=== PATIENT | male | born 1940 | race Caucasian/White ===

== ENCOUNTER 2019-10-19 17:18 | Inpatient (IN) | payer OTHER ==
[~2019-10-19] VITALS: Ht 172.7 cm; Wt 76.0 kg
[~2019-10-19 17:18] MED LIST: AMLODIPINE BESY10 MG PO; ASPIR 8181 MG PO; AVODART0.5 MG PO; B12 5,000 MCG1 EACH PO; FENOFIBRATE160 MG PO; FLOMAX0.4 MG PO; GLIPIZIDE-METF1 EAC2 PO; HYDROCHLOROTHIA25 MG PO; LASIX40 MG PO; LIPITOR10 MG PO; LISINOPRIL40 MG PO; LOPRESSOR25 MG PO; METFORMIN HCL500 MG PO; NIACIN500 M1 PO; OMEGA 3 FISH O1 EACH PO; PLAVIX75 MG PO; POT CITRATE PO; SUPER B COMPLE150 MG PO; VITAMIN C500 MG PO; ZESTRIL20 MG PO
--- OUTSIDE RECORDS SUMMARY | 2019-10-19 17:20 | XMS REPORT ---
Author [facility] Address Unknown Phone Unavailable Care Team Providers Care Web Merchant Name Role Phone ANGLE RIVERO Unavailable Unavailable Payers Payer Name Policy Type Policy Number Effective Date Expiration Date Problems This patient has no known problems. Allergies, Adverse Reactions, Alerts This patient has no known allergies or adverse reactions. Medications This patient has no known medications. Results Test Description Test Time Test Comments Text Results Atomic Results Result Comments MICROALBUMIN UR 2019-09-03 16:08:00 MICROALBUMIN UR (test code=MICROALBUR) 133.2 ug/mL Not Estab. Performed At: [facility] [address] [id number] Logan MD Ph:[phone] URINALYSIS [id number] 11:42:00* Test Item Value Reference Range Comments UA COLOR (test code=COLU) PALE YELLOW DISCRIPT YELLOW UA APPEARANCE (test code=APPU) CLEAR DISCRIPT CLEAR UA GLUCOSE DIPSTICK (test code=DGLUU) NEGATIVE mg/dL NEGATIVE UA BILIRUBIN DIPSTICK (test code=BILU) NEGATIVE NEGATIVE UA KETONE DIPSTICK (test code=KETU) NEGATIVE mg/dL NEGATIVE UA SPECIFIC GRAVITY (test code=SGU) 1.015 1.005-1.030 UA BLOOD DIPSTICK (test code=ANGIE) NEGATIVE NEGATIVE UA PH DIPSTICK (test code=YAN) 5.5 5.0-9.0 UA PROTEIN DIPSTICK (test code=PROU) 30 mg/dL NEGATIVE UA UROBILINOGEN DIPSTICK (test code=URO) 0.2 mg/dL 0.2-1.0 UA NITRITE DIPSTICK (test code=ANNIE) NEGATIVE NEGATIVE UA LEUKOCYTE ESTERASE DIPSTICK (test code=LEUU) NEGATIVE NEGATIVE UA [id number] 11:42:00* Test Item Value Reference Range Comments UA WBC (test code=WBCU) 0-2 #WBC/HPF 0-2 UA RBC (test code=RBCU) 0-2 #RBC/HPF 0-2 UA BACTERIA (test code=BACU) OCCASIONAL /HPF NONE-TRACE UA SQUAMOUS CELLS (test code=SQU) TRACE /LPF NONE-TRACE UA MUCUS (test code=MUCU) OCCASIONAL /LPF NONE SEEN CBC W/AUTO [id number] 11:02:00* Test Item Value Reference Range Comments WHITE BLOOD CELL (test code=WBC) 8.6 x10 3/uL 4.8-10.8 RED BLOOD CELL (test code=RBC) 3.43 x10 6/uL 4.70-6.10 HEMOGLOBIN (test code=HGB) 10.3 g/dL 14.5-20 HEMATOCRIT (test code=HCT) 31.2 % 42.0-52.0 MEAN CELL VOLUME (test code=MCV) 91.0 fL 80.0-94.0 MEAN CELL HGB (test code=MCH) 30.0 pg 27-31 MEAN CELL HGB CONCENTRATION (test code=MCHC) 33.0 G/DL 33-36.5 RED CELL DISTRIBUTION WIDTH (test code=RDW) 18.6 % 12.9-16.9 PLATELET COUNT (test code=PLT) 339 150-440 MEAN PLATELET VOLUME (test code=MPV) 11.5 fL 8.9-12.4 NEUTROPHIL % (test code=NT%) 54.0 % 42.2-75.2 LYMPHOCYTE % (test code=LY%) 27.2 % 20.5-51.1 MONOCYTE % (test code=MO%) 13.6 % 1.7-9.3 EOSINOPHIL % (test code=EO%) 3.9 % 0.0-7.0 BASOPHIL % (test code=BA%) 0.9 % 0-2.5 NEUTROPHIL # (test code=NT#) 4.63 x10 3/uL 1.80-7.70 LYMPHOCYTE # (test code=LY#) 2.33 x10 3/uL 1.00-4.80 MONOCYTE # (test code=MO#) 1.16 x10 3/uL 0.00-0.80 EOSINOPHIL # (test code=EO#) 0.33 x10 3/uL 0.00-0.45 BASOPHIL # (test code=BA#) 0.08 x10 3/uL 0.0-0.20 URINALYSIS [id number] 10:57:00* Test Item Value Reference Range Comments UA COLOR (test code=COLU) PALE YELLOW DISCRIPT YELLOW UA APPEARANCE (test code=APPU) CLEAR DISCRIPT CLEAR UA GLUCOSE DIPSTICK (test code=DGLUU) NEGATIVE mg/dL NEGATIVE UA BILIRUBIN DIPSTICK (test code=BILU) NEGATIVE NEGATIVE UA KETONE DIPSTICK (test code=KETU) NEGATIVE mg/dL NEGATIVE UA SPECIFIC GRAVITY (test code=SGU) 1.015 1.005-1.030 UA BLOOD DIPSTICK (test code=ANGIE) NEGATIVE NEGATIVE UA PH DIPSTICK (test code=YAN) 5.5 5.0-9.0 UA PROTEIN DIPSTICK (test code=PROU) 30 mg/dL NEGATIVE UA UROBILINOGEN DIPSTICK (test code=URO) 0.2 mg/dL 0.2-1.0 UA NITRITE DIPSTICK (test code=ANNIE) NEGATIVE NEGATIVE UA LEUKOCYTE ESTERASE DIPSTICK (test code=LEUU) NEGATIVE NEGATIVE UA [id number] 10:57:00* Test Item Value Reference Range Comments UA WBC (test code=WBCU) #WBC/HPF 0-2 UA RBC (test code=RBCU) #RBC/HPF 0-2 UA BACTERIA (test code=BACU) /HPF NONE-TRACE UA SQUAMOUS CELLS (test code=SQU) /LPF NONE-TRACE URINALYSIS [id number] 10:57:00* Test Item Value Reference Range Comments UA COLOR (test code=COLU) PALE YELLOW DISCRIPT YELLOW UA APPEARANCE (test code=APPU) CLEAR DISCRIPT CLEAR UA GLUCOSE DIPSTICK (test code=DGLUU) NEGATIVE mg/dL NEGATIVE UA BILIRUBIN DIPSTICK (test code=BILU) NEGATIVE NEGATIVE UA KETONE DIPSTICK (test code=KETU) NEGATIVE mg/dL NEGATIVE UA SPECIFIC GRAVITY (test code=SGU) 1.015 1.005-1.030 UA BLOOD DIPSTICK (test code=ANGIE) NEGATIVE NEGATIVE UA PH DIPSTICK (test code=YAN) 5.5 5.0-9.0 UA PROTEIN DIPSTICK (test code=PROU) 30 mg/dL NEGATIVE UA UROBILINOGEN DIPSTICK (test code=URO) 0.2 mg/dL 0.2-1.0 UA NITRITE DIPSTICK (test code=ANNIE) NEGATIVE NEGATIVE UA LEUKOCYTE ESTERASE DIPSTICK (test code=LEUU) NEGATIVE NEGATIVE UA [id number] 10:57:00* Test Item Value Reference Range Comments UA WBC (test code=WBCU) #WBC/HPF 0-2 UA RBC (test code=RBCU) #RBC/HPF 0-2 UA BACTERIA (test code=BACU) /HPF NONE-TRACE UA SQUAMOUS CELLS (test code=SQU) /LPF NONE-TRACE COMPREHENSIVE METABOLIC [id number] 10:52:00* Test Item Value Reference Range Comments SODIUM (test code=NA) 139 MMOL/L 136-143 POTASSIUM (test code=K) 4.4 MMOL/L 3.5-5.1 CHLORIDE (test code=CL) 101 MMOL/L 98-107 CARBON DIOXIDE (test code=CO2) 24 mmol/L 24-31 GLUCOSE (test code=GLU) 117 mg/dL 70-104 BLOOD UREA NITROGEN (test code=BUN) 82.0 MG/DL 7.0-21.0 GLOMERULAR FILTRATION RATE (test code=GFR) 14 >60 The estimated glomerular filtration rate is computed usingpatient race, age (>18), sex, and serum creatinine. If anyof the needed data elements are missing the Laboratory cannot compute an estimation of the glomerular filtration rate. CREATININE (test code=CREAT) 4.3 mg/dL 0.8-1.5 TOTAL PROTEIN (test code=PROT) 6.2 g/dL 6.3-8.3 ALBUMIN (test code=ALB) 3.0 G/DL 3.5-5.0 CALCIUM (test code=CA) 8.9 mg/dL 8.8-10.2 BILIRUBIN TOTAL (test code=BILT) 0.9 mg/dL 0.2-1.0 SGOT/AST (test code=AST) 30 IU/L 10-34 SGPT/ALT (test code=ALT) 10 U/L 10-44 ALKALINE PHOSPHATASE (test code=ALKP) 37 U/L 45-120 PLATELET AGGREGATION: FUNCTION [id number] 14:59:00* Test Item Value Reference Range Comments [id number] (BEAKER) (test jgrc=7211) Estelita Rausch MD (electronic signature) PLATELET COUNT AGG (BEAKER) (test aytt=0633) 285 K/CU MM 150-450 PLATELET RICH PLASMA(BEAKER) (test yxsx=8785) 195 k/cu mm 200-300 PLATELET FUNCTION SCREEN INTERPRETATION (BEAKER) (test czrb=5699) Pattern of disaggregation present with ADP which may be characteristic of P2Y12 inhibitor effect. Correlation with medication history is required. Platelet Function Screen results may be falsely low with platelet counts< 75,000/cu mm.POCT-GLUCOSE [id number] 11:36:00* Test Item Value Reference Range Comments POC-GLUCOSE METER (BEAKER) (test fpgo=3805) 219 mg/dL 70-110 : TESTED AT [address], [address]: Senior Product Analyst/Barrel Charrer Helper ON=[id number] for DELMY POLLOCK CBC W/PLT COUNT & AUTO [id number] 11:00:00* Test Item Value Reference Range Comments WHITE BLOOD CELL COUNT (BEAKER) (test nubk=242) 9.4 K/ L 3.5-10.5 RED BLOOD CELL COUNT (BEAKER) (test bevp=622) 2.52 M/ L 4.63-6.08 HEMOGLOBIN (BEAKER) (test erpj=815) 7.6 GM/DL 13.7-17.5 HEMATOCRIT (BEAKER) (test mhvx=125) 23.1 % 40.1-51.0 MEAN CORPUSCULAR VOLUME (BEAKER) (test tsfx=359) 91.7 fL 79.0-92.2 MEAN CORPUSCULAR HEMOGLOBIN (BEAKER) (test azxg=048) 30.2 pg 25.7-32.2 MEAN CORPUSCULAR HEMOGLOBIN CONC (BEAKER) (test xbpw=884) 32.9 GM/DL 32.3-36.5 RED CELL DISTRIBUTION WIDTH (BEAKER) (test lgkn=259) 17.5 % 11.6-14.4 PLATELET COUNT (BEAKER) (test xgej=674) 279 K/CU MM 150-450 MEAN PLATELET VOLUME (BEAKER) (test tvld=936) 11.6 fL 9.4-12.4 NUCLEATED RED BLOOD CELLS (BEAKER) (test tdqo=697) 0 /100 WBC 0-0 NEUTROPHILS RELATIVE PERCENT (BEAKER) (test mwzd=956) 63 % LYMPHOCYTES RELATIVE PERCENT (BEAKER) (test wqtt=357) 20 % MONOCYTES RELATIVE PERCENT (BEAKER) (test gcmn=809) 11 % EOSINOPHILS RELATIVE PERCENT (BEAKER) (test tgjl=463) 4 % BASOPHILS RELATIVE PERCENT (BEAKER) (test korx=654) 1 % NEUTROPHILS ABSOLUTE COUNT (BEAKER) (test xawd=567) 5.94 K/ L 1.78-5.38 LYMPHOCYTES ABSOLUTE COUNT (BEAKER) (test eyfz=784) 1.90 K/ L 1.32-3.57 MONOCYTES ABSOLUTE COUNT (BEAKER) (test phux=673) 1.04 K/ L 0.30-0.82 EOSINOPHILS ABSOLUTE COUNT (BEAKER) (test qahm=191) 0.39 K/ L 0.04-0.54 BASOPHILS ABSOLUTE COUNT (BEAKER) (test wion=797) 0.10 K/ L 0.01-0.08 IMMATURE GRANULOCYTES-RELATIVE PERCENT (BEAKER) (test bvxe=6601) 1 % 0-1 POCT-GLUCOSE [id number] 07:32:00* Test Item Value Reference Range Comments POC-GLUCOSE METER (BEAKER) (test xszm=4574) 127 mg/dL 70-110 : TESTED AT [address], [address]: Senior Product Analyst/Barrel Charrer Helper NS=[id number] for DELMY POLLOCK BASIC METABOLIC [id number] 06:00:00* Test Item Value Reference Range Comments SODIUM (BEAKER) (test mcqf=960) 136 meq/L 136-145 POTASSIUM (BEAKER) (test pxam=788) 3.8 meq/L 3.5-5.1 CHLORIDE (BEAKER) (test xshj=472) 106 meq/L 98-107 CO2 (BEAKER) (test quxc=615) 22 meq/L 22-29 BLOOD UREA NITROGEN (BEAKER) (test hhxb=815) 60 mg/dL 7-21 CREATININE (BEAKER) (test udlx=810) 4.00 mg/dL 0.57-1.25 GLUCOSE RANDOM (BEAKER) (test untn=835) 133 mg/dL 70-105 CALCIUM (BEAKER) (test jcwh=724) 7.4 mg/dL 8.4-10.2 EGFR (BEAKER) (test aapg=3999) 15 mL/min/1.73 sq m ESTIMATED GFR IS NOT ACCURATE CREATININE CLEARANCE IN PREDICTING GLOMERULAR FILTRATION RATE. ESTIMATED GFR IS NOT APPLICABLE FOR DIALYSIS PATIENTS. CBC (HEMOGRAM ONLY)2019-06-12 04:49:00* Test Item Value Reference Range Comments WHITE BLOOD CELL COUNT (BEAKER) (test mbik=905) 10.2 K/ L 3.5-10.5 RED BLOOD CELL COUNT (BEAKER) (test vfpz=262) 2.51 M/ L 4.63-6.08 HEMOGLOBIN (BEAKER) (test jjfm=896) 7.5 GM/DL 13.7-17.5 HEMATOCRIT (BEAKER) (test ymdf=835) 22.7 % 40.1-51.0 MEAN CORPUSCULAR VOLUME (BEAKER) (test dqdb=483) 90.4 fL 79.0-92.2 MEAN CORPUSCULAR HEMOGLOBIN (BEAKER) (test eyvk=472) 29.9 pg 25.7-32.2 MEAN CORPUSCULAR HEMOGLOBIN CONC (BEAKER) (test pyry=954) 33.0 GM/DL 32.3-36.5 RED CELL DISTRIBUTION WIDTH (BEAKER) (test yscc=887) 17.9 % 11.6-14.4 PLATELET COUNT (BEAKER) (test aouv=690) 272 K/CU MM 150-450 MEAN PLATELET VOLUME (BEAKER) (test xmhb=193) 10.9 fL 9.4-12.4 NUCLEATED RED BLOOD CELLS (BEAKER) (test wlzg=266) 0 /100 WBC 0-0 POCT-GLUCOSE [id number] 23:20:00* Test Item Value Reference Range Comments POC-GLUCOSE METER (BEAKER) (test xqah=3967) 161 mg/dL 70-110 : TESTED AT [facility] [address] [facility], [address]: Senior Product Analyst/Barrel Charrer Helper PI=[id number] for DEION FATIMA [id number] 17:48:00* Test Item Value Reference Range Comments ACTIVATED CLOTTING TIME (BEAKER) (test jyea=404) 147 sec Reference Range: 74-137 seconds, Baseline/TESTED AT [place] [address] [id number] 16:28:00* Test Item Value Reference Range Comments ACTIVATED CLOTTING TIME (BEAKER) (test rwth=650) 153 sec Reference Range: 74-137 seconds, Baseline/TESTED AT [place] [address] [id number] 14:34:00* Test Item Value Reference Range Comments ACTIVATED CLOTTING TIME (BEAKER) (test enkk=359) 175 sec Reference Range: 74-137 seconds, Baseline/TESTED AT [place] [address] POCT-GLUCOSE [id number] 12:12:00* Test Item Value Reference Range Comments POC-GLUCOSE METER (BEAKER) (test rxxs=7250) 127 mg/dL 70-110 : TESTED AT [place] [address]: Senior Product Analyst/Barrel Charrer Helper CM=[id number] for DELMY POLLOCK [id number] 10:49:00* Test Item Value Reference Range Comments ACTIVATED CLOTTING TIME (BEAKER) (test gcpy=526) 252 sec Reference Range: 74-137 seconds, Baseline/TESTED AT [place] [address] [id number] 10:28:00* Test Item Value Reference Range Comments ACTIVATED CLOTTING TIME (BEAKER) (test bxak=534) 274 sec Reference Range: 74-137 seconds, Baseline/TESTED AT [place] [address] [id number] 10:16:00* Test Item Value Reference Range Comments ACTIVATED CLOTTING TIME (BEAKER) (test uzqj=302) 246 sec Reference Range: 74-137 seconds, Baseline/TESTED AT [place] [address] BASIC METABOLIC [id number] 16:44:00* Test Item Value Reference Range Comments SODIUM (BEAKER) (test qiuk=425) 134 meq/L 136-145 POTASSIUM (BEAKER) (test qcpt=222) 5.2 meq/L 3.5-5.1 Specimen moderately hemolyzed CHLORIDE (BEAKER) (test dgmt=363) 104 meq/L 98-107 CO2 (BEAKER) (test irsw=232) 24 meq/L 22-29 BLOOD UREA NITROGEN (BEAKER) (test ykga=444) 52 mg/dL 7-21 CREATININE (BEAKER) (test xtdm=294) 3.72 mg/dL 0.57-1.25 Specimen moderately hemolyzed GLUCOSE RANDOM (BEAKER) (test tkbu=238) 103 mg/dL 70-105 CALCIUM (BEAKER) (test ldjf=527) 7.5 mg/dL 8.4-10.2 EGFR (BEAKER) (test psma=6671) 16 mL/min/1.73 sq m ESTIMATED GFR IS NOT ACCURATE CREATININE CLEARANCE IN PREDICTING GLOMERULAR FILTRATION RATE. ESTIMATED GFR IS NOT APPLICABLE FOR DIALYSIS PATIENTS. (CELLAVISION MANUAL DIFF)2019-05-18 14:24:00* Test Item Value Reference Range Comments NEUTROPHILS - REL (CELLAVISION)(BEAKER) (test elbk=0497) 67 % LYMPHOCYTES - REL (CELLAVISION)(BEAKER) (test ilwq=5727) 22 % MONOCYTES - REL (CELLAVISION)(BEAKER) (test frtd=7028) 6 % EOSINOPHILS - REL (CELLAVISION)(BEAKER) (test risa=7437) 5 % NEUTROPHILS - ABS (CELLAVISION)(BEAKER) (test ahdg=6479) 6.57 K/ul 1.78-5.38 LYMPHOCYTES - ABS (CELLAVISION)(BEAKER) (test ypir=2523) 2.16 K/ul 1.32-3.57 MONOCYTES - ABS (CELLAVISION)(BEAKER) (test frzx=5896) 0.59 K/uL 0.30-0.82 EOSINOPHILS - ABS (CELLAVISION)(BEAKER) (test uvds=9132) 0.49 K/uL 0.04-0.54 TOTAL COUNTED (BEAKER) (test oigs=2868) 100 RBC MORPHOLOGY (BEAKER) (test pecw=433) Normal LARGE PLT(BEAKER) (test fufe=4793) Present TOXIC GRANULATION (BEAKER) (test dwps=503) Present CBC WITH PLATELET COUNT + MANUAL [id number] 10:18:00* Test Item Value Reference Range Comments WHITE BLOOD CELL COUNT (BEAKER) (test dmgx=132) 9.8 K/ L 3.5-10.5 RED BLOOD CELL COUNT (BEAKER) (test tkus=663) 2.63 M/ L 4.63-6.08 HEMOGLOBIN (BEAKER) (test pkmo=340) 7.7 GM/DL 13.7-17.5 HEMATOCRIT (BEAKER) (test rcrj=128) 23.4 % 40.1-51.0 MEAN CORPUSCULAR VOLUME (BEAKER) (test cmhw=783) 89.0 fL 79.0-92.2 MEAN CORPUSCULAR HEMOGLOBIN (BEAKER) (test fpmb=182) 29.3 pg 25.7-32.2 MEAN CORPUSCULAR HEMOGLOBIN CONC (BEAKER) (test qkif=933) 32.9 GM/DL 32.3-36.5 RED CELL DISTRIBUTION WIDTH (BEAKER) (test wcjh=865) 17.0 % 11.6-14.4 PLATELET COUNT (BEAKER) (test wqzf=867) 373 K/CU MM 150-450 MEAN PLATELET VOLUME (BEAKER) (test uthb=049) 11.7 fL 9.4-12.4 NUCLEATED RED BLOOD CELLS (BEAKER) (test oqnx=228) 0 /100 WBC 0-0
[2019-10-19] MEDS ORDERED: SODIUM CHLORIDE 0.9% 1000ML 1,000 ML IV STA (17:37)
[2019-10-19 18:07] LABS: BASOPHILS % 0.2 % (0.0-1.0); EOSINOPHILS # (AUTO) 0.1 (0.0-0.4); EOSINOPHILS % 0.4 % (0.0-6.0); LYMPHOCYTES # (AUTO) 2.1 (1.0-3.2); LYMPHOCYTES % 15.4 % (18.0-39.1); MEAN CORPUSCULAR HEMOGLOBIN 30.9 pg (28-32); MEAN CORPUSCULAR HGB CONC 33.3 g/dL (31-35); MEAN CORPUSCULAR VOLUME 92.6 fL (81-99); MONOCYTES # (AUTO) 0.9 (0.2-0.8); MONOCYTES % 6.7 % (4.4-11.3); NEUTROPHILS # (AUTO) 10.2 (2.1-6.9); NEUTROPHILS % 76.6 % (38.7-80.0); PLATELET COUNT 275 x10e3/uL (140-360); RED BLOOD COUNT 1.49 x10e6/uL (4.3-5.7); RED CELL DISTRIBUTION WIDTH 20.3 % (11.7-14.4)
[2019-10-19 18:12] LABS: HEMATOCRIT 13.8 % (38.2-49.6); HEMOGLOBIN 4.6 g/dL (14.0-18.0)
[2019-10-19 18:14] LABS: INR 1.42; PROTHROMBIN TIME 18.3 seconds (11.9-14.5)
[2019-10-19] MEDS ORDERED: SODIUM CHLORIDE 0.9% 250ML 250 ML IV ONE (18:15)
--- NOTE | 2019-10-19 18:31 | Diagnostic Imaging Report ---
EXAMINATION: CHEST SINGLE (PORTABLE) INDICATION: ^ERMD ORDER ^Y COMPARISON: None FINDINGS: AP view TUBES and LINES: None. LUNGS: Lungs are well inflated. Bibasilar subsegmental atelectasis. Mild central vascular congestion. PLEURA: No pleural effusion or pneumothorax. HEART AND MEDIASTINUM: Enlarged cardiac silhouette. Prominent bilateral hilar regions, probably due to vascular congestion. BONES AND SOFT TISSUES: No acute osseous lesion. Soft tissues are unremarkable. UPPER ABDOMEN: No free air under the diaphragm. IMPRESSION: Enlarged cardiac silhouette and mild central vascular congestion. Bibasilar subsegmental atelectasis. No definite evidence of displaced rib fractures, considering limited single view. Signed by: Dr. Asael Holliday MD on 10/19/2019 6:27 PM
--- NOTE | 2019-10-19 18:32 | Diagnostic Imaging Report ---
History: Fall Comparison studies: None Technique: Axial images were obtained through the cervical region.. Coronal and sagittal images reconstructed from the axial data. Dose modulation, iterative reconstruction, and/or weight based adjustment of the mA/kV was utilized to reduce the radiation dose to as low as reasonably achievable. Intravenous contrast: None Findings: Fractures: None. Soft tissues: No gross abnormalities. Atlantoaxial articulation: Intact. Alignment: Normal lordosis. No scoliosis. Cervicomedullary junction: No abnormalities. The foramen magnum is patent. Vertebrae: No infection or neoplasm. Degenerative changes: * Mildly degenerated discs from C2 to C6, moderate at C6-C7. * Mild spinal canal stenosis at C6-C7 due to a disc osteophyte complex. Otherwise patent. * Superimposed foraminal stenosis, mild bilaterally at C3-4, mild right, moderate left C6-7 due to facet and uncoarthrosis. Additional findings: The lobes and the isthmus of the thyroid gland are enlarged and heterogeneous. Multiple hypodense foci, some of which are associated with punctate calcifications are seen. The lobes measure approximately 7.3 cm in sagittal dimension as they extend from the level of the thyroid cartilage to the thoracic inlet. The trachea is patent. Incidental findings: Atherosclerotic calcifications in the carotid bulbs and intracranial vertebral arteries. IMPRESSION: 1. No acute abnormalities. Specifically, no fractures or subluxations. 2. Cannot adequately evaluate for ligament, spinal cord and or vascular abnormalities. 3. Degenerative changes as described. 4. Incidental heterogeneous thyroid goiter. The enlarged thyroid gland extends from the level of the thyroid cartilage to the thoracic inlet. Signed by: Dr. Jeff Vazquez M.D. on 10/19/2019 6:28 PM
--- NOTE | 2019-10-19 18:33 | Diagnostic Imaging Report ---
History:Fall Comparison studies: None Technique: Axial images were obtained from the skull base to the vertex. Coronal and sagittal images reconstructed from the axial data. Dose modulation, iterative reconstruction, and/or weight based adjustment of the mA/kV was utilized to reduce the radiation dose to as low as reasonably achievable. Intravenous contrast: None Findings: Scalp/skull: No abnormalities. Extra-axial spaces: No masses. No fluid collections. Brain sulci: Moderately prominent. Ventricles: Moderate compensatory dilatation. No hydrocephalus. Parenchyma: Subtle confluent hypodensities in the supratentorial white matter are small vessel ischemic changes. No masses, hemorrhage, acute or chronic cortical vascular insults. Sellar/suprasellar region: No abnormalities. Craniocervical junction: Patent foramen magnum. No Chiari one malformation. Incidental findings: Atherosclerotic calcifications in the carotid siphons and intradural vertebral arteries. Impression: No acute abnormalities. Chronic findings: 1. Moderate generalized volume loss. 2. Mild supratentorial white matter small vessel ischemic changes. Signed by: Dr. Jeff Vazquez M.D. on 10/19/2019 6:30 PM
[2019-10-19 18:34] LABS: ALBUMIN/GLOBULIN RATIO 0.6 (0.8-2.0); ANION GAP 14.2 mmol/L (8-16); CALCIUM 8.1 mg/dL (8.4-10.2); CREATININE, SERUM 4.78 mg/dL (0.72-1.25); MAGNESIUM 2.3 MG/DL (1.3-2.1); POTASSIUM 5.2 mmol/L (3.5-5.1)
[2019-10-19 18:46] LABS: CREATINE KINASE MB 7.1 ng/mL (0-5.0); THYROID STIMULATING HORMONE 0.254 uIU/mL (0.350-4.940)
[2019-10-19] MEDS ORDERED: FUROSEMIDE INJ 10 MG/ML 2 ML VIAL IV SCH (19:15)
[2019-10-19] MEDS ORDERED: OCTREOTIDE ACETATE 0.05 MG/ML AMP IV ONE (19:15)
[2019-10-19] MEDS ORDERED: SODIUM CHLORIDE 0.9% 250ML 0 ML ONE (20:38)
[2019-10-19] MEDS: PANTOPRAZOLE 40 MG 10ML VIAL IV SCH (20:39)
[2019-10-19] MEDS: OCTREOTIDE ACETATE 500 MCG in SODIUM CHLORIDE 0.9% 250ML 249 ML IV SCH (20:40)
[2019-10-19 21:37] VITALS: BP 102/42
[2019-10-19 21:43] VITALS: BP 102/42
[2019-10-19 22:05] VITALS: BP 95/50
[2019-10-19] MEDS ORDERED: SODIUM CHLORIDE 0.9% 250ML 250 ML ONE (22:43)
[2019-10-19 23:09] VITALS: BP 100/47
[2019-10-20] VITALS (25 sets, daily range): BP systolic 88–122; BP diastolic 43–66
--- NOTE | 2019-10-20 00:10 | NUR ---
DURING FFP TRANSFUSION, PATIENT HAD ITCHING AND RASH REACTION, CALLED AND SPOKE WITH DR RODRIGUEZ, THE MD ORDERED TO DISCONTINUE THE FFP AND GIVE SOLU MEDROL 40 MG TIME ONE, AND ONLY GIVE THE BLOOD. WILL CONTINUE TO MONITOR.
[2019-10-20] MEDS ORDERED: METHYLPREDNISOLONE SOD SUCC 40 MG/ML VIAL 1ML IV ONE (00:15)
--- NOTE | 2019-10-20 00:42 | NUR ---
PATIENT IS AWAKE ALERT ORIENTED.NOTED RASH TO BILATERAL UNDER ARM AREAS, PATIENT COMPLAINED OF ITCHY. APPLIED LOTION TO THE AREAS, WILL CONTINUE TO MONITOR.
--- NOTE | 2019-10-20 03:29 | Consultation ---
DATE OF CONSULTATION: 10/19/2019 Critical Care Consultation REASON FOR CONSULT: Acute blood loss anemia, GI bleed. HISTORY OF PRESENT ILLNESS: Mr. Nathan is a 79-year-old male who presented to the emergency room with syncope. The patient reports that happened yesterday. His hemoglobin was running low and his fine artist prescribing with subcutaneous shot which sounds like Aranesp shots for anemia of chronic illness. The patient has chronic kidney disease and is nearing hemodialysis. According to his head stock operator, the patient was scheduled to get fistula done this week for the chronic kidney disease. He denies any chest pain, nausea, or vomiting. He has mild abdominal distention. The patient has history of tumor and the etiology of tumor is not very clear from the description; however, he had a major surgery that required colostomy and the patient has colostomy for more than five years. REVIEW OF SYSTEMS: GENERAL: Denies any fever, chills. HEAD: Denies any head trauma. ENT: Denies any earache. CVS: Denies any chest pain. RESPIRATORY: Denies any shortness of breath. GI: Denies any nausea or vomiting. The rest of the review of systems are negative except as in HPI. PAST MEDICAL HISTORY: Chronic kidney disease, hypertension, diabetes, benign prostatic hypertrophy, colostomy and mass and cancer in the abdomen. The etiology of cancer is not very clear, possibly colon cancer, history of coronary artery disease. FAMILY AND SOCIAL HISTORY: He smokes and drinks. PHYSICAL EXAMINATION: VITAL SIGNS: Temperature 97.8, blood pressure was 91/47, pulse of 70, respiratory rate of 18, and O2 saturation 99%. HEENT: Head is atraumatic, normocephalic. NECK: Supple. CHEST: Clear to auscultation bilaterally. ABDOMEN: Distended. The patient has colostomy. NEUROLOGIC: Awake and alert. LABORATORY DATA: Reviewed. Hemoglobin is down to 4.6. Creatinine is 4.78. The patient has chronic kidney disease. ASSESSMENT/PLAN: Mr. Nathan is a 79-year-old male with acute blood loss anemia, possibly GI bleed versus chronic anemia secondary to kidney disease. Current problem: 1. Acute anemia and acute symptomatic anemia. 2. Chronic kidney disease, nearing end-stage renal disease. 3. History of colostomy. 4. History of hypertension. PLAN: Continue IV. Agree with IV Protonix, octreotide, blood transfusion has been ordered. Oxygen as needed to keep the O2 saturation more than or equal to 92%. GI and nephrology have been consulted. Thank you for this consult. MD UMAIR Martell/VINI /[phone]
[2019-10-20 04:02] LABS: BASOPHILS % 0.1 % (0.0-1.0); LYMPHOCYTES # (AUTO) 0.8 (1.0-3.2); LYMPHOCYTES % 8.3 % (18.0-39.1); MEAN CORPUSCULAR HEMOGLOBIN 30.1 pg (28-32); MEAN CORPUSCULAR HGB CONC 32.3 g/dL (31-35); MEAN CORPUSCULAR VOLUME 93.4 fL (81-99); MONOCYTES # (AUTO) 0.2 (0.2-0.8); MONOCYTES % 1.9 % (4.4-11.3); NEUTROPHILS % 89.3 % (38.7-80.0); PLATELET COUNT 243 x10e3/uL (140-360); RED BLOOD COUNT 1.36 x10e6/uL (4.3-5.7); RED CELL DISTRIBUTION WIDTH 20.4 % (11.7-14.4)
[2019-10-20 04:08] LABS: HEMATOCRIT 12.7 % (38.2-49.6); HEMOGLOBIN 4.1 g/dL (14.0-18.0)
[2019-10-20 04:36] LABS: ALBUMIN 2.1 g/dL (3.5-5.0); ALBUMIN/GLOBULIN RATIO 0.7 (0.8-2.0); ANION GAP 14.1 mmol/L (8-16); CALCIUM 7.8 mg/dL (8.4-10.2); CREATININE, SERUM 4.78 mg/dL (0.72-1.25); POTASSIUM 5.1 mmol/L (3.5-5.1)
[2019-10-20] MEDS: OCTREOTIDE ACETATE 500 MCG in SODIUM CHLORIDE 0.9% 250ML 249 ML IV SCH ×3 (05:26→18:40)
--- NOTE | 2019-10-20 06:20 | NUR ---
CONSULT CALLED FOR DR LINN, SPOKE TO KATIUSKA AT ANSWERING SERVICE
[2019-10-20 07:27] LABS: CREATINE KINASE MB 33.8 ng/mL (0-5.0)
[2019-10-20] MEDS ORDERED: PHYTONADIONE 10 MG/ML AMP SC SCH ×2 (08:30→20:00)
[2019-10-20] MEDS: PANTOPRAZOLE 40 MG 10ML VIAL IV SCH ×2 (08:41→22:11)
[2019-10-20] MEDS ORDERED: DEXTROSE 50% SYRINGE 50 ML IV PRN (08:45)
[2019-10-20 08:50] LABS: CLARITY,URINE CLOUDY (CLEAR); COLOR,URINE YELLOW (YELLOW)
[2019-10-20 08:51] LABS: BILIRUBIN,URINE NEGATIVE (NEGATIVE); KETONES,URINE NEGATIVE (NEGATIVE); LEUKOCYTE ESTERASE ,URINE 1+ (NEGATIVE); NITRITE,URINE NEGATIVE (NEGATIVE); PROTEIN,URINE DIPSTICK TRACE (NEGATIVE); URINE UROBILINOGEN 0.2 mg/dL (0.2 - 1)
[2019-10-20 08:58] LABS: % IRON SATURATION 12 % (15-50); IRON 33 ug/dL (65-175); TOTAL IRON BINDING CAPACITY 283 ug/dL (261-478); TRANSFERRIN 202 mg/dL (174-364)
[2019-10-20] MEDS ORDERED: HOME MEDICATION--PATIENTS OWN PO SCH (09:00)
[2019-10-20] MEDS ORDERED: DIATRIZOATE MEGL/DIATRIZOA SOD 30 ML BTL PO ONE (09:07)
[2019-10-20 09:08] LABS: BACTERIA,URINE MANY /HPF; EPITHELIAL CELLS,URINE FEW /LPF; RBC,URINE 0-5 /HPF (0-5); TRANSITIONAL EPI CELLS,URINE RARE; WBC,URINE (MAN) >50 /HPF (0-5)
--- NOTE | 2019-10-20 09:44 | History and Physical ---
PRIMARY CARE PHYSICIAN: Dr. Fabian Patel. ADDITIONAL ATTENDING PHYSICIAN: Dr. Lloyd Bender. CONSULTANTS: 1. Dr. Rich Hein. 2. Dr. Nona Isabel. 3. Dr. Michel Brumfield. CHIEF COMPLAINT: Severe weakness with near syncopal episode. 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 He has a colostomy approximately more than five years ago. He had surgery for sarcoma, abdominal surgery at [facility]. The patient was doing well for the past few weeks, but progressively weak. Apparently, he was at home, went to the bathroom, and after that he noticed there is melena in his colostomy bag and then subsequently he felt very weak and asked his , who brought him into the hospital for further evaluation. Here in the hospital, the patient has hemoglobin and hematocrit of 4.1 and 12.7. Platelets normal at 243. The patient is admitted to the ICU due to his symptoms and severe anemia. The patient is currently stable. PAST MEDICAL HISTORY: 1. Chronic anemia secondary to chronic medical disease with possible chronic GI bleed. 2. 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 3. Chronic kidney disease. 4. Hypertension. 5. Diabetes type 2. 6. Enlarged prostate. 7. History of coronary artery disease. SOCIAL HISTORY: The patient does not smoke or use alcohol. No regular drug use. He lives with his . ALLERGIES: TO ACETAMINOPHEN AND CODEINE. HOME MEDICATIONS: He is on Norvasc, aspirin, atorvastatin, Plavix, B12, folic acid, Avodart, fenofibrate, Lasix, glipizide, metformin, HCTZ, lisinopril, metoprolol, niacin, Flomax. PHYSICAL EXAMINATION: VITAL SIGNS: Temperature is 98, blood pressure 100/47, pulse rate 71, and respirations 20. GENERAL: The patient is not in acute distress. He is awake. HEENT: Normocephalic and atraumatic. Sclerae anicteric. NECK: Supple grossly. PULMONARY: Diminished breath sounds. CARDIOVASCULAR: Tachycardia. ABDOMEN: Colostomy in place. It is slightly distended. EXTREMITIES: No cyanosis or edema. NEUROLOGIC: No focal deficit. Awake and alert x4. LABORATORY DATA: Sodium is 132, potassium 5.2, chloride 105, bicarb 18, BUN is 153, creatinine 4.7, and glucose is 250. WBC 13.3, hemoglobin 4.6, hematocrit 13.8, and platelet is 275. CT brain otherwise unremarkable. Chest x-ray, enlarged cardiac silhouette, mild vascular congestion. No acute finding. IMPRESSION: 1. Severe symptomatic anemia with near syncopal episode. 2. Possible upper gastrointestinal bleed. 3. Acute kidney injury on chronic kidney disease. 4. Hyperkalemia. 5. History of sarcoma with colostomy and melena. 6. Baseline hypertension. 7. Coronary artery disease, on Plavix and aspirin. 8. Diabetes type 2, on oral hypoglycemic medication. PLAN: The patient will need blood transfusion. Awaiting for packed red blood cells. Iron infusion. Consultation with GI and Renal. Critical care with Dr. Nona Isabel and Dr. Michel Brumfield. Monitor the patient closely in the ICU. Get echocardiogram. May need Cardiology consultation. We will place the patient on insulin sliding scale coverage. Home medication. We will hold off on Plavix and aspirin for now. We will obtain a CT scan of abdomen and pelvis without contrast. MD NATHEN Clarke/VINI /[id number]
[2019-10-20] MEDS: PIPERACILLIN/TAZO 2.25 GM 50 ML IV SCH ×2 (11:03→22:11)
[2019-10-20] MEDS: INSULIN LISPRO 100 UNIT/1 ML 3ML VIAL SQ SCH ×3 (11:03→18:00)
[2019-10-20] MEDS: DUTASTERIDE 0.5 MG CAP PO SCH (11:03)
[2019-10-20 12:10] LABS: LYMPHOCYTES # (AUTO) 1.1 (1.0-3.2); LYMPHOCYTES % 13.3 % (18.0-39.1); MEAN CORPUSCULAR HEMOGLOBIN 30.1 pg (28-32); MEAN CORPUSCULAR HGB CONC 32.3 g/dL (31-35); MEAN CORPUSCULAR VOLUME 93.4 fL (81-99); MONOCYTES # (AUTO) 0.1 (0.2-0.8); MONOCYTES % 1.6 % (4.4-11.3); NEUTROPHILS # (AUTO) 6.8 (2.1-6.9); NEUTROPHILS % 84.6 % (38.7-80.0); PLATELET COUNT 280 x10e3/uL (140-360); RED BLOOD COUNT 1.36 x10e6/uL (4.3-5.7)
[2019-10-20 12:17] LABS: HEMATOCRIT 12.7 % (38.2-49.6); HEMOGLOBIN 4.1 g/dL (14.0-18.0)
[2019-10-20] MEDS ORDERED: HYDROCORTISONE SOD SUCCINATE 100 MG VIAL IV SCH ×2 (12:35→20:00)
[2019-10-20] MEDS ORDERED: DIPHENHYDRAMINE HCL INJ 50 MG/ML VIAL IV SCH ×2 (12:35→20:00)
--- NOTE | 2019-10-20 13:47 | NUR ---
pt remains vs stable, asymptomatic. MDs have rounded, aware of HH and troponin levels. pt is to have IJ tricath placed and then receive dialysis. per MD blood is to be given with dialysis and HH drawn after each unit. pt aware and consented. pt and daughter have been updated.
--- NOTE | 2019-10-20 14:11 | Consultation ---
DATE OF CONSULTATION: 10/20/2019 Cardiology Consultation ADDITIONAL REFERRING PHYSICIAN: Lloyd Bender MD CONSULTING PHYSICIAN: Reza Danielle MD, Interventional Cardiology REASON FOR CONSULTATION: Vqo-NT-lascfoahp myocardial infarction. HISTORY OF PRESENT ILLNESS: Mr. Nathan is a pleasant 79-year-old man with history of sarcoma, status post colostomy with sarcoma on remission up until recently where he was advised to resume chemotherapy, which was prescribed, but the patient has not been started yet. He has prior surgery for sarcoma done remotely several years ago. He also has diabetes type 2, hypertension, and history of coronary artery disease with remote coronary stents as well as chronic kidney disease. He has been having some issues with anemia recently. He reports tarry black stools within the last couple of weeks. He was also taking some iron, however, he says that this was preceding by weeks the episode of black tarry stools. He was noted to have a hemoglobin of 4 and significant elevation in cardiac biomarkers with EKG showing sinus rhythm with nonspecific repolarization abnormality. The patient had episode of fainting after feeling lightheaded and this was with ambulation and while standing, lost consciousness. He denies any chest pain episodes and he reports noticing this dyspnea on exertion to moderate activity ongoing for several months. He currently is symptom free. REVIEW OF SYSTEMS: A 12-system review negative except for as noted above. PAST MEDICAL HISTORY: Hypertension, diabetes, CAD with prior stents, CKD and sarcoma. SOCIAL HISTORY: No smoking, alcohol, or drugs. ALLERGIES: TO ACETAMINOPHEN AND CODEINE. FAMILY HISTORY: Noncontributory. CARDIOVASCULAR MEDICATIONS: Reviewed. Atorvastatin 20 mg at bedtime, octreotide drip, PRBC transfusions have been ordered and are pending with furosemide 40 mg p.r.n. posttransfusion. STUDIES: Reviewed. Sodium 134, potassium 5.1, chloride 107, bicarbonate 18, BUN 144, creatinine 4.78, glucose 169. White blood cells 10.1, hemoglobin 4.1, platelets 243. INR 1.4, PT 18.3, PTT 32. AST 90, ALT 56, total bilirubin 0.4, alkaline phosphatase 33. ASSESSMENT AND PLAN: A 79-year-old man with: Syncope 1. Severe symptomatic anemia, hemoglobin of 4.4 and suspected GI bleed. 2. Acute on chronic renal failure with a creatinine of 4.7 and BUN of 144. 3. Metabolic acidosis with a bicarbonate of 18. 4. Hyperkalemia with a potassium of 5.1. 5. Siv-HG-qnahyupbz myocardial infarction. 6. History of underlying coronary artery disease and prior remote stents. 7. Sarcoma with recurrence per patient report. 8. Diabetes, hypertension, dyslipidemia. RECOMMENDATIONS: Given suspected GI bleed, at this point anticoagulation, oral antiplatelet therapy is not advised. Furthermore, low blood pressure readings noted at bedside with systolic in the 90s preclude further use of beta blockers. Continue atorvastatin. Replete, anemia with a hemoglobin 4.1 with PRBC transfusions which have been ordered and are pending and consider GI consultation. Obtain echocardiogram. Keep on telemetry. Overall, guarded prognosis. We will follow closely with you. MD JOHN PAUL Sow/VINI /[id number] MTDD
[2019-10-20] MEDS ORDERED: HEPARIN SOD (PORCINE) 1000 UNIT/ML SDV IV ONE (17:00)
[2019-10-20] MEDS ORDERED: IRON SUCROSE 100 MG in SODIUM CHLORIDE 0.9% 100 ML 100 ML IV SCH (17:00)
--- NOTE | 2019-10-20 17:51 | NUR ---
pt right IJ trip lumen dialysis cath now placed, ok to use per MD. pending dialysis in eta hour with transfusion
[2019-10-20] MEDS ORDERED: SODIUM CHLORIDE 0.9% 1000ML 2,000 ML ONE (19:16)
[2019-10-20] MEDS ORDERED: SODIUM CHLORIDE 0.9% 1000ML 2,000 ML IV PRN (20:15)
[2019-10-20] MEDS ORDERED: MANNITOL 25% 12.5GM/50 ML VIAL IV PRN (20:15)
[2019-10-20] MEDS ORDERED: ALBUMIN 25% 12.5GM 0.25 GM/ML BTL IV PRN (20:15)
[2019-10-20] MEDS ORDERED: SODIUM CHLORIDE 0.9% 250ML 500 ML IV PRN (20:15)
--- NOTE | 2019-10-20 20:32 | Consultation ---
DATE OF CONSULTATION: 10/20/2019 HISTORY OF PRESENT ILLNESS: A 79-year-old patient, who is familiar to our Nephrology Service, has CKD 5 and was in preparation to get an AV fistula and initiation of dialysis in the near future, developed GI bleed. He has subsequently been admitted in the hospital with a hemoglobin of 4. Renal has been consulted because of advanced kidney failure. The patient is currently awake, alert, lying supine, appears ill. He has been complaining of tarry-colored stools. Has been on iron tablets, was known to have anemia, got apparently erythropoietin shot with his oncologist. He was at [facility] and now switched to Dr. Leung with Iris Mack. He currently denies shortness of breath, looks weak, tired, ill, but no dyspnea noted. Denies any abdominal pain. Has a colostomy present. Denies any cough, fever, or chills. LABORATORY DATA: Labs show white count 7.98, hemoglobin 4.1, and platelets are 280. Chemistry show sodium 134, potassium 5.1, chloride 107, bicarbonate 18 with BUN 144, and creatinine 4.78. CK 579 and troponin I 8.9. Serum iron 33 and transferrin sat 12. ALLERGIES: TYLENOL AND CODEINE. CURRENT MEDICATIONS: The patient is on Flomax 0.8 mg at bedtime, Protonix 40 mg IV q.12, hydrocortisone 200 mg IV once, and Humalog sliding scale. He is on cyanocobalamin as a home medication, diphenhydramine, and atorvastatin 20 mg at bedtime. He is on piperacillin/tazobactam 2.5/2.5 IV q.8. normal saline bolus was given. Apparently received FFP last night, had reaction to it with itching and no respiratory symptoms. FFP has been stopped. Pathology director, Dr. Nickerson has been addressing it and so far they have not released packed RBC yet. Heme/Onc has been consulted. I have spoken Dr. Bender to communicate with Hematology/Oncology, Dr. Metcalf and for her to coordinate with pathology to have the packed RBC available as soon as possible. PAST MEDICAL HISTORY: History of chronic kidney disease stage 5, diabetic nephropathy, BPH, history of sarcoma, status post left-sided nephrectomy, extensive excision of mass in the past, colostomy present, history of hypertension, history of BPH. He is currently being treated by Dr. Leung. Due to get chemotherapy soon. SOCIAL HISTORY: The patient is , lives with his . Does not smoke or drink. PHYSICAL EXAMINATION: GENERAL: Awake, alert, lying supine, ill-looking gentleman, in no apparent distress. VITAL SIGNS: Blood pressure is 93/45, pulse rate 61, afebrile, and oxygen saturation 99%. HEAD AND NECK: Cornea clear. Oral mucosa moist. Neck veins not distended. LUNGS: Decreased air entry at bases, but clear. No rales. HEART: S1 and S2 audible. ABDOMEN: Otherwise soft, distended. No deep palpation on colostomy bag lower abdomen noted. EXTREMITIES: Lower extremity examination shows trace edema. IMPRESSION AND PLAN: Advanced kidney failure, metabolic acidosis, borderline hyperkalemia, gastrointestinal bleed, elevated troponins. Cardiology consulted to rule out soj-RW-sfjdngu elevated myocardial infarction. The patient needs a dialysis catheter. Discussed with Dr. Barrientos, IR. He is going to place a dialysis catheter as soon as blood is released by blood bank and pathologist, Dr. Nickerson, then I will attempt dialysis and transfuse packed RBC. Has iron-deficiency anemia secondary to gastrointestinal bleed. I will start IV iron. Overall critically ill, multiple comorbidities, very poor prognosis. Dialysis nurse on standby and they have been informed. MD EDMOND Jones/VINI /[id number]
[2019-10-20 21:49] LABS: HEMATOCRIT 17.6 % (38.2-49.6); HEMOGLOBIN 5.9 g/dL (14.0-18.0)
[2019-10-20] MEDS: ATORVASTATIN 10 MG TAB PO SCH (22:11)
[2019-10-20] MEDS: TAMSULOSIN HCL 0.4 MG CAP PO SCH (22:11)
[2019-10-21] VITALS (22 sets, daily range): BP systolic 110–131; BP diastolic 58–81
[2019-10-21] MEDS ORDERED: HYDROCORTISONE SOD SUCCINATE 100 MG VIAL ONE (00:27)
[2019-10-21] MEDS: INSULIN LISPRO 100 UNIT/1 ML 3ML VIAL SQ SCH ×5 (00:35→21:00)
[2019-10-21] MEDS ORDERED: HYDROCORTISONE SOD SUCCINATE 100 MG VIAL IV NR (01:00)
[2019-10-21 05:27] LABS: BASOPHILS % 0.1 % (0.0-1.0); LYMPHOCYTES % 7.1 % (18.0-39.1); MEAN CORPUSCULAR HEMOGLOBIN 31.3 pg (28-32); MEAN CORPUSCULAR HGB CONC 33.8 g/dL (31-35); MEAN CORPUSCULAR VOLUME 92.4 fL (81-99); MONOCYTES # (AUTO) 0.6 (0.2-0.8); MONOCYTES % 4.3 % (4.4-11.3); NEUTROPHILS # (AUTO) 11.8 (2.1-6.9); NEUTROPHILS % 87.9 % (38.7-80.0); PLATELET COUNT 225 x10e3/uL (140-360); RED BLOOD COUNT 2.24 x10e6/uL (4.3-5.7); RED CELL DISTRIBUTION WIDTH 17.8 % (11.7-14.4); RETICULOCYTE % 6.7 % (0.8-2.2)
[2019-10-21 05:44] LABS: HEMATOCRIT 20.7 % (38.2-49.6)
[2019-10-21 05:48] LABS: ALBUMIN 2.5 g/dL (3.5-5.0); ALBUMIN/GLOBULIN RATIO 0.9 (0.8-2.0); ANION GAP 13.6 mmol/L (8-16); CALCIUM 7.7 mg/dL (8.4-10.2); CREATININE, SERUM 3.82 mg/dL (0.72-1.25); POTASSIUM 4.6 mmol/L (3.5-5.1)
[2019-10-21 05:58] LABS: THYROID STIMULATING HORMONE 0.083 uIU/mL (0.350-4.940)
[2019-10-21] MEDS ORDERED: HYDROCORTISONE SOD SUCCINATE 100 MG VIAL IV PRN (07:25)
--- NOTE | 2019-10-21 08:35 | Diagnostic Imaging Report ---
CT abdomen and pelvis without contrast History: Melena Comparison: none Technique: serial axial imaging was performed without intravenous contrast as per departmental protocol. Multiplanar images are reconstructed and reviewed when indicated. This CT examination is performed using one or more of the following dose reduction techniques: Automated exposure control, adjustment of the mA and /or kV according to patient size, and/or use of iterative reconstruction technique. Findings: Small bilateral pleural effusions. The pancreas, spleen, left kidney, and gallbladder are not well seen on this examination. Macroscopic fat-containing lesions within segment 8 of the liver near the hepatic dome measure 2.3 cm and 1.7 cm respectively in size. There is a complex, soft tissue, macroscopic fat, and calcification containing mass which occupies the majority of the left upper and lower quadrants. This mass measures at least 24.7 x 20.3 x 19.1 cm in size. . The right kidney demonstrates no evidence of hydronephrosis. The prostate gland is mildly enlarged. Patient is status post left hemicolectomy. Transverse colostomy is noted within the left lower quadrant. A right upper quadrant mesenteric mass measures 6.5 x 6.1 cm in size. Calcified retroperitoneal mass measures 6.9 x 6.8 cm in size. Calcified mass abutting the left external iliac vessels measures 4.9 x 4.3 cm in size. No abdominal aortic aneurysm. No aggressive osseous lesion. Impression: 1. Technically limited study due to lack of intravenous contrast. 2. Large soft tissue mass containing macroscopic fat and calcification occupying the majority of the left upper and lower quadrants. 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 3. Additional masses within the right upper quadrant mesentery, retroperitoneum, and along the left external iliac vessels, likely metastatic. 4. Macroscopic fat-containing lesions within segment 8 of the liver. Metastatic disease cannot be excluded. 5. The pancreas, spleen, left kidney, and gallbladder are not well seen on this examination. Recommend correlation with prior surgical history. 6. Status post left hemicolectomy, with left lower quadrant transverse colostomy. 7. Consider further evaluation with contrast-enhanced study for more accurate staging. Signed by: Jaylen Hatfield MD on 10/21/2019 8:32 AM
[2019-10-21] MEDS: HOME MEDICATION--PATIENTS OWN PO SCH (09:00)
[2019-10-21] MEDS: DUTASTERIDE 0.5 MG CAP PO SCH (09:07)
[2019-10-21] MEDS: IRON SUCROSE 200 MG in SODIUM CHLORIDE 0.9% 100 ML 100 ML IV SCH (09:07)
[2019-10-21] MEDS: PIPERACILLIN/TAZO 2.25 GM 50 ML IV SCH (09:07)
[2019-10-21] MEDS: PANTOPRAZOLE 40 MG 10ML VIAL IV SCH ×2 (09:07→20:38)
--- NOTE | 2019-10-21 09:42 | Diagnostic Imaging Report ---
EXAMINATION: CHEST SINGLE (PORTABLE) INDICATION: CHF COMPARISON: Chest radiograph 10/19/2019 FINDINGS: LINES/TUBES:Right IJ nontunneled dialysis catheter terminates in the superior vena cava. EKG leads overlie the chest. LUNGS:The lungs are moderately inflated. There is perihilar fullness and indistinctness of the pulmonary vasculature. PLEURA:No pleural effusion or pneumothorax. MEDIASTINUM:Cardiomediastinal silhouette is stably enlarged. Atherosclerotic calcifications of the thoracic aorta. BONES/SOFT TISSUES:No acute osseous injury. ABDOMEN:No free air under the diaphragm. IMPRESSION: Unchanged cardiomegaly and mild pulmonary interstitial edema. Signed by: Balaji Oneal MD on 10/21/2019 9:38 AM
[2019-10-21] MEDS: METOPROLOL TARTRATE 25 MG TAB PO SCH (11:45)
[2019-10-21] MEDS: HEPARIN SOD (PORCINE) 1000 UNIT/ML SDV IV PRN (13:05)
[2019-10-21] MEDS: OCTREOTIDE ACETATE 500 MCG in SODIUM CHLORIDE 0.9% 250ML 249 ML IV SCH (15:36)
[2019-10-21 17:14] LABS: HEMOGLOBIN 8.1 g/dL (14.0-18.0)
--- NOTE | 2019-10-21 18:40 | Progress Note ---
DATE: Cardiology Progress Note SUBJECTIVE: Denies chest pain or shortness of breath. Feels better following transfusion. Undergoing hemodialysis today. OBJECTIVE: VITAL SIGNS: Temperature 97.9, heart rate 70, blood pressure 122/67, respiratory rate 20, and O2 saturation 100%. GENERAL: In no acute distress. Alert. NECK: No JVD. CHEST: Clear to auscultation. CARDIOVASCULAR: Regular rate and rhythm. Normal S1 and S2. No S3 or S4. ABDOMEN: Soft. Bowel sounds positive. EXTREMITIES: Trace edema. CARDIOVASCULAR MEDICATIONS: Reviewed. Atorvastatin 20 mg at bedtime. STUDIES: Reviewed. Potassium 4.6, bicarbonate 21, and creatinine 3.8. Hemoglobin 7, white blood cells 13.4, and platelets 225. INR 1.4. PT 18.3 and PTT 32. AST 85, ALT 51, and alkaline phosphatase 28. ASSESSMENT AND PLAN: A 79-year-old man presents with gastrointestinal bleed, acute blood loss anemia status post PRBC transfusion, tun-SO-wyalmkpsu myocardial infarction in the setting of gastrointestinal bleed, suspected type 2 myocardial infarction mechanism, acute renal failure, undergoing dialysis, status post hyperkalemia, status post metabolic acidosis now improving, history of sarcoma status post surgery with recurrence, status post colostomy, diabetes, hypertension, and dyslipidemia. RECOMMEND: Initiate metoprolol 12.5 mg every 12 hours starting today with holding parameters for blood pressure less than 100 or heart rate less than 55. Continue statin. Monitor H and H. Consider GI consultation. Of note, the patient has mild systolic heart failure noted on echocardiogram with LVEF 40% to 45% (lsmbk-al-fuvalnt systolic heart failure). MD JOHN PAUL Sow/VINI /[id number]
[2019-10-21] MEDS: TAMSULOSIN HCL 0.4 MG CAP PO SCH (20:38)
[2019-10-21] MEDS: PIPER-TAZ 3.375 GM 50 ML IV SCH (20:38)
[2019-10-21] MEDS: ATORVASTATIN 10 MG TAB PO SCH (20:38)
--- NOTE | 2019-10-21 23:31 | Consultation ---
DATE OF CONSULTATION: 10/21/2019 REASON FOR CONSULTATION: End-stage renal failure, need for permanent dialysis access; Catrina Carmichael. HISTORY OF PRESENT ILLNESS: I saw and evaluated this patient on October 21, 2019. He is a 79-year-old man whom I have seen previously for end-stage renal failure. He had stage 5 chronic renal insufficiency and was considering AV fistula creation. However, he became and was admitted to [facility] [place] with presumed GI bleeding and a hemoglobin of 4. He also ruled in for a eut-ID-ltgajhxpg myocardial infarction. There is a history of sarcoma and he is status post a left-sided nephrectomy. He has a colostomy, , and BPH. The patient has been receiving blood transfusions and is currently in the ICU where he is stable. PAST MEDICAL HISTORY: Positive for stage 5 chronic renal insufficiency. Positive for diabetic nephropathy, a history of sarcoma, history of a left-sided nephrectomy, colostomy, hypertension, and BPH. Chemotherapy has been ongoing. SOCIAL HISTORY: The patient is and lives with his . No smoking, alcohol, or IV drug use. FAMILY HISTORY: Negative for malignancies. Negative for renal failure. MEDICATIONS: 1. Flomax. 2. Protonix. 3. Humalog insulin. 4. Hydrocortisone. 5. Atorvastatin. 6. Piperacillin . 7. Tylenol and codeine. REVIEW OF SYSTEMS: GENERAL: Positive for fatigue and malaise. NEUROLOGIC: Negative for focal weakness in extremities or dysarthria. HEENT: Negative for decreased vision or decreased hearing. CARDIAC: Positive for chest pain as above. Evaluation for cardiac problems ongoing by Dr. Gillespie. He recently had a coronary artery stenting. PULMONARY: Positive for shortness of breath. Negative for wheezing. GI: Negative for change in bowel habits, diarrhea, or constipation. : Negative dysuria. ENDOCRINE: Negative for polyuria or polydipsia. VASCULAR: Negative for claudication. SKIN: Negative for rashes or itching. HEMATOLOGIC: Negative for clotting or bleeding. INFECTIOUS: Negative for fevers or sweating. PSYCHIATRIC: Negative . PHYSICAL EXAMINATION: GENERAL: Well-developed, well-nourished man, lying flat in bed in the ICU. VITAL SIGNS: Blood pressure 140/70, pulse 80 and regular, respirations 16. NECK: Supple and nontender. No JVD. CARDIAC: Shows a regular rate and rhythm. There is a normal S1 and S2. No S3, rub, or murmur. LUNGS: Clear to auscultation bilaterally. ABDOMEN: Globoid benign. Good bowel sounds. No hepatosplenomegaly. BACK: No CVA tenderness. No muscular spasm. EXTREMITIES: No cyanosis, clubbing, or edema. VASCULAR: Carotids 2+/2+ bilaterally. No carotid bruits. Brachials and radials 2+/2+ bilaterally. Ulnar is 1+/2+ bilaterally. Femorals 2+/2+ bilaterally. SKIN: . MUSCULOSKELETAL: Full range of motion at all joints. No joint swelling. NEUROLOGIC: Cranial nerves II through XII intact. Sensation intact to light touch and pinprick bilaterally. Strength 5/5 in all extremities. LYMPHATIC: Negative for cervical, clavicular, or femoral adenopathy. LABORATORIES: White count 10.0, hemoglobin 4.1 (last hemoglobin 10/19), receiving blood transfusions. Hematocrit 0.7, platelet count 243,000. INR 1.42, PT 18.3, PTT 32.0. Sodium 135, potassium 4.6, BUN 103, creatinine 3.82. Liver function tests are normal except for slightly elevated AST . IMPRESSION: Multiple medical problems. I agree with the need for permanent dialysis access. The patient has recently had a non-ST myocardial infarction and is being evaluated again from a Cardiology standpoint. His hemoglobin is also quite low, most likely due to GI bleeding. This is also being evaluated. We will plan for an AV fistula when these problems are resolved. Discussed with other physicians and with the patient. Thank you very much for asking me to see this nice man. MD LINSEY Rosario/MODL /[id number]
[2019-10-22] VITALS (14 sets, daily range): BP systolic 110–140; BP diastolic 56–74
[2019-10-22] MEDS: OCTREOTIDE ACETATE 500 MCG in SODIUM CHLORIDE 0.9% 250ML 249 ML IV SCH ×3 (01:04→18:00)
[2019-10-22 06:31] LABS: BASOPHILS % 0.1 % (0.0-1.0); HEMATOCRIT 24.4 % (38.2-49.6); HEMOGLOBIN 8.1 g/dL (14.0-18.0); LYMPHOCYTES # (AUTO) 1.4 (1.0-3.2); LYMPHOCYTES % 8.6 % (18.0-39.1); MEAN CORPUSCULAR HEMOGLOBIN 30.6 pg (28-32); MEAN CORPUSCULAR HGB CONC 33.2 g/dL (31-35); MEAN CORPUSCULAR VOLUME 92.1 fL (81-99); MONOCYTES # (AUTO) 1.3 (0.2-0.8); MONOCYTES % 7.7 % (4.4-11.3); NEUTROPHILS # (AUTO) 13.6 (2.1-6.9); NEUTROPHILS % 82.9 % (38.7-80.0); PLATELET COUNT 214 x10e3/uL (140-360); RED BLOOD COUNT 2.65 x10e6/uL (4.3-5.7); RED CELL DISTRIBUTION WIDTH 19.5 % (11.7-14.4)
--- NOTE | 2019-10-22 06:46 | Diagnostic Imaging Report ---
EXAMINATION: CHEST SINGLE (PORTABLE) INDICATION: Renal failure. COMPARISON: Chest radiograph 10/21/2019. FINDINGS: LINES/TUBES:Right IJ non-tunneled hemodialysis catheter terminates in the superior vena cava. EKG leads overlie the chest. LUNGS:The lungs are moderately inflated. There is perihilar fullness and indistinctness of the pulmonary vasculature. Mild bibasilar patchy opacities, likely atelectasis. PLEURA:No pleural effusion or pneumothorax. MEDIASTINUM:Cardiomediastinal silhouette is mildly enlarged. Atherosclerotic calcifications of the thoracic aorta. BONES/SOFT TISSUES:No acute osseous injury. ABDOMEN:No free air under the diaphragm. IMPRESSION: Unchanged cardiomegaly and mild pulmonary interstitial edema. Signed by: Dr. Thiago Coley MD on 10/22/2019 6:43 AM
[2019-10-22 06:59] LABS: ALBUMIN 2.4 g/dL (3.5-5.0); ALBUMIN/GLOBULIN RATIO 0.8 (0.8-2.0); ANION GAP 12.5 mmol/L (8-16); CALCIUM 7.5 mg/dL (8.4-10.2); CREATININE, SERUM 3.14 mg/dL (0.72-1.25); POTASSIUM 4.5 mmol/L (3.5-5.1)
[2019-10-22] MEDS: INSULIN LISPRO 100 UNIT/1 ML 3ML VIAL SQ SCH ×4 (07:30→21:00)
[2019-10-22] MEDS: PANTOPRAZOLE 40 MG 10ML VIAL IV SCH ×2 (07:39→21:03)
[2019-10-22] MEDS: PIPER-TAZ 3.375 GM 50 ML IV SCH ×2 (08:07→21:04)
[2019-10-22] MEDS: HOME MEDICATION--PATIENTS OWN PO SCH (09:00)
--- NOTE | 2019-10-22 11:42 | Progress Note ---
DATE: 10/22/2019 Cardiology Progress Note SUBJECTIVE: Denies chest pain, undergoing hemodialysis today. No other complaints. Plans for EGD later today. CARDIOVASCULAR MEDICATIONS: Reviewed. 1. Atorvastatin 20 mg daily. 2. Metoprolol tartrate 12.5 mg every 12 hours. OBJECTIVE: VITAL SIGNS: Temperature 97.5, heart rate 71, blood pressure 139/73, respiratory rate 18, O2 saturation 99%. GENERAL: In no acute distress. NECK: No JVD. Catheter in place for dialysis. CHEST: Clear to auscultation. CARDIOVASCULAR: Regular rate and rhythm. Normal S1, S2. ABDOMEN: Soft. Colostomy. EXTREMITIES: No edema. Warm extremities. LABORATORY DATA: Reviewed. Potassium 4.5, creatinine 3.1, hemoglobin 8.1, platelets 214. ASSESSMENT AND PLAN: 1. A 79-year-old man with history of coronary artery disease and prior stents, presents with lrk-BQ-djlxsstns myocardial infarction, likely related to demand supply mismatch in the setting of severe symptomatic anemia and hemoglobin of 4. 2. Acute renal failure on chronic kidney disease, now requiring dialysis. 3. Gastrointestinal bleed. 4. History of sarcoma, status post prior surgery and colostomy with recurrence, now reportedly with plans for initiating chemotherapy. 5. Diabetes and hypertension. Recommend continue beta-lior and statin. 6. If declared end-stage renal disease or following significant renal recovery, consider coronary angiography for further evaluation given recent myocardial infarction. However, suspect significant supply demand mismatch (type 2 W[place]) is likely etiology of [place] given significant anemia. Await GI evaluations. We will provide further recommendations based on findings. Reza Danielle MD AFJyothi/MODL /[id number]
[2019-10-22] MEDS ORDERED: SODIUM CHLORIDE 0.9% 250ML 250 ML ONE (13:37)
[2019-10-22] MEDS: IRON SUCROSE 200 MG in SODIUM CHLORIDE 0.9% 100 ML 100 ML IV SCH (14:35)
[2019-10-22] MEDS: METOPROLOL TARTRATE 25 MG TAB PO SCH (17:28)
[2019-10-22] MEDS: DUTASTERIDE 0.5 MG CAP PO SCH (17:28)
--- NOTE | 2019-10-22 17:34 | NUR ---
FAXED CLINICALS TO [facility] TO START DIALYSIS [facility]. PT IN ICU CURRENTLY BUT ABLE TO START THE PROCESS. SIGNED CHOICE FOR [facility] AND WOULD LIKE TO GET A , AND FRIDAY AFTERNOON SCHEDULE. WILL UPDATE WHEN GET APPROVAL
[2019-10-22 18:41] LABS: FREE T4 (FREE THYROXINE) 0.86 ng/dL (0.8-1.8); THYROID STIMULATING HORMONE 0.05 uIU/mL (0.350-4.940)
--- NOTE | 2019-10-22 19:10 | NUR ---
RECEIVED THE PATIENT IN REPORT.LYEING IN THE BED.BED LOCKED AND IN LOWEST POSITION.STABLE CONDITION.
[2019-10-22] MEDS ORDERED: PROPOFOL IV EMULSION 10 MG/ML 20 ML VIAL ONE (19:43)
[2019-10-22] MEDS: ATORVASTATIN 10 MG TAB PO SCH (21:04)
[2019-10-22] MEDS: TAMSULOSIN HCL 0.4 MG CAP PO SCH (21:04)
[2019-10-23] VITALS (7 sets, daily range): BP systolic 117–138; BP diastolic 59–79
--- NOTE | 2019-10-23 03:51 | NUR ---
PATIENT IS RESTING IN THE BED.STABLE CONDITION.
[2019-10-23] MEDS: OCTREOTIDE ACETATE 500 MCG in SODIUM CHLORIDE 0.9% 250ML 249 ML IV SCH (05:39)
--- NOTE | 2019-10-23 07:03 | NUR ---
BED SIDE SHIFT REPORT GIVEN TO ONCOMING RN.STABLE CONDITION.
--- NOTE | 2019-10-23 07:25 | NUR ---
RECD PT IN BED AWAKE,DENIES P[AIN ,NO DISTRESSN OTED.
[2019-10-23] MEDS: PIPER-TAZ 3.375 GM 50 ML IV SCH ×2 (08:22→21:00)
[2019-10-23] MEDS: PANTOPRAZOLE 40 MG 10ML VIAL IV SCH ×2 (08:22→21:00)
[2019-10-23] MEDS: DUTASTERIDE 0.5 MG CAP PO SCH (08:22)
[2019-10-23] MEDS: INSULIN LISPRO 100 UNIT/1 ML 3ML VIAL SQ SCH ×4 (08:30→21:00)
[2019-10-23] MEDS: HOME MEDICATION--PATIENTS OWN PO SCH (09:00)
[2019-10-23] MEDS: IRON SUCROSE 200 MG in SODIUM CHLORIDE 0.9% 100 ML 100 ML IV SCH (10:12)
--- NOTE | 2019-10-23 11:00 | NUR ---
PT ASSISTED UP TO CHAIR TOLERATED WELL,DENIES PAIN
[2019-10-23] MEDS: METOPROLOL TARTRATE 25 MG TAB PO SCH (11:45)
--- NOTE | 2019-10-23 15:07 | Progress Note ---
DATE: 10/23/2019 Cardiology Progress Note SUBJECTIVE: Denies any chest pain or shortness of breath. Denies any recurrent bleeding. OBJECTIVE: VITAL SIGNS: Temperature 97.7, heart rate 61, blood pressure 125/66, respiratory rate 20, and O2 saturation 99%. GENERAL: No acute distress. Alert. NECK: No JVD. CHEST: Clear to auscultation. CARDIOVASCULAR: Regular rate and rhythm. Normal S1 and S2. ABDOMEN: Soft. Bowel sounds positive. EXTREMITIES: No edema. CARDIOVASCULAR MEDICATIONS: Reviewed. Furosemide 40 mg p.r.n. post transfusion, atorvastatin 20 mg at bedtime, and metoprolol tartrate 12.5 mg every 12 hours as needed. STUDIES: Reviewed. Potassium 4.5, bicarbonate 25, creatinine 2.1, and glucose 169. White blood cells 16.4, hemoglobin 8.1, and platelets 214. INR 1.4. ASSESSMENT AND PLAN: 1. A 79-year-old man with symptomatic anemia, severe with hemoglobin of 4 on admission, gastrointestinal bleed, sarcoma, polni-ra-thcbupi systolic heart failure, coronary artery disease, history of coronary stents with uun-JA-fbwhzjbng myocardial infarction likely due to myocardial infarction etiology given anemia. 2. Acute renal failure. RECOMMEND: 1. Continue current cardiovascular medications. 2. Monitor H and H. 3. Await further renal recovery versus end-stage renal disease as well as further diagnosis from GI prior to deciding whether or not to proceed with angiogram for now and consider deferring given the patient symptom-free following transfusion for anemia and high likelihood of type 2 NC physiology. Reza Danielle MD AFJyothi/MODL /[id number]
--- NOTE | 2019-10-23 17:02 | NUR ---
PT UP ION BED DENIES PAIN ,NO DISTRESS NTOED
--- NOTE | 2019-10-23 20:02 | NUR ---
Received change of shift report from AM nurse. Walking rounds completed.
[2019-10-23] MEDS: ATORVASTATIN 10 MG TAB PO SCH (21:00)
[2019-10-23] MEDS: TAMSULOSIN HCL 0.4 MG CAP PO SCH (21:00)
[2019-10-23] MEDS ORDERED: IRON SUCROSE 100 MG in SODIUM CHLORIDE 0.9% 100 ML 100 ML IV SCH (23:30)
[2019-10-24] VITALS (7 sets, daily range): BP systolic 116–152; BP diastolic 56–79
--- NOTE | 2019-10-24 | NUR ---
Patient up ambulating to restroom with asst of walker. Right tri catheter intact. Right femoral catheter intact. Colostomy noted. Patient AAOx3. Patient denies pain at this time. BS at 88 patient encouraged to eat a snack. Dr Hein on the floor to see patient. Will f/u with any orders.
--- NOTE | 2019-10-24 03:32 | NUR ---
Patient resting quitly at this time. Continue monitor.
--- NOTE | 2019-10-24 07:10 | NUR ---
PT UP AMBULATING IN ROOM WITH WALKER.
[2019-10-24] MEDS: INSULIN LISPRO 100 UNIT/1 ML 3ML VIAL SQ SCH ×4 (07:30→21:00)
[2019-10-24] MEDS: PANTOPRAZOLE 40 MG 10ML VIAL IV SCH ×2 (08:41→21:00)
[2019-10-24] MEDS: PIPER-TAZ 3.375 GM 50 ML IV SCH ×2 (08:41→21:00)
[2019-10-24] MEDS: DUTASTERIDE 0.5 MG CAP PO SCH (08:41)
[2019-10-24] MEDS: HOME MEDICATION--PATIENTS OWN PO SCH (09:00)
[2019-10-24] MEDS: IRON SUCROSE 200 MG in SODIUM CHLORIDE 0.9% 100 ML 100 ML IV SCH (12:37)
[2019-10-24] MEDS: METOPROLOL TARTRATE 25 MG TAB PO SCH (12:37)
--- NOTE | 2019-10-24 17:21 | NUR ---
PT UP IN CHAIR DENIES PAIN ,NO DISTRESS NOTED
--- NOTE | 2019-10-24 20:00 | NUR ---
Received change of shift report from AM nurse. Walking rounds completed.
[2019-10-24] MEDS: TAMSULOSIN HCL 0.4 MG CAP PO SCH (21:00)
[2019-10-24] MEDS: ATORVASTATIN 10 MG TAB PO SCH (21:00)
[2019-10-24] MEDS ORDERED: SODIUM CHLORIDE 0.9% 500ML 500 ML ONE (22:07)
[2019-10-25] VITALS (8 sets, daily range): BP systolic 98–141; BP diastolic 51–66
--- NOTE | 2019-10-25 02:00 | NUR ---
Patient states he fells his blood glucose drop. BS checked = 49. Apple juice given x2. Patient encourged to eat sandwich. Patient refused. Encourage patient to start eatting. Patient state he eats well. Consumed 3 percent of dinner.
--- NOTE | 2019-10-25 04:09 | NUR ---
Received change of shift report from [place] fontaine Walking rounds completed. Addendum: 10/25/19 at 0414 by Eryn Ventura RN error
[2019-10-25 06:49] LABS: BASOPHILS % 0.2 % (0.0-1.0); EOSINOPHILS # (AUTO) 0.5 (0.0-0.4); EOSINOPHILS % 4.1 % (0.0-6.0); HEMATOCRIT 25.8 % (38.2-49.6); HEMOGLOBIN 8.6 g/dL (14.0-18.0); LYMPHOCYTES # (AUTO) 1.3 (1.0-3.2); LYMPHOCYTES % 10.1 % (18.0-39.1); MEAN CORPUSCULAR HEMOGLOBIN 31.9 pg (28-32); MEAN CORPUSCULAR HGB CONC 33.3 g/dL (31-35); MEAN CORPUSCULAR VOLUME 95.6 fL (81-99); MONOCYTES % 7.8 % (4.4-11.3); NEUTROPHILS # (AUTO) 9.8 (2.1-6.9); NEUTROPHILS % 77.2 % (38.7-80.0); PLATELET COUNT 171 x10e3/uL (140-360); RED CELL DISTRIBUTION WIDTH 20.5 % (11.7-14.4)
--- NOTE | 2019-10-25 06:54 | NUR ---
Received bedside shift report from off going nurse. Patient is resting in bed. No acute distress noted. Call light within reach. Bed in the lowest position.
--- NOTE | 2019-10-25 07:22 | NUR ---
spoke to lab regarding lab results. primary nurse made aware. Addendum: 10/25/19 at 0732 by Darcy Mayfield RN dr shannon alanis at time.
[2019-10-25] MEDS: INSULIN LISPRO 100 UNIT/1 ML 3ML VIAL SQ SCH ×5 (07:30→21:00)
[2019-10-25 07:34] LABS: CREATININE, SERUM 3.84 mg/dL (0.72-1.25)
--- NOTE | 2019-10-25 07:36 | NUR ---
spoke to dr collins regarding labs. no new orders given. primary nurse notified.
[2019-10-25] MEDS: DUTASTERIDE 0.5 MG CAP PO SCH (08:52)
[2019-10-25] MEDS: PANTOPRAZOLE 40 MG 10ML VIAL IV SCH ×2 (08:52→21:00)
[2019-10-25] MEDS: HOME MEDICATION--PATIENTS OWN PO SCH (08:53)
[2019-10-25] MEDS: PIPER-TAZ 3.375 GM 50 ML IV SCH ×2 (09:00→21:00)
--- NOTE | 2019-10-25 09:10 | NUR ---
Patient started on dialysis at this time.
[2019-10-25] MEDS: METOPROLOL TARTRATE 25 MG TAB PO SCH (11:45)
--- NOTE | 2019-10-25 12:40 | NUR ---
Patient finished dialysis at this time. 3L removed. Patient is in stable condition.
--- NOTE | 2019-10-25 12:59 | NUR ---
CALLED [facility] TO SEE IF THEY HAVE EVERY THING THEY NEED, [facility] STATES THEY DO JUST WAITING ON AUTH.
[2019-10-25] MEDS: IRON SUCROSE 200 MG in SODIUM CHLORIDE 0.9% 100 ML 100 ML IV SCH (13:48)
--- NOTE | 2019-10-25 14:33 | Progress Note ---
DATE: 10/25/2019 Cardiology Progress Note SUBJECTIVE: Denies any chest pain or shortness of breath. OBJECTIVE: VITAL SIGNS: Temperature 97.3, heart rate 58, blood pressure 113/66, respiratory rate 18, O2 saturation 98%. GENERAL: No acute distress, alert. Neck: No JVD. CHEST: Clear to auscultation. CARDIOVASCULAR: Regular rate and rhythm. Normal S1 and S2. No S3 or S4. ABDOMEN: Soft. Bowel sounds positive. EXTREMITIES: Trace edema. CARDIOVASCULAR MEDICATIONS: Reviewed. Furosemide 40 mg p.r.n. both posttransfusion, atorvastatin 20 mg at bedtime, metoprolol tartrate 12.5 mg every 12 hours, tamsulosin 0.8 mg at bedtime. STUDIES: Reviewed. Sodium 135, potassium 4, chloride 103, bicarbonate 22, BUN 58, creatinine 3.8, glucose 101. White blood cells 12.6, hemoglobin 8.6, platelets a 171. INR 1.1, PT 18.3, PTT 32. AST 69, ALT 46, total bilirubin 0.9. ASSESSMENT AND PLAN: A 79-year-old man with gdq-ZA-tffjqtcqw myocardial infarction, gastritis and severe symptomatic anemia, end-stage renal disease, sarcoma, metastatic; chronic systolic heart failure. Recommend and discussed at length with the patient and coordinating care with other treating physicians. We will proceed with coronary angiography and possible intervention tomorrow. Indications, alternatives, risks and benefits have been discussed with the patient. Continue rest of current cardiovascular medications. Reza Danielle MD AFJyothi/VINI /[id number]
--- NOTE | 2019-10-25 14:38 | NUR ---
GOT ACCEPTANCE LETTER FROM JAMES HERNÁNDEZ AND SAT AT 1PM, PUT COPY IN CHART AND FOUR COPIES TO THE PT, LET HIM KNOW IF CARDIO AND HIS TUNNEL CATH TAKE LONGER THEN WE WOULD MOVE TO THE NEXT DATE ON THE SCHEDULE LETTER.
--- NOTE | 2019-10-25 17:41 | NUR ---
Nutrition Screen Note RD Recommendation for Physician: - Continue Renal diet - Nepro BID per pt request for supplement Plan of Care: RD following, monitoring for tolerance and adequacy. Nepro BID Nutrition reason for involvement: LOS Primary Diagnose(s): acute on chronic renal failure, anemia PMH: sarcoma with abdominal surgery, chronic anemia, CKD, HTN, DM2, CAD Ht: 68 in Wt: 167 lb BMI: 25.4 kg/m2 IBW: [address] Assessment: (10/24) 79 YOM admitted for acute on chronic renal failure found to have ESRD requiring HD. Pt seen today for LOS. Pt reports good appetite and po intake, states he was dizzy after lunch and needed some crackers and apple juice- requesting Boost as he drinks this at home. Offered Nepro BID in compliance with current diet, pt willing to try- RD to order supplement per pt request. Pt reports UBW of 165#, no wt loss noted- possible fluid shifts with initiation of HD since admit. 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 Pt receptive to diet education at time of visit, pt educated on renal diet restrictions emphasizing high Na, K, and Phos foods to avoid/consume in moderation and how Na, K, and Phos impact the body. All questions and concerns addressed at time of visit. Chart reviewed. Labs and meds reviewed. Will continue to monitor. Current Diet: Renal Malnutrition Evaluation (10/25/19) The patient does not meet criteria for a specified degree of malnutrition at this time. Will re-evaluate at follow-up as appropriate. Energy intake: none, > 75% intake. 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 Weight loss: none, UBW 165# Fat loss: none, bulging eye pads Muscle loss: none, shoulder round Supporting Evidence: Fluid accumulation: none observed Functional Status: no changes reported Diet Education Needs Assessment: Diet education indicated, pt receptive- provided 10/24. Learner(s): pt Barriers: none Cultural/Language Modifications: none Readiness: ready Method: handout, discussion Topics: ESRD nutrition therapy Understanding/Compliance: good Diet tolerance: tolerating Nutrition Care Level: low Signed: Gayla Puga RD, LD, [facility]
--- NOTE | 2019-10-25 19:15 | NUR ---
patient received awake, alert, sitting up in recliner. vss. no c/o pain noted. pm assessment complete. patient instructed to call for assistance when needed.
--- NOTE | 2019-10-25 19:33 | NUR ---
Bedside shift report given to oncoming nurse. Patient is resting in recliner. No acute distress noted. Call light within reach. Bed in the lowest position.
[2019-10-25] MEDS: ATORVASTATIN 10 MG TAB PO SCH (21:00)
[2019-10-25] MEDS: TAMSULOSIN HCL 0.4 MG CAP PO SCH (21:00)
--- NOTE | 2019-10-25 21:00 | NUR ---
blood sugar 183. patient refuses insulin at this time. patient states, " can you recheck my blood sugar at about 2230. "
--- NOTE | 2019-10-25 22:45 | NUR ---
blood sugar 88 at this time.
[2019-10-26] VITALS (16 sets, daily range): BP systolic 116–146; BP diastolic 46–77
--- NOTE | 2019-10-26 07:00 | NUR ---
BESIDE SHIFT REPORT RECEIVED FROM STILL WORKER HELPER RN. PT DENIES NEEDS AT THIS TIME.
[2019-10-26] MEDS: INSULIN LISPRO 100 UNIT/1 ML 3ML VIAL SQ SCH ×5 (07:30→21:00)
[2019-10-26] MEDS ORDERED: HEPARIN SOD (PORCINE) 1000 UNIT/ML 30ML ONE (07:42)
[2019-10-26] MEDS ORDERED: VERAPAMIL HCL 2.5 MG/ML 2 ML VIAL ONE ×2 (07:43→08:51)
[2019-10-26] MEDS ORDERED: LIDOCAINE HCL 2% LOCAL 20 ML VIAL ONE (07:43)
[2019-10-26] MEDS ORDERED: MIDAZOLAM HCL 2 MG/2 ML VIAL ONE (07:43)
[2019-10-26] MEDS ORDERED: FENTANYL CITRATE/PF 100MCG/2 ML INJ ONE (07:43)
[2019-10-26] MEDS ORDERED: SODIUM CHLORIDE 0.9% 1000ML 1,000 ML ONE (07:45)
[2019-10-26] MEDS ORDERED: HEPARIN SOD/SOD CHLORIDE 2,000 ML ONE (07:45)
[2019-10-26] MEDS ORDERED: IOPAMIDOL 370 MG/ML 200 ML INFUS..BTL INJ ONE (07:45)
[2019-10-26] MEDS ORDERED: NITROGLYCERIN/D5W 200 MCG/ML 250 ML ONE (07:45)
--- NOTE | 2019-10-26 08:00 | NUR ---
PT OFF THE FLOOR TO COMPRESSOR OPERATOR AT THIS TIME.
[2019-10-26] MEDS ORDERED: NITROGLYCERIN 0.4 MG SUBL ONE (08:38)
[2019-10-26] MEDS: HOME MEDICATION--PATIENTS OWN PO SCH (09:00)
[2019-10-26] MEDS: DUTASTERIDE 0.5 MG CAP PO SCH (09:00)
[2019-10-26] MEDS: PANTOPRAZOLE 40 MG 10ML VIAL IV SCH ×2 (09:00→20:53)
--- NOTE | 2019-10-26 09:05 | NUR ---
0905am RECEIVING NOTE MANAGER [employer]ILY [employer] DEPT............................................................... Bedside report received from YEVGENIY Winters. Identifierx2. Alert oriented and appropriate, PERRLA, respirations even and unlabored to room air. Pulses x4 extremities equal and strong. Pedal pulses PT/DP X4 .Cap fill brisk < 3 sec. Rt TR band site No gross issues pain pallor pressure or dysthrhmia.Tr band come down time 0945.Arm placed on pillow normal neuro-vascular function. Skin warm and dry integrity appears D/I.IV 20g to left hand , presents healthy w/o s/s of infiltration or complaint. Abdomen soft and supple. pt offered toileting, denies need to urinate or defecate. No personal affects with patient. Md to call Ana with update. Pt verbalizes understanding of POC. Currently w/o complaint of pain or need. cameron/rn Addendum: 10/26/19 at 0956 by Fior Cisse RN 9:05am Amended-- Rt ij hemodialysis has d cath site intact slight old blood to dressing . Piggy tail Iv turned off .Diet tray is to be released. Pt has no left iv site.
--- NOTE | 2019-10-26 09:15 | NUR ---
0915 a/p RADIAL COMPRESSION REMOVAL NOTE: Initial Cuff volume xx cc 0915a -3cc Removed No hematoma/bleeding noted with normal neurovascular function. 0930a -5cc Removed No hematoma/ bleeding noted with normal neurovascular function. 0945a -5cc Removed No hematoma/bleeding noted with normal neurovascular function. Air removal completed. Stasis achieved sterile 2x2,Tegaderm, Coban dressing No hematoma, bleeding noted with normal neurovascular function. Wrist splint in place. Pt instructed on POC. Ds/Rn
[2019-10-26] MEDS: ASPIRIN 81 MG CHEW TAB PO SCH (09:30)
--- NOTE | 2019-10-26 09:58 | NUR ---
0164r phoned report to Pablo VUONG., NO fix TR-band stasis @ 1010am. MD to speak with and Iv to rt ij off. Denies CP or SOB. Transported with Zoll remain in SR 60's No gross issues pain pallor pressure or dysrhythmia. Normal neuro vascular function. ok to dc TR band reminder in am with shower.
--- NOTE | 2019-10-26 10:30 | NUR ---
1030a face to face handoff completed by Macie VUONG awareto keep NPO for possible IR procedure. ds/rn
--- NOTE | 2019-10-26 11:00 | NUR ---
PT BACK TO THE FLOOR FROM CASTING MACHINE OPERATOR HELPER. VITALS WNL. PT DENIES NEEDS AT THIS TIME.
--- NOTE | 2019-10-26 11:06 | Operative Report ---
DATE OF PROCEDURE: 10/26/2019 SURGEON: Reza Danielle MD PROCEDURE INDICATION: Gda-LZ-aelcqzqug myocardial infarction. The patient with history of coronary artery disease, prior stents, sarcoma, metastatic, severe symptomatic anemia with a hemoglobin of 4 on presentation, fecal occult blood test and gastritis and GI evaluation. COMPLICATIONS: None. ESTIMATED BLOOD LOSS: Less than 15 mL. PROCEDURE SUMMARY: After consent was obtained, the patient was prepped and draped in a sterile fashion. The right radial site was locally infiltrated with 2% lidocaine and access was obtained with ultrasound guidance. A 5-Congolese outer diameter slender sheath was advanced. All catheters were railed over leading wire into the proximal ascending aorta. The catheter was used for engagement of left main and right coronary artery as well as across the aortic valve with hemodynamic measurements. FINDINGS: These were with the following findings. 1. LV pressure was 94/7 with end-diastolic pressure of 12. 2. Aortic pressure is 93/49. 3. Left main has ostial 30% stenosis, gives an LAD and circumflex. 4. The LAD has 40% ostial stenosis. Patent stent from proximal to distal. Two diagonals are pinched by this stent. The diagonals are small in caliber. The first, which has 70% ostial stenosis. The second, which has 80% ostial stenosis. 5. The circumflex is large in caliber, gives a small caliber obtuse marginal left atrial branch and a 2nd medium caliber obtuse marginal that has patent stent distal to the stent. The obtuse marginal has a focal area of 50% stenosis. 6. The right coronary artery is dominant with 30% proximal stenosis, gives a terminal RPDA and RPLV. The RPLV are at least three, the terminal two of which are small in caliber with Hammond 1:1:1 bifurcation stenosis stenosis 90%, 90%, 90%. At this point, the vessels are felt to be too small and with limited residual outflow length for endovascular intervention. CONCLUSION: Patent LAD and OM stents with diagonal jailing by LAD stent and ostial stenoses of 1st and 2nd diagonal AMBER-3 flow to both. Moderate stenosis distal to the OM stent and severe small caliber vessel stenosis of the distal left posterolateral branches. Recommend medical management. MD JOHN PAUL Sow/MODL /[id number] MTDD
--- NOTE | 2019-10-26 11:12 | Progress Note ---
DATE: 10/26/2019 SUBJECTIVE: Denies any chest pain or shortness of breath. OBJECTIVE: VITAL SIGNS: Reviewed and stable, blood pressure 100/60, respiratory rate 18, and heart rate 68. GENERAL: No acute distress. Alert. NECK: No JVD. CHEST: Clear to auscultation. CARDIOVASCULAR: Regular rate and rhythm. Normal S1, S2. ABDOMEN: Soft. Bowel sounds positive. EXTREMITIES: No edema. Catheter in place. HEENT: Mucosa moist and pale. CARDIOVASCULAR MEDICATIONS: Reviewed. Aspirin added 81 mg daily. Continue atorvastatin and metoprolol. STUDIES: Reviewed. ASSESSMENT AND PLAN: 1. Lbe-UU-fllvaygcj myocardial infarction in the setting of severe small caliber vessel disease with patent LAD and OM stent with underlying severe symptomatic anemia in the setting of gastritis. 2. Acute renal failure, now declared end-stage renal disease. 3. Metastatic sarcoma. Recommend continue medical management for coronary artery disease. Overall, the patient has guarded prognosis. Discussed at length with the patient and , who was updated on current cardiovascular findings and recommendations. MD MckeonV/MODL /[id number]
[2019-10-26] MEDS: METOPROLOL TARTRATE 25 MG TAB PO SCH (12:04)
--- NOTE | 2019-10-26 13:30 | NUR ---
[facility] CALLED WITH ORDERS FOR DIALYSIS.
--- NOTE | 2019-10-26 19:10 | NUR ---
RECEIVED BEDSIDE SHIFT REPORT FROM PREVIOUS NURSE. CALL LIGHT WITHIN REACH. PATIENT SITTING IN RECLINER. PATIENT IN NO PAIN OR DISTRESS.
[2019-10-26] MEDS: ATORVASTATIN 10 MG TAB PO SCH (20:53)
[2019-10-26] MEDS: TAMSULOSIN HCL 0.4 MG CAP PO SCH (20:53)
[2019-10-26] MEDS ORDERED: IRON SUCROSE 100 MG in SODIUM CHLORIDE 0.9% 100 ML 100 ML IV SCH (23:00)
[2019-10-27] VITALS (8 sets, daily range): BP systolic 110–145; BP diastolic 59–78
--- NOTE | 2019-10-27 03:25 | NUR ---
DID HOURLY ROUNDING. PATIENT ASLEEP IN BED. CALL LIGHT WITHIN REACH.
--- NOTE | 2019-10-27 07:00 | NUR ---
BESIDE SHIFT REPORT RECEIVED FROM ENGINEERING SECRETARY RN. PT DENIES NEEDS AT THIS TIME.
--- NOTE | 2019-10-27 07:05 | NUR ---
GAVE BEDSIDE SHIFT REPORT TO ONCOMING NURSE. CALL LIGHT WITHIN REACH. PATIENT IN BED.
[2019-10-27] MEDS: INSULIN LISPRO 100 UNIT/1 ML 3ML VIAL SQ SCH ×4 (07:30→20:22)
[2019-10-27] MEDS: ASPIRIN 81 MG CHEW TAB PO SCH (08:53)
[2019-10-27] MEDS: DUTASTERIDE 0.5 MG CAP PO SCH (08:54)
[2019-10-27] MEDS: HOME MEDICATION--PATIENTS OWN PO SCH (08:54)
[2019-10-27] MEDS: IRON SUCROSE 100 MG in SODIUM CHLORIDE 0.9% 100 ML 100 ML IV SCH (09:10)
[2019-10-27] MEDS: PANTOPRAZOLE 40 MG 10ML VIAL IV SCH ×2 (09:23→20:22)
[2019-10-27] MEDS ORDERED: FENTANYL CITRATE/PF 100MCG/2 ML INJ ONE (10:53)
[2019-10-27] MEDS ORDERED: HEPARIN SOD (PORCINE) 1000 UNIT/ML SDV ONE (10:53)
[2019-10-27] MEDS ORDERED: MIDAZOLAM HCL 2 MG/2 ML VIAL ONE (10:53)
[2019-10-27] MEDS: METOPROLOL TARTRATE 25 MG TAB PO SCH (12:54)
--- NOTE | 2019-10-27 14:36 | Progress Note ---
DATE: 10/27/2019 Cardiology Progress Note SUBJECTIVE: Denies any chest pain, shortness of breath, or active bleeding. Has no new complaints today. OBJECTIVE: VITAL SIGNS: Reviewed and stable. GENERAL: No acute distress. Alert. NECK: No JVD. CHEST: Clear to auscultation. CARDIOVASCULAR: Regular rate and rhythm. Normal S1 and S2. ABDOMEN: Soft. Bowel sounds positive. EXTREMITIES: Trace edema. CARDIOVASCULAR MEDICATIONS: Reviewed. Aspirin, metoprolol, and atorvastatin. STUDIES: Reviewed. ASSESSMENT AND PLAN: 1. Coronary artery disease with patent LAD and OM stent, moderate OM disease and ostial pinching, first and second diagonal by patent LAD stents, small caliber diagonal and distal small caliber right posterolateral branch, severe stenosis. 2. Chronic systolic heart failure. 3. End-stage renal disease. 4. Sarcoma. 5. Severe symptomatic anemia, status post transfusion. RECOMMEND: Continue current cardiovascular medications. Outpatient followup advised in 4 weeks post discharge. Follow up with Oncology as outpatient as well as a primary care and Nephrology advised. Okay to discharge from a cardiovascular standpoint once okay with other treating physician. MD JOHN PAUL Sow/VINI /[id number]
--- NOTE | 2019-10-27 16:31 | Diagnostic Imaging Report ---
PROCEDURE: Conversion of non-tunneled to tunneled central venous catheter Procedural Personnel Attending physician(s): Balaji Oneal MD Fellow physician(s): None Resident physician(s): None Advanced practice provider(s): None Pre-procedure diagnosis: CKD Post-procedure diagnosis: Same Indication: Performance of hemodialysis Additional clinical history: None Complications: No immediate complications. IMPRESSION: Conversion of right-sided internal jugular non-tunneled central venous catheter for a tunneled dialysis catheter, with tip in the expected location of the right atrium. Plan: The catheter may be used immediately. PROCEDURE SUMMARY: - Temporary central venous catheter removal - Tunneled central venous catheter insertion with fluoroscopic guidance - Additional procedure(s): None PROCEDURE DETAILS: Pre-procedure History and imaging of central venous access reviewed (QCDR): Yes Consent: Informed consent for the procedure including risks, benefits and alternatives was obtained and time-out was performed prior to the procedure. Preparation (MIPS): The site was prepared and draped using all elements of maximal sterile barrier technique including sterile gloves, sterile gown, cap, mask, large sterile sheet, sterile ultrasound probe cover, hand hygiene and cutaneous antisepsis with 2% chlorhexidine. Medical reason for site preparation exception (MIPS): Not applicable Anesthesia/sedation Level of anesthesia/sedation: Moderate sedation (conscious sedation) 1mg Versed, 50mcg Fentanyl Anesthesia/sedation administered by: Independent trained observer under attending supervision with continuous monitoring of the patient?s level of consciousness and physiologic status Total intra-service sedation time (minutes): 30 Catheter exchange Local anesthesia was administered. A wire was passed through the indwelling central venous catheter and into the central veins. The catheter was removed, and a peel-away sheath was placed. An incision was made near the venous access site and the catheter was tunneled subcutaneously to the venous access site. The catheter was advanced via a peel-away sheath into the vein under fluoroscopic guidance. Catheter tip location was fluoroscopically verified and a permanent image was stored. Catheter placed: [employer] Catheter size (Spanish): 14.5 Spanish Catheter flush: Heparin (1000 units/mL) Closure The access site was closed and a sterile bandage was applied. Access site closure technique: Tissue adhesive Catheter securement technique: Non-absorbable suture Contrast Contrast agent: None Contrast volume (mL): N/A Radiation Dose Fluoroscopy time (minutes): 0.3 Reference air kerma (mGy): 1.8 Additional Details Additional description of procedure: None Equipment details: None Specimens removed: Temporary central venous catheter Estimated blood loss (mL): Less than 10 Standardized report: [id number] Attestation Signer name: Balaji Oneal MD I attest that I was present for the entire procedure. I reviewed the stored images and agree with the report as written. Signed by: Balaji Oneal MD on 10/27/2019 4:28 PM
--- NOTE | 2019-10-27 19:15 | NUR ---
RECEIVED REPORT FROM PREVIOUS NURSE. CALL LIGHT WITHIN REACH. PATIENT GETTING DIALYSIS.
--- NOTE | 2019-10-27 19:30 | NUR ---
CALLED AND TALKED TO DR. MCMANUS ABOUT PATIENT NOT BEING DISCHARGED AFTER DIALYSIS BECAUSE DR. HUGHES AND DR. BONE SAID TO KEEP HIM TO GET THE FISTULA PLACED ON FRIDAY. DR. MCMANUS SAID HE TALKED TO DR. DUNCAN AND DR. DUNCAN WILL SEE THE PATIENT TOMORROW AND TO HOLD OFF ON THE DISCHARGE.
--- NOTE | 2019-10-27 19:46 | Progress Note ---
DATE: 10/27/2019 REASON FOR PROGRESS NOTE: End-stage renal failure, need for permanent dialysis access; requested by Dr. Catrina Carmichael. OBJECTIVE: GENERAL: Feeling well. Undergoing dialysis presently. VITAL SIGNS: Blood pressure 110/70, pulse 85 and regular, respirations 16, nonlabored. NECK: Supple. CARDIAC: Regular rate and rhythm. Normal S1 and S2. No S3 or S4. LUNGS: Clear to auscultation and percussion. ABDOMEN: Globoid benign. EXTREMITIES: No cyanosis, clubbing, or edema. Right IJ tunneled catheter is in place and functioning well. He has some ecchymoses on both upper extremities. REVIEW OF SYSTEMS: GENERAL: Negative for fatigue. CARDIAC: Negative for angina or chest pain. PULMONARY: Negative for shortness of breath. GI: No data. HEMATOLOGIC: Negative for clotting or bleeding. LABORATORY DATA: White count 12.6, hemoglobin 8.6, hematocrit 28, platelet count 171,000. INR 1.2. IMPRESSION: Stable on dialysis. I did discuss creation of a new fistula with the patient. He does not want this performed at this point. We will contact him as outpatient and schedule him that way. MD LINSEY Rosario/VINI /[id number]
[2019-10-27] MEDS: HEPARIN SOD (PORCINE) 1000 UNIT/ML SDV IV PRN (19:57)
[2019-10-27] MEDS: ATORVASTATIN 10 MG TAB PO SCH (20:22)
[2019-10-27] MEDS: TAMSULOSIN HCL 0.4 MG CAP PO SCH (20:22)
--- NOTE | 2019-10-27 20:47 | Discharge Summary ---
PRIMARY CARE DOCTOR: Dr. Fabian Patel. FINAL DIAGNOSIS: Duu-HB-mxbymrfwh myocardial infarction due to severe acute blood loss anemia. SECONDARY DIAGNOSES: 1. Newly diagnosed end-stage renal disease. 2. Metastatic sarcoma. 3. Diabetes. CONSULTANTS: 1. Dr. Brumfield, Critical Care. 2. Dr. Maya, vascular surgeon. 3. Dr. Metcalf, Oncology. 4. Dr. Carmichael, Nephrology. 5. Dr. Hein, GI. 6. Dr. Gillespie, Cardiology. PROCEDURES/STUDIES PERFORMED: 1. Left heart catheterization. 2. Tunneled catheter placement. 3. Abdominal CT. 4. Head CT. 5. Cervical spine CT. 6. 3 units of packed red blood cell transfusion. HISTORY: Per [facility] and [facility]. HOSPITAL COURSE: The patient came in with near syncope due to severe acute blood loss anemia. The patient underwent 3 units of packed red blood cells transfusion and hemoglobin has been stabilized. The patient also suffered uyi-JE-trlzqdtmx myocardial infarction due to anemia. Subsequently, a left heart catheterization was done, mostly small disease. No intervention was done. The patient at baseline was already stage 4 chronic kidney disease with this acute insult. Now, the patient has end-stage renal disease. Initially, a Justin dialysis catheter was placed and dialysis was started on the day of discharge, tunneled catheter was placed. The patient does not want to wait for AV fistula placement. He wants to go home today. His chair time is tomorrow for dialysis. The patient will contact Dr. Maya's office to schedule a time for his AV fistula placement. As far as his metastatic sarcoma, hospice was recommended by Oncology; however, the patient does not want it at this time. EGD was done, which shows gastritis. The patient was seen and examined today. I have discussed with Dr. Maya. I took 35 minutes total to discharge this patient. I have also updated the . CONDITION ON DISCHARGE: Improved. DISCHARGE MEDICATIONS: Please see medication reconciliation form. Y[place] MD MARIO Warner/VINI /[id number] cc: [facility] Addendum Physical Examination no acute distress no rash RRR, nl s1s2 clear to auscultation soft, nondistended A&Ox3 no hallucination discharge was held so Dr. Gillespie can speak to the patient in the morning in regards to pros and cons of proceeding with AV fistula after myocardial infarction, I have discussed with Drs. Carmichael/Zulma/Jose Miguel about the patient today [facility]
[2019-10-28 00:09] VITALS: BP 109/96
--- NOTE | 2019-10-28 03:00 | NUR ---
DID HOURLY ROUNDING. PATIENT ASLEEP IN BED.
[2019-10-28 04:10] VITALS: BP 135/58
[2019-10-28 05:55] LABS: BASOPHILS # (AUTO) 0.1 (0.0-0.1); BASOPHILS % 0.3 % (0.0-1.0); EOSINOPHILS # (AUTO) 0.5 (0.0-0.4); EOSINOPHILS % 2.5 % (0.0-6.0); HEMATOCRIT 25.5 % (38.2-49.6); HEMOGLOBIN 8.2 g/dL (14.0-18.0); LYMPHOCYTES % 10.1 % (18.0-39.1); MEAN CORPUSCULAR HGB CONC 32.2 g/dL (31-35); MEAN CORPUSCULAR VOLUME 99.6 fL (81-99); MONOCYTES # (AUTO) 1.6 (0.2-0.8); MONOCYTES % 8.3 % (4.4-11.3); NEUTROPHILS # (AUTO) 15.2 (2.1-6.9); NEUTROPHILS % 78.3 % (38.7-80.0); PLATELET COUNT 120 x10e3/uL (140-360); RED BLOOD COUNT 2.56 x10e6/uL (4.3-5.7); RED CELL DISTRIBUTION WIDTH 21.6 % (11.7-14.4)
--- NOTE | 2019-10-28 07:00 | NUR ---
received bedside report. pt is alert resting in bed, no s/s of distress. call light within reach and instructed pt to call RN for help
--- NOTE | 2019-10-28 07:04 | NUR ---
GAVE BEDSIDE SHIFT REPORT TO ONCOMING NURSE. CALL LIGHT WITHIN REACH. PATIENT IN BED.
[2019-10-28 07:55] VITALS: BP 136/65
[2019-10-28 08:07] VITALS: BP 136/65
[2019-10-28] MEDS: INSULIN LISPRO 100 UNIT/1 ML 3ML VIAL SQ SCH ×2 (08:30→11:30)
[2019-10-28] MEDS: HOME MEDICATION--PATIENTS OWN PO SCH (09:00)
[2019-10-28] MEDS: DUTASTERIDE 0.5 MG CAP PO SCH (09:04)
[2019-10-28] MEDS: ASPIRIN 81 MG CHEW TAB PO SCH (09:05)
[2019-10-28] MEDS: PANTOPRAZOLE 40 MG 10ML VIAL IV SCH (09:07)
[2019-10-28 09:16] LABS: BASOPHILS % 0.1 % (0.0-1.0); EOSINOPHILS # (AUTO) 0.5 (0.0-0.4); HEMATOCRIT 27.2 % (38.2-49.6); HEMOGLOBIN 8.8 g/dL (14.0-18.0); LYMPHOCYTES # (AUTO) 1.9 (1.0-3.2); LYMPHOCYTES % 11.4 % (18.0-39.1); MEAN CORPUSCULAR HEMOGLOBIN 31.9 pg (28-32); MEAN CORPUSCULAR HGB CONC 32.4 g/dL (31-35); MEAN CORPUSCULAR VOLUME 98.6 fL (81-99); MONOCYTES # (AUTO) 1.4 (0.2-0.8); MONOCYTES % 8.2 % (4.4-11.3); NEUTROPHILS # (AUTO) 12.8 (2.1-6.9); NEUTROPHILS % 76.8 % (38.7-80.0); PLATELET COUNT 138 x10e3/uL (140-360); RED BLOOD COUNT 2.76 x10e6/uL (4.3-5.7); RED CELL DISTRIBUTION WIDTH 21.6 % (11.7-14.4)
[2019-10-28 09:32] LABS: EOSINOPHILS % (MANUAL) 2 % (0-7); LYMPHOCYTES % (MANUAL) 5 % (19-48); MONOCYTES % (MANUAL) 5 % (3.4-9.0); NEUTROPHILS % (MANUAL) 88 % (40-74)
[2019-10-28 09:33] LABS: ANISOCYTOSIS MODERATE; OVALOCYTES FEW; PLATELET ESTIMATE SLIGHTLY DECREASED; PLATELET MORPHOLOGY COMMENT NORMAL
[2019-10-28 09:34] LABS: POLYCHROMASIA FEW
[2019-10-28 09:35] LABS: RBC MORPHOLOGY COMMENT NORMAL
[2019-10-28] MEDS: IRON SUCROSE 100 MG in SODIUM CHLORIDE 0.9% 100 ML 100 ML IV SCH (09:43)
--- NOTE | 2019-10-28 10:22 | NUR ---
spoke with Dr. Maya on the phone, said the second COVID-19 test wasn't necessary if the procedure could be done without a second test. stated that he wasn't familiar with the surgery policies at this facility. spoke with Vickie and Adina and they both stated that a second test isn't necessary and the patient is not having any s/s. the second COVID-19 test was cancelled
--- NOTE | 2019-10-28 11:26 | Diagnostic Imaging Report ---
EXAMINATION: CHEST SINGLE (PORTABLE) INDICATION: Leukocytosis. COMPARISON: Chest radiograph 10/22/2019. FINDINGS: LINES/TUBES: Right IJ tunneled hemodialysis catheter terminates in the lower SVC. LUNGS:The lungs are moderately inflated. Central vascular congestion with interval resolution of mild interstitial opacities. Unchanged patchy bibasilar opacities. No new consolidation. PLEURA:No pleural effusion or pneumothorax. Skin fold overlie the right lateral hemithorax. MEDIASTINUM:Cardiomediastinal silhouette is mildly enlarged. Atherosclerotic calcifications of the thoracic aorta. BONES/SOFT TISSUES:No acute osseous abnormality. ABDOMEN:No free air under the diaphragm. IMPRESSION: Cardiomegaly with central vascular congestion. Interval resolution of mild pulmonary interstitial edema. Unchanged patchy bibasilar opacities, likely atelectasis, although infection is possible in the appropriate clinical setting. No new consolidation. Signed by: Dr. Thiago Coley MD on 10/28/2019 11:23 AM
[2019-10-28 11:50] VITALS: BP 143/65
[2019-10-28] MEDS: METOPROLOL TARTRATE 25 MG TAB PO SCH (12:22)
--- NOTE | 2019-10-28 13:55 | NUR ---
PT MISSED 1PM TIME SLOT CALLED [facility] SPOKE WITH MARGARET, AFTER GROIN LINE IS PULLED PT WILL DISCHARGE AND GO THIS EVENING TO GET DIALYSIS AT 5PM.
[2019-10-28 14:07] LABS: CLARITY,URINE SL CLOUDY (CLEAR); COLOR,URINE YELLOW (YELLOW); LEUKOCYTE ESTERASE ,URINE TRACE (NEGATIVE); NITRITE,URINE NEGATIVE (NEGATIVE); PROTEIN,URINE DIPSTICK 2+ (NEGATIVE)
[2019-10-28 14:08] LABS: BILIRUBIN,URINE NEGATIVE (NEGATIVE); KETONES,URINE NEGATIVE (NEGATIVE); URINE UROBILINOGEN 0.2 mg/dL (0.2 - 1)
--- NOTE | 2019-10-28 14:11 | NUR ---
Dr. Metcalf gave RN verbal orders to remove femoral catheter. catheter was removed and pressure applied. gauze and tegaderm dressing applied. pt education rendered
[2019-10-28 14:24] LABS: BACTERIA,URINE RARE /HPF
[2019-10-28 14:26] LABS: RENAL EPITHELIAL CELLS,URINE FEW; TRANSITIONAL EPI CELLS,URINE FEW
[2019-10-28 14:27] LABS: EPITHELIAL CELLS,URINE FEW /LPF; WBC,URINE (MAN) 21-50 /HPF (0-5)
[2019-10-28] MEDS ORDERED: PANTOPRAZOLE SO40 MG PO (14:40)
--- NOTE | 2019-10-30 16:49 | Operative Report ---
DATE OF PROCEDURE: 10/26/2019 SURGEON: Reza Danielle MD PROCEDURE INDICATIONS: [id number] myocardial infarction with significant elevations in cardiac biomarkers following presentation with severe anemia, symptomatic, hemoglobin of 4 on admission, positive fecal occult blood test with gastritis on GI evaluation, history of a sarcoma, metastatic. PROCEDURES PERFORMED: 1. Left heart catheterization. 2. Selective coronary angiography. 3. Ultrasound-guided access to the right radial artery. 4. TR band hemostasis. PROCEDURE COMPLICATIONS: None. ESTIMATED BLOOD LOSS: Less than 15 mL. PROCEDURE SUMMARY: After consent was obtained, the patient was prepped and draped in a sterile fashion. The right radial site was locally infiltrated with 2% lidocaine and access was obtained with ultrasound guidance. A 5-Irish outer diameter slender sheath was advanced. All catheters were railed over a leading wire. Nitroglycerin, verapamil, and heparin were administered via the right radial sheath. Radial spasm was observed throughout the procedure, but partially improved with medications. DICTATION ENDS HERE Reza Danielle MD AFV/MODL /[id number]
--- NOTE | 2019-11-01 11:08 | Diagnostic Imaging Report ---
PROCEDURE: Non-tunneled central venous catheter placement Procedural Personnel Attending physician(s): Balaji Oneal MD Fellow physician(s): None Resident physician(s): None Advanced practice provider(s): None Pre-procedure diagnosis: Acute kidney injury Post-procedure diagnosis: Same Indication: Performance of hemodialysis Additional clinical history: None Complications: No immediate complications. IMPRESSION: Insertion of right-sided non-tunneled triple-lumen temporary dialysis catheter, with tip in the expected location of the superior vena cava. Plan: The catheter may be used immediately. PROCEDURE SUMMARY: - Venous access with ultrasound guidance - Non-tunneled central venous catheter insertion with fluoroscopic guidance - Additional procedure(s): None PROCEDURE DETAILS: Pre-procedure Consent: Informed consent for the procedure including risks, benefits and alternatives was obtained and time-out was performed prior to the procedure. Preparation (MIPS): The site was prepared and draped using all elements of maximal sterile barrier technique including sterile gloves, sterile gown, cap, mask, large sterile sheet, sterile ultrasound probe cover, hand hygiene and cutaneous antisepsis with 2% chlorhexidine. Medical reason for site preparation exception (MIPS): Not applicable Anesthesia/sedation Level of anesthesia/sedation: No sedation Anesthesia/sedation administered by: Independent trained observer under attending supervision with continuous monitoring of the patient?s level of consciousness and physiologic status Total intra-service sedation time (minutes): N/A Access Local anesthesia was administered. The vessel was sonographically evaluated and determined to be patent. Real time ultrasound was used to visualize needle entry into the vessel and a permanent image was stored. Vein accessed: Internal jugular vein Access technique: Micropuncture set with 21 gauge needle Catheter placement The access site was dilated and the catheter was placed into the vein over a wire under fluoroscopic guidance. The catheter tip location was fluoroscopically verified and a permanent image was stored.. A sterile dressing was applied. Catheter placed: Bard Trialysis Catheter size ([place] Islander): 13 Catheter length (cm): 15 Catheter flush: Heparin (1000 units/mL) Catheter securement technique: Non-absorbable suture Contrast Contrast agent: None Contrast volume (mL): N/A Radiation Dose Fluoroscopy time (minutes): 0.1 Reference air kerma (mGy): 1.1 Additional Details Additional description of procedure: None Equipment details: None Specimens removed: None Estimated blood loss (mL): Less than 10 Standardized report: [email or web address] Attestation Signer name: Balaji Oneal MD I attest that I was present for the entire procedure. I reviewed the stored images and agree with the report as written. Signed by: Balaji Oneal MD on 10/21/2019 9:47 AM
== END 2019-10-28 16:13 | disposition home or self-care (01) | DRG 252 ==
LOC: ER 17:18 → ERHOLD 19:07 → ICU 21:24 → MED/SURG3 10-22 18:30
PROVIDERS: ADMIT Internal Medicine; ATTEND Internal Medicine
PROC: 30233N1 Transfusion of Nonautologous Red Blood Cells into Peripheral Vein, Percutaneous Approach (ICD-10-PCS; 2019-10-20)
PROC: 02HV33Z Insertion of Infusion Device into Superior Vena Cava, Percutaneous Approach (ICD-10-PCS; 2019-10-20)
PROC: 5A1D70Z Performance of Urinary Filtration, Intermittent, Less than 6 Hours Per Day (ICD-10-PCS; 2019-10-20)
PROC: 0DB68ZX Excision of Stomach, Via Natural or Artificial Opening Endoscopic, Diagnostic (ICD-10-PCS; 2019-10-22)
PROC: 4A023N7 Measurement of Cardiac Sampling and Pressure, Left Heart, Percutaneous Approach (ICD-10-PCS; principal; 2019-10-26)
PROC: 05PY03Z Removal of Infusion Device from Upper Vein, Open Approach (ICD-10-PCS; 2019-10-26)
PROC: B2101ZZ Fluoroscopy of Single Coronary Artery using Low Osmolar Contrast (ICD-10-PCS; 2019-10-26)
PROC: B2151ZZ Fluoroscopy of Left Heart using Low Osmolar Contrast (ICD-10-PCS; 2019-10-26)
PROC: 0JH63XZ Insertion of Tunneled Vascular Access Device into Chest Subcutaneous Tissue and Fascia, Percutaneous Approach (ICD-10-PCS; 2019-10-26)
PROC: 02H633Z Insertion of Infusion Device into Right Atrium, Percutaneous Approach (ICD-10-PCS; 2019-10-26)
DX: I21.4 Non-ST elevation (NSTEMI) myocardial infarction (principal); K29.71 Gastritis, unspecified, with bleeding; N18.6 End stage renal disease; N17.9 Acute kidney failure, unspecified; D62 Acute posthemorrhagic anemia; E87.2 Acidosis; I12.0 Hypertensive chronic kidney disease with stage 5 chronic kidney disease or end stage renal disease; C48.0 Malignant neoplasm of retroperitoneum; E87.5 Hyperkalemia; Z79.84 Long term (current) use of oral hypoglycemic drugs; I25.10 Atherosclerotic heart disease of native coronary artery without angina pectoris; Z79.82 Long term (current) use of aspirin; Z93.3 Colostomy status; Z95.5 Presence of coronary angioplasty implant and graft; K29.80 Duodenitis without bleeding; K44.9 Diaphragmatic hernia without obstruction or gangrene; E11.22 Type 2 diabetes mellitus with diabetic chronic kidney disease; Z99.2 Dependence on renal dialysis; D63.8 Anemia in other chronic diseases classified elsewhere; E11.21 Type 2 diabetes mellitus with diabetic nephropathy; Z90.5 Acquired absence of kidney; N40.0 Benign prostatic hyperplasia without lower urinary tract symptoms
CPT/HCPCS: 36415; 36556; 36558; 43235; 70450; 71045; 72125; 74176; 74470; 76937; 77001; 80048; 80053; 81001; 82270; 82550; 82553; 82607; 82728; 82746; 82948; 83036; 83540; 83735; 83880; 84439; 84443; 84466; 84484; 85014; 85018; 85025; 85045; 85610; 85730; 86078; 86704; 86705; 86706; 86850; 86880; 86900; 86920; 86922; 87086; 87186; 87340; 87635; 90962; 93005; 93306; 93458; 97139; 99152; 99153; 99285; C1769; C1887; C1892; J1200; J1644; J1720; J1756; J1940; J2001; J2150; J2250; J2353; J2354; J2543; J2920; J3010; J3430; J7030; J7040; J7050; P9016; P9017; Q9967

== ENCOUNTER → 2019-12-29 | Outpatient (CLI) | payer OTHER ==
[~2019-12-29] MED LIST changes: +CARVEDILOL25 MG PO; +FERROUS SULFATE PO; +FINASTERIDE5 MG PO; +METHIMAZOLE10 MG PO; +PANTOPRAZOLE SO40 MG PO; +VITAMIN D PO
[2019-12-29 11:20] LABS: BASOPHILS # (AUTO) 0.1 (0.0-0.1); BASOPHILS % 1.1 % (0.0-1.0); EOSINOPHILS # (AUTO) 0.3 (0.0-0.4); EOSINOPHILS % 5.7 % (0.0-6.0); HEMATOCRIT 35.9 % (38.2-49.6); LYMPHOCYTES # (AUTO) 2.4 (1.0-3.2); LYMPHOCYTES % 43.1 % (18.0-39.1); MEAN CORPUSCULAR HEMOGLOBIN 33.1 pg (28-32); MEAN CORPUSCULAR HGB CONC 33.4 g/dL (31-35); MEAN CORPUSCULAR VOLUME 98.9 fL (81-99); MONOCYTES # (AUTO) 0.5 (0.2-0.8); MONOCYTES % 8.3 % (4.4-11.3); NEUTROPHILS # (AUTO) 2.3 (2.1-6.9); NEUTROPHILS % 40.9 % (38.7-80.0); PLATELET COUNT 96 x10e3/uL (140-360); RED BLOOD COUNT 3.63 x10e6/uL (4.3-5.7); RED CELL DISTRIBUTION WIDTH 18.4 % (11.7-14.4)
[2019-12-29 11:37] LABS: ANION GAP 13.8 mmol/L (8-16); CALCIUM 7.8 mg/dL (8.4-10.2); CREATININE, SERUM 3.09 mg/dL (0.72-1.25); POTASSIUM 3.8 mmol/L (3.5-5.1)
--- NOTE | 2019-12-29 11:43 | Diagnostic Imaging Report ---
EXAMINATION: CHEST 2 VIEWS INDICATION: Pre-operative COMPARISON: Chest radiograph 10/28/2019 FINDINGS: LINES/TUBES:Right IJ tunneled dialysis catheter terminates at the superior cavoatrial junction. LUNGS:The lungs are well-inflated. No focal consolidation or pulmonary edema. PLEURA:No pleural effusion or pneumothorax. MEDIASTINUM:The cardiomediastinal silhouette appears normal in size and shape. BONES/SOFT TISSUES:No acute osseous injury. ABDOMEN:No free air under the diaphragm. IMPRESSION: No focal pneumonia or pulmonary edema. Signed by: Balaji Oneal MD on 12/29/2019 11:39 AM
[2019-12-29 13:23] LABS: EOSINOPHILS % (MANUAL) 3 % (0-7); LYMPHOCYTES % (MANUAL) 47 % (19-48); MONOCYTES % (MANUAL) 12 % (3.4-9.0); NEUTROPHILS % (MANUAL) 38 % (40-74)
[2019-12-29 13:24] LABS: ANISOCYTOSIS MODERATE; PLATELET ESTIMATE SLIGHTLY DECREASED; PLATELET MORPHOLOGY COMMENT NORMAL
[2019-12-29 13:26] LABS: POIKILOCYTOSIS SLIGHT; RBC MORPHOLOGY COMMENT ABNORMAL
== END ==
LOC: RAD 05:00 → EDSTATUS 01-03 09:00
PROVIDERS: ATTEND Surgery
DX: Z01.818 Encounter for other preprocedural examination (principal); N18.6 End stage renal disease; Z53.8 Procedure and treatment not carried out for other reasons; Z11.59 Encounter for screening for other viral diseases
CPT/HCPCS: 36415; 71046; 80048; 85025; 93005; U0002

== ENCOUNTER 2020-05-01 10:50 | Inpatient (IN) | payer OTHER ==
[~2020-05-01] VITALS: Ht 162.6 cm; Wt 75.3 kg
--- NOTE | 2020-05-01 12:06 | Emergency Department Note ---
History of Present Illnes History of Present Illness Chief Complaint: General Medicine Complaints History of Present Illness This is a 79 year old male . Chief Complaint Comment PATIENT IN FROM HOME WITH COMPLAINTS OF FEELING WEAK AND TIRED X 1 WEEK; PATIENT STATES THAT HE GETS DIALYSIS [id number]. PATIENT STATES LAST TIME HE FELT THIS WAY HE WAS ANEMIC. PATIENT ALERT AND ORIENTED, RESP EVEN AND NONLABORED, APPEARS IN NO DISTRESS, DENIES PAIN, APPEARS PALE. Historian: Patient, Family Member Arrival Mode: Car Onset (how long ago): day(s) Radiation: Reports non-radiation Severity: mild Onset quality: gradual Duration (how long): day(s) Timing of current episode: intermittent Progression: worsening Chronicity: recurrent Past Medical/Family History Physician Review I have reviewed the patient's past medical and family history. Any updates have been documented here. Past Medical History Recent Fever: No Clinical Suspicion of Infectio: No New/Unexplained Change in Ment: No Past Medical History: Hypertension, Diabetes, PR, Hypothyroidism, ESRD, Hemodyalisis, Anemia, Hyperlipedemia Other Medical History: CATARACTS Other Surgery: lithotripsy STENTS LEFT ARM FISTULA Social History Smoking Cessation: Never Smoker Counseling Performed: No Alcohol Use: None Any Illegal Drug Use: No Physically hurt or threatened: No Other Last Tetanus: unk Any Pre-Existing Lines (PICC,: Yes (HD LUE, PORT R chest) Review of Systems Review of Systems Constitutional: Reports as per HPI, Reports malaise, Reports weakness EENTM: Reports no symptoms Cardiovascular: Reports no symptoms Respiratory: Reports no symptoms Gastrointestinal: Reports no symptoms Genitourinary: Reports no symptoms Musculoskeletal: Reports no symptoms Integumentary: Reports no symptoms Neurological: Reports no symptoms Psychological: Reports no symptoms Endocrine: Reports no symptoms Hematological/Lymphatic: Reports no symptoms Physical Exam Related Data Allergies: Coded Allergies: codeine (Verified Allergy, Unknown, 05/01/20) Triage Vital Signs Vital Signs Date Time Temp Pulse Resp B/P (MAP) Pulse Ox O2 Delivery O2 Flow Rate FiO2 05/01/20 11:01 96.7 66 20 115/46 100 Room Air Physical Exam CONSTITUTIONAL Constitutional: Present well-developed, Present ill appearing HENT HENT: Present normocephalic, Present atraumatic, Present oropharynx clear/moist, Present nose normal HENT L/R: Present left ext ear normal, Present right ext ear normal EYES Eyes: Reports PERRL, Reports conjunctivae normal NECK Neck: Present ROM normal PULMONARY Pulmonary: Present effort normal, Present breath sounds normal CARDIOVASCULAR Cardiovascular: Present regular rhythm, Present heart sounds normal, Present capillary refill normal, Present normal rate GASTROINTESTINAL Abdominal: Present soft, Present nontender, Present bowel sounds normal GENITOURINARY Genitourinary: Present exam deferred SKIN Skin: Present warm, Present dry MUSCULOSKELETAL Musculoskeletal: Present ROM normal NEUROLOGICAL Neurological: Present alert, Present oriented x 3, Present no gross motor or sensory deficits PSYCHOLOGICAL Psychological: Present mood/affect normal, Present judgement normal Results Laboratory Laboratory Laboratory Tests Test 05/01/20 11:10 Lab results reviewed: Yes Laboratory comments Laboratory Tests Test 05/01/20 14:37 05/01/20 11:15 05/01/20 11:10 B-Type Natriuretic Peptide 3052.6 pg/mL (0-100) White Blood Count 4.61 x10e3/uL (4.8-10.8) Red Blood Count 2.47 x10e6/uL (4.3-5.7) Hemoglobin 9.4 g/dL (14.0-18.0) Hematocrit 27.0 % (38.2-49.6) Mean Corpuscular Volume 109.3 fL (81-99) Mean Corpuscular Hemoglobin 38.1 pg (28-32) Mean Corpuscular Hemoglobin Concent 34.8 g/dL (31-35) Red Cell Distribution Width 16.8 % (11.7-14.4) Platelet Count 87 x10e3/uL (140-360) Neutrophils (%) (Auto) 54.2 % (38.7-80.0) Lymphocytes (%) (Auto) 35.6 % (18.0-39.1) Monocytes (%) (Auto) 8.0 % (4.4-11.3) Eosinophils (%) (Auto) 0.9 % (0.0-6.0) Basophils (%) (Auto) 1.1 % (0.0-1.0) Neutrophils # (Auto) 2.5 (2.1-6.9) Lymphocytes # (Auto) 1.6 (1.0-3.2) Monocytes # (Auto) 0.4 (0.2-0.8) Eosinophils # (Auto) 0.0 (0.0-0.4) Basophils # (Auto) 0.1 (0.0-0.1) Absolute Immature Granulocyte (auto 0.01 x10e3/uL (0-0.1) Sodium Level 134 mmol/L (136-145) Potassium Level 3.8 mmol/L (3.5-5.1) Chloride Level 96 mmol/L (98-107) Carbon Dioxide Level 27 mmol/L (22-29) Anion Gap 14.8 mmol/L (8-16) Blood Urea Nitrogen 53 mg/dL (7-26) Creatinine 3.95 mg/dL (0.72-1.25) Estimat Glomerular Filtration Rate 15 ML/MIN (60-) BUN/Creatinine Ratio 13 (6-25) Glucose Level 212 mg/dL (74-118) Lactic Acid Level 1.0 mmol/L (0.5-2.0) Calcium Level 7.9 mg/dL (8.4-10.2) Total Bilirubin 1.1 mg/dL (0.2-1.2) Aspartate Amino Transf (AST/SGOT) 66 IU/L (5-34) Alanine Aminotransferase (ALT/SGPT) 29 IU/L (0-55) Alkaline Phosphatase 46 IU/L (40-150) Creatine Kinase 383 IU/L (30-200) Creatine Kinase MB 2.50 ng/mL (0-5.0) Troponin I 0.244 ng/mL (0-0.300) Total Protein 5.4 g/dL (6.5-8.1) Albumin 1.8 g/dL (3.5-5.0) Globulin 3.6 g/dL (2.3-3.5) Albumin/Globulin Ratio 0.5 (0.8-2.0) Imaging Imaging results reviewed: Yes Assessment & Plan Medical Decision Making MDM 79-year-old male arrives to the ED with complaints generalized weakness and malaise. Patient extensive past medical history. Patient ill-appearing on arrival. Patient admitted for observation, telemetry monitoring and serial cardiac enzymes. Assessment & Plan Final Impression: (1) Weakness Depart Disposition: ADMITTED Last Vital Signs Date Time Temp Pulse Resp B/P (MAP) Pulse Ox O2 Delivery O2 Flow Rate FiO2 05/01/20 11:39 67 18 115/70 95 Room Air 05/01/20 11:01 96.7 Home Meds Reported Medications [Vitamin D] No Conflict Check, 1000 MG PO BID 12/28/19 Finasteride (FINASTERIDE) 5 Mg Tablet, 5 MG PO HS, #30 TAB 12/28/19 [Ferrous Sulfate] No Conflict Check, PO BID 12/28/19 Methimazole (METHIMAZOLE) 10 Mg Tablet, 10 MG PO WKLY 12/28/19 Carvedilol (CARVEDILOL) 25 Mg Tablet, 25 MG PO DAILY 12/28/19 Atorvastatin Calcium* (LIPITOR*) 10 Mg Tablet, 40 MG PO HS 07/23/13 Vitamin B Complex & Vit C No.4 (SUPER B COMPLEX) 150 Mg Tablet, 150 MG PO BID 07/18/13 Niacin (NIACIN) 500 Mg Tablet, 500 MG PO DAILY 07/18/13 Tamsulosin Hcl* (FLOMAX*) 0.4 Mg Cap, 0.4 MG PO HS, CAP 07/18/13 Aspirin (ASPIR 81) 81 Mg Tablet.dr, 81 MG PO HS 07/18/13 Fenofibrate (FENOFIBRATE) 160 Mg Tablet, 200 MG PO DAILY 07/18/13 ZEENAT FRANKLIN DO May 01, 2020 12:06
[2020-05-01 12:12] LABS: BASOPHILS # (AUTO) 0.1 (0.0-0.1); BASOPHILS % 1.1 % (0.0-1.0); EOSINOPHILS % 0.9 % (0.0-6.0); HEMOGLOBIN 9.4 g/dL (14.0-18.0); LYMPHOCYTES # (AUTO) 1.6 (1.0-3.2); LYMPHOCYTES % 35.6 % (18.0-39.1); MEAN CORPUSCULAR HEMOGLOBIN 38.1 pg (28-32); MEAN CORPUSCULAR HGB CONC 34.8 g/dL (31-35); MEAN CORPUSCULAR VOLUME 109.3 fL (81-99); MONOCYTES # (AUTO) 0.4 (0.2-0.8); NEUTROPHILS # (AUTO) 2.5 (2.1-6.9); NEUTROPHILS % 54.2 % (38.7-80.0); PLATELET COUNT 87 x10e3/uL (140-360); RED BLOOD COUNT 2.47 x10e6/uL (4.3-5.7); RED CELL DISTRIBUTION WIDTH 16.8 % (11.7-14.4)
--- NOTE | 2020-05-01 12:22 | Diagnostic Imaging Report ---
EXAMINATION: CHEST SINGLE (PORTABLE) INDICATION: Pre-operative COMPARISON: Chest radiograph 12/29/2019 FINDINGS: LINES/TUBES:Right IJ tunneled hemodialysis catheter terminates at the superior cavoatrial junction. EKG leads overlie the chest. LUNGS:The lungs are well-inflated. No focal consolidation or pulmonary edema. Mild bibasilar subsegmental atelectasis. PLEURA:No pleural effusion or pneumothorax. MEDIASTINUM:The cardiomediastinal silhouette appears normal in size and shape. Atherosclerotic calcifications of the thoracic aorta. BONES/SOFT TISSUES:No acute osseous injury. ABDOMEN:No free air under the diaphragm. IMPRESSION: No focal pneumonia or pulmonary edema. Signed by: Balaji Oneal MD on 05/01/2020 12:19 PM
[2020-05-01 12:33] LABS: ALBUMIN 1.8 g/dL (3.5-5.0); ALBUMIN/GLOBULIN RATIO 0.5 (0.8-2.0); ANION GAP 14.8 mmol/L (8-16); CALCIUM 7.9 mg/dL (8.4-10.2); CREATININE, SERUM 3.95 mg/dL (0.72-1.25); POTASSIUM 3.8 mmol/L (3.5-5.1)
[2020-05-01 12:40] LABS: CREATINE KINASE MB 2.5 ng/mL (0-5.0)
--- NOTE | 2020-05-01 15:46 | NUR ---
Recvd patient from ER. AAOx3, Denies any pain, NO SOB, on Room air, Colostomy bag left lower side of abdomen intact. Dialysis catheter rt upper chest intact. on Tele, keep monitoring.
[2020-05-01 15:54] VITALS: BP 128/71
[2020-05-01 16:20] VITALS: BP 127/58
--- NOTE | 2020-05-01 16:27 | NUR ---
Talked to Dr Carmichael (for Dr Banuelos), called [facility] Talked to Mrs Loving regarding patient should get Dialysis first thing in the morning as per Dr Carmichael
[2020-05-01 17:03] LABS: BILIRUBIN,URINE NEGATIVE (NEGATIVE); CLARITY,URINE CLOUDY (CLEAR); COLOR,URINE STRAW (YELLOW); KETONES,URINE NEGATIVE (NEGATIVE); LEUKOCYTE ESTERASE ,URINE LARGE (NEGATIVE); NITRITE,URINE NEGATIVE (NEGATIVE); PROTEIN,URINE DIPSTICK 2+ (NEGATIVE); URINE UROBILINOGEN 0.2 mg/dL (0.2 - 1)
[2020-05-01 17:10] LABS: BACTERIA,URINE MANY /HPF; WBC,URINE (MAN) 21-50 /HPF (0-5)
--- NOTE | 2020-05-01 19:29 | NUR ---
RECEIVED BEDSIDE SHIFT REPORT FROM PREVIOUS NURSE. CALL LIGHT WITHIN REACH. PATIENT IN BED. PATIENT IN NO PAIN OR DISTRESS
[2020-05-01 19:57] LABS: CREATINE KINASE MB 2.5 ng/mL (0-5.0)
[2020-05-01 20:00] VITALS: BP 122/58
[2020-05-01 20:52] VITALS: BP_SYST 122; BP_SYST 127; BP_DIAS 58
[2020-05-01] MEDS ORDERED: HYDRALAZINE HCL 25 MG TAB PO PRN (21:30)
[2020-05-01] MEDS: CEFEPIME 1GM/NS 0.9% 50 ML 50 ML IV SCH (22:10)
[2020-05-01] MEDS ORDERED: SODIUM CHLORIDE 0.9% 250ML 250 ML ONE (22:34)
[2020-05-02] VITALS (8 sets, daily range): BP systolic 108–142; BP diastolic 28–98
[2020-05-02 05:41] LABS: CHOL/HDL RATIO 3.7 (3.9-4.7)
[2020-05-02 05:59] LABS: CREATINE KINASE MB 2.9 ng/mL (0-5.0)
[2020-05-02 06:15] LABS: BASOPHILS % 0.4 % (0.0-1.0); EOSINOPHILS # (AUTO) 0.1 (0.0-0.4); EOSINOPHILS % 2.1 % (0.0-6.0); HEMATOCRIT 22.5 % (38.2-49.6); HEMOGLOBIN 7.9 g/dL (14.0-18.0); LYMPHOCYTES # (AUTO) 1.4 (1.0-3.2); LYMPHOCYTES % 30.4 % (18.0-39.1); MEAN CORPUSCULAR HEMOGLOBIN 38.7 pg (28-32); MEAN CORPUSCULAR HGB CONC 35.1 g/dL (31-35); MEAN CORPUSCULAR VOLUME 110.3 fL (81-99); MONOCYTES # (AUTO) 0.5 (0.2-0.8); NEUTROPHILS # (AUTO) 2.6 (2.1-6.9); NEUTROPHILS % 55.5 % (38.7-80.0); PLATELET COUNT 77 x10e3/uL (140-360); RED BLOOD COUNT 2.04 x10e6/uL (4.3-5.7); RED CELL DISTRIBUTION WIDTH 16.7 % (11.7-14.4)
[2020-05-02 07:04] LABS: EOSINOPHILS % (MANUAL) 1 % (0-7); LYMPHOCYTES % (MANUAL) 26 % (19-48); MONOCYTES % (MANUAL) 5 % (3.4-9.0); NEUTROPHILS % (MANUAL) 68 % (40-74); OVALOCYTES FEW; TEAR DROP CELLS FEW
[2020-05-02 07:05] LABS: SCHISTOCYTES RARE; TARGET CELLS FEW
[2020-05-02 07:06] LABS: PLATELET ESTIMATE MODERATELY DECREASED; PLATELET MORPHOLOGY COMMENT FEW LARGE; RBC MORPHOLOGY COMMENT ABNORMAL
--- NOTE | 2020-05-02 07:19 | NUR ---
GAVE BEDSIDE SHIFT REPORT TO ONCOMING NURSE. CALL LIGHT WITHIN REACH. PATIENT IN BED. HOURLY ROUNDING PERFORMED.
--- NOTE | 2020-05-02 07:43 | NUR ---
PATIENT IN BED RESTING WITH EYES CLOSED, NO DISTRESS NOTED. DIALYSIS CATHETER TO RIGHT CHEST INTACT. BED IN LOWER POSITION, CALL LIGHT AT REACH.
[2020-05-02] MEDS ORDERED: SODIUM CHLORIDE 0.9% 1000ML 2,000 ML ONE (09:07)
[2020-05-02] MEDS ORDERED: SODIUM CHLORIDE 0.9% 250ML 250 ML IV ONE (10:45)
--- NOTE | 2020-05-02 11:33 | NUR ---
BEDSIDE HEMODIALYSIS IN PROGRESS. PATIENT IN BED RESTING WITH NO S/S OF DISTRESS, CALL LIGHT AT REACH.
--- NOTE | 2020-05-02 12:21 | NUR ---
DAY 1 OBS DX WEAKNESS SENT TO R1 FOR LOC DETERMINATION
[2020-05-02] MEDS ORDERED: SODIUM CHLORIDE 0.9% 1000ML 2,000 ML IV PRN (12:30)
[2020-05-02] MEDS ORDERED: HEPARIN SOD (PORCINE) 1000 UNIT/ML SDV IV PRN (12:30)
[2020-05-02] MEDS ORDERED: METHIMAZOLE 10 MG PO SCH (12:45)
[2020-05-02] MEDS: CEFEPIME 1GM/NS 0.9% 50 ML 50 ML IV SCH ×2 (14:00→22:00)
--- NOTE | 2020-05-02 14:42 | NUR ---
BEDSIDE HEMODIALYSIS COMPLETED, 2L REMOVED PER DIALYSIS NURSE. PATIENT IN BED WITH CALL LIGHT AT REACH.
[2020-05-02 15:14] LABS: % IRON SATURATION 24 % (15-50); IRON 36 ug/dL (65-175); TOTAL IRON BINDING CAPACITY 147 ug/dL (261-478); TRANSFERRIN 105 mg/dL (174-364)
[2020-05-02] MEDS: VITAMIN B COMPLEX PO SCH (17:00)
[2020-05-02] MEDS: VIT C NO 4 PO SCH (17:00)
[2020-05-02] MEDS ORDERED: DEXTROSE 50% SYRINGE 50 ML IV PRN (18:30)
--- NOTE | 2020-05-02 19:15 | NUR ---
patient received awake, alert, sitting on side of bed. no c/o pain noted. pm assessment complete. patient instructed to call for assistance when getting oob. patient verbalizes understanding of this.
[2020-05-02] MEDS: NIACIN 500 MG TABSR PO SCH (20:30)
[2020-05-02] MEDS: TAMSULOSIN HCL 0.4 MG CAP PO SCH (20:30)
[2020-05-02] MEDS: FINASTERIDE 5 MG TAB PO SCH (20:30)
[2020-05-02] MEDS: ASPIRIN 81 MG CHEW TAB PO SCH (20:30)
[2020-05-02] MEDS ORDERED: ATORVASTATIN 10 MG TAB PO SCH (21:00)
[2020-05-02] MEDS: INSULIN REGULAR, HUMAN 100 UNIT/1 ML 3ML VIAL SQ SCH (21:00)
[2020-05-03] VITALS (8 sets, daily range): BP systolic 94–152; BP diastolic 34–80
--- NOTE | 2020-05-03 00:18 | History and Physical ---
PRIMARY CARE PHYSICIAN: Dr. Fabian Patel at [facility]. CHIEF COMPLAINT: Generalized weakness x1 week. HISTORY OF PRESENT ILLNESS: This is a 79-year-old male with past medical history of hypertension, diabetes, CAD, hyperthyroidism, ESRD on dialysis Friday, , and Saturdays, high cholesterol, chronic anemia, and sarcoma with colostomy bag in place. He reports has been feeling weak for the past one week, he denies any chest pain, shortness of breath, nausea, or vomiting. He reports he has unstable gait and has noticed is having trouble walking as he gets weak and tired and with exertion. He reports, last time, he felt this way when his blood count was low and needed blood transfusion. He denies any dysuria, hematuria, abdominal pain, dizziness, passing out, cough, ill contacts, fever, or chills. In the ER, hemoglobin upon arrival was 9.4, hematocrit 27.0, and UA was cloudy with leukocyte esterase large amount with 21-50 wbc's and many bacteria. Chest x-ray with no focal pneumonia or pulmonary edema. He is admitted for further evaluation. PAST MEDICAL HISTORY: 1. Hypertension. 2. High cholesterol. 3. Diabetes type 2. 4. CAD, status post 4 stents. 5. Hyperthyroidism. 6. ESRD on dialysis Friday, , and Saturdays. 7. Chronic anemia. 8. Sarcoma, status post colon resection and colostomy. PAST SURGICAL HISTORY: 1. Lithotripsy. 2. Cardiac stents x4. 3. Left arm AV fistula. 4. Colon resection with colostomy bag. 5. Bilateral cataract surgery. FAMILY MEDICAL HISTORY: He reports mother had breast cancer and blastoma. Father had Alzheimer's. SOCIAL HISTORY: He denies any tobacco, alcohol, or illicit drug use. ALLERGIES: CODEINE. REVIEW OF SYSTEMS: Ten systems reviewed and negative except as reported in HPI. PHYSICAL EXAMINATION: VITAL SIGNS: Temperature 98.2, pulse is 63, respirations 20, blood pressure 142/49, pulse ox is 98% on room air. GENERAL: In no acute distress. Fatigue. HEENT: Normocephalic and atraumatic. NECK: Supple. LUNGS: Clear to auscultation. CARDIOVASCULAR: Regular rate and rhythm. GI: Obese, soft, colostomy with protruding stoma noted. NEUROLOGIC: Alert, awake, and oriented x3. MUSCULOSKELETAL: Moves all extremities. SKIN: Dry and intact. PSYCH: Calm. LABORATORY DATA: WBC 4.71, hemoglobin 7.9, hematocrit 22.5, platelets 77. Sodium 134, potassium 3.8, BUN 53 and creatinine 3.95. Estimated GFR is 15, glucose 135, iron 36, TIBC 147, saturation 24. AST 66, ALT 29. TSH 0.020. UA cloudy with 2+ protein, large leukocyte esterase, 21-50 wbc, epithelial cells none, and bacteria many. Coronavirus PCR is pending. Hepatitis B panel pending. Blood cultures pending. Urine cultures pending. Chest x-ray shows no focal pneumonia or pulmonary edema. IMPRESSION AND PLAN: 1. Generalized weakness likely due to symptomatic anemia. Hemoglobin is 7.9. Able to get 1 unit of PRBC with dialysis tomorrow. 2. Urinary tract infection. Urine culture is pending. UA noted. Started on cefepime 1 g q.12. 3. Hypertension. We will start on Coreg 3.125 mg b.i.d. He was on 25 mg at home. 4. Diabetes. Sliding scale insulin before meals and at bedtime. 5. History of coronary artery disease. Status post stent x4. Currently on aspirin. Reports Plavix was discontinued due to his thrombocytopenia. 6. End-stage renal disease on hemodialysis Friday, , and Saturdays. Renal on the case. Dialysis is today per schedule. 7. Hyperthyroidism. TSH was 0.020. Resumed home dose of methimazole. Reports was taking it two times a week. Advised to increase to three times a week and have TSH repeated in four weeks. 8. History of sarcoma. Status post colon resection and colostomy. He is currently on oral chemo three weeks on one week rest. We will resume. 9. Benign prostatic hypertrophy. Continue Flomax and Proscar. 10. Gastrointestinal and deep venous thrombosis prophylaxis. No anticoagulation due to anemia and thrombocytopenia. Dictated by CORRINA Nazario Marj Metcalf MD MY/MODL /[id number]
--- NOTE | 2020-05-03 02:39 | Consultation ---
DATE OF CONSULTATION: 05/02/2020 HISTORY OF PRESENT ILLNESS: This is a 79-year-old gentleman known to our Nephrology service; underlying end-stage renal disease, follows Dr. Leung, Oncology in the [facility], has metastatic sarcoma, prior hemicolectomy, colostomy, admitted with weakness and anemia. LABORATORY DATA: Hemoglobin 7.9, white count 4.7, platelets 77,000. Chemistry show sodium 134, potassium 3.8, with total bilirubin 1.1, AST 66, CK 383. ALLERGIES: HE IS ALLERGIC TO CODEINE. SOCIAL HISTORY: Does not smoke or drink. MEDICATIONS: Currently on atorvastatin, which I am going to stop given his abnormal liver function, finasteride, Proscar 5 mg at bedtime, hydralazine p.r.n., Flomax 0.4 once a day, and cefepime 1 g q.12. PHYSICAL EXAMINATION: GENERAL: Thin built gentleman, very prominent abdomen, sitting up in no apparent distress. HEENT: No conjunctival icterus. Oral mucosa dry. Neck, has a right-sided tunneled dialysis catheter. LUNGS: Decreased air entry at bases, but clear. No rales. HEART: S1 and S2 audible. ABDOMEN: Distended, soft, has a ileostomy/colostomy present. Splenomegaly at least 3-4 fingerbreadths below the left costal margin and hepatomegaly about three fingerbreadths below the costal margin. EXTREMITIES: Lower extremity no edema. IMPRESSION AND PLAN: End-stage renal disease, metastatic sarcoma, hepatosplenomegaly, thrombocytopenia, possible ascites. Consider scanning abdomen and considering paracentesis. Overall prognosis poor. Discussed with the patient, arranged for dialysis. Renal diet. TSH is low. I will defer that to primary care physician. MD EDMOND Jones/VINI /[id number]
[2020-05-03 05:10] LABS: BASOPHILS % 0.8 % (0.0-1.0); EOSINOPHILS # (AUTO) 0.1 (0.0-0.4); EOSINOPHILS % 1.3 % (0.0-6.0); HEMATOCRIT 21.3 % (38.2-49.6); HEMOGLOBIN 7.4 g/dL (14.0-18.0); LYMPHOCYTES # (AUTO) 1.6 (1.0-3.2); LYMPHOCYTES % 32.6 % (18.0-39.1); MEAN CORPUSCULAR HEMOGLOBIN 38.3 pg (28-32); MEAN CORPUSCULAR HGB CONC 34.7 g/dL (31-35); MEAN CORPUSCULAR VOLUME 110.4 fL (81-99); MONOCYTES # (AUTO) 0.7 (0.2-0.8); MONOCYTES % 14.4 % (4.4-11.3); NEUTROPHILS # (AUTO) 2.4 (2.1-6.9); NEUTROPHILS % 50.7 % (38.7-80.0); PLATELET COUNT 73 x10e3/uL (140-360); RED BLOOD COUNT 1.93 x10e6/uL (4.3-5.7); RED CELL DISTRIBUTION WIDTH 17.2 % (11.7-14.4)
[2020-05-03 05:25] LABS: ANION GAP 10.7 mmol/L (8-16); CALCIUM 7.4 mg/dL (8.4-10.2); CREATININE, SERUM 2.87 mg/dL (0.72-1.25); POTASSIUM 3.7 mmol/L (3.5-5.1)
--- NOTE | 2020-05-03 07:17 | NUR ---
PATIENT IN BED RESTING WITH EYES CLOSED, NO DISTRESS NOTED. COLOSTOMY INTACT WITH SOME GAS NOTED. BED IN LOWER POSITION, CALL LIGHT AT REACH.
[2020-05-03] MEDS: INSULIN REGULAR, HUMAN 100 UNIT/1 ML 3ML VIAL SQ SCH ×4 (07:30→21:00)
[2020-05-03] MEDS: (Fenofibrate 200 MG) PO SCH (08:00)
[2020-05-03] MEDS: VITAMIN B COMPLEX PO SCH ×2 (09:00→17:00)
[2020-05-03] MEDS ORDERED: NON-FORMULARY MEDICATION (Carvedilol 25 MG) PO SCH (09:00)
[2020-05-03] MEDS: CARVEDILOL 3.125 MG TAB PO SCH (09:00)
[2020-05-03] MEDS: VIT C NO 4 PO SCH ×2 (09:00→17:00)
[2020-05-03] MEDS ORDERED: CARVEDILOL 12.5 MG TAB PO SCH ×2 (09:00)
[2020-05-03] MEDS ORDERED: NON-FORMULARY MEDICATION (Niacin 500 MG) PO SCH (09:00)
[2020-05-03] MEDS ORDERED: HEPARIN SOD (PORCINE) 1000 UNIT/ML SDV IV PRN (09:15)
[2020-05-03] MEDS ORDERED: SODIUM CHLORIDE 0.9% 1000ML 2,000 ML IV PRN (09:15)
[2020-05-03] MEDS ORDERED: METHIMAZOLE 5 MG TAB PO SCH (10:00)
--- NOTE | 2020-05-03 11:14 | NUR ---
BED SIDE HEMODIALYSIS IN PROGRESS, 1 UNIT OF BLOOD GIVEN WITH DIALYSIS, PATIENT TOLERATED PROCEDURE WELL. IN BED WITH CALL LIGHT AT REACH.
--- NOTE | 2020-05-03 12:30 | NUR ---
HEMODIALYSIS TREATMENT COMPLETED 250ML REMOVED. B/P 133/66 AND HR 67.
--- NOTE | 2020-05-03 15:37 | Progress Note ---
DATE: 05/03/2020 OCCUPATIONAL HEALTH PHYSICIAN: Dr. Carmichael, Renal. SUBJECTIVE: The patient is seen on dialysis. He reports feeling okay. He denies any chest pain, shortness of breath, nausea, or vomiting. OBJECTIVE: VITAL SIGNS: Temperature 98.5, pulse is 62, respirations 16, blood pressure 114/54, and pulse ox is 97% on room air. GENERAL: No acute distress, fatigued. HEENT: Normocephalic and atraumatic. NECK: Supple. LUNGS: Clear to auscultation. CARDIOVASCULAR: Regular rate and rhythm. GI: Obese and soft. Colostomy with protruding stoma noted. NEUROLOGIC: Alert, awake, and oriented x3. MUSCULOSKELETAL: Moves all extremities. SKIN: Dry and intact. PSYCH: Calm. LABORATORY DATA: WBC 4.78, hemoglobin 7.4, hematocrit 21.3, and platelets 73. Sodium 138, potassium 3.7, BUN is 34, creatinine 2.87, estimated GFR 21, glucose 160, and calcium 7.4. Urine culture shows gram-negative rods. Blood culture negative so far. IMPRESSION AND PLAN: 1. Urinary tract infection. Urine culture shows gram-negative rods. Continue on cefepime q.24 hours renal dose. 2. Symptomatic anemia. Hemoglobin is 7.4. Status post one unit of PRBC with dialysis. We will have physical therapy evaluate and treat. 3. Hypertension. Continue Coreg 3.125 mg b.i.d. 4. Diabetes type 2. SSI before meals and at bedtime. 5. History of coronary artery disease, status post 4 stents. Reports currently on aspirin and is off Plavix due to thrombocytopenia. 6. End-stage renal disease, on dialysis, Friday, , Friday. Renal on the case. Hemodialysis today. 7. Hyperthyroidism. TSH is 0.020. Resume methimazole. Increase it to 3 times per week. 8. History of sarcoma, status post colon resection and colostomy. Currently following up with [facility] budget technician and on oral chemo drugs. 9. Benign prostatic hyperplasia. Continue Flomax and Proscar. 10. Gastrointestinal and deep venous thrombosis prophylaxis. No AC due to anemia and thrombocytopenia. Dictated by CORRINA Nazario MD MIREILLE Palacios/MODL /[id number]
--- NOTE | 2020-05-03 16:22 | NUR ---
PATIENT ASSISTED WITH SHOWER IN BED RESTING WITH NO DISTRESS. CALL LIGHT AT REACH.
--- NOTE | 2020-05-03 16:41 | NUR ---
Discontinuing PT services since patient is Mod i in functional mobility. Thank you Addendum: 05/03/20 at 1642 by Stephen cervantes PT Amended: Links added.
--- NOTE | 2020-05-03 19:25 | NUR ---
patient received awake, alert, lying quietly in bed. no c/o pain noted. patient requesting no to be awakened from [id number]. patient instructed we would get 0000 vs early and not awaken him through the night. pm assessment complete. patient instructed to call for assistance when needed.
[2020-05-03] MEDS ORDERED: CEFEPIME 1GM/NS 0.9% 50 ML 50 ML IV SCH (21:00)
[2020-05-03] MEDS: TAMSULOSIN HCL 0.4 MG CAP PO SCH (21:00)
[2020-05-03] MEDS: NIACIN 500 MG TABSR PO SCH (21:00)
[2020-05-03] MEDS: FINASTERIDE 5 MG TAB PO SCH (21:00)
[2020-05-03] MEDS: ASPIRIN 81 MG CHEW TAB PO SCH (21:00)
--- NOTE | 2020-05-03 23:00 | NUR ---
NEW IV #20 GAUGE PLACED TO RIGHT FOREARM X 1 STICK. IV TO RIGHT AC D/C'D DUE TO REDNESS AND LEAKAGE AT THE SITE.
[2020-05-04 01:19] VITALS: BP 143/67
[2020-05-04 07:27] LABS: BASOPHILS # (AUTO) 0.1 (0.0-0.1); BASOPHILS % 0.9 % (0.0-1.0); EOSINOPHILS # (AUTO) 0.1 (0.0-0.4); EOSINOPHILS % 0.9 % (0.0-6.0); HEMATOCRIT 25.6 % (38.2-49.6); HEMOGLOBIN 8.9 g/dL (14.0-18.0); LYMPHOCYTES # (AUTO) 1.7 (1.0-3.2); LYMPHOCYTES % 32.5 % (18.0-39.1); MEAN CORPUSCULAR HEMOGLOBIN 35.7 pg (28-32); MEAN CORPUSCULAR HGB CONC 34.8 g/dL (31-35); MEAN CORPUSCULAR VOLUME 102.8 fL (81-99); MONOCYTES # (AUTO) 0.9 (0.2-0.8); MONOCYTES % 16.4 % (4.4-11.3); NEUTROPHILS # (AUTO) 2.6 (2.1-6.9); NEUTROPHILS % 48.9 % (38.7-80.0); PLATELET COUNT 64 x10e3/uL (140-360); RED BLOOD COUNT 2.49 x10e6/uL (4.3-5.7); RED CELL DISTRIBUTION WIDTH 21.2 % (11.7-14.4)
[2020-05-04] MEDS: INSULIN REGULAR, HUMAN 100 UNIT/1 ML 3ML VIAL SQ SCH ×3 (07:30→16:30)
--- NOTE | 2020-05-04 07:33 | NUR ---
PATIENT IN BED RESTING WITH NO S/S OF DISCOMFORT. ALL PERSONAL ITEMS CLOSE TO PATIENT. BED IN LOWER POSITION, CALL LIGHT AT REACH.
[2020-05-04 07:50] VITALS: BP 125/61
[2020-05-04] MEDS: (Fenofibrate 200 MG) PO SCH (08:00)
[2020-05-04 08:17] VITALS: BP 125/61
[2020-05-04 08:27] LABS: EOSINOPHILS % (MANUAL) 1 % (0-7); LYMPHOCYTES % (MANUAL) 23 % (19-48); MONOCYTES % (MANUAL) 9 % (3.4-9.0); NEUTROPHILS % (MANUAL) 67 % (40-74)
[2020-05-04 08:28] LABS: ANISOCYTOSIS MODERATE; PLATELET ESTIMATE MODERATELY DECREASED; PLATELET MORPHOLOGY COMMENT NORMAL; RBC MORPHOLOGY COMMENT ABNORMAL; TARGET CELLS FEW
[2020-05-04 08:29] LABS: MICROCYTOSIS SLIGHT; OVALOCYTES FEW
[2020-05-04 08:30] LABS: TEAR DROP CELLS FEW
[2020-05-04] MEDS: VIT C NO 4 PO SCH ×2 (09:00→17:00)
[2020-05-04] MEDS: CARVEDILOL 3.125 MG TAB PO SCH (09:00)
[2020-05-04] MEDS: VITAMIN B COMPLEX PO SCH ×2 (09:00→17:00)
[2020-05-04 09:27] LABS: CALCIUM 7.4 mg/dL (8.4-10.2); CREATININE, SERUM 2.95 mg/dL (0.72-1.25)
[2020-05-04 11:00] VITALS: BP 115/62
[2020-05-04] MEDS ORDERED: KEFLEX250 MG PO (14:06)
[2020-05-04] MEDS ORDERED: KEFLEX500 MG PO (14:31)
--- NOTE | 2020-05-04 14:59 | NUR ---
EDUCATED ABOUT IMM, SIGNED, FILED IN CHART, WITH COPY LEFT WITH FAMILY AT BEDSIDE.
[2020-05-04 15:59] VITALS: BP 131/70
--- NOTE | 2020-05-04 16:42 | NUR ---
PATIENT IN ROOM RECEIVING BED SIDE HEMODIALYSIS TREATMENT. IN BED WITH CALL LIGHT AT REACH.
--- OUTSIDE RECORDS SUMMARY | 2020-05-04 18:41 | XMS REPORT | Clinical Summary ---
Author Author JENNIFER Visure SolutionsSt. Luke'S Boise Medical CenterAirspan Networks [facility] Organization [facility] Vis[facility] SolutionsKootenai HealthAzingo[facility] Address Unknown Phone Unavailable Care Team Providers Care Nurse Paralegal Name Role Phone Fabian Patel PCP Allergies Comments Active Allergy Reactions Severity Noted Date Acetaminophen-Codeine Rash Low 02/25/20 07 Codeine Rash, Hives Low 03/15/2016 Medications End Date Status Medication Sig Dispensed Refills Start Date Active clopidogrel (PLAVIX) 75 0 mg tablet 5 Active fenofibrate micronized 0 (LOFIBRA) 200 MG capsule 5 Active tamsulosin (FLOMAX) 0.4 0 mg Cp24 24 hr capsule 5 Active furosemide (LASIX) 40 MG Take 40 mg by 0 tablet mouth daily --takes 40 mg, L-Ml-Czn- -takes 20 mg. Active amLODIPine (NORVASC) 10 Take 10 mg by 0 MG tablet mouth daily. Active niacin 100 MG tablet Take 500 mg 0 by mouth daily with breakfast . Active methIMAzole (TAPAZOLE) 10 Take 10 mg by 0 MG tablet mouth 3 (three) times a week. Active finasteride (PROPECIA) 1 Take 5 mg by 0 mg tablet mouth daily . Active insulin detemir U-100 Inject 6 0 (LEVEMIR) 100 unit/mL Units injection subcutaneousl y 2 (two) times daily Took 1/2 dose last night . Active insulin aspart U-100 Inject 3 0 (NOVOLOG) 100 unit/mL Units InPn subcutaneousl y 3 (three) times daily before meals Per sliding scale . Active carvedilol (COREG) 25 MG Take 25 mg by 0 tablet mouth 2 (two) times daily with breakfast and dinner. Active aspirin 81 MG EC tablet Take 81 mg by 0 mouth daily. Active calcium carb/vit Take by 0 D3/minerals mouth. (CALCIUM-VITAMIN D ORAL) 06/11/2020 Active atorvastatin (LIPITOR) 40 Take 1 tablet 30 tablet 6 MG tablet (40 mg total) 9 by mouth nightly. 06/11/2020 Active ferrous sulfate 325 (65 Take 1 tablet 180 tablet 3 FE) MG tablet (325 mg 9 total) by mouth 2 (two) times daily. Active cholecalciferol (VITAMIN Take 1,000 0 D3) 25 mcg (1,000 unit) Units by tablet mouth. Active DIALYVITE 800 0.8 mg Tab Take 1 tablet 0 11/22 tablet by mouth 0 daily. Active ceFAZolin (ANCEF) 1 g in Inject 1 g 0 sodium chloride 0.9 % intravenously (NS) 100 mL ADD EASE IVPB 3 (three) times a week MON/WED/FRI. 05/18/2019 Discontinued (Error) atorvastatin (LIPITOR) 40 0 08/23/201 MG tablet 5 06/11/2019 Discontinued (Error) metoprolol (TOPROL-XL) 25 25 mg 2 (two) 0 /2 0/201 MG 24 hr tablet times daily . 5 05/18/2019 Discontinued carvedilol (COREG) 6.25 Take 6.25 mg 0 MG tablet by mouth daily. 05/21/2019 acetylcysteine (MUCOMYST) Take 6 mLs 18 mL 0 200 mg/mL (20 %) (1,200 mg 9 nebulizer solution total) by mouth 2 (two) times daily for 3 doses. Active Problems Problem Noted Date ESRD (end stage renal disease) on dialysis 0 CAD (coronary artery disease) 05/18/2019 Encounters Care Team Description Date Type Specialty Germán Maya MD Surgical follow-up care (Primary Dx) 01/19/2020 Office Visit Cardiology Nicola Hanley DO Duong, Kevin Win 01/03/2020 Anesthesia Event Germán Maya MD CREATION,A-V FISTULA 01/03/2020 Surgery Germán Maya MD 01/03/2020 Hospital Encounter 12/30/2019 Hospital Pre-Admission Testi ng Encounter 12/30/2019 Travel Germán Maya MD Coronary artery disease of [place] artery of [place] heart with stable angina pectoris (HCC) (Primary Dx); ESRD (end stage renal disease) on dialysis (HCC); Encounter regarding vascular access for dialysis for end-stage renal disease (HCC); Essential hypertension; History of nephrectomy; 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 Video - Cardiology Telemedicine Moisés Chung MD CORONARY ANGIOS / PCI / STENT 06/11/2019 Surgery Moisés Chung MD Coronary artery disease of [place] artery of [place] heart with stable angina pectoris (HCC) (Primary Dx) 06/11/2019 Hospital Cardiology - Encounter 06/12/2019 Moisés Chung MD 06/10/2019 Orders Only Cardiology Moisés Chung MD CORONARY ANGIOS / PCI / STENT 05/18/2019 Surgery Moisés Chung MD 05/18/2019 Hospital Encounter Moisés Chung MD 05/17/2019 Orders Only Cardiology after 05/01/2019 Social History Date Tobacco Use Types Packs/Day Years Used Never Smoker Smokeless Tobacco: Never Used Drinks/Week oz/Week Comments Alcohol Use No Sex Assigned at Date Recorded Not on file Last Filed Vital Signs Reading Time Taken Comments Vital Sign 144/62 01/19/2020 9:26 AM CDT Blood Pressure 58 01/19/2020 9:26 AM CDT Pulse 36.2 C (97.2 F) 01/03/2020 8:15 PM CDT Temperature 25 01/03/2020 8:15 PM CDT Respiratory Rate 96% 01/03/2020 8:15 PM CDT Oxygen Saturation - - Inhaled Oxygen Concentration 70.3 kg (155 lb) 01/19/2020 9:26 AM CDT Weight 170.2 cm (5' 7") 01/03/2020 8:55 AM CDT Height 24.28 01/03/2020 8:55 AM CDT Body Mass Index Plan of Treatment Health Maintenance Due Date Last Done Comments MEDICARE ANNUAL WELLNESS 07/01/2009 (YEAR 2 or FIRST YEAR if no IPPE) INFLUENZA VACCINE (#1) 2020 05/06/2019, 04/09/2018, 04/24/2017, Additional history exists PNEUMOCOCCAL 65+ YRS Completed 04/24/2017, 04/25/2016, 03/21/2016, Additional history exists Implants Device Identifier Shelf Expiration Date Model / Serial / L ot Implanted Type Area Manufactur er [id number] 03/08/2021 [id number] / / [id number] Stent Synergy Otw [id number] IMPLANTS Right: Coronary B [place] [id number] - [id number] SCI:INTERV Implanted: Qty: 1 on 06/11/2019 by CARDIOLOGY Moisés Chung MD at [facility] Description:RCA Stent Procedures Comments Procedure Name Priority Date/Time Associated Diag nosis RHYTHM STRIP - SCAN 01/06/2020 11:11 AM CDT TRANSFUSION SERVICE 01/04/2020 REPORT - SCAN 6:14 PM CDT POCT-GLUCOSE METER Routine 01/03/2020 7:40 PM CDT GLUCOSE STAT 01/03/2020 5:39 PM CDT CREATION,A-V FISTULA 01/03/2020 End stage renal disease 4:22 PM CDT ([facility]) POCT-GLUCOSE METER Routine 01/03/2020 3:36 PM CDT ABORH, MANUAL STAT 01/03/2020 9:47 AM CDT PROTHROMBIN TIME/INR STAT 01/03/2020 9:42 AM CDT TYPE AND SCREEN, Routine 01/03/2020 AUTOMATED 9:35 AM CDT GLUCOSE-STAT LAB STAT 01/03/2020 9:35 AM CDT HGB/HCT (H&H) - STAT LAB Routine 01/03/2020 9:35 AM CDT POTASSIUM-STAT LAB STAT 01/03/2020 9:35 AM CDT SARS-COV2/RT-PCR ([facility] & STAT 01/03/2020 REF LABS) 9:22 AM CDT POCT-GLUCOSE METER Routine 01/03/2020 8:53 AM CDT VASCULAR DIAGRAM -SCAN 06/18/2019 2:40 PM MANAGER CHILD RHYTHM STRIP - SCAN 06/14/2019 11:20 AM MANAGER CHILD REPORT OF PROCEDURE - 06/14/2019 ENDOSCOPY SCAN 11:20 AM MANAGER CHILD CARDIAC CATH REPORT - 06/14/2019 SCAN 11:20 AM MANAGER CHILD VASCULAR DIAGRAM -SCAN 06/14/2019 11:20 AM MANAGER CHILD POCT-GLUCOSE METER Routine 06/12/2019 11:24 AM MANAGER CHILD CBC W/PLT COUNT & AUTO STAT 06/12/2019 DIFFERENTIAL 10:51 AM MANAGER CHILD CBC W/PLT COUNT & AUTO STAT 06/12/2019 DIFFERENTIAL 10:51 AM MANAGER CHILD POCT-GLUCOSE METER Routine 06/12/2019 7:14 AM MANAGER CHILD PLATELET AGGREGATION: Routine 06/12/2019 FUNCTION SCREEN 4:33 AM MANAGER CHILD BASIC METABOLIC PANEL (7) Routine 06/12/2019 4:33 AM MANAGER CHILD CBC (HEMOGRAM ONLY) Routine 06/12/2019 4:33 AM MANAGER CHILD POCT-GLUCOSE METER Routine 06/11/2019 11:08 PM MANAGER CHILD POCT-ACT Routine 06/11/2019 4:55 PM MANAGER CHILD POCT-ACT Routine 06/11/2019 3:53 PM MANAGER CHILD POCT-ACT Routine 06/11/2019 2:22 PM MANAGER CHILD POCT-GLUCOSE METER Routine 06/11/2019 12:01 PM MANAGER CHILD POCT-ACT Routine 06/11/2019 10:41 AM MANAGER CHILD POCT-ACT Routine 06/11/2019 10:21 AM MANAGER CHILD POCT-ACT Routine 06/11/2019 10:10 AM MANAGER CHILD CORONARY ANGIOS / PCI / 06/11/2019 Atheroscleros is of [place] STENT 9:16 AM MANAGER CHILD coronary artery of [place] heart without angina pectoris Case Notes 2CASE 6TOP VASCULAR DIAGRAM -SCAN 05/26/2019 3:30 PM MANAGER CHILD VASCULAR DIAGRAM -SCAN 05/19/2019 3:11 PM MANAGER CHILD REPORT OF PROCEDURE - 05/19/2019 ENDOSCOPY SCAN 3:11 PM MANAGER CHILD CARDIAC CATH REPORT - 05/19/2019 SCAN 3:11 PM MANAGER CHILD BASIC METABOLIC PANEL (7) STAT 05/18/2019 3:47 PM MANAGER CHILD CORONARY ANGIOS / PCI / 05/18/2019 Pre-op testin g STENT 2:17 PM MANAGER CHILD Case Notes (4)CASE POP6 (CELLAVISION MANUAL DIFF) Routine 05/18/2019 10:12 AM MANAGER CHILD CBC WITH PLATELET COUNT + Routine 05/18/2019 MANUAL DIFF 10:12 AM MANAGER CHILD CBC W/PLT+MANUAL DIFF Routine 05/18/2019 10:12 AM MANAGER CHILD after 05/01/2019 Results * RHYTHM STRIP - SCAN (01/06/2020 11:11 AM CDT) Only the most recent of 2 results within the time period is included. Narrative Performed At This result has an attachment that is n ot available. * TRANSFUSION SERVICE REPORT - SCAN (01/04/2020 6:14 PM CDT) Narrative Performed At This result has an attachment that is n ot available. * POC-Glucose meter (01/03/2020 7:40 PM CDT) Only the most recent of 7 results within the time period is included. POC-Glucose 106Comment: : TESTED AT [facility] 70 - 110 mg/dL [facility] Meter [id number] [facility] [id number]: Hog Stomach Preparer/Locomotive Firer ID MEDICAL [facility]ENTER = [id number] for SYLVIACHARITOASHLEY Specimen Blood Performing Organization Address [facility] Ph one Number [facility] [address] [place], [place] [address] MED[facility] CENTER * Glucose (01/03/2020 5:39 PM CDT) Glucose 90 70 - 105 mg/dL [facility] Specimen Blood - Venous line (physical object) Narrative Performed At Hog Stomach Preparer ID - DB [facility] Performing Organization Address [facility] Ph one Number [facility] [address] [address] [facility] * ABORH, manual (01/03/2020 9:47 AM CDT) ABO Grouping A [facility] Rh Factor POS [facility] Specimen Blood Performing Organization Address [facility] Ph one Number [address] [address] [phone] [facility] * Prothrombin time/INR (01/03/2020 9:42 AM CDT) Protime 15.9 (H) 11.9 - 14.[address] [facility] INR 1.3 <=5.9 [facility] Specimen Blood Narrative Performed At Effective 11/25/2018: PT Reference Range Change [facility] New: 11.9-14.2 Previous: 11.7-14.7 [facility] MEDICAL BRITNI TER RECOMMENDED COUMADIN/WARFARIN INR THERA PY RANGES STANDARD DOSE: 2.0-3.0 Includes: PROP HYLAXIS for venous thrombosis, systemic embolization; TREATMENT for venous thro mbosis and/or pulmonary embolus. HIGH RISK: Target INR is 2.5-3.5 for pa tients wiht mechanical heart valves. Performing Organization Address [facility] Ph one Number [address] [address] [facility] * Potassium-Stat Lab (01/03/2020 9:35 AM CDT) Potassium 3.7 3.6 - 5.5 meq/L [facility] Specimen Blood, Arterial Performing Organization Address City/[facility] Ph one Number [address] [address] [facility] * Glucose-Stat Lab (01/03/2020 9:35 AM CDT) Glucose 114 (H) 70 - 110 mg/dL [facility] Specimen Blood, Arterial Performing Organization Address City/[facility] one Number [address] [address] [facility] * Type and screen, automated (01/03/2020 9:35 AM CDT) ABO/RH A POSITIVE [facility] AUTOMATED [facility] Ab Scrn NEGATIVE [facility] Specimen Blood Performing Organization Address [facility] Ph one Number [address] [address] [facility] * HGB/HCT (H&H)-Stat Lab (01/03/2020 9:35 AM CDT) Hemoglobin 11.6 (L) 13.0 - 16.8 g/dL [facility] Hematocrit 34.0 (L) 40.0 - 50.0 % [facility] Specimen Blood, Arterial Performing Organization Address [facility] one Number [address] [facility] * SARS-CoV2/RT-PCR (Asymptomatic ONLY) (01/03/2020 9:22 AM CDT) SARS-COV2/RT-PC Negative Not Detected, [facility] R Negative [facility] SARS-COV-2 BSC [facility] PERFORMING LAB [facility] Specimen Other - Nasopharyngeal wall structure (body structure) Narrative Performed At Negative result for this test determine s that SARS-CoV-2 RNA was not present in [facility] the specimen above the Limit of Detecti on (LOD). However, Negative results do [facility] not preclude SARS-CoV-2 infection and s hould not be used as the sole basis for treatment or patient management decisio ns. Negative results must be combined with clinical observations, patient his tory, and epidemiological information. A false negative result may occur if a sp ecimen is improperly collected, transported or handled. A false negat karlie result should be considered if patient's recent exposures or clinical presentation indicate that COVID-19 (SARS-CoV-2) is likely and diagnostic t ests for other causes of illness are negative. Re-testing should be consid ered in cases of suspected false negatives. The limit of detection for this assay i s 800 copies/mL. This SARS CoV-2 test is a real-time RT- PCR test intended for the qualitative detection of nucleic acid from SARS-CoV -2 in a nasopharyngeal swab specimen collected from individuals suspected of COVID-19 by their healthcare provider. This test has not been Food and Drug Ad ministration (FDA) cleared or approved. This is a modified version of an appr harini Emergency Use Authorization (EUA) and is in the process of review by the FDA. Once authorized by the FDA, the issued EUA will be effective until the declaration that circumstances exist justifying the authorization of the luis miguel rgency use of in vitro diagnostic tests for detection and/or diagnosis of COVID -19 is terminated under Section 564(b)(2) of the Act or the EUA is revoked under Section 564(g) of the Act. Fact Sheet for Healthcare Providers: https://www.EUDOWEB/sites/default/files/product/documents/Fact_Sheet_HC_Provi mtxv_Wnvz_XJTD-UcC-6.pdf Fact Sheet for Healthcare Patients: https://www.EUDOWEB/sites/default/files/product/documents/Fact_Sheet_Patients _Ijli_FEER-AmD-6.pdf Performing Laboratory: [place] [address] Performing Organization Address City/State/Zipcode Ph one Number [place] [address] [facility] * VASCULAR DIAGRAM -SCAN (06/18/2019 2:40 PM MANAGER CHILD) Only the most recent of 4 results within the time period is included. Narrative Performed At This result has an attachment that is n ot available. * EKG-SCANNED (06/14/2019 11:20 AM MANAGER CHILD) Only the most recent of 2 results within the time period is included. Narrative Performed At This result has an attachment that is n ot available. * CARDIAC CATH REPORT - SCAN (06/14/2019 11:20 AM MANAGER CHILD) Narrative Performed At This result has an attachment that is n ot available. * CBC with platelet count + automated diff (06/12/2019 10:51 AM MANAGER CHILD) WBC 9.4 3.5 - 10.5 K/L [facility] RBC 2.52 (L) 4.63 - 6.08 M/L [facility] Hemoglobin 7.6 (L) 13.7 - 17.5 GM/DL [facility] Hematocrit 23.1 (L) 40.1 - 51.0 % [facility] MCV 91.7 79.0 - 92.2 fL [facility] MCH 30.2 25.7 - 32.2 pg [facility] MCHC 32.9 32.3 - 36.5 GM/DL [facility] RDW 17.5 (H) 11.6 - 14.4 % [facility] Platelets 279 150 - 450 K/CU MM [facility] MPV 11.6 9.4 - 12.4 fL [facility] nRBC 0 0 - 0 /100 WBC [facility] % Neutros 63 % [facility] % Lymphs 20 % [facility] % Monos 11 % [facility] % Eos 4 % [facility] % Baso 1 % [facility] # Neutros 5.94 (H) 1.78 - 5.38 K/L [facility] # Lymphs 1.90 1.32 - 3.57 K/L [facility] # Monos 1.04 (H) 0.30 - 0.82 K/L [facility] # Eos 0.39 0.04 - 0.54 K/L [facility] # Baso 0.10 (H) 0.01 - 0.08 K/L [facility] Immature 1 0 - 1 % [facility] Granulocytes-Re [facility] Specimen Blood Performing Organization Address [facility] Ph one Number [facility] [address] [place] [address] [facility] * Platelet Aggregation: Function Screen (06/12/2019 4:33 AM MANAGER CHILD) Pathologist: Estelita Rausch MD [facility] (electronic signature) [facility] Platelets 285 150 - 450 K/CU MM [facility] ADP 21 (L) 62 - 100 % [facility] Platelet Rich 195 (L) 200 - 300 k/cu mm [facility] Plasma [facility] Plt. Function Pattern of disaggregation [facility] Screen present with ADP which may be [facility] Interpretation characteristic of P2Y12 [facility] R inhibitor effect. Correlation with medication history is required. Specimen Blood - Entire left upper arm (body structure) Narrative Performed At Platelet Function Screen results may be falsely low w ith platelet counts [facility] <75,000/cu mm. [facility] Performing Organization Address City/[facility] Ph one Number [place] [address] [facility] * CBC (Hemogram only) (06/12/2019 4:33 AM MANAGER CHILD) WBC 10.2 3.5 - 10.5 K/L [facility] RBC 2.51 (L) 4.63 - 6.08 M/L [facility] Hemoglobin 7.5 (L) 13.7 - 17.5 GM/DL [facility] Hematocrit 22.7 (L) 40.1 - 51.0 % [facility] MCV 90.4 79.0 - 92.2 fL [facility] MCH 29.9 25.7 - 32.2 pg [facility] MCHC 33.0 32.3 - 36.5 GM/DL [facility] RDW 17.9 (H) 11.6 - 14.4 % [facility] Platelets 272 150 - 450 K/CU MM [facility] MPV 10.9 9.4 - 12.4 fL [facility] nRBC 0 0 - 0 /100 WBC [facility] Specimen Blood - Entire left upper arm (body structure) Performing Organization Address City/[facility] Ph one Number [address] [address] [facility] * Basic Metabolic Panel (06/12/2019 4:33 AM MANAGER CHILD) Only the most recent of 2 results within the time period is included. Sodium 136 136 - 145 meq/L [facility] Potassium 3.8 3.5 - 5.1 meq/L [facility] Chloride 106 98 - 107 meq/L [facility] CO2 22 22 - 29 meq/L [facility] BUN 60 (H) 7 - 21 mg/dL [facility] Creatinine 4.00 (H) 0.57 - 1.25 mg/dL [facility] Glucose 133 (H) 70 - 105 mg/dL [facility] Calcium 7.4 (L) 8.4 - 10.2 mg/dL [facility] EGFR 15Comment: ESTIMATED GFR IS mL/min/1.73 sq m [facility] NOT ACCURATE CREATININE [facility] CLEARANCE IN PREDICTING MEDICAL CENTER GLOMERULAR FILTRATION RATE. ESTIMATED GFR IS NOT APPLICABLE FOR DIALYSIS PATIENTS. Specimen Blood - Entire left upper arm (body structure) Performing Organization Address City/[facility] Ph one Number [facility] [address] [address] [facility] * POC ACTIVATED CLOTTING TIME (06/11/2019 4:55 PM MANAGER CHILD) Only the most recent of 6 results within the time period is included. Activated 147Comment: Reference Range: sec C [facility] Clotting Time 74-137 seconds, [facility] Baseline/TESTED AT [address] [address] Specimen Blood Performing Organization Address [facility] Ph one Number [address] [address] [facility] * CARDIAC CATH REPORT - SCAN (05/19/2019 3:11 PM MANAGER CHILD) Narrative Performed At This result has an attachment that is n ot available. * CBC with platelet count + manual diff (05/18/2019 10:12 AM MANAGER CHILD) WBC 9.8 3.5 - 10.5 K/L [facility] RBC 2.63 (L) 4.63 - 6.08 M/L [facility] Hemoglobin 7.7 (L) 13.7 - 17.5 GM/DL [facility] Hematocrit 23.4 (L) 40.1 - 51.0 % [facility] MCV 89.0 79.0 - 92.2 fL [facility] MCH 29.3 25.7 - 32.2 pg [facility] MCHC 32.9 32.3 - 36.5 GM/DL [facility] RDW 17.0 (H) 11.6 - 14.4 % [facility] Platelets 373 150 - 450 K/CU MM [facility] MPV 11.7 9.4 - 12.4 fL [facility] nRBC 0 0 - 0 /100 WBC [facility] Specimen Blood Performing Organization Address City/[facility] Ph one Number [address] [place], [place] [address] [facility] * Manual Differential (05/18/2019 10:12 AM MANAGER CHILD) % Neutros 67 % [facility] % Lymphs 22 % [facility] % Monos 6 % [facility] % Eos 5 % [facility] # Neutros 6.57 (H) 1.78 - 5.38 K/ul [facility] # Lymphs 2.16 1.32 - 3.57 K/ul [facility] # Monos 0.59 0.30 - 0.82 K/uL [facility] # Eos 0.49 0.04 - 0.54 K/uL [facility] Total Counted 100 [facility] RBC Morphology Normal [facility] Large Platelet Present [facility] Toxic Present [facility] Specimen Blood Performing Organization Address City/State/Zipcode Ph one Number [address] [address] [facility] after 05/01/2019 Insurance Type Payer Benefit Subscriber ID Effective Phone Address Plan / Dates Group Maps Contracted TEXANPLUS TEXANPLUS [id number] 2008-P HMO ALL resent CDC REVIEW CDC REVIEW [id number] 2019-P [address] [place] [place] [phone] Advance Directives For more information, please contact: [phone] Date Inactivated Comments Code Status Date Activated 01/03/2020 10:44 PM Full Code 01/03/2020 8:50 AM This code status was determined by: Patient 06/12/2019 3:17 PM Full Code 06/11/2019 6:50 AM This code status was determined by: Patient 05/19/2019 12:16 AM Full Code 05/18/2019 8:18 AM This [id number] was [id number]: [id number]
--- OUTSIDE RECORDS SUMMARY | 2020-05-04 18:42 | XMS REPORT | Continuity of Care Document ---
Author Author [facility] t Organization [facility] Address [address] [place] [address] Phone Unavailable Care Team Providers Care Displayer Merchandise Name Role Phone NONSTAFF PCP Unavailable Camilo FRANKLIN Attphys Unavailable Zulma MENSAH, Juan Ramon Dunlap Attphys [phone] Alessio Hanley DO Attphys Odilon Mitchell Attphys Unavailable YARITZA BONE Attphys Unavailable JUAN RAMON BONE Attphys Unavailable Jabari MCMANUS Attphys Unavailable Lizbeth MENSAH, Carmen Attphys Dianne Khan MD Attphys VJ CHUNG Attphys Unavailable Sheldon MENSAH, Vj Curiel Attphys JUAN RAMON BONE Admphys Unavailable Jabari MCMANUS Admphys Unavailable VJ CHUNG Admphys Unavailable Payers Payer Name Policy Type Policy Number Effective Date Expiration Date S valerio TEXANPLUSTEXANPLUS O [id number] [facility] ed [id number] 2008 00:00:00 [facility] Cisco dumont [facility] REVIEWCDC [id number] 2019-[place] FOSS [id number] 2019 00:00:00 [facility] Diamond DICKSON 2008 00:00:00 [facility] MEDICARE ADVANTAGE GENERICMEDICARE ADVAN TAGE [id number] 2018-PresentMedicare [id number] 2018 00 :00:00 MD Higgins Problems Condition Name Condition Details Condition Category Status Onset Date Resolution Date Last Treatment Date Treating Clinician Comments Source ESRD (end stage renal disease) on dialysis ESRD (end s tage renal disease) on dialysis Disease Active 2020-01-03 00:00:00 [facility] CAD (coronary artery disease) CAD (coronary artery disease) Disease Active 2019-05-18 00:00:00 [facility] Hydrocele Hydrocele Disease Active 2016-10-25 00:00:00 MD Higgins 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 Normal liver functions MD Higgins Enlarged prostate with LUTS Enlarged prostate with LUTS Disease Active 2016-09-09 00:00:00 MD Baker son Liposarcoma Liposarcoma Disease Active 2015-06-20 00:00:00 Last Assessment & Plan: Navdeep Fernando is a 79 y.o. male [facility], [place], with a diagnosis of recurrent retroperitoneal well-differentiated liposarcoma, status post surgery including left nephrectomy from 11/08/2014, 33 centimeter, patient was found to have slight progression, for which he received radiation to left pelvic mass in 09/2016. Most recent restaging on 08/05/[address] chest, abdomen and pelvis showed enlarging left retroperitoneal, and mesenteric soft tissue masses, a new foci adjacent to the dome of the liver and abutting the right hemidiaphragm, enlarging right pleural effusions and ascites, indicating progression of disease. He is a consult from Dr. Khan, surgical oncology. He was previously seen by Dr. Donahue, no systemic chemotherapy was recommended due to lack of dedifferentiation in the pathology. Patient is not a great surgical candidate due to multiple comorbidities including CHF, CAD s/p GA with cardiac stent placed 2013, insulin dependent diabetes, chronic renal insufficiency (last creatinine 4 on 06/12/2019), HTN and HLD. Clinical information and diagnostic information have been reviewed and discussed with the patient. Patient is recommended for initiating Palbociclib 75 milligrams orally, 2 weeks on, one week off. Patient should have weekly labs considering medical comorbidities.Follow-up: Patient will return to clinic for restaging in [address] abdomen and pelvis with no contrast. MD Higgins Ascites Ascites Disease Active 2015-06-07 00:00:00 MD Higgins Anemia Problem Active [facility] Acute renal failure superimposed on chronic kidney disease P roblem Active [facility] Hyperkalemia Problem Active [facility] Pre-syncope Problem Active [facility] Allergies, Adverse Reactions, Alerts Allergy Name Allergy Type Status Severity Reaction(s) Onset Date Inacti ve Date Treating Clinician Comments Source Codeine Allergy to substance Active 2019-10-19 00:00:00 [facility] Acetaminophen Allergy to substance Active 2019-10-19 00:00: 00 [facility] Codeine Propensity to adverse reactions Active Rash , Hives 2016-03-15 00:00:00 [facility] Acetaminophen-Codeine Propensity to adverse reactions Active Rash 2007-02-24 00:00:00 [facility] Family History Family Member Diagnosis Comments Start Date Stop Date Source Maternal grandmother Heart attack MD Higgins Maternal uncle Heart attack MD Baker son Natural mother -Breast cancer Natural mother Brain cancer MD Baker son Natural mother Hypertension MD Baker son Family member -Genitourinary (Bladder, Kidney, Prostate, Testicle) MD Higgins Social History Social Habit Start Date Stop Date Quantity Comments Source Sex Assigned At [facility] Tobacco use and exposure 2020-01-19 00:00:00 2020-01-19 00:00:00 Jin dumont used [facility] Alcohol intake 2020-01-19 00:00:00 2020-01-19 00:00:00 Current non-drinker of alcohol (finding) [facility] Cisco dumont Smoking Status Start Date Stop Date Source Never smoker [facility] edical [place] Medications Ordered Medication Name Filled Medication Name Start Date Stop Da te Current Medication? Ordering Clinician Indication Dosage Frequency Signature (SIG) Comments Components Source ceFAZolin (ANCEF) 1 g in sodium chloride 0.9 % (NS) 100 mL A DD EASE IVPB 2020-01-19 09:27:33 Yes 1g [id number] Inject 1 g intravenously 3 (three) times a week MON/WED/FRI. [facility] furosemide (LASIX) 40 MG tablet 2020-01-03 20:44:43 Yes 40mg QD Take 40 mg by mouth daily --takes 40 mg, --takes 20 mg. [facility] amLODIPine (NORVASC) 10 MG tablet 2020-01-03 20:44:43 Yes 10mg QD Take 10 mg by mouth daily. [facility] niacin 100 MG tablet 2020-01-03 20:44:43 Yes 500mg Take 500 mg by mouth daily with breakfast . [facility] methIMAzole (TAPAZOLE) 10 MG tablet 2020-01-03 20:44:43 Yes 10mg Q.[id number] Take 10 mg by mouth 3 (three) times a week. [facility] finasteride (PROPECIA) 1 mg tablet 2020-01-03 20:44:43 Yes 5mg QD Take 5 mg by mouth daily . [facility] insulin detemir U-100 (LEVEMIR) 100 unit/mL injection 2020-01-03 20:44:43 Yes 6U Q.5D Inject 6 Units subcutaneously 2 (two) times daily Took 1/2 dose last night . [facility] insulin aspart U-100 (NOVOLOG) 100 unit/mL InPn 2020-01-03 20:44 :43 Yes 3U Inject 3 Units subcutaneousl y 3 (three) times daily before meals Per sliding scale . [facility] carvedilol (COREG) 25 MG tablet 2020-01-03 20:44:43 Yes 25mg Take 25 mg by mouth 2 (two) times daily with breakfast and dinner. [facility] aspirin 81 MG EC tablet 2020-01-03 20:44:43 Yes 81mg QD Take 81 mg by mouth daily. [facility] calcium carb/vit D3/minerals (CALCIUM-VITAMIN D ORAL) 2020-01-03 20:44:43 Yes Take by mouth. [facility] cholecalciferol (VITAMIN D3) 25 mcg (1,000 unit) tablet 2020-01-03 20:44:43 Yes 1000U Take 1,000 Units by mouth. [facility] DIALYVITE 800 0.8 mg Tab tablet 2019-11-23 00:00:00 Yes 1{tbl} QD Take 1 tablet by mouth daily. [facility] darbepoetin rip-polysorbate (ARANESP) 100 mcg/mL injection 2019-08-30 18:52:53 Yes 100ug Inject 100 mcg under the skin every 28 days. MD Higgins niacin 500 mg tablet 2019-08-30 18:51:48 Yes 500mg Take 500 mg by mouth twice daily. MD Higgins methimazole (TAPAZOLE) 10 mg tablet 2019-08-30 18:51:48 Yes 10mg Take 10 mg by mouth 4 (four) times a week. Patient takes on Friday, Friday, and Friday MD Higgins furosemide (LASIX) 20 mg tablet 2019-08-30 18:51:48 Yes 40mg Take 40 mg by mouth daily. MD Higgins clopidogrel (PLAVIX) 75 mg tablet 2019-08-30 18:51:48 Yes 75mg Take 75 mg by mouth daily. Reported on 08/30/2016 MD Higgins atorvastatin (LIPITOR) 20 mg tablet 2019-08-30 18:51:48 Yes 40mg Take 40 mg by mouth. MD Higgins finasteride (PROSCAR) 5 mg tablet 2019-08-30 18:51:48 Yes 5mg Take 5 mg by mouth daily. MD Higgins tamsulosin (FLOMAX) 0.4 mg 24 hr capsule 2019-08-30 18:51:48 Yes .4mg Take 0.4 mg by mouth daily. MD Higgins insulin detemir (LEVEMIR) 100 units/mL injection 2019-08-30 18:51:48 Yes 1U Inject 1 Units under the skin 4 (four) times a day. Sliding scale before meals. If <130, patient will hold. MD Brandie avila insulin aspart (NovoLOG) 100 unit/mL insulin pen 2019-08-30 18:51:48 Yes 5U Inject 5 Units under the skin twice daily. MD Higgins VITAMIN E, DL,TOCOPHERYL ACET, (VITAMIN E, ACETATE,) 1,000 u nits cap capsule 2019-08-30 18:51:48 Yes 1000[iU] Take 1,000 Int'l Units by mouth daily. MD Higgins CHOLECALCIFEROL, VITAMIN D3, (VITAMIN D3 ORAL) 2019-08-30 18:51: 48 Yes 1{tbl} Take 1 tablet by mouth daily. MD Higgins carvedilol (COREG) 25 mg tablet 2019-08-30 18:51:48 Yes 25mg Take 25 mg by mouth twice daily. MD Higgins ferrous sulfate 325 mg (65 mg elemental iron per tablet) tab let 2019-06-12 00:00:00 2020-06-12 05:59:00 No 325mg Take 325 mg by m outh. MD Higgins atorvastatin (LIPITOR) 40 MG tablet 2019-06-12 00:00:0 0 2020-06-11 23:59:00 No 40mg QD Take 1 tablet (40 mg total) by mouth nig htly. [facility] ferrous sulfate 325 (65 FE) MG tablet 2019-06-12 00:00 :00 2020-06-11 23:59:00 No 325mg Q.5D Take 1 tablet (325 mg total) b y mouth 2 (two) times daily. [facility] acetylcysteine (MUCOMYST) 200 mg/mL (20 %) nebulizer solutio n 2019-05-19 00:00:00 2019-05-21 23:59:00 No 1200mg Q.5D Take 6 mLs (1,200 mg total) by mouth 2 (two) times daily for 3 doses. [facility] carvedilol (COREG) 6.25 MG tablet 2019-05-18 15:24:15 2018 00:00:00 No 6.25mg QD Take 6.25 mg by mouth daily. [facility] metroNIDAZOLE (METROCREAM) 0.75 % cream 2019-03-13 00:00:00 Yes twice daily. MD Higgins fenofibrate micronized (LOFIBRA) 200 mg capsule 2015-01-05 00:00 :00 Yes 200mg Take 200 mg by mouth daily. MD Higgins atorvastatin (LIPITOR) 40 MG tablet 2014-08-23 00:00:0 0 2019-05-18 00:00:00 No [facility] clopidogrel (PLAVIX) 75 mg tablet 2014-08-19 00:00:00 Yes [facility] fenofibrate micronized (LOFIBRA) 200 MG capsule 2014-08-19 00:00 :00 Yes [facility] metoprolol (TOPROL-XL) 25 MG 24 hr tablet 08-19 00:00:00 2019-06-11 00:00:00 No 25mg Q.5D 25 mg 2 (two) times daily . [facility] tamsulosin (FLOMAX) 0.4 mg Cp24 24 hr capsule 2014-07-30 00:00:0 0 Yes [facility] Amlodipine Besylate Amlodipine Besylate Yes [address] [facility] Ascorbic Acid (Vitamin C) 500 Mg CAPSULE.ER Ascorbic A jaspreet (Vitamin C) 500 Mg CAPSULE.ER Yes 500 Daily [facility] Aspirin (Aspir 81) 81 Mg TABLET. Aspirin (Aspir 81) 81 Mg TABLET. Yes [address] [facility] Atorvastatin Calcium (Lipitor*) 10 Mg TABLET Atorvasta tin Calcium (Lipitor*) 10 Mg TABLET Yes [address] [facility] Clopidogrel Bisulfate (Plavix) 75 Mg TABLET Clopidogre l Bisulfate (Plavix) 75 Mg TABLET Yes 75 Daily [facility] Cyanocobalamin/Cobamamide (B12 5,000 Mcg Microlozenge) 1 Each LOZENGE Cyanocobalamin/Cobamamide (B12 5,000 Mcg Microlozenge) 1 Each LOZENGE Yes [address] [facility] Dutasteride (Avodart) 0.5 Mg CAPSULE Dutasteride (Avodart) 0.5 Mg C APSULE Yes .[address] [facility] Fenofibrate Fenofibrate Yes [address] [facility] Furosemide (Lasix) 40 Mg TABLET Furosemide (Lasix) 40 Mg TABLET Yes [address] [facility] Glipizide/Metformin Hcl (Glipizide-Metformin 5-500 Mg) 1 Each TABLET Glipizide/Metformin Hcl (Glipizide-Metformin 5-500 Mg) 1 Each TABLET Yes Twice A Day [facility] Hydrochlorothiazide Hydrochlorothiazide Yes [address] [facility] Lisinopril (Zestril*) 20 Mg TABLET Lisinopril (Zestril*) 20 Mg TABLET Yes [address] [facility] Lisinopril Lisinopril Yes [address] [facility] Metoprolol Tartrate (Lopressor) 25 Mg TAB Metoprolol T artrate (Lopressor) 25 Mg TAB Yes [address] [facility] Niacin Niacin Yes 500 Daily [facility] [place]-3 Fatty Acids/Fish Oil ([place] 3 Fish Oil Softgel ) 1 Each CAPSULE.DR Donnelly 3 Fatty Acids/Fish Oil ([place] 3 Fish Oil Softgel) 1 Each CAPSULE. Yes [address] [facility] Pantoprazole Sodium (Protonix) 40 Mg TABLET. Pantopr azole Sodium (Protonix) 40 Mg TABLET. Yes [address] [facility] Pot Citrate Cr Pot Citrate Cr Yes 1080 Th ree Times Daily With Meals [facility] Tamsulosin Hcl (Flomax*) 0.4 Mg CAP Tamsulosin Hcl (Flomax*) 0.4 Mg C AP Yes .8 Bedtime [facility] Vitamin B Complex & Vit C No.4 (Super B Complex) 150 M g TABLET Vitamin B Complex & Vit C No.4 (Super B Complex) 150 Mg TABLET Yes [address] [facility] Metformin Hcl Metformin Hcl 2013-07-18 00:00:00 No [address] [facility] Vital Signs Vital Name Observation Time Observation Value Comments Source Systolic blood pressure 2020-01-19 09:26:00 144 mm[Hg] [facility] Diastolic blood pressure 2020-01-19 09:26:00 62 mm[Hg] [facility] Heart rate 2020-01-19 09:26:00 58 /min [facility] Body weight 2020-01-19 09:26:00 70.308 kg [facility] BMI 2020-01-19 09:26:00 24.28 kg/m2 [facility] Body temperature 2020-01-03 20:15:00 36.22 Kellie [facility] Respiratory rate 2020-01-03 20:15:00 25 /min [facility] Oxygen saturation in Arterial blood by Pulse oximetry 01-02 20:15:00 96 /min [place] [facility] Body height 2020-01-03 08:55:00 170.2 cm [facility] Body Temperature 2019-10-28 11:50:00 97.3 [degF] [facility] Weight 2019-10-27 09:00:00 167.56 [lb_av] [facility] BMI (Body Mass Index) 2019-10-27 09:00:00 25.5 kg/m2 [facility] Systolic blood pressure 2019-08-30 18:48:30 138 mm[Hg] MD Higgins Diastolic blood pressure 2019-08-30 18:48:30 71 mm[Hg] MD Higgins Heart rate 2019-08-30 18:48:30 61 /min MD Samuel spencer Body temperature 2019-08-30 18:48:30 36.72 Kellie MD Jabari esposito Respiratory rate 2019-08-30 18:48:30 16 /min MD Jabari esposito Body weight 2019-08-30 18:48:30 82.1 kg MD Samuel spencer BMI 2019-08-30 18:48:30 28.75 kg/m2 MD Samuel spencer Oxygen saturation in Arterial blood by Pulse oximetry 08-29 18:48:30 98 /min MD Higgins Procedures Procedure Date / Time Performed Performing Clinician [facility] e RHYTHM STRIP - SCAN 2020-01-06 11:11:24 Provider, Default Scanni lane [facility] TRANSFUSION SERVICE REPORT - SCAN 2020-01-04 18:14:03 Provid er, Default Scanning [facility] POCT-GLUCOSE METER 2020-01-03 19:40:00 Yaritza Bone [facility] GLUCOSE 2020-01-03 17:39:01 Yaritza Bone Juan Ramon [facility] CREATION,A-V FISTULA 2020-01-03 16:22:00 Yaritza Bone Juan Ramon [facility] POCT-GLUCOSE METER 2020-01-03 15:36:00 Yaritza Bone [facility] ABORH, MANUAL 2020-01-03 09:47:00 Fariha Camargo [facility] PROTHROMBIN TIME/INR 2020-01-03 09:42:00 Yaritza Bone Juan Ramon [facility] POTASSIUM-STAT LAB 2020-01-03 09:35:00 Yaritza Bone [facility] HGB/HCT (H&H) - STAT LAB 2020-01-03 09:35:00 Yaritza Bone [facility] GLUCOSE-STAT LAB 2020-01-03 09:35:00 Yaritza Bone Juan Ramon [facility] TYPE AND SCREEN, AUTOMATED 2020-01-03 09:35:00 Yaritza Bone [facility] SARS-COV2/RT-PCR ([facility] & REF LABS) 2020-01-03 09:22:00 Rossi Bone [facility] POCT-GLUCOSE METER 2020-01-03 08:53:00 Yaritza Bone [facility] MEASURE OF CARDIAC SAMPL & PRESSURE, L HEART, PERC APPROACH 2019-10-26 00:00:00 [facility] REMOVAL OF INFUSION DEVICE FROM UPPER VEIN, OPEN APPROACH 10-25 00:00:00 [facility] FLUOROSCOPY OF SINGLE CORONARY ARTERY USING L OSM CONTRAST 2 00:00:00 [facility] FLUOROSCOPY OF LEFT HEART USING LOW OSMOLAR CONTRAST 2019-10-26 00:00:00 [facility] INSERT OF TUNNEL VAD INTO CHEST SUBCU/FASCIA, PERC APPROACH 2019-10-26 00:00:00 [facility] INSERTION OF INFUSION DEVICE INTO R ATRIUM, PERC APPROACH 10-25 00:00:00 [facility] EXCISION OF STOMACH, ENDO, DIAGN 2019-10-22 00:00:00 [facility] TRANSFUSE NONAUT RED BLOOD CELLS IN PERIPH VEIN, PERC 2019-10-20 00:00:00 [facility] INSERTION OF INFUSION DEV INTO SUP VENA CAVA, PERC APPROACH 2019-10-20 00:00:00 [facility] PERFORMANCE OF URINARY FILTRATION, <6 HRS/DAY 2019-10-20 00:00:[address] [facility] CT of abdomen and pelvis without contrast 2019-10-20 00:00:00 [facility] Ultrasound guidance for vascular access 2019-10-20 00:00:00 [facility] Computed tomography of brain without radiopaque contrast 2019-09 00:00:00 [facility] Computed tomography of cervical spine without contrast 2019-09-30 00:00:00 [facility] OSI CT CHEST ABDOMEN PELVIS 2019-08-05 10:19:09 Flora Khan MD VASCULAR DIAGRAM -SCAN 2019-06-18 14:40:02 Provider, Default Sca nning [facility] RHYTHM STRIP - SCAN 2019-06-14 11:20:31 Provider, Default Scanni ng [facility] REPORT OF PROCEDURE - ENDOSCOPY SCAN 2019-06-14 11:20:25 Pro vider, Default Scanning [facility] CARDIAC CATH REPORT - SCAN 2019-06-14 11:20:23 Provider, Default Scanning [facility] VASCULAR DIAGRAM -SCAN 2019-06-14 11:20:21 Provider, Default Sca [facility] POCT-GLUCOSE METER 2019-06-12 11:24:00 Sheldon [facility] CBC W/PLT COUNT & AUTO DIFFERENTIAL 2019-06-12 10:51:00 Jabari Chung [facility] POCT-GLUCOSE METER 2019-06-12 07:14:00 Sheldon [facility] CBC (HEMOGRAM ONLY) 2019-06-12 04:33:00 Rakesh Mckeon [facility] BASIC METABOLIC PANEL (7) 2019-06-12 04:33:00 Rakesh Mckeon [facility] PLATELET AGGREGATION: FUNCTION SCREEN 2019-06-12 04:33:00 Sheldon [facility] POCT-GLUCOSE METER 2019-06-11 23:08:00 Sheldon [facility] POCT-ACT 2019-06-11 16:55:[address] [facility] POCT-ACT 2019-06-11 15:53:[address] [facility] POCT-ACT 2019-06-11 14:22:[address] [facility] POCT-GLUCOSE METER 2019-06-11 12:01:00 Sheldon [facility] POCT-ACT 2019-06-11 10:41:[address] [facility] POCT-ACT 2019-06-11 10:21:[address] [facility] POCT-ACT 2019-06-11 10:10:[address] [facility] CORONARY ANGIOS / PCI / STENT 2019-06-11 09:16:00 Moisés Chung [facility] VASCULAR DIAGRAM -SCAN 2019-05-26 15:30:55 Provider, Default Sca [facility] VASCULAR DIAGRAM -SCAN 2019-05-19 15:11:35 Provider, Default Sca [facility] REPORT OF PROCEDURE - ENDOSCOPY SCAN 2019-05-19 15:11:32 Pro vider, Default Scanning [facility] CARDIAC CATH REPORT - SCAN 2019-05-19 15:11:30 Provider, Default Scanning [facility] BASIC METABOLIC PANEL (7) 2019-05-18 15:47:00 Portillo Chowdary [facility] CORONARY ANGIOS / PCI / STENT 2019-05-18 14:17:00 Moisés Chung [facility] CBC W/PLT+MANUAL DIFF 2019-05-18 10:12:00 Sheldon [facility] CBC WITH PLATELET COUNT + MANUAL DIFF 2019-05-18 10:12:00 Sheldon [facility] (CELLAVISION MANUAL DIFF) 2019-05-18 10:12:00 [facility] Plan of Care Planned Activity Planned Date Details Comments Source Future Scheduled Test 2020-02-29 00:00:00 INFLUENZA VACCINE (#1) [code = INFLUENZA VACCINE (#1)] [facility] r Future Scheduled Test 2009-07-01 00:00:00 MEDICARE ANNUAL WE LLNESS (YEAR 2 or FIRST YEAR if no IPPE) [code = MEDICARE ANNUAL WELLNESS (YEAR 2 or FIRST YEAR if no IPPE)] [facility] r Instructions Anemia [facility] Instructions Diabetes and Diet [facility] Instructions Hemodialysis [facility] Encounters Start Date/Time End Date/Time Encounter Type Admission Type Attendi [facility] Facility Care Department Encounter ID Source 2019-10-19 19:07:00 2019-10-28 16:13:00 Discharged Inpatient 1 AYAN MCMANUS [facility] [id number] [facility] Results Test Description Test Time Test Comments Results Result Comments Source CHEST SINGLE (PORTABLE) 2020-05-01 12:17:[address] [facility] CENTERName: NAVDEEP FERNANDO : 1940 Sex: M [facility] [address] [address] Patient Name: NAVDEEP FERNANDO MR #: [id number] : 1940 Age/Sex: 79/M Req #: [id number] Adm Physician: Ordered by: ZEENAT FRANKLIN DO Report #: [id number] Location: ER Room/Bed: Procedure: [id number] DX/CHEST SINGLE (PORTABLE) Exam Date: 05/01/20 Exam Time: 1130 REPORT STATUS: Signed EXAMINATION: CHEST SINGLE (PORTABLE) INDICATION: Pre-operative COMPARISON: Chest radiograph 12/29/2019 FINDINGS: LINES/TUBES:Right IJ tunneled hemodialysis catheter terminates at the superior cavoatrial junction. EKG leads overlie the chest. LUNGS:The lungs are well-inflated. No focal consolidation or pulmonary edema. Mild bibasilar subsegmental atelectasis. PLEURA:No pleural effusion or pneumothorax. MEDIASTINUM:The cardiomediastinal silhouette appears normal in size and shape. Atherosclerotic calcifications of the thoracic aorta. BONES/SOFT TISSUES:No acute osseous injury. ABDOME N:No free air under the diaphragm. IMPRESSION: No focal pneumonia or pulmonary edema. Signed by: Kris Frank MD on 05/01/2020 12:19 PM Dictated By: KRIS FRANK MD 18 Transcribed By: SHREYAS on 05/01/201218 COPY TO: ZEENAT FRANKLIN DO POC-Glucose meter 2020-01-03 19:51:00 Test Item POC-Glucose Meter (test code = 1538) 106 mg/dL 70-110 : TESTED AT [address], [address]: Ware Tester/Sod Farmer ID = [id number] for ASHLEY WIGGINS Lab Interpretation (test code = 06768-3) [facility] [id number] 19:51:00* Test Item Value Reference Range Interpretation Comments POC-GLUCOSE METER (BEAKER) (test code = 1538) 106 mg/dL 70-110 : TESTED AT [place] [id number] [facility], [address]: Ware Tester/Sod Farmer ID = [id number] for ASHLEY WIGGINS [id number] 18:14:00* Test Item Value Reference Range Interpretation Comments Glucose (test code = 2345-7) 90 mg/dL 70-105 CIERA (test code = CIERA) Ware Tester ID - DB Lab Interpretation (test code = 64795-6) [facility]:14[facility]00* Test Item Value Reference Range Interpretation Comments GLUCOSE RANDOM (BEAKER) (test code = 652) 90 mg/dL 70-105 Ware Tester ID - DBSARS-CoV2/RT-PCR (Asymptomatic ONLY)2020-01-03 16:25:00* Test Item Value Reference Range Interpretation Comments SARS-COV2/RT-PCR (test code = 80718-5) Negative Not Detected, N egative SARS-COV-2 PERFORMING LAB (test code = 95301-1) [facility] CIERA (test code = CIERA) Negative result for this caleb t determines that SARS-CoV-2 RNA was not present in the specimen above the Limit of Detection (LOD). However, Negative results do not preclude SARS-CoV-2 infection and should not be used as the sole basis for treatment or patient management decisions. Negative results must be combined with clinical observations, patient history, and epidemiological information. A false negative result may occur if a specimen is improperly collected, transported or handled. A false negative result should be considered if patient's recent exposures or clinical presentation indicate that COVID-19 (SARS-CoV-2) is likely and diagnostic tests for other causes of illness are negative. Re-testing should be considered in cases of suspected false negatives. The limit of detection for this assay is 800 copies/mL. This SARS CoV-2 test is a real-time RT-PCR test intended for the qualitative detection of nucleic acid from SARS-CoV-2 in a nasopharyngeal swab specimen collected from individuals suspected of COVID-19 by their healthcare provider. This test has not been Food and Drug Administration (FDA) cleared or approved. This is a modified version of an approved Emergency Use Authorization (EUA) and is in the process of review by the FDA. Once authorized by the FDA, the issued EUA will be effective until the declaration that circumstances exist justifying the authorization of the emergency use of in vitro diagnostic tests for detection and/or diagnosis of COVID-19 is terminated under Section 564(b)(2) of the Act or the EUA is revoked under Section 564(g) of the Act. Fact Sheet for Healthcare Providers:https://www.Flomio/sites/default/files/product/documents/Fact_Shee k_RZ_Zhsxmpslh_Jcku_AIDE-YxH-3.pdf Fact Sheet for Healthcare Patients:https://www.Flomio/sites/default/files/pro duct/documents/Wbxr_Nadta_Vpsyfehe_Gmzf_SMKQ-StJ-5.pdf Performing Laboratory:[facility] [place] [address] [facility] ([facility])2020-01-03 16:25:00* Test Item Value Reference Range Interpretation Comments SARS-COV2/RT-PCR (test code = 4084728) Negative Not Detected, N egative SARS-COV-2 PERFORMING LAB (test code = 5649075) [facility] Negative result for this test determines that SARS-CoV-2 RNA was not present in the specimen above the Limit of Detection (LOD). However, Negative results do n ot preclude SARS-CoV-2 infection and should not be used as the sole basis for tr eatment or patient management decisions. Negative results must be combined with clinical observations, patient history, and epidemiological information. A false negative result may occur if a specimen is improperly collected, transported or handled. A false negative result should be considered if patient's recent expo sures or clinical presentation indicate that COVID-19 (SARS-CoV-2) is likely and diagnostic tests for other causes of illness are negative. Re-testing should be considered in cases of suspected false negatives.The limit of detection for this assay is 800 copies/mL.This SARS CoV-2 test is a real-time RT-PCR test intended for the qualitative detection of nucleic acid from SARS-CoV-2 in a nasopharyn geal swab specimen collected from individuals suspected of COVID-[address] [facility] provider.This test has not been Food and Drug Administration (FDA) clear ed or approved. This is a modified version of an approved Emergency Use Authori zation (EUA) and is in the process of review by the FDA. Once authorized by [facility], the issued EUA will be effective until the declaration that circumstances exist justifying the authorization of the emergency use of in vitro diagnostic tests for detection and/or diagnosis of COVID-19 is terminated under Section 564 (b)(2) of the Act or the EUA is revoked under Section 564(g) of the Act.Fact She et for Healthcare Providers:https://www.Apps4All.com/sites/default/files/product/d ocuments/Eqoj_Rfcni_XU_Mcdujyqph_Ufhz_CJAR-RjJ-0.pdfFact Sheet for Healthcare Pa xiomy:https://www.Apps[employer]All.com/sites/default/files/product/documents/Fact_Sheet_P qzqemlf_Sspm_HIBD-AvN-9.pdfPerforming Laboratory:[facility] [address], [place] [address]MGTU-PNUFVDS [id number] 15:47:00* Test Item Value Reference Range Interpretation Comments POC-GLUCOSE METER (BEAKER) (test code = 1538) 103 mg/dL 70-110 : TESTED AT [facility] [address] [facility], [address]: Ware Tester/Sod Farmer ID = [id number] for DARSHANA ALBARRAN, ilsjyc7324-65-73 10:38:00* Test Item Value Reference Range Interpretation Comments ABO Grouping (test code = 2588) A Rh Factor (test code = 2589) POS [facility] HospitalType and screen, obqukxtwt8122-41-99 10:32:00* Test Item Value Reference Range Interpretation Comments ABO/RH AUTOMATED (BEAKER) (test code = 2260) A POSITIVE Ab Scrn (test code = 890-4) NEGATIVE [facility] HospitalProthrombin time/[id number] 10:04:00* Test Item Value Reference Range Interpretation Comments Protime (test code = 5902-2) 15.9 11.9- 14.2 seconds H INR (test code = 6301-6) 1.3 <=5.9 CIERA (test code = CIERA) Effective 11/25/2018: PT Refe rence Range ChangeNew: 11.9- 14.2 Previous: 11.7-14.7 RECOMMENDED COUMADIN/WARFARIN INR THERAPY RANGESSTANDARD DOSE: 2.0-3.0 Includes: PROPHYLAXIS for venous thrombosis, sys temic embolization; TREATMENT for venous thrombosis and/or pulmonary embolus.HIGH RISK: Target INR is 2.5-3.5 for patients wiht mechanical heart valves. Lab Interpretation (test code = 06726-6) Abnormal [facility] HospitalPROTHROMBIN TIME/[id number] 10:04:00* Test Item Value Reference Range Interpretation Comments PROTIME (BEAKER) (test code = 759) 15.9 seconds 11.9-14.2 H INR (BEAKER) (test code = 370) 1.3 <=5.9 Effective 11/25/2018: PT Reference Range ChangeNew: 11.9-14.2 Previous: 11.7-14. 7RECOMMENDED COUMADIN/WARFARIN INR THERAPY RANGESSTANDARD DOSE: 2.0-3.0 Include s: PROPHYLAXIS for venous thrombosis, systemic embolization; TREATMENT for venou s thrombosis and/or pulmonary embolus.HIGH RISK: Target INR is 2.5-3.5 for patie nts wiht mechanical heart valves.HGB/HCT (H&H)-Stat Hnt3481-77-16 09:49:00* Test Item Value Reference Range Interpretation Comments Hemoglobin (test code = 786-4) 11.6 g/dL 13-16.8 L Hematocrit (test code = 4544-3) 34.0 % 40-50 L Lab Interpretation (test code = 75338-2) Abnormal [facility] HospitalGlucose-Stat Jab7216-74-58 09:49:00* Test Item Value Reference Range Interpretation Comments Glucose (test code = 2345-7) 114 mg/dL 70-110 H Lab Interpretation (test code = 85410-9) Abnormal [facility] HospitalHGB/HCT (H&H) - STAT [id number] 09:49:00* Test Item Value Reference Range Interpretation Comments HEMOGLOBIN (BEAKER) (test code = 410) 11.6 g/dL 13.0-16.8 L HEMATOCRIT (BEAKER) (test code = 411) 34.0 % 40.0-50.0 L GLUCOSE-STAT [id number] 09:49:00* Test Item Value Reference Range Interpretation Comments GLUCOSE RANDOM (BEAKER) (test code = 652) 114 mg/dL 70-110 H Potassium-Stat Oqf9477-29-33 09:46:00* Test Item Value Reference Range Interpretation Comments Potassium (test code = 2823-3) 3.7 meq/L 3.6-5.5 Lab Interpretation (test code = 34858-6) Normal [facility] HospitalPOTASSIUM-STAT ANX1412-41-65 09:46:00* Test Item Value Reference Range Interpretation Comments POTASSIUM (BEAKER) (test code = 379) 3.7 meq/L 3.6-5.5 POCT-GLUCOSE NIOVQ5921-50-57 09:04:00* Test Item Value Reference Range Interpretation Comments POC-GLUCOSE METER (BEAKER) (test code = 1538) 109 mg/dL 70-110 : TESTED AT [facility] [address] [place] [address], [address]: Ware Tester/Sod Farmer ID = [id number] for DARSHANATIMBOAL CHEST 2 REPLC2235-51-62 11:35:00 [place] [address] Patient Name: NAVDEEP FERNANDO MR #: [id number] : 1940 Age/Sex: 79/M Req #: [id number] [facility] Physician: Ordered by: YARITZA BONE MD Report #: [id number] Location: OR Room/Bed: Procedure: [id number] DX/CHEST 2 EWS Exam Date: 12/29/19 Exam Time: 1056 REPORT STATUS: Signed EXAMINATION: CHEST 2 VIEWS INDICATION: Pre-operative COMPARISON: Chest radiograph 2019 FINDINGS: LINES/TUBES:Right IJ tunneled dialysis catheter te rminates at the superior cavoatrial junction. LUNGS:The lungs are well-in flated. No focal consolidation or pulmonary edema. PLEURA:No pleural effusi on or pneumothorax. MEDIASTINUM:The cardiomediastinal silhouette appears no rmal in size and shape. BONES/SOFT TISSUES:No acute osseous injury. AB DOMEN:No free air under the diaphragm. IMPRESSION: No focal pneumonia or pulmonary edema. Signed by: Kris Frank MD on 12/29/2019 11:39 AM Dictated By: KRIS FRANK MD 38 Transcribed By: SHREYAS on 12/29/191138 COPY TO: YARITZA BONE MD Urine color mseayvwswueeu2833-00-74 13:30:00* Test Item Value Reference Range Interpretation Comments Urine Color (test code = 5778-6) YELLOW YELLOW [facility] Hospital[facility] uwyfseb9875-81-17 13:30:00* Test Item Value Reference Range Interpretation Comments Urine Clarity (test code = 75729-5) SL CLOUDY CLEAR [facility] Hospitalpecific gravity of Urine by Test strip 2019-10-28 13:30:00* Test Item Value Reference Range Interpretation Comments Urine Specific Mckenna (test code = 5811-5) 1.020 1.010-1.[address] [facility] HospitalUrine pH measurement by automated test jgugc9511-99-93 13:30:00* Test Item Value Reference Range Interpretation Comments Urine pH (test code = 54605-1) 5.5 5-7 [facility] HospitalUrine leukocyte esterase detection by hbmfxare6549-23-99 13:30:00* Test Item Value Reference Range Interpretation Comments Urine Leukocyte Esterase (test code = 5799-2) TRACE NEGATIVE [facility] HospitalUrine nitrite zhtxrsmqe1602-83-08 13:30:00* Test Item Value Reference Range Interpretation Comments Urine Nitrite (test code = 67988-4) NEGATIVE NEGATIVE [facility] HospitalUrine protein measurement by test strip (mass/volume)2019-10-28 13:30:00* Test Item Value Reference Range Interpretation Comments Urine Protein (test code = 5804-0) 2+ NEGATIVE [facility] HospitalUrine glucose nufckytlt2750-50-12 13:30:00* Test Item Value Reference Range Interpretation Comments Urine Glucose (UA) (test code = 2349-9) 1+ NEGATIVE [facility] HospitalUrine ketones detection by automated test aywrm2238-06-83 13:30:00* Test Item Value Reference Range Interpretation Comments Urine Ketones (test code = 74704-1) NEGATIVE NEGATIVE [facility] HospitalUrine urobilinogen measurement by test strip (mass/volume)2019-10-28 13:30:00* Test Item Value Reference Range Interpretation Comments Urine Urobilinogen (test code = 48284-1) 0.2 0.2-1 [facility] HospitalU[facility] total bilirubin measurement (mass/volume)2019-10-28 13:30:00* Test Item Value Reference Range Interpretation Comments Urine Bilirubin (test code = 1978-6) NEGATIVE NEGATIVE [facility] HospitalUrine erythrocytes oihutzuuy3998-33-45 13:30:00* Test Item Value Reference Range Interpretation Comments Urine Blood (test code = 42177-8) 1+ NEGATIVE [facility] HospitalAutomated urine sediment leukocyte count by microscopy (number/high power field)2019-10-28 13:30:00* Test Item Value Reference Range Interpretation Comments Urine WBC (test code = 5821-4) 21-50 0-5 [facility] HospitalErythrocytes detection in urine sediment by light ohmuzkqayd4030-94-51 13:30:00* Test Item Value Reference Range Interpretation Comments Urine RBC (test code = 04503-8) 6-10 0-5 [facility] HospitalBacteria detection in urine sediment by light lfgruzvlrj0032-84-23 13:30:00* Test Item Value Reference Range Interpretation Comments Urine Bacteria (test code = 90828-3) RARE NONE [facility] HospitalEpithelial cells detection in urine sediment by light gyeltcwxxl7421-33-33 13:30:00* Test Item Value Reference Range Interpretation Comments Urine Epithelial Cells (test code = 42308-4) FEW NONE [facility] HospitalTransitional cells detection in urine sediment by light jdlaiwgoqm0473-78-87 13:30:00* Test Item Value Reference Range Interpretation Comments Urine Transitional Epithelial Cells (test code = 8249-5) FEW NONE [facility] HospitalRenal epithelial cells detection in urine sediment by light tkgosqfcus2795-21-35 13:30:00* Test Item Value Reference Range Interpretation Comments Urine Renal Epithelial Cells (test code = 81712-1) FEW NON E [facility] HospitalCapillary blood glucose measurement by glucometer (mass/volume)2019-10-28 11:28:00* Test Item Value Reference Range Interpretation Comments Bedside Glucose (test code = 33939-9) 138 70-120 Meter ID: [id number]. Joseph Health College Station HospitalCHEST SINGLE (PORTABLE)2019-10-28 11:15:00 [facility] [address] [place] [address] Patient Name: NAVDEEP FERNANDO MR #: [id number] : 1940 Age/Sex: 79/M Req #: [id number] Adm Physician: AYAN MCMANUS MD Ordered by: PABLO WILLIS MD Report #: [id number] Location: MED/SURG3 Room/Bed: [facility] Procedure: [id number] DX/CHEST SINGLE (PORTABLE) Exam Date: 10/28/19 Exam Time: 1026 REPORT STATUS: Signed EXAMINATION: CHEST SINGLE (PORTABLE) INDICATION: Leukocytosis. COMPARISON: Ches t radiograph 10/22/2019. FINDINGS: LINES/TUBES: Right IJ tunneled hem odialysis catheter terminates in the lower SVC. LUNGS:The lungs are mode rately inflated. Central vascular congestion with interval resolution of mild interstitial opacities. Unchanged patchy bibasilar opacities. No new consolida tion. PLEURA:No pleural effusion or pneumothorax. Skin fold overlie the rig ht lateral hemithorax. MEDIASTINUM:Cardiomediastinal silhouette is mildly enlarged. Atherosclerotic calcifications of the thoracic aorta. BONES/SO FT TISSUES:No acute osseous abnormality. ABDOMEN:No free air under the diap hragm. IMPRESSION: Cardiomegaly with central vascular congestion. Interv al resolution of mild pulmonary interstitial edema. Unchanged patchy bib asilar opacities, likely atelectasis, although infection is possible in the ap propriate clinical setting. No new consolidation. Signed by: Dr. Latha Roach MD on 10/28/2019 11:23 AM Dictated By: LATHA ROACH MD Electronically Sig dania By: LATHA ROACH MD on 10/28/19 1123 Transcribed By: SHREYAS on 10/28/19 1123 COPY TO: PABLO WILLIS MD Blood leukocytes automated count (number/volume)2019-10-28 09:10:00* Test Item Value Reference Range Interpretation Comments White Blood Count (test code = 6690-2) 16.61 4.8-10.8 [facility] HospitalBlood erythrocytes automated count (number/volume)2019-10-28 09:10:00* Test Item Value Reference Range Interpretation Comments Red Blood Count (test code = 789-8) 2.76 4.3-5.7 [facility] HospitalBlood hemoglobin measurement (moles/volume)2019-10-28 09:10:00* Test Item Value Reference Range Interpretation Comments Hemoglobin (test code = 75014-1) 8.8 14.0-18.0 [facility] HospitalAutomated blood hematocrit (volume fraction)2019-10-28 09:10:00* Test Item Value Reference Range Interpretation Comments Hematocrit (test code = 4544-3) 27.2 38.2-49.6 [facility] HospitalAutomated erythrocyte mean corpuscular ltjsof5574-12-44 09:10:00* Test Item Value Reference Range Interpretation Comments Mean Corpuscular Volume (test code = 787-2) 98.6 81-99 [facility] HospitalAutomated erythrocyte mean corpuscular hemoglobin (mass per erythrocyte)2019-10-28 09:10:00* Test Item Value Reference Range Interpretation Comments Mean Corpuscular Hemoglobin (test code = 785-6) 31.9 28-32 [facility] HospitalAutomated erythrocyte mean corpuscular hemoglobin concentration measurement (mass/volume)2019-10-28 09:10:00* Test Item Value Reference Range Interpretation Comments Mean Corpuscular Hemoglobin Concent (test code = 786-4) 32.4 31-35 [facility] HospitalRDW RquWs-Jdf2167-15-30 09:10:00* Test Item Value Reference Range Interpretation Comments Red Cell Distribution Width (test code = 45217-1) 21.6 11.7 -14.4 [facility] HospitalAutomated blood platelet count (count/volume)2019-10-28 09:10:00* Test Item Value Reference Range Interpretation Comments Platelet Count (test code = 777-3) 138 140-360 [facility] segmented neutrophil count as percentage of total sxgznbycnm4154-48-76 09:10:00* Test Item Value Reference Range Interpretation Comments Neutrophils (%) (Auto) (test code = 55363-1) 76.8 38.7-80.0 [facility] HospitalAutomated blood lymphocyte count as percentage ot total whmjyzgwie4346-72-04 09:10:00* Test Item Value Reference Range Interpretation Comments Lymphocytes (%) (Auto) (test code = 736-9) 11.4 18.0-39.1 [facility] HospitalAutomated blood monocyte count as percentage of total fmoycjgjoi7363-85-15 09:10:00* Test Item Value Reference Range Interpretation Comments Monocytes (%) (Auto) (test code = 5905-5) 8.2 4.4-11.3 [facility] HospitalAutomated blood eosinophil count as percentage of total pmopwcvlbm3960-83-06 09:10:00* Test Item Value Reference Range Interpretation Comments Eosinophils (%) (Auto) (test code = 713-8) 3.0 0.0-6.0 [facility] HospitalAutomated blood basophil count as percentage of total uhwhjqdgtt9826-01-75 09:10:00* Test Item Value Reference Range Interpretation Comments Basophils (%) (Auto) (test code = 706-2) 0.1 0.0-1.0 [facility] HospitalFluoroscopic procedure less than one hour jxlmssdx3327-50-64 09:10:00* Test Item Value Reference Range Interpretation Comments IM GRANULOCYTES % (test code = IM GRANULOCYTES %) 0.5 0.0- 1.0 [facility] HospitalAutomated blood neutrophil count 2019-10-28 09:10:00* Test Item Value Reference Range Interpretation Comments Neutrophils # (Auto) (test code = 751-8) 12.8 2.1-6.9 [facility] HospitalBlood lymphocytes count (number/volume) 2019-10-28 09:10:00* Test Item Value Reference Range Interpretation Comments Lymphocytes # (Auto) (test code = 76108-1) 1.9 1.0-3.2 [facility] HospitalBlood monocytes automated count (number/volume)2019-10-28 09:10:00* Test Item Value Reference Range Interpretation Comments Monocytes # (Auto) (test code = 742-7) 1.4 0.2-0.8 [facility] HospitalAutomated blood eosinophil count 2019-10-28 09:10:00* Test Item Value Reference Range Interpretation Comments Eosinophils # (Auto) (test code = 711-2) 0.5 0.0-0.4 [facility] HospitalAutomated blood basophil count (count/volume)2019-10-28 09:10:00* Test Item Value Reference Range Interpretation Comments Basophils # (Auto) (test code = 704-7) 0.0 0.0-0.1 [facility] HospitalFluoroscopic procedure less than one hour ohiwzzts5758-26-03 09:10:00* Test Item Value Reference Range Interpretation Comments Absolute Immature Granulocyte (auto (caleb t code = Absolute Immature Granulocyte (auto) 0.08 0-0.1 [facility] HospitalFluoroscopic procedure less than one hour ndjdeyks1270-99-69 05:35:00* Test Item Value Reference Range Interpretation Comments Differential Total Cells Counted (test code = Differalan tial Total Cells Counted) 100 [facility] blood neutrophils/100 leukocytes 2019-10-28 05:35:00* Test Item Value Reference Range Interpretation Comments Neutrophils % (Manual) (test code = 89571-2) 88 40-74 [facility] blood lymphocytes/100 leukocytes 2019-10-28 05:35:00* Test Item Value Reference Range Interpretation Comments Lymphocytes % (Manual) (test code = 737-7) 5 19-48 [facility] blood monocytes/100 leukocytes 2019-10-28 05:35:00* Test Item Value Reference Range Interpretation Comments Monocytes % (Manual) (test code = 744-3) 5 3.4-9.0 [facility] blood eosinophil count as percentage of total vmarmdyutw1779-42-06 05:35:00* Test Item Value Reference Range Interpretation Comments Eosinophils % (Manual) (test code = 714-6) 2 0-7 [facility] HospitalBlood platelets count by estimate (number/volume)2019-10-28 05:35:00* Test Item Value Reference Range Interpretation Comments Platelet Estimate (test code = 90976-2) SLIGHTLY DECREASED [facility] HospitalPlatelet hirdysqzzz8371-62-03 05:35:00* Test Item Value Reference Range Interpretation Comments Platelet Morphology Comment (test code = 43533-9) NORMAL [facility] HospitalBlood polychromasia detection by light vdpnvmdzkl3278-80-40 05:35:00* Test Item Value Reference Range Interpretation Comments Polychromasia (test code = 47087-1) FEW [facility] HospitalBlood anisocytosis detection by light wwihgpcdur1134-59-12 05:35:00* Test Item Value Reference Range Interpretation Comments Anisocytosis (test code = 702-1) MODERATE [facility] HospitalBlood ovalocytes detection by light gfedlwmmmk3872-72-50 05:35:00* Test Item Value Reference Range Interpretation Comments Ovalocytes (test code = 774-0) FEW [facility] HospitalRBC ubsojvbupc7509-36-40 05:35:00* Test Item Value Reference Range Interpretation Comments Red Cell Morphology Comment (test code = 6742-1) NORMAL [facility] HospitalIR PGBJKTQ9498-15-49 16:26:00 [facility] [address] [place] [address] Patient Name: NAVDEEP FERNANDO MR #: [id number] : 1940 Age/Sex: 79/M Req #: [id number] Adm Physician: AYAN MCMANUS MD Ordered by: SAUL MENSAH, ROSITA MENSAH Report #: [id number] Location: [facility] Room/Bed: [facility] Procedure: [id number] DX/IR CONSUL T Exam Date: Exam Time: REPORT STATUS: Signed PROCEDURE: Conversion of non-tunneled to tunneled central venous catheter Procedural Personnel Attending anupam das(s): Kris Frank MD Fellow physician(s): None Resident physician(s): No ne Advanced practice provider(s): None Pre-procedure diagnosis: CKD Pos t-procedure diagnosis: Same Indication: Performance of hemodialysis Addition al clinical history: None Complications: No immediate complications. I MPRESSION: Conversion of right-sided internal jugular non-tunneled central venous catheter for a tunneled dialysis catheter, with tip in the expected loc ation of the right atrium. Plan: The catheter may be used immediate ly. PROCE DURE SUMMARY: - Temporary central venous catheter removal - Tunneled central venous catheter insertion with fluoroscopic guidance - Additional procedure(s ): None PROCEDURE DETAILS: Pre-procedure History and imaging of cent ral venous access reviewed (QCDR): Yes Consent: Informed consent for the proc edure including risks, benefits and alternatives was obtained and time-out was performed prior to the procedure. Preparation (MIPS): The site was prepared a nd draped using all elements of maximal sterile barrier technique including st erile gloves, sterile gown, cap, mask, large sterile sheet, sterile ultrasound probe cover, hand hygiene and cutaneous antisepsis with 2% chlorhexidine. Medical reason for site preparation exception (MIPS): Not applicable Anesth esia/sedation Level of anesthesia/sedation: Moderate sedation (conscious sedat ion) 1mg Versed, 50mcg Fentanyl Anesthesia/sedation administered by: Juan Francisco dominguez trained observer under attending supervision with continuous monitoring o f the patient?s level of consciousness and physiologic status Total intra-se rvice sedation time (minutes): 30 Catheter exchange Local anesthesia was administered. A wire was passed through the indwelling central venous catheter and into the central veins. The catheter was removed, and a peel-away sheath was placed. An incision was made near the venous access site and the catheter was tunneled subcutaneously to the venous access site. The catheter was advanc ed via a peel-away sheath into the vein under fluoroscopic guidance. Catheter tip location was fluoroscopically verified and a permanent image was stored. Catheter placed: Covidien Palindrome Catheter size (Iranian): 14.5 Iranian Ca theter flush: Heparin (1000 units/mL) Closure The access site was closed and a sterile bandage was applied. Access site closure technique: Tissue adhes karlie Catheter securement technique: Non-absorbable suture Contrast Contr ast agent: None Contrast volume (mL): N/A Radiation Dose Fluoroscopy ti me (minutes): 0.3 Reference air kerma (mGy): 1.8 Additional Details Additional description of procedure: None Equipment details: None Specimens removed: Temporary central venous catheter Estimated blood loss (mL): Less yadi n 10 Standardized report: SIR_TunneledCatheterConversion_v3 Attestation Signer name: Kris Frank MD I attest that I was present for the entire proced ure. I reviewed the stored images and agree with the report as written. S igned by: Kris Frank MD on 10/27/2019 4:28 PM Dictated By: KRIS FRANK MD 27 Transcribed By: KERWIN JIMÉNEZ on 10/27/191627 COPY TO: ROSITA HUGHES PAU PLMO OR [id number] 16:26:00 [place] [address] Patient Name: NAVDEEP FERNANDO MR #: [id number] : 1940 Age/Sex: 79/M Req #: [id number] Adm Physician: AYAN MCMANUS MD Ordered by: AYAN MCMANUS MD Report #: [id number] Location: MED/SURG3 Room/Bed: [facility] Procedure: [id number] IR/LAURI GARNERI CENT PAU PLMT OR REM Exam Date: 10/26/19 Exam Time: 929 REPORT STATUS: Signed PROCE DURE: Conversion of non-tunneled to tunneled central venous catheter Proced ural Personnel Attending physician(s): Kris Frank MD Fellow physician(s): Brenda schilling Resident physician(s): None Advanced practice provider(s): None Pre -procedure diagnosis: CKD Post-procedure diagnosis: Same Indication: Perform ance of hemodialysis Additional clinical history: None Complications: No immediate complications. IMPRESSION: Conversion of right-sided interna l jugular non-tunneled central venous catheter for a tunneled dialysis cathete r, with tip in the expected location of the right atrium. Plan: The catheter may be used immediately. PROCEDURE SUMMARY: - Temporary central venous cathet er removal - Tunneled central venous catheter insertion with fluoroscopic guid ance - Additional procedure(s): None PROCEDURE DETAILS: Pre-procedur e History and imaging of central venous access reviewed (QCDR): Yes Consent : Informed consent for the procedure including risks, benefits and alternative s was obtained and time-out was performed prior to the procedure. Preparation (MIPS): The site was prepared and draped using all elements of maximal sterile barrier technique including sterile gloves, sterile gown, cap, mask, large st erile sheet, sterile ultrasound probe cover, hand hygiene and cutaneous antise psis with 2% chlorhexidine. Medical reason for site preparation exception (GA PS): Not applicable Anesthesia/sedation Level of anesthesia/sedation: Mod erate sedation (conscious sedation) 1mg Versed, 50mcg Fentanyl Anesthesia/se dation administered by: Independent trained observer under attending supervisi on with continuous monitoring of the patient?s level of consciousness and phys iologic status Total intra-service sedation time (minutes): 30 Catheter e xchange Local anesthesia was administered. A wire was passed through the indwe lling central venous catheter and into the central veins. The catheter was rem harini, and a peel-away sheath was placed. An incision was made near the venous access site and the catheter was tunneled subcutaneously to the venous access site. The catheter was advanced via a peel-away sheath into the vein under f luoroscopic guidance. Catheter tip location was fluoroscopically verified and a permanent image was stored. Catheter placed: Covidivendome 1699rome Catheter size (Iranian): 14.5 Iranian Catheter flush: Heparin (1000 units/mL) Closur e The access site was closed and a sterile bandage was applied. Access site closure technique: Tissue adhesive Catheter securement technique: Non-absorbab le suture Contrast Contrast agent: None Contrast volume (mL): N/A Radiation Dose Fluoroscopy time (minutes): 0.3 Reference air kerma (mGy): 1.8 Additional Details Additional description of procedure: None Equip ment details: None Specimens removed: Temporary central venous catheter Ani mated blood loss (mL): Less than 10 Standardized report: SIR_TunneledCatheterC onversion_v3 Attestation Signer name: Kris Frank MD I attest that I wa s present for the entire procedure. I reviewed the stored images and agree wit h the report as written. Signed by: Kris Frank MD on 10/27/2019 4:28 PM Dictated By: KRIS FRANK MD 27 COPY TO: AYAN MCMANUS MD TUNNELLED CVC INSERT W/O [id number] 16:26:00 [place] [address] Patient Name: NAVDEEP FERNANDO MR #: [id number] : 1940 Age/Sex: 79/M Req #: [id number] Adm Physician: AYAN MCMANUS MD Ordered by: AYAN MCMANUS MD Report #: [id number] Location: MED/SURG3 Room/Bed: [facility] Procedure: [id number] IR/TUNNELLED CVC INSERT W/O PORT Exam Date: Exam Time: REPORT STATUS: Signed PROCEDURE: Convers ion of non-tunneled to tunneled central venous catheter Procedural Personne l Attending physician(s): Kris Frank MD Fellow physician(s): None Residen t physician(s): None Advanced practice provider(s): None Pre-procedure di agnosis: CKD Post-procedure diagnosis: Same Indication: Performance of hemod ialysis Additional clinical history: None Complications: No immediate com plications. IMPRESSION: Conversion of right-sided internal jugular non -tunneled central venous catheter for a tunneled dialysis catheter, with tip i n the expected location of the right atrium. Plan: The catheter may be used immediately. PROCEDURE SUMMARY: - Temporary central venous catheter removal - Tunneled central venous catheter insertion with fluoroscopic guidance - Vu tional procedure(s): None PROCEDURE DETAILS: Pre-procedure History a nd imaging of central venous access reviewed (QCDR): Yes Consent: Informed co nsent for the procedure including risks, benefits and alternatives was obtaine d and time-out was performed prior to the procedure. Preparation (MIPS): The s ite was prepared and draped using all elements of maximal sterile barrier tech nique including sterile gloves, sterile gown, cap, mask, large sterile sheet, sterile ultrasound probe cover, hand hygiene and cutaneous antisepsis with 2% chlorhexidine. Medical reason for site preparation exception (MIPS): Not appl icable Anesthesia/sedation Level of anesthesia/sedation: Moderate sedatio n (conscious sedation) 1mg Versed, 50mcg Fentanyl Anesthesia/sedation admini stered by: Independent trained observer under attending supervision with bin nuous monitoring of the patient?s level of consciousness and physiologic statu s Total intra-service sedation time (minutes): 30 Catheter exchange Loc al anesthesia was administered. A wire was passed through the indwelling centr al venous catheter and into the central veins. The catheter was removed, and a peel-away sheath was placed. An incision was made near the venous access site and the catheter was tunneled subcutaneously to the venous access site. The c atheter was advanced via a peel-away sheath into the vein under fluoroscopic g uidance. Catheter tip location was fluoroscopically verified and a permanent i mage was stored. Catheter placed: Covidien InnoPath Softwarerome Catheter size (Iranian) : 14.5 Iranian Catheter flush: Heparin (1000 units/mL) Closure The acces s site was closed and a sterile bandage was applied. Access site closure techn ique: Tissue adhesive Catheter securement technique: Non-absorbable suture Contrast Contrast agent: None Contrast volume (mL): N/A Radiation Dose Fluoroscopy time (minutes): 0.3 Reference air kerma (mGy): 1.8 Add itional Details Additional description of procedure: None Equipment details: None Specimens removed: Temporary central venous catheter Estimated blood l oss (mL): Less than 10 Standardized report: SIR_TunneledCatheterConversion_v3 Attestation Signer name: Kris Frank MD I attest that I was present for the entire procedure. I reviewed the stored images and agree with the report as written. Signed by: Kris Frank MD on 10/27/2019 4:28 PM Dictated By: KRIS FRANK MD 1628 Tra nscribed By: SHREYAS on 10/27/191627 COPY TO: AYAN MCMANUS MD Fluoroscopic procedure less than one hour [id number] 02:30:00* Test Item Value Reference Range Interpretation Comments Coronavirus (PCR) (test code = Coronavirus (PCR)) NOT DETECTED NOTD ETECTED SARS-COV2/RT-PCRNegative results do not preclude SARS-CoV-2 infection and should not be used as the sole basis for patient management decisions. Negative results must be combined with clinical observations, patient history, and epidemiologi frank information. A false negative result may occur if a specimen is improperly c ollected, transported or handled.The limit of detection for this assay is 250 co pies/mLThe SARS-CoV-2 test is a rapid, real-time RT-PCR test intended for the qu alitative detection of nucleic acid from SARS-CoV-2 in nasopharyngeal swab speci men collected from individuals suspected of COVID-19 by their healthcare provide r. This test has not been Food and Drug Administration (FDA) cleared or approved and has been authorized by FDA under an Emergency Use Authorization (EUA). This EUA will be effective until the declaration that circumstances exist justifying the authorization of the emergency use of in vitro diagnostic test for detection and or diagnosis of COVID-19 is terminated under section 564(b) of the Act, or the the EUA is revoked under 564(g) of the ACT.Testing performed by [facility] [place], [place] [address]TLCAspire Behavioral Health Hospitalerum or plasma sodium measurement (moles/volume) 2019-10-25 06:45:00* Test Item Value Reference Range Interpretation Comments Sodium Level (test code = 2951-2) 135 136-145 [facility] Hospitaler[facility] or plasma potassium measurement (moles/volume)2019-10-25 06:45:00* Test Item Value Reference Range Interpretation Comments Potassium Level (test code = 2823-3) 4.0 3.5-5.1 [facility] Hospitaler[facility] or plasma chloride measurement (moles/volume)2019-10-25 06:45:00* Test Item Value Reference Range Interpretation Comments Chloride Level (test code = 2075-0) 103 98-107 [facility] Hospitalerum or plasma carbon dioxide, total measurement (moles/volume)2019-10-25 06:45:00* Test Item Value Reference Range Interpretation Comments Carbon Dioxide Level (test code = 2028-9) 22 22-29 [facility] Hospitalerum or plasma anion [id number] 06:45:00* Test Item Value Reference Range Interpretation Comments Anion Gap (test code = 99621-8) 14.0 8-16 [facility] Hospitaler[facility] or plasma urea nitrogen measurement (mass/volume)2019-10-25 06:45:00* Test Item Value Reference Range Interpretation Comments Blood Urea Nitrogen (test code = 3094-0) 58 7-26 [facility] Hospitaler[facility] or plasma creatinine measurement (mass/volume)2019-10-25 06:45:00* Test Item Value Reference Range Interpretation Comments Creatinine (test code = 2160-0) 3.84 0.72-1.25 [facility] Hospitalerum or plasma urea nitrogen/creatinine mass [id number] 06:45:00* Test Item Value Reference Range Interpretation Comments BUN/Creatinine Ratio (test code = 3097-3) 15 6-25 [facility] HospitalEstimated glomerular filtration rate (GFR) kzyecjffhwwkx4740-42-96 06:45:00* Test Item Value Reference Range Interpretation Comments Estimat Glomerular Filtration Rate (test code = 903046353) 15 >60 Ranges were taken from the National Kidney Disease Education Program and the [facility] literature.Reference ranges:60 or greater: Iexlnv44-05 ( for 3 consecutive months): Chronic kidney disease 15 or less: Kidney failureSt. [facility] HospitalGlucose pgwpyyblivk1274-04-22 06:45:00* Test Item Value Reference Range Interpretation Comments Glucose Level (test code = WSI4205) 101 74-118 [facility] Hospitaler[facility] or plasma calcium measurement (mass/volume)2019-10-25 06:45:00* Test Item Value Reference Range Interpretation Comments Calcium Level (test code = 45155-0) 7.0 8.4-10.2 [facility] HospitalTroponin I measurement by highly sensitive enzyme sqwqnsnxjbh3539-27-98 06:45:00* Test Item Value Reference Range Interpretation Comments Troponin I (test code = 32340-9) 3.989 0-0.300 Elevated result called to JULIAN CARVAJAL RN at 0719 on 10/25/19 by Ricardo Coffey.[facility] HospitalCHEST SINGLE (PORTABLE)2019-10-22 06:36:00 [facility] [address] [place] [address] Patient Name: NAVDEEP FERNANDO MR #: [id number] : 1940 Age/Sex: 79/M Req #: [id number] Adm Physician: AYAN MCMANUS MD Ordered by: PABLO WILLIS MD Report #: [id number] Location: ICU Room/Bed: ICU 189-1 Procedure: [id number] DX/ CHEST SINGLE (PORTABLE) Exam Date: 10/22/19 Exam Herson e: 0530 REPORT STATUS: Signed EX AMINATION: CHEST SINGLE (PORTABLE) INDICATION: Renal failure. COM PARISON: Chest radiograph 10/21/2019. FINDINGS: LINES/TUBES:Right IJ non-tunneled hemodialysis catheter terminates in the superior vena cava. EK G leads overlie the chest. LUNGS:The lungs are moderately inflated. There i s perihilar fullness and indistinctness of the pulmonary vasculature. Mild bib asilar patchy opacities, likely atelectasis. PLEURA:No pleural effusion or pneumothorax. MEDIASTINUM:Cardiomediastinal silhouette is mildly enlarge d. Atherosclerotic calcifications of the thoracic aorta. BONES/SOFT TISSU ES:No acute osseous injury. ABDOMEN:No free air under the diaphragm. I MPRESSION: Unchanged cardiomegaly and mild pulmonary interstitial edema. Signed by: Dr. Latha Roach MD on 10/22/2019 6:43 AM Dictated By: LATHA FAITH MD 2 Transcribed By: SHREYAS on 10/22/19642 COPY TO: PABLO WILLIS MD Serum or plasma total bilirubin measurement (mass/volume)2019-10-22 06:00:00* Test Item Value Reference Range Interpretation Comments Total Bilirubin (test code = 1975-2) 0.9 0.2-1.2 [facility] HospitalFluoroscopic procedure less than one hour inaxxpsd1253-27-74 06:00:00* Test Item Value Reference Range Interpretation Comments Aspartate Amino Transf (AST/SGOT) (test code = Aspartate Amino Transf (AST/SGOT)) 69 5-34 [facility] Hospitalerum or plasma alanine aminotransferase measurement (enzymatic activity/volume)2019-10-22 06:00:00* Test Item Value Reference Range Interpretation Comments Alanine Aminotransferase (ALT/SGPT) (test code = 1742-6) 46 0-55 [facility] Hospitalerum or plasma protein measurement (mass/volume)2019-10-22 06:00:00* Test Item Value Reference Range Interpretation Comments Total Protein (test code = 2885-2) 5.3 6.5-8.1 [facility] Hospitalerum or plasma albumin measurement (mass/volume)2019-10-22 06:00:00* Test Item Value Reference Range Interpretation Comments Albumin (test code = 1751-7) 2.4 3.5-5.0 [facility] HospitalPlasma globulin measurement (mass/volume) 2019-10-22 06:00:00* Test Item Value Reference Range Interpretation Comments Globulin (test code = 74673-7) 2.9 2.3-3.5 [facility] Hospitalerum or plasma albumin/globulin mass roisk3527-33-35 06:00:00* Test Item Value Reference Range Interpretation Comments Albumin/Globulin Ratio (test code = 1759-0) 0.8 0.8-2.0 [facility] Hospitalerum or plasma alkaline phosphatase measurement (enzymatic activity/volume)2019-10-22 06:00:00* Test Item Value Reference Range Interpretation Comments Alkaline Phosphatase (test code = 6768-6) 29 40-150 [facility] Hospitalerum or plasma thyroxine (T4) free measurement (mass/volume)2019-10-22 06:00:00* Test Item Value Reference Range Interpretation Comments Free Thyroxine (test code = 3024-7) 0.86 0.8-1.8 [facility] Hospitalerum or plasma thyrotropin measurement by detection limit <= 0.005 miu/l (units/volume)2019-10-22 06:00:00* Test Item Value Reference Range Interpretation Comments Thyroid Stimulating Hormone (TSH) (test code = 13363-3) 0.050 0.350-4.940 [facility] HospitalFLURO GREG CENT PAU PLMT OR [id number] 09:46:00 [place] [address] Patient Name: NAVDEEP FERNANDO MR #: [id number] : 1940 Age/Sex: 79/M Req #: [id number] Adm Physician: AYAN MCMANUS MD Ordered by: LAURA HUGHES MD Report #: [id number] Location: [facility]/SURG3 Room/Bed: [facility] Procedure: [id number] IR/LAURI GARZA BRITNI T PAU PLMT OR REM Exam Date: 10/20/19 Exam Time: 140 0 REPORT STATUS: Signed PROCEDUR E: Non-tunneled central venous catheter placement Procedural Personnel At [facility] physician(s): Kris Frank MD Fellow physician(s): None Resident phys ician(s): None Advanced practice provider(s): None Pre-procedure diagnosi s: Acute kidney injury Post-procedure diagnosis: Same Indication: Performanc e of hemodialysis Additional clinical history: None Complications: No imm ediate complications. IMPRESSION: Insertion of right-sided non-tunnele d triple-lumen temporary dialysis catheter, with tip in the expected location of the superior vena cava. Plan: The catheter may be used immediately . PROCEDU RE SUMMARY: - Venous access with ultrasound guidance - Non-tunneled central venous catheter insertion with fluoroscopic guidance - Additional procedure(s) : None PROCEDURE DETAILS: Pre-procedure Consent: Informed consent fo r the procedure including risks, benefits and alternatives was obtained and ti me-out was performed prior to the procedure. Preparation (MIPS): The site was prepared and draped using all elements of maximal sterile barrier technique in cluding sterile gloves, sterile gown, cap, mask, large sterile sheet, sterile ultrasound probe cover, hand hygiene and cutaneous antisepsis with 2% chlorhex idine. Medical reason for site preparation exception (MIPS): Not applicable Anesthesia/sedation Level of anesthesia/sedation: No sedation Anesthesia /sedation administered by: Independent trained observer under attending superv ision with continuous monitoring of the patient?s level of consciousness and p hysiologic status Total intra-service sedation time (minutes): N/A Access Local anesthesia was administered. The vessel was sonographically evaluated a nd determined to be patent. Real time ultrasound was used to visualize needle entry into the vessel and a permanent image was stored. Vein accessed: Inter nal jugular vein Access technique: Micropuncture set with 21 gauge needle Catheter placement The access site was dilated and the catheter was placed in to the vein over a wire under fluoroscopic guidance. The catheter tip locati on was fluoroscopically verified and a permanent image was stored.. A sterile dressing was applied. Catheter placed: Bard Trialysis Catheter size (Frenc h): 13 Catheter length (cm): 15 Catheter flush: Heparin (1000 units/mL) Ca theter securement technique: Non-absorbable suture Contrast Contrast agen t: None Contrast volume (mL): N/A Radiation Dose Fluoroscopy time (narcisa caleb): 0.1 Reference air kerma (mGy): 1.1 Additional Details Addition al description of procedure: None Equipment details: None Specimens removed: None Estimated blood loss (mL): Less than 10 Standardized report: SIR_CVA_N onTunneledCatheter_v3 Attestation Signer name: Kris Frank MD I attest that I was present for the entire procedure. I reviewed the stored images and agree with the report as written. Signed by: Kris Frank MD on 10/21/2019 9: 47 AM Dictated By: KRIS FRANK MD 03 Transcribed By: SHREYAS on 11/01/191103 COPY TO: LAURA VILLALPANDO MD IR [id number] 09:46:00 [place] [address] Patient Name: NAVDEEP FERNANDO MR #: [id number] : 1940 Age/Sex: 79/M Req #: [id number] Adm Physician: AYAN MCMANUS MD Ordered by: SAUL MENSAH, ROSITA MENSAH Report #: [id number] Location: [facility] Room/Bed: [facility] Procedure: [id number] DX/IR CONSUL T Exam Date: Exam Time: REPORT STATUS: Signed PROCEDURE: Non-tunneled central veno us catheter placement Procedural Personnel Attending physician(s): Puneet Frank MD Fellow physician(s): None Resident physician(s): None Advanced pr actice provider(s): None Pre-procedure diagnosis: Acute kidney injury Pos t-procedure diagnosis: Same Indication: Performance of hemodialysis Addition al clinical history: None Complications: No immediate complications. I MPRESSION: Insertion of right-sided non-tunneled triple-lumen temporary amy lysis catheter, with tip in the expected location of the superior vena cava. Plan: The catheter may be used immediately. PROCEDURE SUMMARY: - Venous acces s with ultrasound guidance - Non-tunneled central venous catheter insertion wi th fluoroscopic guidance - Additional procedure(s): None PROCEDURE DETAIL S: Pre-procedure Consent: Informed consent for the procedure including ri sks, benefits and alternatives was obtained and time-out was performed prior t o the procedure. Preparation (MIPS): The site was prepared and draped using al l elements of maximal sterile barrier technique including sterile gloves, ster ile gown, cap, mask, large sterile sheet, sterile ultrasound probe cover, hand hygiene and cutaneous antisepsis with 2% chlorhexidine. Medical reason for site preparation exception (MIPS): Not applicable Anesthesia/sedation Le noah of anesthesia/sedation: No sedation Anesthesia/sedation administered by: I ndependent trained observer under attending supervision with continuous monito ring of the patient?s level of consciousness and physiologic status Total in tra-service sedation time (minutes): N/A Access Local anesthesia was admi nistered. The vessel was sonographically evaluated and determined to be patent . Real time ultrasound was used to visualize needle entry into the vessel and a permanent image was stored. Vein accessed: Internal jugular vein Access te chnique: Micropuncture set with 21 gauge needle Catheter placement The ac cess site was dilated and the catheter was placed into the vein over a wire u nder fluoroscopic guidance. The catheter tip location was fluoroscopically ve rified and a permanent image was stored.. A sterile dressing was applied. Ca theter placed: Bard Trialysis Catheter size (Iranian): 13 Catheter length (cm ): 15 Catheter flush: Heparin (1000 units/mL) Catheter securement technique: Non-absorbable suture Contrast Contrast agent: None Contrast volume (m L): N/A Radiation Dose Fluoroscopy time (minutes): 0.1 Reference air kerma (mGy): 1.1 Additional Details Additional description of procedure: None Equipment details: None Specimens removed: None Estimated blood loss (mL): Less than 10 Standardized report: SIR_CVA_NonTunneledCatheter_v3 A ttestation Signer name: Kris Frank MD I attest that I was present for the e ntire procedure. I reviewed the stored images and agree with the report as wri tten. Signed by: Kris Frank MD on 10/21/2019 9:47 AM Dictated By: BERRY FRANK MD 9280 Transcrib ed By: SHREYAS on 11/01/19 9024 COPY TO: ROSITA HUGHES [facility] [id number] 09:46:00 [place] [address] Patient Name: NAVDEEP FERNANDO MR #: [id number] : 1940 Age/Sex: 79/M Req #: [id number] [facility] Physician: AYAN MCMANUS MD Ordered by: AYAN MCMANUS MD Report #: [id number] Location: [facility] Room/Bed: [facility] Procedure: [id number] US/ GUIDANC E FOR VASCULAR ACCES Exam Date: 10/20/19 Exam Time: 1656 REPORT STATUS: Signed PROCE DURE: Non-tunneled central venous catheter placement Procedural Personnel Attending physician(s): Kris Frank MD Fellow physician(s): None Resident p eancian(s): None Advanced practice provider(s): None Pre-procedure diagn osis: Acute kidney injury Post-procedure diagnosis: Same Indication: Perform ance of hemodialysis Additional clinical history: None Complications: No immediate complications. IMPRESSION: Insertion of right-sided non-tunn eled triple-lumen temporary dialysis catheter, with tip in the expected locati on of the superior vena cava. Plan: The catheter may be used immediat shila. PROC EDURE SUMMARY: - Venous access with ultrasound guidance - Non-tunneled centr al venous catheter insertion with fluoroscopic guidance - Additional procedure (s): None PROCEDURE DETAILS: Pre-procedure Consent: Informed consent for the procedure including risks, benefits and alternatives was obtained and time-out was performed prior to the procedure. Preparation (MIPS): The site w as prepared and draped using all elements of maximal sterile barrier technique including sterile gloves, sterile gown, cap, mask, large sterile sheet, steri le ultrasound probe cover, hand hygiene and cutaneous antisepsis with 2% chlor hexidine. Medical reason for site preparation exception (MIPS): Not applicabl e Anesthesia/sedation Level of anesthesia/sedation: No sedation Anesthe dana/sedation administered by: Independent trained observer under attending sup ervision with continuous monitoring of the patient?s level of consciousness an d physiologic status Total intra-service sedation time (minutes): N/A Acc ess Local anesthesia was administered. The vessel was sonographically evaluate d and determined to be patent. Real time ultrasound was used to visualize need le entry into the vessel and a permanent image was stored. Vein accessed: In ternal jugular vein Access technique: Micropuncture set with 21 gauge needle Catheter placement The access site was dilated and the catheter was placed into the vein over a wire under fluoroscopic guidance. The catheter tip loc ation was fluoroscopically verified and a permanent image was stored.. A steri le dressing was applied. Catheter placed: Bard Trialysis Catheter size (Fr ench): 13 Catheter length (cm): 15 Catheter flush: Heparin (1000 units/mL) Catheter securement technique: Non-absorbable suture Contrast Contrast a gent: None Contrast volume (mL): N/A Radiation Dose Fluoroscopy time (m inutes): 0.1 Reference air kerma (mGy): 1.1 Additional Details Addit ional description of procedure: None Equipment details: None Specimens remov ed: None Estimated blood loss (mL): Less than 10 Standardized report: SIR_CV A_NonTunneledCatheter_v3 Attestation Signer name: Kris Frank MD I atte st that I was present for the entire procedure. I reviewed the stored images a nd agree with the report as written. Signed by: Kris Frank MD on 10/21/2019 9:47 AM Dictated By: KRIS FRANK MD 03 Transcribed By: SHREYAS on 11/01/191103 COPY TO: AYAN MCMANUS MD NON-TUNNELLED CVC CATH [id number] 09:46:00 [place] [address] Patient Name: NAVDEEP FERNANDO MR #: [id number] : 1940 Age/Sex: 79/M Req #: [id number] [facility] Physician: AYAN MCMANUS MD Ordered by: AYAN MCMANUS MD Report #: [id number] Location: [facility] Room/Bed: [facility] Procedure: [id number] IR/NON-TUNNEL LED CVC CATH PLACMNT Exam Date: 10/20/19 Exam Time: 1640 REPORT STATUS: Signed PROCE DURE: Non-tunneled central venous catheter placement Procedural Personnel Attending physician(s): Kris Frank MD Fellow physician(s): None Resident p eancian(s): None Advanced practice provider(s): None Pre-procedure diagn osis: Acute kidney injury Post-procedure diagnosis: Same Indication: Perform ance of hemodialysis Additional clinical history: None Complications: No immediate complications. IMPRESSION: Insertion of right-sided non-tunn eled triple-lumen temporary dialysis catheter, with tip in the expected locati on of the superior vena cava. Plan: The catheter may be used immediat shila. PROC EDURE SUMMARY: - Venous access with ultrasound guidance - Non-tunneled centr al venous catheter insertion with fluoroscopic guidance - Additional procedure (s): None PROCEDURE DETAILS: Pre-procedure Consent: Informed consent for the procedure including risks, benefits and alternatives was obtained and time-out was performed prior to the procedure. Preparation (MIPS): The site w as prepared and draped using all elements of maximal sterile barrier technique including sterile gloves, sterile gown, cap, mask, large sterile sheet, steri le ultrasound probe cover, hand hygiene and cutaneous antisepsis with 2% chlor hexidine. Medical reason for site preparation exception (MIPS): Not applicabl e Anesthesia/sedation Level of anesthesia/sedation: No sedation Anesthe dana/sedation administered by: Independent trained observer under attending sup ervision with continuous monitoring of the patient?s level of consciousness an d physiologic status Total intra-service sedation time (minutes): N/A Acc ess Local anesthesia was administered. The vessel was sonographically evaluate d and determined to be patent. Real time ultrasound was used to visualize need le entry into the vessel and a permanent image was stored. Vein accessed: In ternal jugular vein Access technique: Micropuncture set with 21 gauge needle Catheter placement The access site was dilated and the catheter was placed into the vein over a wire under fluoroscopic guidance. The catheter tip loc ation was fluoroscopically verified and a permanent image was stored.. A steri le dressing was applied. Catheter placed: Bard Trialysis Catheter size (Fr ench): 13 Catheter length (cm): 15 Catheter flush: Heparin (1000 units/mL) Catheter securement technique: Non-absorbable suture Contrast Contrast a gent: None Contrast volume (mL): N/A Radiation Dose Fluoroscopy time (m inutes): 0.1 Reference air kerma (mGy): 1.1 Additional Details Addit ional description of procedure: None Equipment details: None Specimens remov ed: None Estimated blood loss (mL): Less than 10 Standardized report: SIR_CV A_NonTunneledCatheter_v3 Attestation Signer name: Kris Frank MD I atte st that I was present for the entire procedure. I reviewed the stored images a nd agree with the report as written. Signed by: Kris Frank MD on 10/21/2019 9:47 AM Dictated By: KRIS FRANK MD 110 Transcribed By: SHREYAS on 11/01/191103 COPY TO: AYAN MCMANUS MD CHEST SINGLE (PORTABLE)2019-10-21 09:37:00 [facility] [address] [place], [place] [address] Patient Name: NAVDEEP FERNANDO MR #: [id number] : 1940 Age/Sex: 79/M Req #: [id number] Adm Physician: AYAN MCMANUS MD Ordered by: PABLO WILLIS MD Report #: [id number] Location: ICU Room/Bed: ICU [facility] Procedure: [id number] DX/ CHEST SINGLE (PORTABLE) Exam Date: 10/21/19 Exam Herson e: 0610 REPORT STATUS: Signed EX AMINATION: CHEST SINGLE (PORTABLE) INDICATION: CHF COMPARISON: Ch est radiograph 10/19/2019 FINDINGS: LINES/TUBES:Right IJ nontunnel ed dialysis catheter terminates in the superior vena cava. EKG leads overlie t he chest. LUNGS:The lungs are moderately inflated. There is perihilar fulln ess and indistinctness of the pulmonary vasculature. PLEURA:No pleural ef fusion or pneumothorax. MEDIASTINUM:Cardiomediastinal silhouette is stably enlarged. Atherosclerotic calcifications of the thoracic aorta. BONES/SOF T TISSUES:No acute osseous injury. ABDOMEN:No free air under the diaphragm. IMPRESSION: Unchanged cardiomegaly and mild pulmonary interstitial e jessica. Signed by: Kris Frank MD on 10/21/2019 9:38 AM Dictated By: BERRY FRANK MD 7 Transcrib ed By: SHREYAS on 10/21/19937 COPY TO: PABLO WILLIS MD CT ABDOMEN/PELVIS [id number] 08:14:00 [facility] [address] [place] [address] Patient Name: NAVDEEP FERNANDO MR #: [id number] : 1940 Age/Sex: 79/M Req #: [id number] [facility] Physician: AYAN MCMANUS MD Ordered by: LORI RODRIGUEZ MD Report #: [id number] Location: ICU Room/Bed: ICU [facility] Procedure: [id number] CT/C T ABDOMEN/PELVIS WO Exam Date: 10/20/19 Exam Time: 1 730 REPORT STATUS: Signed CT abd omen and pelvis without contrast History: Melena Comparison: none Technique: serial axial imaging was performed without intravenous contrast as per departmental protocol. Multiplanar images are reconstructed and reviewed when indicated. This CT examination is performed using one or more of the following dose reduction techniques: Automated exposure control, adjust ment of the mA and /or kV according to patient size, and/or use of iterative r econstruction technique. Findings: Small bilateral pleural effusions. The pancreas, spleen, left kidney, and gallbladder are not well seen on this examination. Macroscopic fat-containing lesions within segment 8 of the liver near the hepatic dome measure 2.3 cm and 1.7 cm respectively in siz e. There is a complex, soft tissue, macroscopic fat, and calcification co ntaining mass which occupies the majority of the left upper and lower quadrant s. This mass measures at least 24.7 x 20.3 x 19.1 cm in size. . The right kidney demonstrates no evidence of hydronephrosis. The prostate gland is mildly enlarged. Patient is status post left hemicolectomy. Transverse col ostomy is noted within the left lower quadrant. A right upper quadr ant mesenteric mass measures 6.5 x 6.1 cm in size. Calcified retroperitoneal m ass measures 6.9 x 6.8 cm in size. Calcified mass abutting the left external i liac vessels measures 4.9 x 4.3 cm in size. No abdominal aortic aneurysm. No aggressive osseous lesion. Impression: 1. Technically limit ed study due to lack of intravenous contrast. 2. Large soft tissue mass contai david macroscopic fat and calcification occupying the majority of the left uppe r and lower quadrants. 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 3. Ad ditional masses within the right upper quadrant mesentery, retroperitoneum, an d along the left external iliac vessels, likely metastatic. 4. Macroscopic fat -containing lesions within segment 8 of the liver. Metastatic disease cannot b e excluded. 5. The pancreas, spleen, left kidney, and gallbladder are not wel l seen on this examination. Recommend correlation with prior surgical history. 6. Status post left hemicolectomy, with left lower quadrant transverse col ostomy. 7. Consider further evaluation with contrast-enhanced study for more a ccurate staging. Signed by: Jaylen Dailey MD on 10/21/2019 8:32 A M Dictated By: JAYLEN DAILEY MD 1 Transcribed By: SHREYAS on 10/21/19831 COPY TO: LORI RODRIGUEZ MD Automated reticulocyte count as percentage of total [id number] 05:00:00* Test Item Value Reference Range Interpretation Comments Percent Reticulocyte Count (test code = 79970-4) 6.7 0.8-[address] [facility] HospitalFluoroscopic procedure less than one hour brnujtzr2780-13-75 05:00:00* Test Item Value Reference Range Interpretation Comments Hemoglobin A1c Percent (test code = Hemoglobin A1c Percent) 5.7 4.0-7.0 [facility] HospitalBlood cobalamin (vitamin B12) measurement (mass/volume)2019-10-21 05:00:00* Test Item Value Reference Range Interpretation Comments Vitamin B12 Level (test code = 32203-1) 194 213-816 [facility] Hospital[facility] or plasma folate measurement (mass/volume)2019-10-21 05:00:00* Test Item Value Reference Range Interpretation Comments Folate (test code = 2284-8) 5.2 >3.0 A serum folate concentration of less than 3.1 ng/mL isconsidered to represent cl inical deficiency.Performed at: - [facility] [id number] Director: Demar Meyer MD, Phone: [phone] Behavioral Health Hospitalerum hepatitis B virus surface antibody assay by radioimmunoassay (units/volume)2019-10-20 20:00:00* Test Item Value Reference Range Interpretation Comments Hepatitis B Surface Antibody, Quant (test code = 5194-6) <3.1 Immunity>9.9 Status of Immunity Anti-HBs Level Inconsistent with Immunity 0.0 - 9.9Consistent with Immunity >9.9[facility] or plasma hepatitis B virus core antibody detection by [id number] 20:00:00* Test Item Value Reference Range Interpretation Comments Hepatitis B Core Total Antibody (test code = 43951-2) Negative Negative [facility] Hospital[facility] or plasma hepatitis B virus surface antigen detection by yykscgpdddr9944-68-46 20:00:00* Test Item Value Reference Range Interpretation Comments Hepatitis B Surface Antigen (test code = 5196-1) Negative Negat karlie [facility] Hospitalerum or plasma hepatitis B virus core IgM antibody detection by kpapmkdxkar1646-90-58 20:00:00* Test Item Value Reference Range Interpretation Comments Hepatitis B Core IgM Antibody (test code = 15588-1) Negative Ne gative Performed at: [facility] [address] [id number] Director: Demar Meyer MD, Phone: [phone] Behavioral Health Hospitalerum or plasma ferritin measurement (mass/volume)2019-10-20 12:00:00* Test Item Value Reference Range Interpretation Comments Ferritin (test code = 2276-4) 220.56 21.81-274.66 [facility] Hospitaler[facility] or plasma creatine kinase measurement (enzymatic activity/volume)2019-10-20 12:00:00* Test Item Value Reference Range Interpretation Comments Creatine Kinase (test code = 2157-6) 579 30-200 [facility] Hospitaler[facility] or plasma creatine kinase MB measurement (mass/volume)2019-10-20 12:00:00* Test Item Value Reference Range Interpretation Comments Creatine Kinase MB (test code = 33475-4) 42.00 0-5.0 [facility] Hospitaltool gastrointestinal hemoglobin timmsbpdr5490-14-32 11:20:00* Test Item Value Reference Range Interpretation Comments Stool Occult Blood (test code = 2335-8) POSITIVE NEGATIVE [facility] HospitalBacterial urine [id number] 07:13:00* Test Item Value Reference Range Interpretation Comments Urine Culture (test code = 630-4) ESCHERICHIA COLI [facility] Hospitalerum or plasma iron measurement (mass/volume)2019-10-20 03:40:00* Test Item Value Reference Range Interpretation Comments Iron Level (test code = 2498-4) 33 65-175 [facility] Hospitaler[facility] or plasma iron binding capacity measurement (mass/volume)2019-10-20 03:40:00* Test Item Value Reference Range Interpretation Comments Total Iron Binding Capacity (test code = 2500-7) 283 261-4 78 [facility] Hospitalerum or plasma iron saturation measurement (mass fraction)2019-10-20 03:40:00* Test Item Value Reference Range Interpretation Comments Percent Iron Saturation (test code = 2502-3) 12 15-50 [facility] Hospitaler[facility] or plasma transferrin measurement (mass/volume)2019-10-20 03:40:00* Test Item Value Reference Range Interpretation Comments Transferrin (test code = 3034-6) 202 174-364 [facility] HospitalCT BRAIN [id number] 18:29:00 [facility] [address] [place] [address] Patient Name: NAVDEEP FERNANDO MR #: [id number] : 1940 Age/Sex: 79/M Req #: [id number] Adm Physician: Ordered by: BINA BARRETT CAREER DEVELOPMENT FACILITATOR Report #: [id number] Location: ER Room/Bed: Procedure: [id number] CT/CT BRAIN WO Exam Date: Exam Time: REPORT STATUS: Signed History:Fall [place] rison studies: None Technique: Axial images were obtained from the skul l base to the vertex. Coronal and sagittal images reconstructed from the axial data. Dose modulation, iterative reconstruction, and/or weight based adjustme nt of the mA/kV was utilized to reduce the radiation dose to as low as reason ably achievable. Intravenous contrast: None Findings: Scalp/sk ull: No abnormalities. Extra-axial spaces: No masses. No fluid colle ctions. Brain sulci: Moderately prominent. Ventricles: Moderate compensat ory dilatation. No hydrocephalus. Parenchyma: Subtle confluent hypodensi ties in the supratentorial white matter are small vessel ischemic changes. No masses, hemorrhage, acute or chronic cortical vascular insults. Sellar/s uprasellar region: No abnormalities. Craniocervical junction: Patent foramen m agnum. No Chiari one malformation. Incidental findings: Atherosclerotic calcifications in the carotid siphons and intradural vertebral arteries. Impression: No acute abnormalities. Chronic findings: 1. Moderate g eneralized volume loss. 2. Mild supratentorial white matter small vessel isch emic changes. Signed by: Dr. Marguerite Hein M.D. on 10/19/2019 6:30 PM Dictated By: MARGUERITE HEIN MD, MD 29 Transcribed By: SHREYAS on 10/19/191829 COPY TO: BINA BARRETT CAREER DEVELOPMENT FACILITATOR CHEST SINGLE (PORTABLE)2019-10-19 18:25:00 [place] [address] Patient Name: NAVDEEP FERNANDO MR #: [id number] : 1940 Age/Sex: 79/M Req #: [id number] Adm Physician: Ordered by: BINA BARRETT CAREER DEVELOPMENT FACILITATOR Report #: [id number] Location: ER Room/Bed: Procedure: [id number] DX/CHEST SINGLE (PORTABLE) Exam Date: Exam Time: REPORT STATUS: Signed EXAMINATION: CHEST SINGLE (PORTABLE) INDICATION: ERMD ORDER Y CO MPARISON: None FINDINGS: AP view TUBES and LINES: None. LUNGS: Lungs are well inflated. Bibasilar subsegmental atelectasis. Mild c entral vascular congestion. PLEURA: No pleural effusion or pneumothorax. HEART AND MEDIASTINUM: Enlarged cardiac silhouette. Prominent bilateral hil ar regions, probably due to vascular congestion. BONES AND SOFT TISSU ES: No acute osseous lesion. Soft tissues are unremarkable. UPPER ABDOM EN: No free air under the diaphragm. IMPRESSION: Enlarged cardiac si lhouette and mild central vascular congestion. Bibasilar subsegmental atelecta sis. No definite evidence of displaced rib fractures, considering limited sing le view. Signed by: Dr. Issac Cornejo MD on 10/19/2019 6:27 PM Dic tated By: ISSAC CORNEJO MD 26 COPY TO: BINA BARRETT CAREER DEVELOPMENT FACILITATOR CT CERVICAL SPINE [id number] 18:21:00 [place] [address] Patient Name: NAVDEEP FERNANDO MR #: [id number] : 1940 Age/Sex: 79/M Req #: [id number] Adm Physician: Ordered by: BINA BARRETT CAREER DEVELOPMENT FACILITATOR Report #: [id number] Location: Room/Bed: Procedure: [id number] CT/CT CERVICAL SPINE WO Exam Date: Exam Time: REPORT STATUS: Signed History: Fall Comparison studies: None Technique: Axial images were obtained through the cervical region.. Coronal and sagittal images reconstructed from the axial data. Dose modulation, iterative reconstruction, and/or weight based adjustm ent of the mA/kV was utilized to reduce the radiation dose to as low as reaso nably achievable. Intravenous contrast: None Findings: Fractur es: None. Soft tissues: No gross abnormalities. Atlantoaxial articulation : Intact. Alignment: Normal lordosis. No scoliosis. Cervicomedullary junctio n: No abnormalities. The foramen magnum is patent. Vertebrae: No infecti on or neoplasm. Degenerative changes: * Mildly degenerated discs from C 2 to C6, moderate at C6-C7. * Mild spinal canal stenosis at C6-C7 due to a di sc osteophyte complex. Otherwise patent. * Superimposed foraminal stenosis, mild bilaterally at C3-4, mild right, moderate left C6-7 due to facet and unc oarthrosis. Additional findings: The lobes and the isthmus of the thyroi d gland are enlarged and heterogeneous. Multiple hypodense foci, some of which are associated with punctate calcifications are seen. The lobes measure appro ximately 7.3 cm in sagittal dimension as they extend from the level of the thy roid cartilage to the thoracic inlet. The trachea is patent. Incidental f indings: Atherosclerotic calcifications in the carotid bulbs and intracranial vertebral arteries. IMPRESSION: 1. No acute abnormalities. Specific ally, no fractures or subluxations. 2. Cannot adequately evaluate for liga ment, spinal cord and or vascular abnormalities. 3. Degenerative changes as described. 4. Incidental heterogeneous thyroid goiter. The enlarged th yroid gland extends from the level of the thyroid cartilage to the thoracic in let. Signed by: Dr. Marguerite Hein M.D. on 10/19/2019 6:28 PM Di ctated By: MARGUERITE HEIN MD, MD 27 Transcribed By: SHREYAS on 10/19/191827 GOPHERMAN Y TO: BINA BARRETT NP Prothrombin time (PT) in platelet poor plasma by coagulation [id number] 17:42:00* Test Item Value Reference Range Interpretation Comments Prothrombin Time (test code = 5902-2) 18.3 11.9-14.5 [facility] HospitalINR in Platelet poor plasma by Coagulation [id number] 17:42:00* Test Item Value Reference Range Interpretation Comments Prothromb Time International Ratio (test code = 6301-6) 1.42 Oral Anticoagulant Therapy INR Values:1. Low Intensity Therapy 1.5 - 2.02 . Moderate Intensity Therapy 2.0 - 3.03. High Intensity Therapy(1) 2.5 - 3. 54. High Intensity Therapy(2) 3.0 - 4.05. Panic Value INR > 5.0 [facility] HospitalActivated partial thromboplastin time (aPTT) in platelet poor plasma by coagulation rjpfb1838-11-93 17:42:00* Test Item Value Reference Range Interpretation Comments Activated Partial Thromboplast Time (test code = 13955-9) 32.0 23.8-35.5 [facility] Hospitaler[facility] or plasma magnesium measurement (mass/volume)2019-10-19 17:42:00* Test Item Value Reference Range Interpretation Comments Magnesium Level (test code = 30788-7) 2.3 1.3-2.1 [facility] HospitalBNP Afl-[id number] 17:42:00* Test Item Value Reference Range Interpretation Comments B-Type Natriuretic Peptide (test code = 23066-3) 1151.2 0-100 [facility] HospitalMICROALBUMIN [id number] 16:08:00* Test Item Value Reference Range Interpretation Comments MICROALBUMIN UR (test code = MICROALBUR) 133.2 ug/mL Not Estab. Performed At: [facility] [address] [place], [place] [id number] Demar Logan MD Ph:[phone] URINALYSIS [id number] 11:42:00* Test Item Value Reference Range Interpretation Comments UA COLOR (test code = COLU) PALE YELLOW DISCRIPT YELLOW A UA APPEARANCE (test code = APPU) CLEAR DISCRIPT CLEAR UA GLUCOSE DIPSTICK (test code = DGLUU) NEGATIVE mg/dL NEGATIVE UA BILIRUBIN DIPSTICK (test code = BILU) NEGATIVE NEGATIVE UA KETONE DIPSTICK (test code = KETU) NEGATIVE mg/dL NEGATIVE UA SPECIFIC GRAVITY (test code = SGU) 1.015 1.005-1.030 UA BLOOD DIPSTICK (test code = ANGIE) NEGATIVE NEGATIVE UA PH DIPSTICK (test code = YAN) 5.5 5.0-9.0 UA PROTEIN DIPSTICK (test code = PROU) 30 mg/dL NEGATIVE A UA UROBILINOGEN DIPSTICK (test code = URO) 0.2 mg/dL 0.2-1.0 UA NITRITE DIPSTICK (test code = ANNIE) NEGATIVE NEGATIVE UA LEUKOCYTE ESTERASE DIPSTICK (test code = LEUU) NEGATIVE NEGA TIVE UA [id number] 11:42:00* Test Item Value Reference Range Interpretation Comments UA WBC (test code = WBCU) 0-2 #WBC/HPF 0-2 UA RBC (test code = RBCU) 0-2 #RBC/HPF 0-2 UA BACTERIA (test code = BACU) OCCASIONAL /HPF NONE-TRACE A UA SQUAMOUS CELLS (test code = SQU) TRACE /LPF NONE-TRACE UA MUCUS (test code = MUCU) OCCASIONAL /LPF NONE SEEN A CBC W/AUTO [id number] 11:02:00* Test Item Value Reference Range Interpretation Comments WHITE BLOOD CELL (test code = WBC) 8.6 x10 3/uL 4.8-10.8 N RED BLOOD CELL (test code = RBC) 3.43 x10 6/uL 4.70-6.10 L HEMOGLOBIN (test code = HGB) 10.3 g/dL 14.5-20 L HEMATOCRIT (test code = HCT) 31.2 % 42.0-52.0 L MEAN CELL VOLUME (test code = MCV) 91.0 fL 80.0-94.0 N MEAN CELL HGB (test code = MCH) 30.0 pg 27-31 N MEAN CELL HGB CONCENTRATION (test code = MCHC) 33.0 G/DL 33-36.5 N RED CELL DISTRIBUTION WIDTH (test code = RDW) 18.6 % 12.9-16. 9 H PLATELET COUNT (test code = PLT) 339 150-440 N MEAN PLATELET VOLUME (test code = MPV) 11.5 fL 8.9-12.4 N NEUTROPHIL % (test code = NT%) 54.0 % 42.2-75.2 N LYMPHOCYTE % (test code = LY%) 27.2 % 20.5-51.1 N MONOCYTE % (test code = MO%) 13.6 % 1.7-9.3 H EOSINOPHIL % (test code = EO%) 3.9 % 0.0-7.0 N BASOPHIL % (test code = BA%) 0.9 % 0-2.5 N NEUTROPHIL # (test code = NT#) 4.63 x10 3/uL 1.80-7.70 N LYMPHOCYTE # (test code = LY#) 2.33 x10 3/uL 1.00-4.80 N MONOCYTE # (test code = MO#) 1.16 x10 3/uL 0.00-0.80 H EOSINOPHIL # (test code = EO#) 0.33 x10 3/uL 0.00-0.45 N BASOPHIL # (test code = BA#) 0.08 x10 3/uL 0.0-0.20 N URINALYSIS [id number] 10:57:00* Test Item Value Reference Range Interpretation Comments UA COLOR (test code = COLU) PALE YELLOW DISCRIPT YELLOW A UA APPEARANCE (test code = APPU) CLEAR DISCRIPT CLEAR UA GLUCOSE DIPSTICK (test code = DGLUU) NEGATIVE mg/dL NEGATIVE UA BILIRUBIN DIPSTICK (test code = BILU) NEGATIVE NEGATIVE UA KETONE DIPSTICK (test code = KETU) NEGATIVE mg/dL NEGATIVE UA SPECIFIC GRAVITY (test code = SGU) 1.015 1.005-1.030 UA BLOOD DIPSTICK (test code = ANGIE) NEGATIVE NEGATIVE UA PH DIPSTICK (test code = YAN) 5.5 5.0-9.0 UA PROTEIN DIPSTICK (test code = PROU) 30 mg/dL NEGATIVE A UA UROBILINOGEN DIPSTICK (test code = URO) 0.2 mg/dL 0.2-1.0 UA NITRITE DIPSTICK (test code = ANNIE) NEGATIVE NEGATIVE UA LEUKOCYTE ESTERASE DIPSTICK (test code = LEUU) NEGATIVE NEGA TIVE UA [id number] 10:57:00* Test Item Value Reference Range Interpretation Comments UA WBC (test code = WBCU) #WBC/HPF 0-2 UA RBC (test code = RBCU) #RBC/HPF 0-2 UA BACTERIA (test code = BACU) /HPF NONE-TRACE UA SQUAMOUS CELLS (test code = SQU) /LPF NONE-TRACE URINALYSIS [id number] 10:57:00* Test Item Value Reference Range Interpretation Comments UA COLOR (test code = COLU) PALE YELLOW DISCRIPT YELLOW A UA APPEARANCE (test code = APPU) CLEAR DISCRIPT CLEAR UA GLUCOSE DIPSTICK (test code = DGLUU) NEGATIVE mg/dL NEGATIVE UA BILIRUBIN DIPSTICK (test code = BILU) NEGATIVE NEGATIVE UA KETONE DIPSTICK (test code = KETU) NEGATIVE mg/dL NEGATIVE UA SPECIFIC GRAVITY (test code = SGU) 1.015 1.005-1.030 UA BLOOD DIPSTICK (test code = ANGIE) NEGATIVE NEGATIVE UA PH DIPSTICK (test code = YAN) 5.5 5.0-9.0 UA PROTEIN DIPSTICK (test code = PROU) 30 mg/dL NEGATIVE A UA UROBILINOGEN DIPSTICK (test code = URO) 0.2 mg/dL 0.2-1.0 UA NITRITE DIPSTICK (test code = ANNIE) NEGATIVE NEGATIVE UA LEUKOCYTE ESTERASE DIPSTICK (test code = LEUU) NEGATIVE NEGA TIVE UA [id number] 10:57:00* Test Item Value Reference Range Interpretation Comments UA WBC (test code = WBCU) #WBC/HPF 0-2 UA RBC (test code = RBCU) #RBC/HPF 0-2 UA BACTERIA (test code = BACU) /HPF NONE-TRACE UA SQUAMOUS CELLS (test code = SQU) /LPF NONE-TRACE COMPREHENSIVE METABOLIC [id number] 10:52:00* Test Item Value Reference Range Interpretation Comments SODIUM (test code = NA) 139 MMOL/L 136-143 N POTASSIUM (test code = K) 4.4 MMOL/L 3.5-5.1 N CHLORIDE (test code = CL) 101 MMOL/L 98-107 N CARBON DIOXIDE (test code = CO2) 24 mmol/L 24-31 N GLUCOSE (test code = GLU) 117 mg/dL 70-104 H BLOOD UREA NITROGEN (test code = BUN) 82.0 MG/DL 7.0-21.0 H GLOMERULAR FILTRATION RATE (test code = GFR) 14 >60 L The estimated glomerular filtration rate is computed usingpatient race, age (>18), sex, and serum creatinine. If anyof the needed data elements are missing the Laboratory cannot compute an estimation of the glomerular filtration rate. CREATININE (test code = CREAT) 4.3 mg/dL 0.8-1.5 H TOTAL PROTEIN (test code = PROT) 6.2 g/dL 6.3-8.3 L ALBUMIN (test code = ALB) 3.0 G/DL 3.5-5.0 L CALCIUM (test code = CA) 8.9 mg/dL 8.8-10.2 N BILIRUBIN TOTAL (test code = BILT) 0.9 mg/dL 0.2-1.0 N SGOT/AST (test code = AST) 30 IU/L 10-34 N SGPT/ALT (test code = ALT) 10 U/L 10-44 N ALKALINE PHOSPHATASE (test code = ALKP) 37 U/L 45-[address] CHEST ABDOMEN [id number] 10:19:15For comparison only. No interpretation requested.MD HigginsPlatelet Aggregation: Function Screen 2019-06-12 14:59:00* Test Item Value Reference Range Interpretation Comments Pathologist: (test code = 2622) Estelita Rausch MD (electron ic signature) Platelets (test code = 2656) 285 150- 450 K/CU MM ADP (test code = 95340-9) 21 % 62-100 L Platelet Rich Plasma (test code = 2134) 195 200- 300 k/cu mm L Plt. Function Screen Interpretation (test code = 4655) Pattern of disaggregation present with ADP which may be characteristic of P2Y12 inhibitor effect. Correlation with medication history is required. CIERA (test code = CIERA) Platelet Function Screen res ults may be falsely low with platelet counts<75,000/cu mm. Lab Interpretation (test code = 70614-5) [facility]CTION [id number] 14:59:00* Test Item Value Reference Range Interpretation Comments [id number] (BEAKER) (test code = 2622) Radha Rausch MD (electronic signature) PLATELET COUNT AGG (BEAKER) (test code = 2656) 285 K/CU MM 150-450 PLATELET RICH PLASMA(BEAKER) (test code = 2134) 195 k/cu mm 200-30 0 L PLATELET FUNCTION SCREEN INTERPRETATION (BEAKER) (test code = 4655) Pattern of disaggregation present with ADP which may be characteristic of P2Y12 inhibitor effect. Correlation with medication history is required. Platelet Function Screen results may be falsely low with platelet counts< 75,000/cu mm.POCT-GLUCOSE [id number] 11:36:00* Test Item Value Reference Range Interpretation Comments POC-GLUCOSE METER (BEAKER) (test code = 1538) 219 mg/dL 70-110 H : TESTED AT [facility] [address] [place] [address], [address]: Ware Tester/Sod Farmer ID = [id number] for DELMY POLLOCK CBC with platelet count + automated [id number] 11:00:00* Test Item Value Reference Range Interpretation Comments WBC (test code = 6690-2) 9.4 3.5- 10.5 K/L RBC (test code = 789-8) 2.52 4.63- 6.08 M/L L MCHC (test code = 786-4) 32.9 32.3- 36.5 GM/DL L Hematocrit (test code = 4544-3) 23.1 % 40.1-51 L MCV (test code = 787-2) 91.7 fL 79-92.2 MCH (test code = 785-6) 30.2 pg 25.7-32.2 RDW (test code = 788-0) 17.5 % 11.6-14.4 H Platelets (test code = 777-3) 279 150- 450 K/CU MM MPV (test code = 24109-9) 11.6 fL 9.4-12.4 nRBC (test code = 413) 0 0- 0 /100 WBC % Neutros (test code = 429) 63 % % Lymphs (test code = 430) 20 % % Monos (test code = 431) 11 % % Eos (test code = 432) 4 % % Baso (test code = 437) 1 % # Neutros (test code = 670) 5.94 1.78- 5.38 K/L H # Lymphs (test code = 414) 1.90 1.32- 3.57 K/L # Monos (test code = 415) 1.04 0.30- 0.82 K/L H # Eos (test code = 416) 0.39 0.04- 0.54 K/L # Baso (test code = 417) 0.10 0.01- 0.08 K/L H Immature Granulocytes-Relative (test code = 2801) 1 % 0-1 Lab Interpretation (test code = 18961-2) Abnormal [facility] W/PLT COUNT & AUTO [id number] 11:00:00* Test Item Value Reference Range Interpretation Comments WHITE BLOOD CELL COUNT (BEAKER) (test code = 775) 9.4 K/ L 3.5- 10.5 RED BLOOD CELL COUNT (BEAKER) (test code = 761) 2.52 M/ L 4.63-6 .08 L HEMOGLOBIN (BEAKER) (test code = 410) 7.6 GM/DL 13.7-17.5 L HEMATOCRIT (BEAKER) (test code = 411) 23.1 % 40.1-51.0 L MEAN CORPUSCULAR VOLUME (BEAKER) (test code = 753) 91.7 fL 79. 0-92.2 MEAN CORPUSCULAR HEMOGLOBIN (BEAKER) (test code = 751) 30.2 pg 25.7-32.2 MEAN CORPUSCULAR HEMOGLOBIN CONC (BEAKER) (test code = 752) 32.9 GM/DL 32.3-36.5 RED CELL DISTRIBUTION WIDTH (BEAKER) (test code = 412) 17.5 % 11.6-14.4 H PLATELET COUNT (BEAKER) (test code = 756) 279 K/CU MM 150-450 MEAN PLATELET VOLUME (BEAKER) (test code = 754) 11.6 fL 9.4-12 .4 NUCLEATED RED BLOOD CELLS (BEAKER) (test code = 413) 0 /100 WBC 0 -0 NEUTROPHILS RELATIVE PERCENT (BEAKER) (test code = 429) 63 % LYMPHOCYTES RELATIVE PERCENT (BEAKER) (test code = 430) 20 % MONOCYTES RELATIVE PERCENT (BEAKER) (test code = 431) 11 % EOSINOPHILS RELATIVE PERCENT (BEAKER) (test code = 432) 4 % BASOPHILS RELATIVE PERCENT (BEAKER) (test code = 437) 1 % NEUTROPHILS ABSOLUTE COUNT (BEAKER) (test code = 670) 5.94 K/ L 1.78-5.38 H LYMPHOCYTES ABSOLUTE COUNT (BEAKER) (test code = 414) 1.90 K/ L 1.32-3.57 MONOCYTES ABSOLUTE COUNT (BEAKER) (test code = 415) 1.04 K/ L 0. 30-0.82 H EOSINOPHILS ABSOLUTE COUNT (BEAKER) (test code = 416) 0.39 K/ L 0.04-0.54 BASOPHILS ABSOLUTE COUNT (BEAKER) (test code = 417) 0.10 K/ L 0. 01-0.08 H IMMATURE GRANULOCYTES-RELATIVE PERCENT (BEAKER) (test code = 2801) 1 % 0-1 POCT-GLUCOSE [id number] 07:32:00* Test Item Value Reference Range Interpretation Comments POC-GLUCOSE METER (BEAKER) (test code = 1538) 127 mg/dL 70-110 H : TESTED AT [address], [address]: Ware Tester/Sod Farmer ID = [id number] for DELMY POLLOCK Basic Metabolic [id number] 06:00:00* Test Item Value Reference Range Interpretation Comments Sodium (test code = 2951-2) 136 meq/L 136-145 Potassium (test code = 2823-3) 3.8 meq/L 3.5-5.1 Chloride (test code = 2075-0) 106 meq/L 98-107 CO2 (test code = 8-9) 22 meq/L 22-29 BUN (test code = 3094-0) 60 mg/dL 7-21 H Creatinine (test code = 2160-0) 4.00 mg/dL 0.57-1.25 H Glucose (test code = 2345-7) 133 mg/dL 70-105 H Calcium (test code = 30661-2) 7.4 mg/dL 8.4-10.2 L EGFR (test code = 54886-3) 15 mL/min/1.73 sq m ESTIMATED GFR IS NOT ACCURATE CREATININE CLEARANCE IN PREDICTING GLOMERULAR FILTRATION RATE. ESTIMATED GFR IS NOT APPLICABLE FOR DIALYSIS PATIENTS. Lab Interpretation (test code = 18965-8) Abnormal [facility] METABOLIC [id number] 06:00:00* Test Item Value Reference Range Interpretation Comments SODIUM (BEAKER) (test code = 381) 136 meq/L 136-145 POTASSIUM (BEAKER) (test code = 379) 3.8 meq/L 3.5-5.1 CHLORIDE (BEAKER) (test code = 382) 106 meq/L 98-107 CO2 (BEAKER) (test code = 355) 22 meq/L 22-29 BLOOD UREA NITROGEN (BEAKER) (test code = 354) 60 mg/dL 7-21 H CREATININE (BEAKER) (test code = 358) 4.00 mg/dL 0.57-1.25 H GLUCOSE RANDOM (BEAKER) (test code = 652) 133 mg/dL 70-105 H CALCIUM (BEAKER) (test code = 697) 7.4 mg/dL 8.4-10.2 L EGFR (BEAKER) (test code = 1092) 15 mL/min/1.73 sq m ESTIMATED GFR IS NOT ACCURATE CREATININE CLEARANCE IN PREDICTING GLOMERULAR FILTRATION RATE. ESTIMATED GFR IS NOT APPLICABLE FOR DIALYSIS PATIENTS. CBC (Hemogram only)2019-06-12 04:49:00* Test Item Value Reference Range Interpretation Comments WBC (test code = 6690-2) 10.2 3.5- 10.5 K/L RBC (test code = 789-8) 2.51 4.63- 6.08 M/L L MCHC (test code = 786-4) 33.0 32.3- 36.5 GM/DL L Hematocrit (test code = 4544-3) 22.7 % 40.1-51 L MCV (test code = 787-2) 90.4 fL 79-92.2 MCH (test code = 785-6) 29.9 pg 25.7-32.2 RDW (test code = 788-0) 17.9 % 11.6-14.4 H Platelets (test code = 777-3) 272 150- 450 K/CU MM MPV (test code = 73222-0) 10.9 fL 9.4-12.4 nRBC (test code = 413) 0 0- 0 /100 WBC Lab Interpretation (test code = 24868-0) Abnormal [facility] (HEMOGRAM ONLY)2019-06-12 04:49:00* Test Item Value Reference Range Interpretation Comments WHITE BLOOD CELL COUNT (BEAKER) (test code = 775) 10.2 K/ L 3.5- 10.5 RED BLOOD CELL COUNT (BEAKER) (test code = 761) 2.51 M/ L 4.63-6 .08 L HEMOGLOBIN (BEAKER) (test code = 410) 7.5 GM/DL 13.7-17.5 L HEMATOCRIT (BEAKER) (test code = 411) 22.7 % 40.1-51.0 L MEAN CORPUSCULAR VOLUME (BEAKER) (test code = 753) 90.4 fL 79. 0-92.2 MEAN CORPUSCULAR HEMOGLOBIN (BEAKER) (test code = 751) 29.9 pg 25.7-32.2 MEAN CORPUSCULAR HEMOGLOBIN CONC (BEAKER) (test code = 752) 33.0 GM/DL 32.3-36.5 RED CELL DISTRIBUTION WIDTH (BEAKER) (test code = 412) 17.9 % 11.6-14.4 H PLATELET COUNT (BEAKER) (test code = 756) 272 K/CU MM 150-450 MEAN PLATELET VOLUME (BEAKER) (test code = 754) 10.9 fL 9.4-12 .4 NUCLEATED RED BLOOD CELLS (BEAKER) (test code = 413) 0 /100 WBC 0 -0 POCT-GLUCOSE [id number] 23:20:00* Test Item Value Reference Range Interpretation Comments POC-GLUCOSE METER (BEAKER) (test code = 1538) 161 mg/dL 70-110 H : TESTED AT [address], [address]: Ware Tester/Sod Farmer ID = [id number] for DEION FATIMA POC ACTIVATED CLOTTING [id number] 17:48:00* Test Item Value Reference Range Interpretation Comments Activated Clotting Time (test code = 441) 147 sec Reference Range: 74-137 seconds, Baseline/TESTED AT [place] [id number] [id number] 17:48:00* Test Item Value Reference Range Interpretation Comments ACTIVATED CLOTTING TIME (BEAKER) (test code = 441) 147 sec Reference Range: 74-137 seconds, Baseline/TESTED AT [place] [address] [id number] 16:28:00* Test Item Value Reference Range Interpretation Comments ACTIVATED CLOTTING TIME (BEAKER) (test code = 441) 153 sec Reference Range: 74-137 seconds, Baseline/TESTED AT [place] [address] [id number] 14:34:00* Test Item Value Reference Range Interpretation Comments ACTIVATED CLOTTING TIME (BEAKER) (test code = 441) 175 sec Reference Range: 74-137 seconds, Baseline/TESTED AT [place] [address] POCT-GLUCOSE [id number] 12:12:00* Test Item Value Reference Range Interpretation Comments POC-GLUCOSE METER (BEAKER) (test code = 1538) 127 mg/dL 70-110 H : TESTED AT [place] [id number]: Ware Tester/Sod Farmer ID = [id number] for DELMY POLLOCK [id number] 10:49:00* Test Item Value Reference Range Interpretation Comments ACTIVATED CLOTTING TIME (BEAKER) (test code = 441) 252 sec Reference Range: 74-137 seconds, Baseline/TESTED AT [place] [address] [id number] 10:28:00* Test Item Value Reference Range Interpretation Comments ACTIVATED CLOTTING TIME (BEAKER) (test code = 441) 274 sec Reference Range: 74-137 seconds, Baseline/TESTED AT [place] [address] [id number] 10:16:00* Test Item Value Reference Range Interpretation Comments ACTIVATED CLOTTING TIME (BEAKER) (test code = 441) 246 sec Reference Range: 74-137 seconds, Baseline/TESTED AT [place] [id number] BASIC METABOLIC [id number] 16:44:00* Test Item Value Reference Range Interpretation Comments SODIUM (BEAKER) (test code = 381) 134 meq/L 136-145 L POTASSIUM (BEAKER) (test code = 379) 5.2 meq/L 3.5-5.1 H Specimen moderately hemolyzed CHLORIDE (BEAKER) (test code = 382) 104 meq/L 98-107 CO2 (BEAKER) (test code = 355) 24 meq/L 22-29 BLOOD UREA NITROGEN (BEAKER) (test code = 354) 52 mg/dL 7-21 H CREATININE (BEAKER) (test code = 358) 3.72 mg/dL 0.57-1.25 H Specimen moderately hemolyzed GLUCOSE RANDOM (BEAKER) (test code = 652) 103 mg/dL 70-105 CALCIUM (BEAKER) (test code = 697) 7.5 mg/dL 8.4-10.2 L EGFR (BEAKER) (test code = 1092) 16 mL/min/1.73 sq m ESTIMATED GFR IS NOT ACCURATE CREATININE CLEARANCE IN PREDICTING GLOMERULAR FILTRATION RATE. ESTIMATED GFR IS NOT APPLICABLE FOR DIALYSIS PATIENTS. Manual [id number] 14:24:00* Test Item Value Reference Range Interpretation Comments % Neutros (test code = 2816) 67 % % Lymphs (test code = 2817) 22 % % Monos (test code = 2818) 6 % % Eos (test code = 2819) 5 % # Neutros (test code = 2830) 6.57 K/ul 1.78-5.38 H # Lymphs (test code = 2831) 2.16 K/ul 1.32-3.57 # Monos (test code = 2832) 0.59 K/uL 0.3-0.82 # Eos (test code = 2834) 0.49 K/uL 0.04-0.54 Total Counted (test code = 1351) 100 RBC Morphology (test code = 762) Normal Large Platelet (test code = 2156) Present Toxic Granulation (test code = 771) Present Lab Interpretation (test code = 55373-5) Abnormal [facility](CELLAVISION MANUAL DIFF)2019-05-18 14:24:00* Test Item Value Reference Range Interpretation Comments NEUTROPHILS - REL (CELLAVISION)(BEAKER) (test code = 2816) 67 % LYMPHOCYTES - REL (CELLAVISION)(BEAKER) (test code = 2817) 22 % MONOCYTES - REL (CELLAVISION)(BEAKER) (test code = 2818) 6 % EOSINOPHILS - REL (CELLAVISION)(BEAKER) (test code = 2819) 5 % NEUTROPHILS - ABS (CELLAVISION)(BEAKER) (test code = 2830) 6.57 K/ul 1.78-5.38 H LYMPHOCYTES - ABS (CELLAVISION)(BEAKER) (test code = 2831) 2.16 K/ul 1.32-3.57 MONOCYTES - ABS (CELLAVISION)(BEAKER) (test code = 2832) 0.59 K/uL 0.30-0.82 EOSINOPHILS - ABS (CELLAVISION)(BEAKER) (test code = 2834) 0.49 K/uL 0.04-0.54 TOTAL COUNTED (BEAKER) (test code = 1351) 100 RBC MORPHOLOGY (BEAKER) (test code = 762) Normal LARGE PLT(BEAKER) (test code = 2156) Present TOXIC GRANULATION (BEAKER) (test code = 771) Present CBC with platelet count + manual [id number] 10:18:00* Test Item Value Reference Range Interpretation Comments WBC (test code = 6690-2) 9.8 3.5- 10.5 K/L RBC (test code = 789-8) 2.63 4.63- 6.08 M/L L MCHC (test code = 786-4) 32.9 32.3- 36.5 GM/DL L Hematocrit (test code = 4544-3) 23.4 % 40.1-51 L MCV (test code = 787-2) 89.0 fL 79-92.2 MCH (test code = 785-6) 29.3 pg 25.7-32.2 RDW (test code = 788-0) 17.0 % 11.6-14.4 H Platelets (test code = 777-3) 373 150- 450 K/CU MM MPV (test code = 60719-2) 11.7 fL 9.4-12.4 nRBC (test code = 413) 0 0- 0 /100 WBC Lab Interpretation (test code = 01105-5) [facility] + MANUAL [id number] 10:18:00* Test Item Value Reference Range Interpretation Comments WHITE BLOOD CELL COUNT (BEAKER) (test code = 775) 9.8 K/ L 3.5- 10.5 RED BLOOD CELL COUNT (BEAKER) (test code = 761) 2.63 M/ L 4.63-6 .08 L HEMOGLOBIN (BEAKER) (test code = 410) 7.7 GM/DL 13.7-17.5 L HEMATOCRIT (BEAKER) (test code = 411) 23.4 % 40.1-51.0 L MEAN CORPUSCULAR VOLUME (BEAKER) (test code = 753) 89.0 fL 79. 0-92.2 MEAN CORPUSCULAR HEMOGLOBIN (BEAKER) (test code = 751) 29.3 pg 25.7-32.2 MEAN CORPUSCULAR HEMOGLOBIN CONC (BEAKER) (test code = 752) 32.9 GM/DL 32.3-36.5 RED CELL DISTRIBUTION WIDTH (BEAKER) (test code = 412) 17.0 % 11.6-14.4 H PLATELET COUNT (BEAKER) (test code = 756) 373 K/CU MM 150-450 MEAN PLATELET VOLUME (BEAKER) (test code = 754) 11.7 fL 9.4-12 .4 NUCLEATED RED BLOOD CELLS (BEAKER) (test code = 413) 0 /100 WBC 0 -0
--- OUTSIDE RECORDS SUMMARY | 2020-05-04 18:44 | XMS REPORT | Continuity of Care Document ---
Author Author [facility] t Organization [facility] Address [address] [place] [address] Phone Unavailable Care Team Providers Care Human Services Worker Name Role Phone NONSTAFF PCP Unavailable Camilo FRANKLIN Attphys Unavailable Zulma MENSAH, Juan Ramon Dunlap Attphys [phone] Alessio Hanley DO Attphys Odilon Mitchell [...] Date Expiration Date S valerio TEXANPLUSTEXANPLUS O [id number] [facility] ed [id number] 2008 00:00:00 [facility] Cisco dumont [facility] REVIEWCDC [id number] 2019-[place] FOSS [id number] 2019 00:00:00 [facility] Diamond DICKSON 2008 00:00:00 [facility] MEDICARE ADVANTAGE GENERICMEDICARE ADVAN TAGE [id number] 2018-PresentMedicare [id number] 2018 00 :00:00 MD Higgins Problems Condition Name Condition Details Condition Category Status Onset Date Resolution Date Last Treatment Date Treating Clinician Comments Source ESRD (end stage renal disease) on dialysis ESRD (end s tage renal disease) on dialysis Disease Active 2020-01-03 00:00:00 [facility] CAD (coronary artery disease) CAD (coronary artery disease) Disease Active 2019-05-18 00:00:00 [facility] Hydrocele Hydrocele Disease Active 2016-10-25 00:00:00 [...] Navdeep Fernando is a 79 y.o. male [facility], [place], with a diagnosis of recurrent retroperitoneal well-differentiated [...] to multiple comorbidities including CHF, CAD s/p ND with cardiac stent placed 2013, insulin dependent [...] 2015-06-07 00:00:00 MD Higgins Anemia Problem Active [facility] Acute renal failure superimposed on chronic kidney disease P roblem Active [facility] Hyperkalemia Problem Active [facility] Pre-syncope Problem Active [facility] Allergies, Adverse Reactions, Alerts Allergy Name Allergy Type Status Severity Reaction(s) Onset Date Inacti ve Date Treating Clinician Comments Source Codeine Allergy to substance Active 2019-10-19 00:00:00 [facility] Acetaminophen Allergy to substance Active 2019-10-19 00:00: 00 [facility] Codeine Propensity to adverse reactions Active Rash , Hives 2016-03-15 00:00:00 [facility] Acetaminophen-Codeine Propensity to adverse reactions Active Rash 2007-02-24 00:00:00 [facility] Family History Family Member Diagnosis Comments Start [...] Date Quantity Comments Source Sex Assigned At [facility] Tobacco use and exposure 2020-01-19 00:00:00 2020-01-19 00:00:00 Jin dumont used [facility] Alcohol intake 2020-01-19 00:00:00 2020-01-19 00:00:00 Current non-drinker of alcohol (finding) [facility] Cisco dumont Smoking Status Start Date Stop Date Source Never smoker [facility] edical Lynn Medications Ordered Medication Name Filled Medication Name Start Date Stop Da te Current Medication? Ordering Clinician Indication Dosage Frequency Signature (SIG) Comments Components Source ceFAZolin (ANCEF) 1 g in sodium chloride 0.9 % (NS) 100 mL A DD EASE IVPB 2020-01-19 09:27:33 Yes 1g Q.[id number] Inject 1 g intravenously 3 (three) times a week MON/WED/FRI. [facility] furosemide (LASIX) 40 MG tablet 2020-01-03 20:44:43 Yes 40mg QD Take 40 mg by mouth daily --takes 40 mg, --takes 20 mg. [facility] amLODIPine (NORVASC) 10 MG tablet 2020-01-03 20:44:43 Yes 10mg QD Take 10 mg by mouth daily. [facility] niacin 100 MG tablet 2020-01-03 20:44:43 Yes 500mg Take 500 mg by mouth daily with breakfast . [facility] methIMAzole (TAPAZOLE) 10 MG tablet 2020-01-03 20:44:43 Yes 10mg Q.[id number] Take 10 mg by mouth 3 (three) times a week. [facility] finasteride (PROPECIA) 1 mg tablet 2020-01-03 20:44:43 Yes 5mg QD Take 5 mg by mouth daily . [facility] insulin detemir U-100 (LEVEMIR) 100 unit/mL injection 2020-01-03 20:44:43 Yes 6U Q.5D Inject 6 Units subcutaneously 2 (two) times daily Took 1/2 dose last night . [facility] insulin aspart U-100 (NOVOLOG) 100 unit/mL InPn 2020-01-03 20:44 :43 Yes 3U Inject 3 Units subcutaneousl y 3 (three) times daily before meals Per sliding scale . [facility] carvedilol (COREG) 25 MG tablet 2020-01-03 20:44:43 Yes 25mg Take 25 mg by mouth 2 (two) times daily with breakfast and dinner. [facility] aspirin 81 MG EC tablet 2020-01-03 20:44:43 Yes 81mg QD Take 81 mg by mouth daily. [facility] calcium carb/vit D3/minerals (CALCIUM-VITAMIN D ORAL) 2020-01-03 20:44:43 Yes Take by mouth. [facility] cholecalciferol (VITAMIN D3) 25 mcg (1,000 unit) tablet 2020-01-03 20:44:43 Yes 1000U Take 1,000 Units by mouth. [facility] DIALYVITE 800 0.8 mg Tab tablet 2019-11-23 00:00:00 Yes 1{tbl} QD Take 1 tablet by mouth daily. [facility] darbepoetin rip-polysorbate (ARANESP) 100 mcg/mL [...] (40 mg total) by mouth nig htly. [facility] ferrous sulfate 325 (65 FE) MG tablet 2019-06-12 00:00 :00 2020-06-11 23:59:00 No 325mg Q.5D Take 1 tablet (325 mg total) b y mouth 2 (two) times daily. [facility] acetylcysteine (MUCOMYST) 200 mg/mL (20 %) nebulizer solutio n 2019-05-19 00:00:00 2019-05-21 23:59:00 No 1200mg Q.5D Take 6 mLs (1,200 mg total) by mouth 2 (two) times daily for 3 doses. [facility] carvedilol (COREG) 6.25 MG tablet 2019-05-18 15:24:15 2018 00:00:00 No 6.25mg QD Take 6.25 mg by mouth daily. [facility] metroNIDAZOLE (METROCREAM) 0.75 % cream 2019-03-13 00:00:00 Yes twice daily. MD Higgins fenofibrate micronized (LOFIBRA) 200 mg capsule 2015-01-05 00:00 :00 Yes 200mg Take 200 mg by mouth daily. MD Higgins atorvastatin (LIPITOR) 40 MG tablet 2014-08-23 00:00:0 0 2019-05-18 00:00:00 No [facility] clopidogrel (PLAVIX) 75 mg tablet 2014-08-19 00:00:00 Yes [facility] fenofibrate micronized (LOFIBRA) 200 MG capsule 2014-08-19 00:00 :00 Yes [facility] metoprolol (TOPROL-XL) 25 MG 24 hr tablet 08-19 00:00:00 2019-06-11 00:00:00 No 25mg Q.5D 25 mg 2 (two) times daily . [facility] tamsulosin (FLOMAX) 0.4 mg Cp24 24 hr capsule 2014-07-30 00:00:0 0 Yes [facility] Amlodipine Besylate Amlodipine Besylate Yes 10 Daily [facility] Ascorbic Acid (Vitamin C) 500 Mg CAPSULE.ER Ascorbic A jaspreet (Vitamin C) 500 Mg CAPSULE.ER Yes 500 Daily [facility] Aspirin (Aspir 81) 81 Mg TABLET. Aspirin (Aspir 81) 81 Mg TABLET. Yes 81 Daily [facility] Atorvastatin Calcium (Lipitor*) 10 Mg TABLET Atorvasta tin Calcium (Lipitor*) 10 Mg TABLET Yes 20 Bedtime [facility] Clopidogrel Bisulfate (Plavix) 75 Mg TABLET Clopidogre l Bisulfate (Plavix) 75 Mg TABLET Yes 75 Daily [facility] Cyanocobalamin/Cobamamide (B12 5,000 Mcg Microlozenge) 1 Each LOZENGE Cyanocobalamin/Cobamamide (B12 5,000 Mcg Microlozenge) 1 Each LOZENGE Yes 5000 Daily [facility] Dutasteride (Avodart) 0.5 Mg CAPSULE Dutasteride (Avodart) 0.5 Mg C APSULE Yes .5 Daily [facility] Fenofibrate Fenofibrate Yes 160 Daily [facility] Furosemide (Lasix) 40 Mg TABLET Furosemide (Lasix) 40 Mg TABLET Yes 40 Twice A Day [facility] Glipizide/Metformin Hcl (Glipizide-Metformin 5-500 Mg) 1 Each TABLET Glipizide/Metformin Hcl (Glipizide-Metformin 5-500 Mg) 1 Each TABLET Yes Twice A Day [facility] Hydrochlorothiazide Hydrochlorothiazide Yes 25 Daily [facility] Lisinopril (Zestril*) 20 Mg TABLET Lisinopril (Zestril*) 20 Mg TABLET Yes 20 Daily [facility] Lisinopril Lisinopril Yes 40 Daily [facility] Metoprolol Tartrate (Lopressor) 25 Mg TAB Metoprolol T artrate (Lopressor) 25 Mg TAB Yes 25 Twice A Day [facility] Niacin Niacin Yes 500 Daily [facility] Taiban-3 Fatty Acids/Fish Oil (Taiban 3 Fish Oil Softgel ) 1 Each CAPSULE.DR Donnelly 3 Fatty Acids/Fish Oil (Taiban 3 Fish Oil Softgel) 1 Each CAPSULE. Yes 1 Daily [facility] Pantoprazole Sodium (Protonix) 40 Mg TABLET. Pantopr azole Sodium (Protonix) 40 Mg TABLET. Yes 40 Twice A Day [facility] Pot Citrate Cr Pot Citrate Cr Yes 1080 Th ree Times Daily With Meals [facility] Tamsulosin Hcl (Flomax*) 0.4 Mg CAP Tamsulosin Hcl (Flomax*) 0.4 Mg C AP Yes .8 Bedtime [facility] Vitamin B Complex & Vit C No.4 (Super B Complex) 150 M g TABLET Vitamin B Complex & Vit C No.4 (Super B Complex) 150 Mg TABLET Yes 150 Daily [facility] Metformin Hcl Metformin Hcl 2013-07-18 00:00:00 No 1 Twice A Day [facility] Vital Signs Vital Name Observation Time Observation Value Comments Source Systolic blood pressure 2020-01-19 09:26:00 144 mm[Hg] [facility] Diastolic blood pressure 2020-01-19 09:26:00 62 mm[Hg] [facility] Heart rate 2020-01-19 09:26:00 58 /min [facility] Body weight 2020-01-19 09:26:00 70.308 kg [facility] BMI 2020-01-19 09:26:00 24.28 kg/m2 [facility] Body temperature 2020-01-03 20:15:00 36.22 Kellie [facility] Respiratory rate 2020-01-03 20:15:00 25 /min [facility] Oxygen saturation in Arterial blood by Pulse oximetry 01-02 20:15:00 96 [facility] height 2020-01-03 08:55:00 170.2 cm [facility] Body Temperature 2019-10-28 11:50:00 97.3 [degF] [facility] Weight 2019-10-27 09:00:00 167.56 [lb_av] [facility] BMI (Body Mass Index) 2019-10-27 09:00:00 25.5 kg/m2 [facility] Systolic blood pressure 2019-08-30 18:48:30 138 mm[Hg] [...] Procedure Date / Time Performed Performing Clinician [facility] e RHYTHM STRIP - SCAN 2020-01-06 11:11:24 Provider, Default Scanni lane [facility] TRANSFUSION SERVICE REPORT - SCAN 2020-01-04 18:14:03 Provid er, Default Scanning [facility] POCT-GLUCOSE METER 2020-01-03 19:40:00 Yaritza Bone [facility] GLUCOSE 2020-01-03 17:39:01 Yaritza Bone Juan Ramon [facility] CREATION,A-V FISTULA 2020-01-03 16:22:00 Yaritza Bone Juan Ramon [facility] POCT-GLUCOSE METER 2020-01-03 15:36:00 Yaritza Bone [facility] ABORH, MANUAL 2020-01-03 09:47:00 Fariha Camargo [facility] PROTHROMBIN TIME/INR 2020-01-03 09:42:00 Yaritza Bone Juan Ramon [facility] POTASSIUM-STAT LAB 2020-01-03 09:35:00 Yaritza Bone [facility] HGB/HCT (H&H) - STAT LAB 2020-01-03 09:35:00 Yaritza Bone [facility] GLUCOSE-STAT LAB 2020-01-03 09:35:00 Yaritza Bone Juan Ramon [facility] TYPE AND SCREEN, AUTOMATED 2020-01-03 09:35:00 Yaritza Bone [facility] SARS-COV2/RT-PCR ([facility] & REF LABS) 2020-01-03 09:22:00 Rossi Bone [facility] POCT-GLUCOSE METER 2020-01-03 08:53:00 Yaritza Bone [facility] MEASURE OF CARDIAC SAMPL & PRESSURE, L HEART, PERC APPROACH 2019-10-26 00:00:00 [facility] REMOVAL OF INFUSION DEVICE FROM UPPER VEIN, OPEN APPROACH 10-25 00:00:00 [facility] FLUOROSCOPY OF SINGLE CORONARY ARTERY USING L OSM CONTRAST 2 00:00:00 [facility] FLUOROSCOPY OF LEFT HEART USING LOW OSMOLAR CONTRAST 2019-10-26 00:00:00 [facility] INSERT OF TUNNEL VAD INTO CHEST SUBCU/FASCIA, PERC APPROACH 2019-10-26 00:00:00 [facility] INSERTION OF INFUSION DEVICE INTO R ATRIUM, PERC APPROACH 10-25 00:00:00 [facility] EXCISION OF STOMACH, ENDO, DIAGN 2019-10-22 00:00:00 [facility] TRANSFUSE NONAUT RED BLOOD CELLS IN PERIPH VEIN, PERC 2019-10-20 00:00:00 [facility] INSERTION OF INFUSION DEV INTO SUP VENA CAVA, PERC APPROACH 2019-10-20 00:00:00 [facility] PERFORMANCE OF URINARY FILTRATION, <6 HRS/DAY 2019-10-20 00:00:0 [address] [facility] [address] of abdomen and pelvis without contrast 2019-10-20 00:00:00 [facility] Ultrasound guidance for vascular access 2019-10-20 00:00:00 [facility] Computed tomography of brain without radiopaque contrast 2019-09 00:00:00 [facility] Computed tomography of cervical spine without contrast 2019-09-30 00:00:00 [facility] OSI CT CHEST ABDOMEN PELVIS 2019-08-05 10:19:09 Flora Khan MD VASCULAR DIAGRAM -SCAN 2019-06-18 14:40:02 Provider, Default Sca nning [facility] RHYTHM STRIP - SCAN 2019-06-14 11:20:31 Provider, Default Scanni ng [facility] REPORT OF PROCEDURE - ENDOSCOPY SCAN 2019-06-14 11:20:25 Pro vider, Default Scanning [facility] CARDIAC CATH REPORT - SCAN 2019-06-14 11:20:23 Provider, Default Scanning [facility] VASCULAR DIAGRAM -SCAN 2019-06-14 11:20:21 Provider, Default Sca [facility] POCT-GLUCOSE METER 2019-06-12 11:24:00 [facility] CBC W/PLT COUNT & AUTO DIFFERENTIAL 2019-06-12 10:51:00 Jabari Chung [facility] POCT-GLUCOSE METER 2019-06-12 07:14:00 [facility] CBC (HEMOGRAM ONLY) 2019-06-12 04:33:00 Rakesh Mckeon [facility] BASIC METABOLIC PANEL (7) 2019-06-12 04:33:00 Rakesh Mckeon [facility] PLATELET AGGREGATION: FUNCTION SCREEN 2019-06-12 04:33:00 [facility] POCT-GLUCOSE METER 2019-06-11 23:08:00 [facility] POCT-ACT 2019-06-11 16:55:00 [facility] POCT-ACT 2019-06-11 15:53:00 [facility] POCT-ACT 2019-06-11 14:22:00 [facility] POCT-GLUCOSE METER 2019-06-11 12:01:00 [facility] POCT-ACT 2019-06-11 10:41:00 [facility] POCT-ACT 2019-06-11 10:21:00 [facility] POCT-ACT 2019-06-11 10:10:00 [facility] CORONARY ANGIOS / PCI / STENT 2019-06-11 09:16:00 Moisés Chung [facility] VASCULAR DIAGRAM -SCAN 2019-05-26 15:30:55 Provider, Default Sca [facility] VASCULAR DIAGRAM -SCAN 2019-05-19 15:11:35 Provider, Default Sca [facility] REPORT OF PROCEDURE - ENDOSCOPY SCAN 2019-05-19 15:11:32 Pro vider, Default Scanning [facility] CARDIAC CATH REPORT - SCAN 2019-05-19 15:11:30 Provider, Default Scanning [facility] BASIC METABOLIC PANEL (7) 2019-05-18 15:47:00 Portillo Chowdary [facility] CORONARY ANGIOS / PCI / STENT 2019-05-18 14:17:00 Moisés Chung [facility] CBC W/PLT+MANUAL DIFF 2019-05-18 10:12:00 [facility] CBC WITH PLATELET COUNT + MANUAL DIFF 2019-05-18 10:12:00 [facility] (CELLAVISION MANUAL DIFF) 2019-05-18 10:12:00 [facility] of Care Planned Activity Planned Date Details Comments Source Future Scheduled Test 2020-02-29 00:00:00 INFLUENZA VACCINE (#1) [code = INFLUENZA VACCINE (#1)] [facility] r Future Scheduled Test 2009-07-01 00:00:00 MEDICARE ANNUAL WE LLNESS (YEAR 2 or FIRST YEAR if no IPPE) [code = MEDICARE ANNUAL WELLNESS (YEAR 2 or FIRST YEAR if no IPPE)] [facility] r Instructions Anemia [facility] Instructions Diabetes and Diet [facility] Instructions Hemodialysis [facility] Encounters Start Date/Time End Date/Time Encounter Type Admission Type [facility] Facility Care Department Encounter ID Source 2019-10-19 19:07:00 2019-10-28 16:13:00 Discharged Inpatient 1 AYAN MCMANUS [facility] [id number] [facility] Results Test Description Test Time Test Comments Results Result Comments Source CHEST SINGLE (PORTABLE) 2020-05-01 12:17:00 [facility] : 1940 Sex: M [facility] [address] [address] Patient Name: NAVDEEP FERNANDO MR #: [id number] : 1940 Age/Sex: 79/M Req #: [id number] Adm Physician: Ordered by: ZEENAT FRANKLIN DO Report #: [id number] Location: ER Room/Bed: Procedure: [id number] DX/CHEST SINGLE (PORTABLE) Exam Date: 05/01/20 Exam [...] 1538) 106 mg/dL 70-110 : TESTED AT [address], [address]: Web Site Project Manager/Finance Teacher ID = [id number] for ASHLEY WIGGINS Lab Interpretation (test code = 57601-5) Normal [facility] [id number] 19:51:00* Test Item Value Reference Range Interpretation Comments POC-GLUCOSE METER (BEAKER) (test code = 1538) 106 mg/dL 70-110 : TESTED AT [place] [id number] [facility], [address]: Web Site Project Manager/Finance Teacher ID = [id number] for ASHLEY WIGGINS [id number] 18:14:00* Test Item Value Reference Range Interpretation Comments Glucose (test code = 2345-7) 90 mg/dL 70-105 CIERA (test code = CIERA) Web Site Project Manager ID - DB Lab Interpretation (test code = 85703-4) Normal [facility]2020-07-06 18:14:00* Test Item Value Reference Range Interpretation Comments GLUCOSE RANDOM (BEAKER) (test code = 652) 90 mg/dL 70-105 Web Site Project Manager ID - DBSARS-CoV2/RT-PCR (Asymptomatic ONLY)2020-01-03 16:25:00* Test Item Value Reference Range Interpretation Comments SARS-COV2/RT-PCR (test code = 17845-3) Negative Not Detected, N egative SARS-COV-2 PERFORMING LAB (test code = 09679-8) [facility] CIERA (test code = CIERA) Negative [...] of the Act. Fact Sheet for Healthcare Providers:https://www.[employer]/sites/default/files/product/documents/Fact_Shee e_QY_Blditxqdk_Nryh_CIUG-CwH-2.pdf Fact Sheet for Healthcare Patients:https://www.[employer]/sites/default/files/pro duct/documents/Gdro_Pquim_Npilzkyh_Dobd_GWSP-OtB-4.pdf Performing Laboratory:[facility] [place] [address] [facility] ([facility])2020-01-03 16:25:00* Test Item Value Reference Range Interpretation Comments SARS-COV2/RT-PCR (test code = 3273635) Negative Not Detected, N egative SARS-COV-2 PERFORMING LAB (test code = 3460122) [facility] Negative result for this test determines [...] from individuals suspected of COVID-19 by their [facility] provider.This test has not been Food and Drug Administration (FDA) clear ed or approved. This is a modified version of an approved Emergency Use Authori zation (EUA) and is in the process of review by the FDA. Once authorized by [facility], the issued EUA will be effective until the declaration that circumstances exist justifying the authorization of the emergency use of in vitro diagnostic tests for detection and/or diagnosis of COVID-19 is terminated under Section 564 (b)(2) of the Act or the EUA is revoked under Section 564(g) of the Act.Fact She et for Healthcare Providers:https://www.YR.MRKT.com/sites/default/files/product/d ocuments/Tqts_Llhje_PH_Fsonkyydk_Ripi_RPSK-UfE-4.pdfFact Sheet for Healthcare Pa xiomy:https://www.YR.[employer]KT.com/sites/default/files/product/documents/Fact_Sheet_P lezaszj_Jrub_XXIH-TaS-2.pdfPerforming Laboratory:[facility] [address] [facility].[place], [place] [address]EJHA-ZHUVFAK [id number] 15:47:00* Test Item Value Reference Range Interpretation Comments POC-GLUCOSE METER (BEAKER) (test code = 1538) 103 mg/dL 70-110 : TESTED AT [facility] [address] [facility], [address]: Web Site Project Manager/Finance Teacher ID = [id number] for DARSHANA ALBARRAN, [id number] 10:38:00* Test Item Value Reference Range Interpretation Comments ABO Grouping (test code = 2588) A Rh Factor (test code = 2589) POS [facility] and screen, [id number] 10:32:00* Test Item Value Reference Range Interpretation Comments ABO/RH AUTOMATED (BEAKER) (test code = 2260) A POSITIVE Ab Scrn (test code = 890-4) NEGATIVE [facility] HospitalProthrombin time/[id number] 10:04:00* Test Item Value Reference Range Interpretation [...] heart valves. Lab Interpretation (test code = 39068-0) Abnormal [facility] HospitalPROTHROMBIN TIME/[id number] 10:04:00* Test Item Value Reference Range Interpretation [...] patie nts wiht mechanical heart valves.HGB/HCT (H&H)-Stat [id number] 09:49:00* Test Item Value Reference Range Interpretation Comments Hemoglobin (test code = 786-4) 11.6 g/dL 13-16.8 L Hematocrit (test code = 4544-3) 34.0 % 40-50 L Lab Interpretation (test code = 94077-4) Abnormal [facility] HospitalGlucose-Stat [id number] 09:49:00* Test Item Value Reference Range Interpretation Comments Glucose (test code = 2345-7) 114 mg/dL 70-110 H Lab Interpretation (test code = 57381-9) Abnormal [facility] HospitalH[facility]CT (H&H) - STAT [id number] 09:49:00* Test Item Value Reference Range Interpretation Comments HEMOGLOBIN (BEAKER) (test code = 410) 11.6 g/dL 13.0-16.8 L HEMATOCRIT (BEAKER) (test code = 411) 34.0 % 40.0-50.0 L GLUCOSE-STAT [id number] 09:49:00* Test Item Value Reference Range Interpretation Comments GLUCOSE RANDOM (BEAKER) (test code = 652) 114 mg/dL 70-110 H Potassium-Stat [id number] 09:46:00* Test Item Value Reference Range Interpretation Comments Potassium (test code = 2823-3) 3.7 meq/L 3.6-5.5 Lab Interpretation (test code = 10571-4) Normal [facility] HospitalPOTASSIUM-STAT [id number] 09:46:00* Test Item Value Reference Range Interpretation Comments POTASSIUM (BEAKER) (test code = 379) 3.7 meq/L 3.6-5.5 POCT-GLUCOSE [id number] 09:04:00* Test Item Value Reference Range Interpretation Comments POC-GLUCOSE METER (BEAKER) (test code = 1538) 109 mg/dL 70-110 : TESTED AT [facility] [address] [place] [address], [address]: Web Site Project Manager/Finance Teacher ID = [id number] for DARSHANATIMBOAL CHEST 2 [id number] 11:35:[address] [place] [address] Patient Name: NAVDEEP FERNANDO MR #: [id number] : 1940 Age/Sex: 79/M Req #: [id number] [facility] Physician: Ordered by: YARITZA BONE MD Report #: [id number] Location: OR Room/Bed: Procedure: [id number] DX/CHEST 2 EWS Exam Date: 12/29/19 Exam [...] COPY TO: YARITZA BONE MD Urine color [id number] 13:30:00* Test Item Value Reference Range Interpretation Comments Urine Color (test code = 5778-6) YELLOW YELLOW [facility] [id number] 13:30:00* Test Item Value Reference Range Interpretation Comments Urine Clarity (test code = 12661-8) SL CLOUDY CLEAR [facility] of Urine by Test strip 2019-10-28 13:30:00* Test Item Value Reference Range Interpretation Comments Urine Specific Grady (test code = 5811-5) 1.020 1.010-1.02 5 [facility] measurement by automated test [id number] 13:30:00* Test Item Value Reference Range Interpretation Comments Urine pH (test code = 49021-5) 5.5 5-7 [facility] leukocyte esterase detection by [id number] 13:30:00* Test Item Value Reference Range Interpretation Comments Urine Leukocyte Esterase (test code = 5799-2) TRACE NEGATIVE [facility] nitrite [id number] 13:30:00* Test Item Value Reference Range Interpretation Comments Urine Nitrite (test code = 75821-4) NEGATIVE NEGATIVE [facility] protein measurement by test strip (mass/volume)2019-10-28 13:30:00* Test Item Value Reference Range Interpretation Comments Urine Protein (test code = 5804-0) 2+ NEGATIVE [facility] glucose alnpqyewj9016-14-15 13:30:00* Test Item Value Reference Range Interpretation Comments Urine Glucose (UA) (test code = 2349-9) 1+ NEGATIVE [facility] AustinUrine ketones detection by automated test fnhqv6539-70-25 13:30:00* Test Item Value Reference Range Interpretation Comments Urine Ketones (test code = 43708-5) NEGATIVE NEGATIVE [facility] AustinUrine urobilinogen measurement by test strip (mass/volume)2019-10-28 13:30:00* Test Item Value Reference Range Interpretation Comments Urine Urobilinogen (test code = 64137-1) 0.2 0.2-1 [facility] Austin[facility] total bilirubin measurement (mass/volume)2019-10-28 13:30:00* Test Item Value Reference Range Interpretation Comments Urine Bilirubin (test code = 1978-6) NEGATIVE NEGATIVE [facility] AustinUrine erythrocytes cjxrvkfho6791-85-73 13:30:00* Test Item Value Reference Range Interpretation Comments Urine Blood (test code = 76240-7) 1+ NEGATIVE [facility] AustinAutomated urine sediment leukocyte count by microscopy (number/high power field)2019-10-28 13:30:00* Test Item Value Reference Range Interpretation Comments Urine WBC (test code = 5821-4) 21-50 0-5 [facility] AustinErythrocytes detection in urine sediment by light ouoagcjmve6908-88-48 13:30:00* Test Item Value Reference Range Interpretation Comments Urine RBC (test code = 30980-6) 6-10 0-5 [facility] AustinBacteria detection in urine sediment by light xzoksoyyqf3372-35-48 13:30:00* Test Item Value Reference Range Interpretation Comments Urine Bacteria (test code = 03708-7) RARE NONE [facility] AustinEpithelial cells detection in urine sediment by light licnkjsmrp6718-07-28 13:30:00* Test Item Value Reference Range Interpretation Comments Urine Epithelial Cells (test code = 26762-6) FEW NONE [facility] AustinTransitional cells detection in urine sediment by light irdmhesbbo9253-89-12 13:30:00* Test Item Value Reference Range Interpretation Comments Urine Transitional Epithelial Cells (test code = 8249-5) FEW NONE [facility] AustinRenal epithelial cells detection in urine sediment by light fgargpqaje5341-81-85 13:30:00* Test Item Value Reference Range Interpretation Comments Urine Renal Epithelial Cells (test code = 52699-6) FEW NON E [facility] AustinCapillary blood glucose measurement by glucometer (mass/volume)2019-10-28 11:28:00* Test Item Value Reference Range Interpretation Comments Bedside Glucose (test code = 49522-8) 138 70-120 Meter ID: [id number] Hospital of AustinCHEST SINGLE (PORTABLE)2019-10-28 11:15:00 [facility] [address] [place] [address] Patient Name: NAVDEEP FERNANDO MR #: [id number] : 1940 Age/Sex: 79/M Req #: [id number] Adm Physician: AYAN MCMANUS MD Ordered by: PABLO WILLIS MD Report #: [id number] Location: MED/SURG3 Room/Bed: [facility] Procedure: [id number] DX/CHEST SINGLE (PORTABLE) Exam Date: 10/28/19 Exam [...] Count (test code = 6690-2) 16.61 4.8-10.8 [facility] AustinBlood erythrocytes automated count (number/volume)2019-10-28 09:10:00* Test Item Value Reference Range Interpretation Comments Red Blood Count (test code = 789-8) 2.76 4.3-5.7 [facility] AustinBlood hemoglobin measurement (moles/volume)2019-10-28 09:10:00* Test Item Value Reference Range Interpretation Comments Hemoglobin (test code = 84931-6) 8.8 14.0-18.0 [facility] AustinAutomated blood hematocrit (volume fraction)2019-10-28 09:10:00* Test Item Value Reference Range Interpretation Comments Hematocrit (test code = 4544-3) 27.2 38.2-49.6 [facility] AustinAutomated erythrocyte mean corpuscular txkumx4485-79-81 09:10:00* Test Item Value Reference Range Interpretation Comments Mean Corpuscular Volume (test code = 787-2) 98.6 81-99 [facility] AustinAutomated erythrocyte mean corpuscular hemoglobin (mass per erythrocyte)2019-10-28 09:10:00* Test Item Value Reference Range Interpretation Comments Mean Corpuscular Hemoglobin (test code = 785-6) 31.9 28-32 [facility] AustinAutomated erythrocyte mean corpuscular hemoglobin concentration measurement (mass/volume)2019-10-28 09:10:00* Test Item Value Reference Range Interpretation Comments Mean Corpuscular Hemoglobin Concent (test code = 786-4) 32.4 31-35 [facility] AustinRDW NoqJm-Oub7827-17-30 09:10:00* Test Item Value Reference Range Interpretation Comments Red Cell Distribution Width (test code = 75131-2) 21.6 11.7 -14.4 [facility] AustinAutomated blood platelet count (count/volume)2019-10-28 09:10:00* Test Item Value Reference Range Interpretation Comments Platelet Count (test code = 777-3) 138 140-360 [facility] segmented neutrophil count as percentage of total pqgxilioqg8399-28-35 09:10:00* Test Item Value Reference Range Interpretation Comments Neutrophils (%) (Auto) (test code = 31638-9) 76.8 38.7-80.0 [facility] AustinAutomated blood lymphocyte count as percentage ot total slfuyocsbv0546-83-58 09:10:00* Test Item Value Reference Range Interpretation Comments Lymphocytes (%) (Auto) (test code = 736-9) 11.4 18.0-39.1 [facility] AustinAutomated blood monocyte count as percentage of total wmmrjvwnry0705-66-11 09:10:00* Test Item Value Reference Range Interpretation Comments Monocytes (%) (Auto) (test code = 5905-5) 8.2 4.4-11.3 [facility] AustinAutomated blood eosinophil count as percentage of total fnamjslmez3929-41-22 09:10:00* Test Item Value Reference Range Interpretation Comments Eosinophils (%) (Auto) (test code = 713-8) 3.0 0.0-6.0 [facility] AustinAutomated blood basophil count as percentage of total riavucjqhj6729-53-17 09:10:00* Test Item Value Reference Range Interpretation Comments Basophils (%) (Auto) (test code = 706-2) 0.1 0.0-1.0 [facility] AustinFluoroscopic procedure less than one hour jkirzawp8823-95-16 09:10:00* Test Item Value Reference Range Interpretation Comments IM GRANULOCYTES % (test code = IM GRANULOCYTES %) 0.5 0.0- 1.0 [facility] AustinAutomated blood neutrophil count 2019-10-28 09:10:00* Test Item Value Reference Range Interpretation Comments Neutrophils # (Auto) (test code = 751-8) 12.8 2.1-6.9 [facility] AustinBlood lymphocytes count (number/volume) 2019-10-28 09:10:00* Test Item Value Reference Range Interpretation Comments Lymphocytes # (Auto) (test code = 33162-2) 1.9 1.0-3.2 [facility] AustinBlood monocytes automated count (number/volume)2019-10-28 09:10:00* Test Item Value Reference Range Interpretation Comments Monocytes # (Auto) (test code = 742-7) 1.4 0.2-0.8 [facility] AustinAutomated blood eosinophil count 2019-10-28 09:10:00* Test Item Value Reference Range Interpretation Comments Eosinophils # (Auto) (test code = 711-2) 0.5 0.0-0.4 [facility] AustinAutomated blood basophil count (count/volume)2019-10-28 09:10:00* Test Item Value Reference Range Interpretation Comments Basophils # (Auto) (test code = 704-7) 0.0 0.0-0.1 [facility] AustinFluoroscopic procedure less than one hour egfsiwjn5274-72-12 09:10:00* Test Item Value Reference Range Interpretation Comments Absolute Immature Granulocyte (auto (caleb t code = Absolute Immature Granulocyte (auto) 0.08 0-0.1 [facility] AustinFluoroscopic procedure less than one hour glbprvxk2370-21-32 05:35:00* Test Item Value Reference Range Interpretation Comments Differential Total Cells Counted (test code = Differalan tial Total Cells Counted) 100 [facility] blood neutrophils/100 leukocytes 2019-10-28 05:35:00* Test Item Value Reference Range Interpretation Comments Neutrophils % (Manual) (test code = 50989-0) 88 40-74 [facility] blood lymphocytes/100 leukocytes 2019-10-28 05:35:00* Test Item Value Reference Range Interpretation Comments Lymphocytes % (Manual) (test code = 737-7) 5 19-48 [facility] blood monocytes/100 leukocytes 2019-10-28 05:35:00* Test Item Value Reference Range Interpretation Comments Monocytes % (Manual) (test code = 744-3) 5 3.4-9.0 [facility] blood eosinophil count as percentage of total vwlvzjxuzx1938-81-02 05:35:00* Test Item Value Reference Range Interpretation Comments Eosinophils % (Manual) (test code = 714-6) 2 0-7 [facility] AustinBlood platelets count by estimate (number/volume)2019-10-28 05:35:00* Test Item Value Reference Range Interpretation Comments Platelet Estimate (test code = 97949-8) SLIGHTLY DECREASED [facility] AustinPlatelet kgpytufviq0522-43-86 05:35:00* Test Item Value Reference Range Interpretation Comments Platelet Morphology Comment (test code = 99033-5) NORMAL [facility] AustinBlood polychromasia detection by light ysbphggixj7982-87-06 05:35:00* Test Item Value Reference Range Interpretation Comments Polychromasia (test code = 34931-5) FEW [facility] AustinBlood anisocytosis detection by light yublowhvrd4722-03-09 05:35:00* Test Item Value Reference Range Interpretation Comments Anisocytosis (test code = 702-1) MODERATE [facility] AustinBlood ovalocytes detection by light umuaxusjyl8641-29-75 05:35:00* Test Item Value Reference Range Interpretation Comments Ovalocytes (test code = 774-0) FEW [facility] AustinRBC zvfpgtkrnr5672-54-76 05:35:00* Test Item Value Reference Range Interpretation Comments Red Cell Morphology Comment (test code = 6742-1) NORMAL [facility] AustinIR XUVCQXH1045-99-47 16:26:00 [facility] [address] [place] [address] Patient Name: NAVDEEP FERNANDO MR #: [id number] : 1940 Age/Sex: 79/M Req #: [id number] Adm Physician: AYAN MCMANUS MD Ordered by: SAUL MENSAH, ROSITA MENSAH Report #: [id number] Location: [facility] Room/Bed: [facility] Procedure: [id number] DX/IR CONSUL T Exam Date: Exam Time: [...] stored. Catheter placed: Covidien Palindrome Catheter size (Uzbek): 14.5 Uzbek Ca theter flush: Heparin (1000 units/mL) Closure [...] on 10/27/191627 COPY TO: ROSITA HUGHES PAU PLIA OR VUG1922-65-91 16:26:00 [place] [address] Patient Name: NAVDEEP FERNANDO MR #: [id number] : 1940 Age/Sex: 79/M Req #: [id number] Adm Physician: AYAN MCMANUS MD Ordered by: AYAN MCMANUS MD Report #: [id number] Location: MED/SURG3 Room/Bed: [facility] Procedure: [id number] IR/LAURI GARNERI CENT PAU PLMT OR REM [...] chlorhexidine. Medical reason for site preparation exception (ND PS): Not applicable Anesthesia/sedation Level of anesthesia/sedation: [...] a permanent image was stored. Catheter placed: CovidiCherryrome Catheter size (Uzbek): 14.5 Uzbek Catheter flush: Heparin (1000 units/mL) Closur e [...] AYAN MCMANUS MD TUNNELLED CVC INSERT W/O GGCZ5075-26-64 16:26:00 [place] [address] Patient Name: NAVDEEP FERNANDO MR #: [id number] : 1940 Age/Sex: 79/M Req #: [id number] Adm Physician: AYAN MCMANUS MD Ordered by: AYAN MCMANUS MD Report #: [id number] Location: MED/SURG3 Room/Bed: [facility] Procedure: [id number] IR/TUNNELLED CVC INSERT W/O PORT Exam Date: [...] i mage was stored. Catheter placed: Covidien xLander.rurome Catheter size (Uzbek) : 14.5 Uzbek Catheter flush: Heparin (1000 units/mL) Closure The [...] MD Fluoroscopic procedure less than one hour yjmimatp0285-60-71 02:30:00* Test Item Value Reference Range Interpretation [...] under 564(g) of the ACT.Testing performed by [facility] [place], [place] [address]TIFTexas Health [facility] Southerum or plasma sodium measurement (moles/volume) 2019-10-25 06:45:00* Test Item Value Reference Range Interpretation Comments Sodium Level (test code = 2951-2) 135 136-145 [facility] Southerum or plasma potassium measurement (moles/volume)2019-10-25 06:45:00* Test Item Value Reference Range Interpretation Comments Potassium Level (test code = 2823-3) 4.0 3.5-5.1 [facility] Southerum or plasma chloride measurement (moles/volume)2019-10-25 06:45:00* Test Item Value Reference Range Interpretation Comments Chloride Level (test code = 2075-0) 103 98-107 [facility] Southerum or plasma carbon dioxide, total measurement (moles/volume)2019-10-25 06:45:00* Test Item Value Reference Range Interpretation Comments Carbon Dioxide Level (test code = 2028-9) 22 22-29 [facility] Southerum or plasma anion eeh6447-96-68 06:45:00* Test Item Value Reference Range Interpretation Comments Anion Gap (test code = 00249-0) 14.0 8-16 [facility]herum or plasma urea nitrogen measurement (mass/volume)2019-10-25 06:45:00* Test Item Value Reference Range Interpretation Comments Blood Urea Nitrogen (test code = 3094-0) 58 7-26 [facility]herum or plasma creatinine measurement (mass/volume)2019-10-25 06:45:00* Test Item Value Reference Range Interpretation Comments Creatinine (test code = 2160-0) 3.84 0.72-1.25 [facility]herum or plasma urea nitrogen/creatinine mass lmyjl9128-12-39 06:45:00* Test Item Value Reference Range Interpretation Comments BUN/Creatinine Ratio (test code = 3097-3) 15 6-25 [facility] AustinEstimated glomerular filtration rate (GFR) usumpzwleejhv8613-54-30 06:45:00* Test Item Value Reference Range Interpretation Comments Estimat Glomerular Filtration Rate (test code = 458041915) 15 >60 Ranges were taken from the National Kidney Disease Education Program and the [facility] Foundation literature.Reference ranges:60 or greater: Jlqprk95-18 ( for 3 consecutive months): Chronic kidney disease 15 or less: Kidney failureHeart Hospital of AustinGlucose aizcgpiwpgi9993-25-95 06:45:00* Test Item Value Reference Range Interpretation Comments Glucose Level (test code = GGF2342) 101 74-118 [facility] Southerum or plasma calcium measurement (mass/volume)2019-10-25 06:45:00* Test Item Value Reference Range Interpretation Comments Calcium Level (test code = 05493-7) 7.0 8.4-10.2 [facility] AustinTroponin I measurement by highly sensitive enzyme zjrkobvvmus8644-79-63 06:45:00* Test Item Value Reference Range Interpretation Comments Troponin I (test code = 94613-7) 3.989 0-0.300 Elevated result called to JULIAN CARVAJAL RN at 0719 on 10/25/19 by Ricardo Coffey.[facility] AustinCHEST SINGLE (PORTABLE)2019-10-22 06:36:00 [facility] [address] [place] [address] Patient Name: NAVDEEP FERNANDO MR #: [id number] : 1940 Age/Sex: 79/M Req #: [id number] Adm Physician: AYAN MCMANUS MD Ordered by: PABLO WILLIS MD Report #: [id number] Location: ICU Room/Bed: ICU 189-1 Procedure: [id number] DX/ CHEST SINGLE (PORTABLE) Exam Date: 10/22/19 [...] Bilirubin (test code = 1975-2) 0.9 0.2-1.2 [facility] AustinFluoroscopic procedure less than one hour uxgtssia4135-06-90 06:00:00* Test Item Value Reference Range Interpretation Comments Aspartate Amino Transf (AST/SGOT) (test code = Aspartate Amino Transf (AST/SGOT)) 69 5-34 [facility]um or plasma alanine aminotransferase measurement (enzymatic activity/volume)2019-10-22 06:00:00* Test Item Value Reference Range Interpretation Comments Alanine Aminotransferase (ALT/SGPT) (test code = 1742-6) 46 0-55 [facility]herum or plasma protein measurement (mass/volume)2019-10-22 06:00:00* Test Item Value Reference Range Interpretation Comments Total Protein (test code = 2885-2) 5.3 6.5-8.1 [facility]um or plasma albumin measurement (mass/volume)2019-10-22 06:00:00* Test Item Value Reference Range Interpretation Comments Albumin (test code = 1751-7) 2.4 3.5-5.0 [facility] AustinPlasma globulin measurement (mass/volume) 2019-10-22 06:00:00* Test Item Value Reference Range Interpretation Comments Globulin (test code = 52150-4) 2.9 2.3-3.5 [facility]um or plasma albumin/globulin mass iubky4840-28-18 06:00:00* Test Item Value Reference Range Interpretation Comments Albumin/Globulin Ratio (test code = 1759-0) 0.8 0.8-2.0 [facility]um or plasma alkaline phosphatase measurement (enzymatic activity/volume)2019-10-22 06:00:00* Test Item Value Reference Range Interpretation Comments Alkaline Phosphatase (test code = 6768-6) 29 40-150 [facility] Southerum or plasma thyroxine (T4) free measurement (mass/volume)2019-10-22 06:00:00* Test Item Value Reference Range Interpretation Comments Free Thyroxine (test code = 3024-7) 0.86 0.8-1.8 [facility] Southerum or plasma thyrotropin measurement by detection limit <= 0.005 miu/l (units/volume)2019-10-22 06:00:00* Test Item Value Reference Range Interpretation Comments Thyroid Stimulating Hormone (TSH) (test code = 92348-3) 0.050 0.350-4.940 [facility] AustinFLURO [facility] PAU PLMT OR OGP6533-41-47 09:46:00 [place] [address] Patient Name: NAVDEEP FERNANDO MR #: [id number] : 1940 Age/Sex: 79/M Req #: [id number] Adm Physician: AYAN MCMANUS MD Ordered by: LAURA HUGHES MD Report #: [id number] Location: [facility]/SURG3 Room/Bed: [facility] Procedure: [id number] IR/LAURI GARZA BRITNI T PAU PLMT OR REM Exam Date: 10/20/19 Exam Time: 140 0 REPORT STATUS: Signed PROCEDUR E: Non-tunneled central venous catheter placement Procedural Personnel At [facility] physician(s): Kris Frank MD Fellow physician(s): None [...] 11/01/191103 COPY TO: LAURA VILLALPANDO MD IR GPWGWZC2751-10-62 09:46:00 [place] [address] Patient Name: NAVDEEP FERNANDO MR #: [id number] : 1940 Age/Sex: 79/M Req #: [id number] Adm Physician: AYAN MCMANUS MD Ordered by: SAUL MENSAH, ROSITA MENSAH Report #: [id number] Location: [facility] Room/Bed: [facility] Procedure: [id number] DX/IR CONSUL T Exam Date: Exam Time: [...] Ca theter placed: Bard Trialysis Catheter size (Uzbek): 13 Catheter length (cm ): 15 Catheter [...] 9:47 AM Dictated By: BERRY FRANK MD 2173 Transcrib ed By: SHREYAS on 11/01/19 7720 COPY TO: ROSITA HUGHES GUIDANCE FOR VASCULAR QFMXL0210-18-35 09:46:00 [place] [address] Patient Name: NAVDEEP FERNANDO MR #: [id number] : 1940 Age/Sex: 79/M Req #: [id number] [facility] Physician: AYAN MCMANUS MD Ordered by: AYAN MCMANUS MD Report #: [id number] Location: [facility] Room/Bed: [facility] Procedure: [id number] US/ GUIDANC E FOR VASCULAR ACCES Exam [...] TO: AYAN MCMANUS MD NON-TUNNELLED CVC CATH XOYXGYQ1227-29-52 09:46:00 [place] [address] Patient Name: NAVDEEP FERNANDO MR #: [id number] : 1940 Age/Sex: 79/M Req #: [id number] [facility] Physician: AYAN MCMANUS MD Ordered by: AYAN MCMANUS MD Report #: [id number] Location: [facility]/SURG3 Room/Bed: [facility] Procedure: [id number] IR/NON-TUNNEL LED CVC CATH PLACMNT Exam Date: [...] AYAN MCMANUS MD CHEST SINGLE (PORTABLE)2019-10-21 09:37:00 [facility] [address] [place], [place] [address] Patient Name: NAVDEEP FERNANDO MR #: [id number] : 1940 Age/Sex: 79/M Req #: [id number] Adm Physician: AYAN MCMANUS MD Ordered by: PABLO WILLIS MD Report #: [id number] Location: ICU Room/Bed: ICU [facility] Procedure: [id number] DX/ CHEST SINGLE (PORTABLE) Exam Date: 10/21/19 [...] COPY TO: PABLO WILLIS MD CT ABDOMEN/PELVIS FO2983-93-52 08:14:00 [facility] [address] [place] [address] Patient Name: NAVDEEP FERNANDO MR #: [id number] : 1940 Age/Sex: 79/M Req #: [id number] [facility] Physician: AYAN MCMANUS MD Ordered by: LORI RODRIGUEZ MD Report #: [id number] Location: ICU Room/Bed: ICU [facility] Procedure: [id number] CT/C T ABDOMEN/PELVIS WO Exam Date: 10/20/19 [...] Automated reticulocyte count as percentage of total mfhumyhlqkux0931-41-10 05:00:00* Test Item Value Reference Range Interpretation Comments Percent Reticulocyte Count (test code = 11182-2) 6.7 0.8-2 .2 [facility] AustinFluoroscopic procedure less than one hour yarcxexc2204-80-65 05:00:00* Test Item Value Reference Range Interpretation Comments Hemoglobin A1c Percent (test code = Hemoglobin A1c Percent) 5.7 4.0-7.0 [facility] AustinBlood cobalamin (vitamin B12) measurement (mass/volume)2019-10-21 05:00:00* Test Item Value Reference Range Interpretation Comments Vitamin B12 Level (test code = 54995-3) 763 213-816 [facility]um or plasma folate measurement (mass/volume)2019-10-21 05:00:00* Test Item Value Reference Range Interpretation Comments Folate (test code = 2284-8) 5.2 >3.0 A serum folate concentration of less than 3.1 ng/mL isconsidered to represent cl inical deficiency.Performed at: - [facility] [id number] Director: Demar Meyer MD, Phone: [phone] Health Hug[facility] Southerum hepatitis B virus surface antibody assay by radioimmunoassay (units/volume)2019-10-20 20:00:00* Test Item Value Reference Range Interpretation Comments Hepatitis B Surface Antibody, Quant (test code = 5194-6) <3.1 Immunity>9.9 Status of Immunity Anti-HBs Level Inconsistent with Immunity 0.0 - 9.9Consistent with Immunity >9.9[facility]um or plasma hepatitis B virus core antibody detection by esykyjuxoxe5018-99-48 20:00:00* Test Item Value Reference Range Interpretation Comments Hepatitis B Core Total Antibody (test code = 52752-6) Negative Negative [facility] Southerum or plasma hepatitis B virus surface antigen detection by bkpwavnsdtx5222-93-98 20:00:00* Test Item Value Reference Range Interpretation Comments Hepatitis B Surface Antigen (test code = 5196-1) Negative Negat karlie [facility]herum or plasma hepatitis B virus core IgM antibody detection by zmvcqcwzlrt3102-32-54 20:00:00* Test Item Value Reference Range Interpretation Comments Hepatitis B Core IgM Antibody (test code = 39100-2) Negative Ne gative Performed at: [facility] [address] [id number] Director: Demar Meyer MD, Phone: [phone] Health [facility] Southerum or plasma ferritin measurement (mass/volume)2019-10-20 12:00:00* Test Item Value Reference Range Interpretation Comments Ferritin (test code = 2276-4) 220.56 21.81-274.66 [facility] Southerum or plasma creatine kinase measurement (enzymatic activity/volume)2019-10-20 12:00:00* Test Item Value Reference Range Interpretation Comments Creatine Kinase (test code = 2157-6) 579 30-200 [facility] Southerum or plasma creatine kinase MB measurement (mass/volume)2019-10-20 12:00:00* Test Item Value Reference Range Interpretation Comments Creatine Kinase MB (test code = 68609-5) 42.00 0-5.0 [facility] Southtool gastrointestinal hemoglobin emyvmyefm5492-20-82 11:20:00* Test Item Value Reference Range Interpretation Comments Stool Occult Blood (test code = 2335-8) POSITIVE NEGATIVE [facility] AustinBacterial urine reczytc2397-82-45 07:13:00* Test Item Value Reference Range Interpretation Comments Urine Culture (test code = 630-4) ESCHERICHIA COLI [facility]herum or plasma iron measurement (mass/volume)2019-10-20 03:40:00* Test Item Value Reference Range Interpretation Comments Iron Level (test code = 2498-4) 33 65-175 [facility] Southerum or plasma iron binding capacity measurement (mass/volume)2019-10-20 03:40:00* Test Item Value Reference Range Interpretation Comments Total Iron Binding Capacity (test code = 2500-7) 283 261-4 78 [facility] Southerum or plasma iron saturation measurement (mass fraction)2019-10-20 03:40:00* Test Item Value Reference Range Interpretation Comments Percent Iron Saturation (test code = 2502-3) 12 15-50 [facility] or plasma transferrin measurement (mass/volume)2019-10-20 03:40:00* Test Item Value Reference Range Interpretation Comments Transferrin (test code = 3034-6) 202 174-364 [facility] [id number] 18:29:00 [facility] [address] [address] Patient Name: NAVDEEP FERNANDO MR #: [id number] : 1940 Age/Sex: 79/M Req #: [id number] Adm Physician: Ordered by: BINA BARRETT QUANTITATIVE RESEARCHER Report #: [id number] Location: ER Room/Bed: Procedure: [id number] CT/CT BRAIN WO Exam Date: Exam Time: [...] SHREYAS on 10/19/191829 COPY TO: BINA BARRETT QUANTITATIVE RESEARCHER CHEST SINGLE (PORTABLE)2019-10-19 18:25:00 [place] [address] Patient Name: NAVDEEP FERNANDO MR #: [id number] : 1940 Age/Sex: 79/M Req #: [id number] Adm Physician: Ordered by: BINA BARRETT QUANTITATIVE RESEARCHER Report #: [id number] Location: ER Room/Bed: Procedure: [id number] DX/CHEST SINGLE (PORTABLE) Exam Date: Exam Time: [...] CORNEJO MD 26 COPY TO: BINA BARRETT QUANTITATIVE RESEARCHER CT CERVICAL SPINE [id number] 18:21:00 [place] [address] Patient Name: NAVDEEP FERNANDO MR #: [id number] : 1940 Age/Sex: 79/M Req #: [id number] Adm Physician: Ordered by: BINA BARRETT QUANTITATIVE RESEARCHER Report #: [id number] Location: Room/Bed: Procedure: [id number] CT/CT CERVICAL SPINE WO Exam Date: Exam [...] MD 27 Transcribed By: SHREYAS on 10/19/191827 CARD PAINTER Y TO: BINA BARRETT NP Prothrombin time (PT) in platelet poor plasma by coagulation [id number] 17:42:00* Test Item Value Reference Range Interpretation Comments Prothrombin Time (test code = 5902-2) 18.3 11.9-14.5 [facility] Platelet poor plasma by Coagulation [id number] 17:42:00* Test Item Value Reference Range Interpretation Comments Prothromb Time International Ratio (test code = 6301-6) 1.42 Oral Anticoagulant Therapy INR Values:1. Low Intensity Therapy 1.5 - 2.02 . Moderate Intensity Therapy 2.0 - 3.03. High Intensity Therapy(1) 2.5 - 3. 54. High Intensity Therapy(2) 3.0 - 4.05. Panic Value INR > 5.0 [facility] partial thromboplastin time (aPTT) in platelet poor plasma by coagulation [id number] 17:42:00* Test Item Value Reference Range Interpretation Comments Activated Partial Thromboplast Time (test code = 98026-0) 32.0 23.8-35.5 [facility] or plasma magnesium measurement (mass/volume)2019-10-19 17:42:00* Test Item Value Reference Range Interpretation Comments Magnesium Level (test code = 32963-3) 2.3 1.3-2.1 [facility] [id number] 17:42:00* Test Item Value Reference Range Interpretation Comments B-Type Natriuretic Peptide (test code = 31303-4) 1151.2 0-100 [facility] [id number] 16:08:00* Test Item Value Reference Range Interpretation Comments MICROALBUMIN UR (test code = MICROALBUR) 133.2 ug/mL Not Estab. Performed At: [facility] [address] [place], [place] [id number] Demar Logan MD Ph:[phone] URINALYSIS [id number] 11:42:00* Test Item Value Reference Range Interpretation [...] code = LEUU) NEGATIVE NEGA TIVE UA [id number] 11:42:00* Test Item Value Reference Range Interpretation Comments UA WBC (test code = WBCU) 0-2 #WBC/HPF 0-2 UA RBC (test code = RBCU) 0-2 #RBC/HPF 0-2 UA BACTERIA (test code = BACU) OCCASIONAL /HPF NONE-TRACE A UA SQUAMOUS CELLS (test code = SQU) TRACE /LPF NONE-TRACE UA MUCUS (test code = MUCU) OCCASIONAL /LPF NONE SEEN A CBC W/AUTO [id number] 11:02:00* Test Item Value Reference Range Interpretation [...] BA#) 0.08 x10 3/uL 0.0-0.20 N URINALYSIS [id number] 10:57:00* Test Item Value Reference Range Interpretation [...] code = LEUU) NEGATIVE NEGA TIVE UA [id number] 10:57:00* Test Item Value Reference Range Interpretation Comments UA WBC (test code = WBCU) #WBC/HPF 0-2 UA RBC (test code = RBCU) #RBC/HPF 0-2 UA BACTERIA (test code = BACU) /HPF NONE-TRACE UA SQUAMOUS CELLS (test code = SQU) /LPF NONE-TRACE URINALYSIS [id number] 10:57:00* Test Item Value Reference Range Interpretation [...] code = LEUU) NEGATIVE NEGA TIVE UA [id number] 10:57:00* Test Item Value Reference Range Interpretation Comments UA WBC (test code = WBCU) #WBC/HPF 0-2 UA RBC (test code = RBCU) #RBC/HPF 0-2 UA BACTERIA (test code = BACU) /HPF NONE-TRACE UA SQUAMOUS CELLS (test code = SQU) /LPF NONE-TRACE COMPREHENSIVE METABOLIC [id number] 10:52:00* Test Item Value Reference Range Interpretation [...] U/L 45-[address] CHEST ABDOMEN [id number] 10:19:15For comparison only. No interpretation requested.MD HigginsPlatelet Aggregation: Function Screen 2019-06-12 14:59:00* Test Item Value Reference Range Interpretation Comments Pathologist: (test code = 2622) Estelita Rausch MD (electron ic signature) Platelets (test code = 2656) 285 150- 450 K/CU MM ADP (test code = 29549-6) 21 % 62-100 L Platelet Rich Plasma [...] counts<75,000/cu mm. Lab Interpretation (test code = 62098-7) [facility] FUNCTION [id number] 14:59:00* Test Item Value Reference Range Interpretation Comments [id number] (BEAKER) (test code = 2622) Radha Rausch [...] falsely low with platelet counts< 75,000/cu mm.POCT-GLUCOSE [id number] 11:36:00* Test Item Value Reference Range Interpretation Comments POC-GLUCOSE METER (BEAKER) (test code = 1538) 219 mg/dL 70-110 H : TESTED AT [facility] [address] [place] [address], [address]: Web Site Project Manager/Finance Teacher ID = [id number] for DELMY POLLOCK CBC with platelet count + automated [id number] 11:00:00* Test Item Value Reference Range Interpretation [...] 450 K/CU MM MPV (test code = 18211-1) 11.6 fL 9.4-12.4 nRBC (test code = [...] % 0-1 Lab Interpretation (test code = 88032-7) Abnormal [facility] W/PLT COUNT & AUTO [id number] 11:00:00* Test Item Value Reference Range Interpretation [...] code = 2801) 1 % 0-1 POCT-GLUCOSE [id number] 07:32:00* Test Item Value Reference Range Interpretation Comments POC-GLUCOSE METER (BEAKER) (test code = 1538) 127 mg/dL 70-110 H : TESTED AT [address], [address]: Web Site Project Manager/Finance Teacher ID = [id number] for DELMY POLLOCK Basic Metabolic [id number] 06:00:00* Test Item Value Reference Range Interpretation [...] mg/dL 70-105 H Calcium (test code = 79503-0) 7.4 mg/dL 8.4-10.2 L EGFR (test code = 16527-0) 15 mL/min/1.73 sq m ESTIMATED GFR IS NOT ACCURATE CREATININE CLEARANCE IN PREDICTING GLOMERULAR FILTRATION RATE. ESTIMATED GFR IS NOT APPLICABLE FOR DIALYSIS PATIENTS. Lab Interpretation (test code = 23869-4) Abnormal [facility] METABOLIC [id number] 06:00:00* Test Item Value Reference Range Interpretation [...] 450 K/CU MM MPV (test code = 32139-4) 10.9 fL 9.4-12.4 nRBC (test code = 413) 0 0- 0 /100 WBC Lab Interpretation (test code = 34105-6) Abnormal [facility] (HEMOGRAM ONLY)2019-06-12 04:49:00* Test Item Value Reference [...] 413) 0 /100 WBC 0 -0 POCT-GLUCOSE [id number] 23:20:00* Test Item Value Reference Range Interpretation Comments POC-GLUCOSE METER (BEAKER) (test code = 1538) 161 mg/dL 70-110 H : TESTED AT [address], [address]: Web Site Project Manager/Finance Teacher ID = [id number] for DEION FATIMA POC ACTIVATED CLOTTING [id number] 17:48:00* Test Item Value Reference Range Interpretation Comments Activated Clotting Time (test code = 441) 147 sec Reference Range: 74-137 seconds, Baseline/TESTED AT [place] [id number] [id number] 17:48:00* Test Item Value Reference Range Interpretation Comments ACTIVATED CLOTTING TIME (BEAKER) (test code = 441) 147 sec Reference Range: 74-137 seconds, Baseline/TESTED AT [place] [address] [id number] 16:28:00* Test Item Value Reference Range Interpretation Comments ACTIVATED CLOTTING TIME (BEAKER) (test code = 441) 153 sec Reference Range: 74-137 seconds, Baseline/TESTED AT [place] [address] [id number] 14:34:00* Test Item Value Reference Range Interpretation Comments ACTIVATED CLOTTING TIME (BEAKER) (test code = 441) 175 sec Reference Range: 74-137 seconds, Baseline/TESTED AT [place] [address] POCT-GLUCOSE [id number] 12:12:00* Test Item Value Reference Range Interpretation Comments POC-GLUCOSE METER (BEAKER) (test code = 1538) 127 mg/dL 70-110 H : TESTED AT [place] [id number]: Web Site Project Manager/Finance Teacher ID = [id number] for DELMY POLLOCK [id number] 10:49:00* Test Item Value Reference Range Interpretation Comments ACTIVATED CLOTTING TIME (BEAKER) (test code = 441) 252 sec Reference Range: 74-137 seconds, Baseline/TESTED AT [place] [address] [id number] 10:28:00* Test Item Value Reference Range Interpretation Comments ACTIVATED CLOTTING TIME (BEAKER) (test code = 441) 274 sec Reference Range: 74-137 seconds, Baseline/TESTED AT [place] [address] [id number] 10:16:00* Test Item Value Reference Range Interpretation Comments ACTIVATED CLOTTING TIME (BEAKER) (test code = 441) 246 sec Reference Range: 74-137 seconds, Baseline/TESTED AT [place] [id number] BASIC METABOLIC [id number] 16:44:00* Test Item Value Reference Range Interpretation [...] IS NOT APPLICABLE FOR DIALYSIS PATIENTS. Manual [id number] 14:24:00* Test Item Value Reference Range Interpretation [...] 771) Present Lab Interpretation (test code = 22675-3) Abnormal [facility](CELLAVISION MANUAL DIFF)2019-05-18 14:24:00* Test Item Value [...] Present CBC with platelet count + manual [id number] 10:18:00* Test Item Value Reference Range Interpretation [...] 450 K/CU MM MPV (test code = 18248-4) 11.7 fL 9.4-12.4 nRBC (test code = 413) 0 0- 0 /100 WBC Lab Interpretation (test code = 06579-9) [facility] + MANUAL [id number] 10:18:00* Test Item Value Reference Range Interpretation [...]
--- NOTE | 2020-05-04 19:23 | NUR ---
dayshift RN gave discharge instruction, and completed discharge at shift change, this RN as secondary witness, patient awake alert, finished with dialysis left arm fistula intact, dressing C/D/I. at bedside, given prescription for Keflex, given instructions for discharge, taken out of facility by wheelchair by charge Keyla to awaiting private car
--- NOTE | 2020-05-04 19:49 | Discharge Summary ---
PRIMARY CARE PHYSICIAN: Dr. Fabian Patel at [facility]. FINAL DISCHARGE DIAGNOSES: 1. Escherichia coli urinary tract infection. 2. Symptomatic anemia, status post 1 unit of PRBC transfusion. 3. Hypertension. 4. Diabetes type 2. 5. History of coronary artery disease. 6. End-stage renal disease, on dialysis TTS. 7. Hyperthyroidism. 8. History of sarcoma, status post colon resection and colostomy. 9. Benign prostatic hypertrophy. CONSULTANTS: Dr. Carmichael, Renal. PROCEDURES: Status post 1 unit of PRBC. HISTORY: Per HPI. HOSPITAL COURSE: This is a pleasant 79-year-old male, who presented to the ER with complaints of feeling weak for about 5 days. He reports shortness of breath and cloudy urine. Lab work showed hemoglobin of 7.4. Given his symptoms, he was transfused with 1 unit of PRBC with dialysis. His urine culture also showed E. coli, resistant to Levaquin and Cipro. He was given Rocephin while in the hospital and will discharge on Keflex 500 b.i.d. per Renal recommendations. Today, he is feeling much better, was able to get up with physical therapy, and he will be dialyzed per his schedule today. We will discharge home to follow up with his PCP, Renal, and Hematology/Oncology in 1 to 2 weeks for repeat blood work. Hemoglobin today is 8.9. PHYSICAL EXAMINATION: VITAL SIGNS: Temperature 98.4, pulse is 86, respirations 18, blood pressure 115/62, pulse ox is 99% on room air. GENERAL: No acute distress. HEENT: Normocephalic and atraumatic. NECK: Supple. LUNGS: Clear to auscultation. CARDIOVASCULAR: Regular rate and rhythm. GI: Soft. Colostomy in place with protruding stoma. NEUROLOGIC: Alert, awake, and oriented x3. MUSCULOSKELETAL: Moves all extremities. SKIN: Dry. PSYCH: Calm. CONDITION AT DISCHARGE: Improved and stable. DISCHARGE MEDICATIONS: Please see medication reconciliation list. He is to resume all his medications and added Keflex 500 b.i.d. for UTI. FOLLOWUP: Follow up with PCP, Hematology, and Renal next week. TIME SPENT: Total discharge time is 32 minutes. Dictated by CORRINA Nazario Yiching Hernán Metcalf MD MY/MODL /[id number] cc: Fabian Patel MD [facility]
[2020-05-08] MEDS ORDERED: METHIMAZOLE 5 MG TAB PO SCH (10:00)
== END 2020-05-04 19:31 | disposition home or self-care (01) | DRG 689 ==
LOC: ER 12:01 → ERHOLD 14:10 → MED/SURG3 15:13 → OBSVTOIN 05-03 17:10
PROVIDERS: ADMIT Internal Medicine; ATTEND Internal Medicine
DX: N39.0 Urinary tract infection, site not specified (principal); N18.6 End stage renal disease; I12.0 Hypertensive chronic kidney disease with stage 5 chronic kidney disease or end stage renal disease; R18.8 Other ascites; C49.9 Malignant neoplasm of connective and soft tissue, unspecified; Z16.24 Resistance to multiple antibiotics; R16.2 Hepatomegaly with splenomegaly, not elsewhere classified; D63.1 Anemia in chronic kidney disease; E11.22 Type 2 diabetes mellitus with diabetic chronic kidney disease; Z99.2 Dependence on renal dialysis; I25.10 Atherosclerotic heart disease of native coronary artery without angina pectoris; E05.90 Thyrotoxicosis, unspecified without thyrotoxic crisis or storm; N40.0 Benign prostatic hyperplasia without lower urinary tract symptoms; D69.59 Other secondary thrombocytopenia; Z95.5 Presence of coronary angioplasty implant and graft; Z93.3 Colostomy status; B96.20 Unspecified Escherichia coli [E. coli] as the cause of diseases classified elsewhere; Z11.59 Encounter for screening for other viral diseases; D64.9 Anemia, unspecified
CPT/HCPCS: 36415; 71045; 80048; 80053; 80061; 81001; 82550; 82553; 82607; 82746; 82948; 83540; 83605; 83880; 84443; 84466; 84484; 85025; 86704; 86705; 86850; 86900; 86920; 87040; 87086; 87186; 87340; 99284; G0378; J0692; J1644; J7030; J7050; P9016

== ENCOUNTER 2020-07-20 12:46 | Inpatient (IN) | payer OTHER ==
[~2020-07-20] VITALS: Ht 162.6 cm; Wt 75.0 kg
[~2020-07-20 12:46] MED LIST changes: +KEFLEX250 MG PO; +KEFLEX500 MG PO
[2020-07-20 13:22] LABS: BASOPHILS % 0.3 % (0.0-1.0); EOSINOPHILS % 0.3 % (0.0-6.0); HEMATOCRIT 27.9 % (38.2-49.6); HEMOGLOBIN 9.4 g/dL (14.0-18.0); LYMPHOCYTES # (AUTO) 1.4 (1.0-3.2); LYMPHOCYTES % 10.1 % (18.0-39.1); MEAN CORPUSCULAR HEMOGLOBIN 32.4 pg (28-32); MEAN CORPUSCULAR HGB CONC 33.7 g/dL (31-35); MEAN CORPUSCULAR VOLUME 96.2 fL (81-99); MONOCYTES # (AUTO) 2.1 (0.2-0.8); MONOCYTES % 14.6 % (4.4-11.3); NEUTROPHILS # (AUTO) 10.5 (2.1-6.9); NEUTROPHILS % 74.1 % (38.7-80.0); PLATELET COUNT 230 x10e3/uL (140-360); RED CELL DISTRIBUTION WIDTH 24.4 % (11.7-14.4)
[2020-07-20 13:54] LABS: ANISOCYTOSIS MARKED; LYMPHOCYTES % (MANUAL) 5 % (19-48); MONOCYTES % (MANUAL) 13 % (3.4-9.0); NEUTROPHILS % (MANUAL) 82 % (40-74); PLATELET ESTIMATE ADEQUATE; RBC MORPHOLOGY COMMENT ABNORMAL
[2020-07-20 13:55] LABS: PLATELET MORPHOLOGY COMMENT FEW EDTA CLUMPING; TARGET CELLS MODERATE
[2020-07-20 13:56] LABS: POLYCHROMASIA FEW
[2020-07-20 13:57] LABS: GIANT PLATELETS FEW
[2020-07-20 14:54] LABS: ALBUMIN 1.2 g/dL (3.5-5.0); ALBUMIN/GLOBULIN RATIO 0.4 (0.8-2.0); ANION GAP 17.7 mmol/L (8-16); CALCIUM 7.1 mg/dL (8.4-10.2); POTASSIUM 4.7 mmol/L (3.5-5.1)
[2020-07-20 15:00] LABS: CREATINE KINASE MB 1.1 ng/mL (0-5.0)
[2020-07-20] MEDS ORDERED: CEFEPIME 1GM/NS 0.9% 50 ML 50 ML IV STA (15:50)
[2020-07-20] MEDS ORDERED: VANCOMYCIN 1GM/NS 250 ML 250 ML IV ONE (16:45)
[2020-07-20 20:00] VITALS: BP 131/70
[2020-07-20 21:48] VITALS: BP 121/45
[2020-07-20 22:09] VITALS: BP 121/45
[2020-07-21] VITALS (8 sets, daily range): BP systolic 86–133; BP diastolic 61–73
[2020-07-21 05:52] LABS: BASOPHILS % 0.2 % (0.0-1.0); EOSINOPHILS # (AUTO) 0.1 (0.0-0.4); EOSINOPHILS % 0.3 % (0.0-6.0); HEMATOCRIT 26.6 % (38.2-49.6); LYMPHOCYTES # (AUTO) 2.1 (1.0-3.2); LYMPHOCYTES % 14.4 % (18.0-39.1); MEAN CORPUSCULAR HEMOGLOBIN 32.4 pg (28-32); MEAN CORPUSCULAR HGB CONC 33.8 g/dL (31-35); MEAN CORPUSCULAR VOLUME 95.7 fL (81-99); MONOCYTES # (AUTO) 1.7 (0.2-0.8); MONOCYTES % 11.7 % (4.4-11.3); NEUTROPHILS # (AUTO) 10.5 (2.1-6.9); NEUTROPHILS % 72.8 % (38.7-80.0); PLATELET COUNT 176 x10e3/uL (140-360); RED BLOOD COUNT 2.78 x10e6/uL (4.3-5.7); RED CELL DISTRIBUTION WIDTH 23.6 % (11.7-14.4)
[2020-07-21 06:06] LABS: ALBUMIN 1.2 g/dL (3.5-5.0); ALBUMIN/GLOBULIN RATIO 0.4 (0.8-2.0); ANION GAP 13.6 mmol/L (8-16); CALCIUM 7.4 mg/dL (8.4-10.2); CREATININE, SERUM 4.27 mg/dL (0.72-1.25)
[2020-07-21 06:09] LABS: POTASSIUM 3.6 mmol/L (3.5-5.1)
[2020-07-21] MEDS ORDERED: MIDODRINE HCL5 MG PO (07:40)
[2020-07-21] MEDS ORDERED: BUMETANIDE1 MG PO (07:40)
[2020-07-21] MEDS: BUMETANIDE 1 MG TAB PO SCH (11:22)
[2020-07-21] MEDS: MIDODRINE HCL 5 MG TABLET PO SCH ×2 (11:31→16:17)
[2020-07-21] MEDS: CEFTRIAXONE SOD 1 GM/NS 50 ML 50 ML IV SCH (11:31)
[2020-07-21] MEDS ORDERED: SODIUM CHLORIDE 0.9% 250ML 250 ML ONE (11:39)
[2020-07-21] MEDS ORDERED: DEXTROSE 50% SYRINGE 50 ML IV PRN (15:30)
[2020-07-21 15:34] LABS: FREE THYROXINE INDEX 1.5916 (1.4-3.8); THYROID STIMULATING HORMONE 0.297 uIU/mL (0.350-4.940)
[2020-07-21] MEDS ORDERED: DEXTROSE 5% 1,000 ML IV SCH (16:15)
[2020-07-21] MEDS: INSULIN REGULAR, HUMAN 100 UNIT/1 ML 3ML VIAL SQ SCH ×2 (16:30→21:00)
[2020-07-21] MEDS ORDERED: POTASSIUM CHLORIDE 20 MEQ TAB CR PO ONE (16:45)
[2020-07-21] MEDS ORDERED: SODIUM CHLORIDE 0.9% 1000ML 2,000 ML IV PRN (17:15)
[2020-07-21] MEDS ORDERED: ALBUMIN 25% 12.5GM 0.25 GM/ML BTL IV PRN (17:15)
[2020-07-21] MEDS ORDERED: SODIUM CHLORIDE 0.9% 1000ML 2,000 ML ONE (17:24)
[2020-07-21] MEDS: TAMSULOSIN HCL 0.4 MG CAP PO SCH (21:00)
[2020-07-21] MEDS: ASPIRIN 81 MG CHEW TAB PO SCH (21:00)
[2020-07-21] MEDS ORDERED: ATORVASTATIN 10 MG TAB PO SCH (21:00)
[2020-07-21] MEDS: ATORVASTATIN 40 MG TAB PO SCH (21:00)
[2020-07-21] MEDS: FINASTERIDE 5 MG TAB PO SCH (21:00)
[2020-07-22] VITALS (7 sets, daily range): BP systolic 113–125; BP diastolic 50–75
[2020-07-22 06:52] LABS: BASOPHILS # (AUTO) 0.1 (0.0-0.1); BASOPHILS % 0.4 % (0.0-1.0); EOSINOPHILS # (AUTO) 0.1 (0.0-0.4); EOSINOPHILS % 0.9 % (0.0-6.0); HEMATOCRIT 26.5 % (38.2-49.6); LYMPHOCYTES # (AUTO) 1.7 (1.0-3.2); LYMPHOCYTES % 13.9 % (18.0-39.1); MEAN CORPUSCULAR HEMOGLOBIN 32.3 pg (28-32); MONOCYTES # (AUTO) 1.5 (0.2-0.8); MONOCYTES % 12.5 % (4.4-11.3); NEUTROPHILS # (AUTO) 8.8 (2.1-6.9); NEUTROPHILS % 71.8 % (38.7-80.0); PLATELET COUNT 140 x10e3/uL (140-360); RED BLOOD COUNT 2.79 x10e6/uL (4.3-5.7); RED CELL DISTRIBUTION WIDTH 24.4 % (11.7-14.4)
[2020-07-22 07:13] LABS: ALBUMIN 1.5 g/dL (3.5-5.0); ALBUMIN/GLOBULIN RATIO 0.5 (0.8-2.0); ANION GAP 16.8 mmol/L (8-16); CALCIUM 7.4 mg/dL (8.4-10.2); CREATININE, SERUM 3.43 mg/dL (0.72-1.25); POTASSIUM 3.8 mmol/L (3.5-5.1)
[2020-07-22] MEDS: INSULIN REGULAR, HUMAN 100 UNIT/1 ML 3ML VIAL SQ SCH ×4 (07:30→21:00)
[2020-07-22] MEDS: BUMETANIDE 1 MG TAB PO SCH (10:36)
[2020-07-22] MEDS: MIDODRINE HCL 5 MG TABLET PO SCH ×3 (10:36→16:35)
[2020-07-22] MEDS: NIACIN 500 MG TABSR PO SCH (10:36)
[2020-07-22 11:37] LABS: ANISOCYTOSIS MODERATE; RBC MORPHOLOGY COMMENT ABNORMAL; TARGET CELLS FEW
[2020-07-22 11:38] LABS: PLATELET ESTIMATE SLIGHTLY DECREASED; PLATELET MORPHOLOGY COMMENT NORMAL
[2020-07-22] MEDS: CEFTRIAXONE SOD 1 GM/NS 50 ML 50 ML IV SCH (12:15)
[2020-07-22] MEDS ORDERED: SODIUM CHLORIDE 0.9% 1000ML 2,000 ML ONE (15:49)
[2020-07-22] MEDS: ATORVASTATIN 40 MG TAB PO SCH (21:00)
[2020-07-22] MEDS: ASPIRIN 81 MG CHEW TAB PO SCH (21:00)
[2020-07-22] MEDS: TAMSULOSIN HCL 0.4 MG CAP PO SCH (21:00)
[2020-07-22] MEDS: FINASTERIDE 5 MG TAB PO SCH (21:00)
[2020-07-23] VITALS (9 sets, daily range): BP systolic 111–139; BP diastolic 32–67
[2020-07-23 06:46] LABS: BASOPHILS % 0.3 % (0.0-1.0); EOSINOPHILS # (AUTO) 0.2 (0.0-0.4); EOSINOPHILS % 1.2 % (0.0-6.0); HEMATOCRIT 30.3 % (38.2-49.6); LYMPHOCYTES % 15.6 % (18.0-39.1); MEAN CORPUSCULAR HEMOGLOBIN 32.7 pg (28-32); MONOCYTES # (AUTO) 1.4 (0.2-0.8); MONOCYTES % 11.3 % (4.4-11.3); NEUTROPHILS # (AUTO) 8.9 (2.1-6.9); PLATELET COUNT 118 x10e3/uL (140-360); RED BLOOD COUNT 3.06 x10e6/uL (4.3-5.7); RED CELL DISTRIBUTION WIDTH 25.1 % (11.7-14.4)
[2020-07-23 07:14] LABS: ANION GAP 12.8 mmol/L (8-16); CALCIUM 7.8 mg/dL (8.4-10.2); CREATININE, SERUM 2.72 mg/dL (0.72-1.25); POTASSIUM 3.8 mmol/L (3.5-5.1)
[2020-07-23] MEDS: INSULIN REGULAR, HUMAN 100 UNIT/1 ML 3ML VIAL SQ SCH ×4 (07:30→21:00)
[2020-07-23] MEDS: BUMETANIDE 1 MG TAB PO SCH (08:51)
[2020-07-23] MEDS: NIACIN 500 MG TABSR PO SCH (08:51)
[2020-07-23] MEDS: MIDODRINE HCL 5 MG TABLET PO SCH ×3 (08:51→17:17)
[2020-07-23] MEDS: CEFTRIAXONE SOD 1 GM/NS 50 ML 50 ML IV SCH (12:00)
[2020-07-23] MEDS: FINASTERIDE 5 MG TAB PO SCH (21:51)
[2020-07-23] MEDS: ATORVASTATIN 40 MG TAB PO SCH (21:51)
[2020-07-23] MEDS: TAMSULOSIN HCL 0.4 MG CAP PO SCH (21:51)
[2020-07-23] MEDS: ASPIRIN 81 MG CHEW TAB PO SCH (21:52)
[2020-07-24] VITALS (8 sets, daily range): BP systolic 97–155; BP diastolic 59–81
[2020-07-24 06:24] LABS: BASOPHILS % 0.3 % (0.0-1.0); EOSINOPHILS # (AUTO) 0.1 (0.0-0.4); EOSINOPHILS % 1.2 % (0.0-6.0); HEMATOCRIT 26.4 % (38.2-49.6); HEMOGLOBIN 8.8 g/dL (14.0-18.0); LYMPHOCYTES # (AUTO) 2.4 (1.0-3.2); LYMPHOCYTES % 20.1 % (18.0-39.1); MEAN CORPUSCULAR HEMOGLOBIN 32.2 pg (28-32); MEAN CORPUSCULAR HGB CONC 33.3 g/dL (31-35); MEAN CORPUSCULAR VOLUME 96.7 fL (81-99); MONOCYTES # (AUTO) 1.7 (0.2-0.8); MONOCYTES % 14.3 % (4.4-11.3); NEUTROPHILS # (AUTO) 7.5 (2.1-6.9); NEUTROPHILS % 63.6 % (38.7-80.0); PLATELET COUNT 119 x10e3/uL (140-360); RED BLOOD COUNT 2.73 x10e6/uL (4.3-5.7); RED CELL DISTRIBUTION WIDTH 24.8 % (11.7-14.4)
[2020-07-24 06:29] LABS: INR 1.42; PROTHROMBIN TIME 18.3 seconds (11.9-14.5)
[2020-07-24 06:47] LABS: ANION GAP 14.8 mmol/L (8-16); CALCIUM 7.4 mg/dL (8.4-10.2); CREATININE, SERUM 3.41 mg/dL (0.72-1.25); POTASSIUM 3.8 mmol/L (3.5-5.1)
[2020-07-24] MEDS: INSULIN REGULAR, HUMAN 100 UNIT/1 ML 3ML VIAL SQ SCH ×4 (07:30→21:00)
[2020-07-24] MEDS: MIDODRINE HCL 5 MG TABLET PO SCH ×3 (10:11→16:20)
[2020-07-24] MEDS: NIACIN 500 MG TABSR PO SCH (10:12)
[2020-07-24] MEDS: BUMETANIDE 1 MG TAB PO SCH (10:12)
[2020-07-24] MEDS: CEFTRIAXONE SOD 1 GM/NS 50 ML 50 ML IV SCH (14:00)
[2020-07-24 14:55] LABS: BODY FLUID APPEARANCE CLOUDY; BODY FLUID COLOR YELLOW; BODY FLUID TYPE PLEURAL
[2020-07-24 14:58] LABS: RBC,BODY FLUID 183 cells/uL; WBC,BODY FLUID 202 cells/uL
[2020-07-24 15:44] LABS: BASOPHILS,BODY FLUID 1 %; LYMPHOCYTES,BODY FLUID 6 %; MONO/MACROPHG,BODY FLUID 18 %; NEUTROPHILS,BODY FLUID 58 %; OTHER CELLS,BODY FLUID 17 %
[2020-07-24] MEDS: ACETAMINOPHEN 325 MG TAB PO PRN (19:16)
[2020-07-24] MEDS: ATORVASTATIN 40 MG TAB PO SCH (21:00)
[2020-07-24] MEDS: TAMSULOSIN HCL 0.4 MG CAP PO SCH (21:00)
[2020-07-24] MEDS: ASPIRIN 81 MG CHEW TAB PO SCH (21:00)
[2020-07-24] MEDS: FINASTERIDE 5 MG TAB PO SCH (21:00)
[2020-07-25] VITALS (8 sets, daily range): BP systolic 111–140; BP diastolic 38–75
[2020-07-25 05:35] LABS: BASOPHILS % 0.3 % (0.0-1.0); EOSINOPHILS # (AUTO) 0.2 (0.0-0.4); EOSINOPHILS % 1.5 % (0.0-6.0); HEMATOCRIT 24.8 % (38.2-49.6); HEMOGLOBIN 8.4 g/dL (14.0-18.0); LYMPHOCYTES # (AUTO) 2.2 (1.0-3.2); LYMPHOCYTES % 15.8 % (18.0-39.1); MEAN CORPUSCULAR HEMOGLOBIN 32.4 pg (28-32); MEAN CORPUSCULAR HGB CONC 33.9 g/dL (31-35); MEAN CORPUSCULAR VOLUME 95.8 fL (81-99); MONOCYTES # (AUTO) 1.5 (0.2-0.8); MONOCYTES % 10.9 % (4.4-11.3); NEUTROPHILS # (AUTO) 9.8 (2.1-6.9); NEUTROPHILS % 71.1 % (38.7-80.0); PLATELET COUNT 112 x10e3/uL (140-360); RED BLOOD COUNT 2.59 x10e6/uL (4.3-5.7); RED CELL DISTRIBUTION WIDTH 24.5 % (11.7-14.4)
[2020-07-25 06:00] LABS: ANION GAP 15.7 mmol/L (8-16); CALCIUM 7.4 mg/dL (8.4-10.2); CREATININE, SERUM 4.03 mg/dL (0.72-1.25); POTASSIUM 3.7 mmol/L (3.5-5.1)
[2020-07-25] MEDS: INSULIN REGULAR, HUMAN 100 UNIT/1 ML 3ML VIAL SQ SCH ×4 (07:30→20:24)
[2020-07-25] MEDS: MIDODRINE HCL 5 MG TABLET PO SCH ×3 (09:05→16:00)
[2020-07-25] MEDS: BUMETANIDE 1 MG TAB PO SCH (09:05)
[2020-07-25] MEDS: NIACIN 500 MG TABSR PO SCH (09:05)
[2020-07-25] MEDS: CEFTRIAXONE SOD 1 GM/NS 50 ML 50 ML IV SCH (12:37)
[2020-07-25] MEDS: FINASTERIDE 5 MG TAB PO SCH (20:25)
[2020-07-25] MEDS: ASPIRIN 81 MG CHEW TAB PO SCH (20:25)
[2020-07-25] MEDS: TAMSULOSIN HCL 0.4 MG CAP PO SCH (20:25)
[2020-07-25] MEDS: ATORVASTATIN 40 MG TAB PO SCH (20:25)
[2020-07-26] VITALS (8 sets, daily range): BP systolic 100–131; BP diastolic 52–74
[2020-07-26 06:27] LABS: BASOPHILS # (AUTO) 0.1 (0.0-0.1); BASOPHILS % 0.5 % (0.0-1.0); EOSINOPHILS # (AUTO) 0.2 (0.0-0.4); EOSINOPHILS % 1.2 % (0.0-6.0); HEMATOCRIT 23.6 % (38.2-49.6); HEMOGLOBIN 8.1 g/dL (14.0-18.0); LYMPHOCYTES # (AUTO) 1.7 (1.0-3.2); LYMPHOCYTES % 13.2 % (18.0-39.1); MEAN CORPUSCULAR HEMOGLOBIN 32.7 pg (28-32); MEAN CORPUSCULAR HGB CONC 34.3 g/dL (31-35); MEAN CORPUSCULAR VOLUME 95.2 fL (81-99); MONOCYTES # (AUTO) 1.7 (0.2-0.8); MONOCYTES % 13.3 % (4.4-11.3); NEUTROPHILS # (AUTO) 9.2 (2.1-6.9); NEUTROPHILS % 71.3 % (38.7-80.0); PLATELET COUNT 121 x10e3/uL (140-360); RED BLOOD COUNT 2.48 x10e6/uL (4.3-5.7); RED CELL DISTRIBUTION WIDTH 24.9 % (11.7-14.4)
[2020-07-26 06:55] LABS: ANION GAP 13.5 mmol/L (8-16); CALCIUM 7.4 mg/dL (8.4-10.2); CREATININE, SERUM 3.01 mg/dL (0.72-1.25); POTASSIUM 3.5 mmol/L (3.5-5.1)
[2020-07-26] MEDS: INSULIN REGULAR, HUMAN 100 UNIT/1 ML 3ML VIAL SQ SCH ×4 (07:30→21:00)
[2020-07-26] MEDS: MIDODRINE HCL 5 MG TABLET PO SCH ×3 (09:06→17:21)
[2020-07-26] MEDS: NIACIN 500 MG TABSR PO SCH (09:06)
[2020-07-26] MEDS: BUMETANIDE 1 MG TAB PO SCH (09:06)
[2020-07-26] MEDS ORDERED: LIDOCAINE HCL 1% LOCAL INJ 20 ML VIAL ONE (13:13)
[2020-07-26] MEDS: CEFTRIAXONE SOD 1 GM/NS 50 ML 50 ML IV SCH (13:32)
[2020-07-26] MEDS: ASPIRIN 81 MG CHEW TAB PO SCH (21:00)
[2020-07-26] MEDS: TAMSULOSIN HCL 0.4 MG CAP PO SCH (21:00)
[2020-07-26] MEDS: ATORVASTATIN 40 MG TAB PO SCH (21:00)
[2020-07-26] MEDS: FINASTERIDE 5 MG TAB PO SCH (21:00)
[2020-07-27 05:55] LABS: BASOPHILS % 0.3 % (0.0-1.0); EOSINOPHILS # (AUTO) 0.3 (0.0-0.4); HEMATOCRIT 24.2 % (38.2-49.6); HEMOGLOBIN 8.2 g/dL (14.0-18.0); LYMPHOCYTES # (AUTO) 2.3 (1.0-3.2); MEAN CORPUSCULAR HEMOGLOBIN 32.8 pg (28-32); MEAN CORPUSCULAR HGB CONC 33.9 g/dL (31-35); MEAN CORPUSCULAR VOLUME 96.8 fL (81-99); MONOCYTES # (AUTO) 1.8 (0.2-0.8); NEUTROPHILS # (AUTO) 8.3 (2.1-6.9); NEUTROPHILS % 65.2 % (38.7-80.0); PLATELET COUNT 125 x10e3/uL (140-360); RED CELL DISTRIBUTION WIDTH 24.4 % (11.7-14.4)
[2020-07-27 06:41] LABS: CALCIUM 7.1 mg/dL (8.4-10.2); CREATININE, SERUM 3.64 mg/dL (0.72-1.25)
[2020-07-27] MEDS: INSULIN REGULAR, HUMAN 100 UNIT/1 ML 3ML VIAL SQ SCH ×4 (07:30→21:00)
[2020-07-27 08:30] VITALS: BP 134/73
[2020-07-27 08:59] VITALS: BP 134/73
[2020-07-27] MEDS: BUMETANIDE 1 MG TAB PO SCH (09:12)
[2020-07-27] MEDS: NIACIN 500 MG TABSR PO SCH (09:12)
[2020-07-27] MEDS: MIDODRINE HCL 5 MG TABLET PO SCH ×3 (09:12→15:20)
[2020-07-27 12:06] VITALS: BP 98/56
[2020-07-27] MEDS: CEFTRIAXONE SOD 1 GM/NS 50 ML 50 ML IV SCH (15:20)
[2020-07-27 17:01] VITALS: BP 120/60
[2020-07-27 20:04] VITALS: BP 120/60
[2020-07-27 20:15] VITALS: BP 133/66
[2020-07-27] MEDS: ATORVASTATIN 40 MG TAB PO SCH (20:39)
[2020-07-27] MEDS: TAMSULOSIN HCL 0.4 MG CAP PO SCH (20:39)
[2020-07-27] MEDS: FINASTERIDE 5 MG TAB PO SCH (20:39)
[2020-07-28] VITALS (8 sets, daily range): BP systolic 119–126; BP diastolic 50–98
[2020-07-28 06:12] LABS: BASOPHILS # (AUTO) 0.1 (0.0-0.1); BASOPHILS % 0.5 % (0.0-1.0); EOSINOPHILS # (AUTO) 0.4 (0.0-0.4); EOSINOPHILS % 3.2 % (0.0-6.0); HEMATOCRIT 23.6 % (38.2-49.6); HEMOGLOBIN 7.9 g/dL (14.0-18.0); LYMPHOCYTES # (AUTO) 1.7 (1.0-3.2); LYMPHOCYTES % 15.5 % (18.0-39.1); MEAN CORPUSCULAR HEMOGLOBIN 32.2 pg (28-32); MEAN CORPUSCULAR HGB CONC 33.5 g/dL (31-35); MEAN CORPUSCULAR VOLUME 96.3 fL (81-99); MONOCYTES # (AUTO) 1.7 (0.2-0.8); MONOCYTES % 15.3 % (4.4-11.3); NEUTROPHILS # (AUTO) 7.2 (2.1-6.9); PLATELET COUNT 114 x10e3/uL (140-360); RED BLOOD COUNT 2.45 x10e6/uL (4.3-5.7); RED CELL DISTRIBUTION WIDTH 24.9 % (11.7-14.4)
[2020-07-28 06:48] LABS: ANION GAP 12.4 mmol/L (8-16); CALCIUM 7.2 mg/dL (8.4-10.2); CREATININE, SERUM 3.08 mg/dL (0.72-1.25); POTASSIUM 3.4 mmol/L (3.5-5.1)
[2020-07-28] MEDS: INSULIN REGULAR, HUMAN 100 UNIT/1 ML 3ML VIAL SQ SCH ×4 (07:30→21:00)
[2020-07-28] MEDS: BUMETANIDE 1 MG TAB PO SCH (09:00)
[2020-07-28] MEDS: ASPIRIN 81 MG ENTERIC COATED PO SCH (09:00)
[2020-07-28] MEDS: NIACIN 500 MG TABSR PO SCH (09:00)
[2020-07-28] MEDS: MIDODRINE HCL 5 MG TABLET PO SCH ×3 (09:00→16:58)
[2020-07-28] MEDS: METOPROLOL TARTRATE 25 MG TAB PO SCH ×2 (09:45→16:59)
[2020-07-28] MEDS: CEFTRIAXONE SOD 1 GM/NS 50 ML 50 ML IV SCH (12:00)
[2020-07-28] MEDS: TAMSULOSIN HCL 0.4 MG CAP PO SCH (21:13)
[2020-07-28] MEDS: FINASTERIDE 5 MG TAB PO SCH (21:14)
[2020-07-28] MEDS: ATORVASTATIN 40 MG TAB PO SCH (21:14)
[2020-07-29] VITALS (7 sets, daily range): BP systolic 103–132; BP diastolic 54–72
[2020-07-29] MEDS: TEMAZEPAM 7.5 MG CAP PO PRN ×2 (04:28→23:54)
[2020-07-29 06:32] LABS: BASOPHILS # (AUTO) 0.1 (0.0-0.1); BASOPHILS % 0.6 % (0.0-1.0); EOSINOPHILS # (AUTO) 0.2 (0.0-0.4); EOSINOPHILS % 2.2 % (0.0-6.0); HEMOGLOBIN 8.6 g/dL (14.0-18.0); LYMPHOCYTES # (AUTO) 2.4 (1.0-3.2); LYMPHOCYTES % 21.6 % (18.0-39.1); MEAN CORPUSCULAR HEMOGLOBIN 33.1 pg (28-32); MEAN CORPUSCULAR HGB CONC 34.4 g/dL (31-35); MEAN CORPUSCULAR VOLUME 96.2 fL (81-99); MONOCYTES # (AUTO) 1.9 (0.2-0.8); MONOCYTES % 17.1 % (4.4-11.3); NEUTROPHILS # (AUTO) 6.3 (2.1-6.9); NEUTROPHILS % 57.8 % (38.7-80.0); PLATELET COUNT 117 x10e3/uL (140-360); RED CELL DISTRIBUTION WIDTH 24.3 % (11.7-14.4)
[2020-07-29 07:17] LABS: ANION GAP 15.5 mmol/L (8-16); CALCIUM 7.4 mg/dL (8.4-10.2); CREATININE, SERUM 3.56 mg/dL (0.72-1.25); POTASSIUM 3.5 mmol/L (3.5-5.1)
[2020-07-29] MEDS: INSULIN REGULAR, HUMAN 100 UNIT/1 ML 3ML VIAL SQ SCH ×4 (07:30→21:00)
[2020-07-29] MEDS ORDERED: SODIUM CHLORIDE 0.9% 1000ML 2,000 ML ONE (07:42)
[2020-07-29] MEDS: MIDODRINE HCL 5 MG TABLET PO SCH ×3 (08:37→17:27)
[2020-07-29] MEDS: METOPROLOL TARTRATE 25 MG TAB PO SCH ×2 (09:00→17:28)
[2020-07-29] MEDS: BUMETANIDE 1 MG TAB PO SCH (09:00)
[2020-07-29] MEDS: ONDANSETRON HCL INJ 2MG/ML 2ML 2 MG/ML VIAL IV PRN (09:12)
[2020-07-29] MEDS ORDERED: MANNITOL 25% 12.5GM/50 ML VIAL IV PRN (09:45)
[2020-07-29] MEDS: CEFTRIAXONE SOD 1 GM/NS 50 ML 50 ML IV SCH (13:40)
[2020-07-29] MEDS: NIACIN 500 MG TABSR PO SCH (13:40)
[2020-07-29] MEDS: EPOETIN ALFA-EPBX 10,000 UNIT/ML VIAL SC SCH (13:40)
[2020-07-29] MEDS: ASPIRIN 81 MG ENTERIC COATED PO SCH (13:40)
[2020-07-29] MEDS: FINASTERIDE 5 MG TAB PO SCH (22:26)
[2020-07-29] MEDS: ATORVASTATIN 40 MG TAB PO SCH (22:26)
[2020-07-29] MEDS: TAMSULOSIN HCL 0.4 MG CAP PO SCH (22:26)
[2020-07-30] VITALS (8 sets, daily range): BP systolic 109–144; BP diastolic 41–82
[2020-07-30] MEDS: INSULIN REGULAR, HUMAN 100 UNIT/1 ML 3ML VIAL SQ SCH ×4 (07:30→21:00)
[2020-07-30] MEDS: METOPROLOL TARTRATE 25 MG TAB PO SCH ×2 (08:29→16:21)
[2020-07-30] MEDS: ASPIRIN 81 MG ENTERIC COATED PO SCH (09:14)
[2020-07-30] MEDS: BUMETANIDE 1 MG TAB PO SCH (09:14)
[2020-07-30] MEDS: NIACIN 500 MG TABSR PO SCH (09:14)
[2020-07-30] MEDS: MIDODRINE HCL 5 MG TABLET PO SCH ×3 (09:14→16:00)
[2020-07-30] MEDS: CEFTRIAXONE SOD 1 GM/NS 50 ML 50 ML IV SCH (12:29)
[2020-07-30] MEDS: TAMSULOSIN HCL 0.4 MG CAP PO SCH (21:21)
[2020-07-30] MEDS: ATORVASTATIN 40 MG TAB PO SCH (21:21)
[2020-07-30] MEDS: FINASTERIDE 5 MG TAB PO SCH (21:21)
[2020-07-30] MEDS: TEMAZEPAM 7.5 MG CAP PO PRN (21:44)
[2020-07-30] MEDS: ONDANSETRON HCL INJ 2MG/ML 2ML 2 MG/ML VIAL IV PRN (22:43)
[2020-07-31] VITALS (8 sets, daily range): BP systolic 108–137; BP diastolic 46–83
[2020-07-31] MEDS: INSULIN REGULAR, HUMAN 100 UNIT/1 ML 3ML VIAL SQ SCH ×4 (07:30→21:00)
[2020-07-31] MEDS: ASPIRIN 81 MG ENTERIC COATED PO SCH (09:02)
[2020-07-31] MEDS: BUMETANIDE 1 MG TAB PO SCH (09:02)
[2020-07-31] MEDS: MIDODRINE HCL 5 MG TABLET PO SCH ×3 (09:02→17:00)
[2020-07-31] MEDS: METOPROLOL TARTRATE 25 MG TAB PO SCH ×2 (09:03→18:09)
[2020-07-31] MEDS: NIACIN 500 MG TABSR PO SCH (09:03)
[2020-07-31] MEDS: FINASTERIDE 5 MG TAB PO SCH (21:34)
[2020-07-31] MEDS: TAMSULOSIN HCL 0.4 MG CAP PO SCH (21:34)
[2020-07-31] MEDS: ATORVASTATIN 40 MG TAB PO SCH (21:34)
[2020-07-31] MEDS: TEMAZEPAM 7.5 MG CAP PO PRN (23:44)
[2020-08-01 04:00] VITALS: BP 117/67
[2020-08-01] MEDS: ACETAMINOPHEN 325 MG TAB PO PRN (06:36)
[2020-08-01] MEDS: INSULIN REGULAR, HUMAN 100 UNIT/1 ML 3ML VIAL SQ SCH ×4 (07:30→21:00)
[2020-08-01] MEDS: MIDODRINE HCL 5 MG TABLET PO SCH ×3 (08:30→16:06)
[2020-08-01] MEDS: METOPROLOL TARTRATE 25 MG TAB PO SCH ×2 (09:00→17:00)
[2020-08-01] MEDS: ONDANSETRON HCL INJ 2MG/ML 2ML 2 MG/ML VIAL IV PRN (09:10)
[2020-08-01] MEDS ORDERED: MANNITOL 25% 12.5GM/50 ML VIAL IV PRN (10:30)
[2020-08-01] MEDS ORDERED: SODIUM CHLORIDE 0.9% 1000ML 2,000 ML IV PRN (10:30)
[2020-08-01] MEDS ORDERED: ALBUMIN 25% 12.5GM 0.25 GM/ML BTL IV PRN (10:30)
[2020-08-01] MEDS ORDERED: SODIUM CHLORIDE 0.9% 250ML 500 ML IV PRN (10:30)
[2020-08-01] MEDS ORDERED: HEPARIN SOD (PORCINE) 1000 UNIT/ML SDV IV ONE (11:00)
[2020-08-01 12:00] VITALS: BP 84/42
[2020-08-01 15:30] VITALS: BP 97/47
[2020-08-01] MEDS: BUMETANIDE 1 MG TAB PO SCH (16:06)
[2020-08-01] MEDS: EPOETIN ALFA-EPBX 10,000 UNIT/ML VIAL SC SCH (16:06)
[2020-08-01] MEDS: ASPIRIN 81 MG ENTERIC COATED PO SCH (16:06)
[2020-08-01] MEDS: NIACIN 500 MG TABSR PO SCH (16:06)
[2020-08-01 20:00] VITALS: BP 129/53
[2020-08-01 20:18] VITALS: BP 98/75
[2020-08-01] MEDS: ATORVASTATIN 40 MG TAB PO SCH (21:42)
[2020-08-01] MEDS: TAMSULOSIN HCL 0.4 MG CAP PO SCH (21:42)
[2020-08-01] MEDS: FINASTERIDE 5 MG TAB PO SCH (21:42)
[2020-08-01] MEDS: TEMAZEPAM 7.5 MG CAP PO PRN (23:50)
[2020-08-02] VITALS (9 sets, daily range): BP systolic 115–140; BP diastolic 20–76
[2020-08-02] MEDS: INSULIN REGULAR, HUMAN 100 UNIT/1 ML 3ML VIAL SQ SCH ×4 (07:30→21:00)
[2020-08-02] MEDS: MIDODRINE HCL 5 MG TABLET PO SCH ×3 (09:03→17:01)
[2020-08-02] MEDS: ASPIRIN 81 MG ENTERIC COATED PO SCH (09:03)
[2020-08-02] MEDS: BUMETANIDE 1 MG TAB PO SCH (09:03)
[2020-08-02] MEDS: NIACIN 500 MG TABSR PO SCH (09:03)
[2020-08-02] MEDS: METOPROLOL TARTRATE 25 MG TAB PO SCH ×2 (09:05→17:03)
[2020-08-02] MEDS: BALSAM PERU/CASTOR OIL 60 GM OINT...G. TP SCH ×2 (09:05→09:09)
[2020-08-02] MEDS: FINASTERIDE 5 MG TAB PO SCH (21:00)
[2020-08-02] MEDS: ATORVASTATIN 40 MG TAB PO SCH (21:00)
[2020-08-02] MEDS: TAMSULOSIN HCL 0.4 MG CAP PO SCH (21:00)
[2020-08-02] MEDS: TEMAZEPAM 7.5 MG CAP PO PRN (21:01)
[2020-08-03 05:47] VITALS: BP 122/57
[2020-08-03 07:41] VITALS: BP 142/62
[2020-08-03 08:00] VITALS: BP 142/62
[2020-08-03] MEDS: MIDODRINE HCL 5 MG TABLET PO SCH ×3 (08:17→15:42)
[2020-08-03] MEDS: BUMETANIDE 1 MG TAB PO SCH (08:17)
[2020-08-03] MEDS: NIACIN 500 MG TABSR PO SCH (08:17)
[2020-08-03] MEDS: ASPIRIN 81 MG ENTERIC COATED PO SCH (08:17)
[2020-08-03] MEDS: BALSAM PERU/CASTOR OIL 60 GM OINT...G. TP SCH (08:17)
[2020-08-03] MEDS: METOPROLOL TARTRATE 25 MG TAB PO SCH (08:18)
[2020-08-03] MEDS: INSULIN REGULAR, HUMAN 100 UNIT/1 ML 3ML VIAL SQ SCH ×2 (08:18→11:17)
[2020-08-03 09:46] LABS: BASOPHILS # (AUTO) 0.1 (0.0-0.1); BASOPHILS % 0.5 % (0.0-1.0); EOSINOPHILS # (AUTO) 0.3 (0.0-0.4); EOSINOPHILS % 2.4 % (0.0-6.0); HEMATOCRIT 22.8 % (38.2-49.6); HEMOGLOBIN 7.5 g/dL (14.0-18.0); LYMPHOCYTES # (AUTO) 1.9 (1.0-3.2); MEAN CORPUSCULAR HEMOGLOBIN 32.5 pg (28-32); MEAN CORPUSCULAR HGB CONC 32.9 g/dL (31-35); MEAN CORPUSCULAR VOLUME 98.7 fL (81-99); MONOCYTES # (AUTO) 1.3 (0.2-0.8); MONOCYTES % 11.1 % (4.4-11.3); NEUTROPHILS # (AUTO) 7.8 (2.1-6.9); NEUTROPHILS % 68.4 % (38.7-80.0); PLATELET COUNT 146 x10e3/uL (140-360); RED BLOOD COUNT 2.31 x10e6/uL (4.3-5.7); RED CELL DISTRIBUTION WIDTH 23.9 % (11.7-14.4)
[2020-08-03 10:05] LABS: ANION GAP 14.8 mmol/L (8-16); CALCIUM 7.2 mg/dL (8.4-10.2); CREATININE, SERUM 3.58 mg/dL (0.72-1.25); POTASSIUM 3.8 mmol/L (3.5-5.1)
[2020-08-03] MEDS: ACETAMINOPHEN 325 MG TAB PO PRN (10:25)
[2020-08-03 11:21] VITALS: BP 92/40
[2020-08-03] MEDS ORDERED: ONDANSETRON HCL 4 MG ORAL DISINTEGRATING TAB PO PRN (14:00)
[2020-08-03 15:30] VITALS: BP 99/54
[2020-08-03] MEDS: EPOETIN ALFA-EPBX 10,000 UNIT/ML VIAL SC SCH (15:42)
== END 2020-08-03 16:07 | DRG 291 ==
LOC: ER 13:29 → ERHOLD 15:50 → MED/SURG3 18:28
PROVIDERS: ADMIT Internal Medicine; ATTEND Internal Medicine
PROC: 5A1D70Z Performance of Urinary Filtration, Intermittent, Less than 6 Hours Per Day (ICD-10-PCS; 2020-07-21)
PROC: 0W9B3ZZ Drainage of Left Pleural Cavity, Percutaneous Approach (ICD-10-PCS; principal; 2020-07-24)
PROC: 0JH63XZ Insertion of Tunneled Vascular Access Device into Chest Subcutaneous Tissue and Fascia, Percutaneous Approach (ICD-10-PCS; 2020-07-26)
PROC: 02HV33Z Insertion of Infusion Device into Superior Vena Cava, Percutaneous Approach (ICD-10-PCS; 2020-07-26)
DX: I13.2 Hypertensive heart and chronic kidney disease with heart failure and with stage 5 chronic kidney disease, or end stage renal disease (principal); I50.43 Acute on chronic combined systolic (congestive) and diastolic (congestive) heart failure; N18.6 End stage renal disease; J96.01 Acute respiratory failure with hypoxia; J90 Pleural effusion, not elsewhere classified; E87.1 Hypo-osmolality and hyponatremia; I47.2 Ventricular tachycardia; C48.0 Malignant neoplasm of retroperitoneum; E11.22 Type 2 diabetes mellitus with diabetic chronic kidney disease; I25.10 Atherosclerotic heart disease of native coronary artery without angina pectoris; Z95.5 Presence of coronary angioplasty implant and graft; E78.00 Pure hypercholesterolemia, unspecified; Z99.2 Dependence on renal dialysis; D69.6 Thrombocytopenia, unspecified; N40.0 Benign prostatic hyperplasia without lower urinary tract symptoms; E11.21 Type 2 diabetes mellitus with diabetic nephropathy; Z79.899 Other long term (current) drug therapy; I25.5 Ischemic cardiomyopathy; E05.90 Thyrotoxicosis, unspecified without thyrotoxic crisis or storm; D63.1 Anemia in chronic kidney disease; Z20.822 Contact with and (suspected) exposure to COVID-19
CPT/HCPCS: 32555; 36415; 36589; 70450; 71045; 74470; 76705; 80048; 80053; 82550; 82553; 82948; 83036; 83605; 83615; 84100; 84134; 84436; 84443; 84479; 84484; 85025; 85610; 85730; 86704; 86706; 87040; 87070; 87205; 87340; 87350; 88112; 88305; 88342; 89051; 90962; 93005; 93306; 93970; 96361; 97139; 99251; 99284; J0692; J0696; J1644; J1817; J2001; J2150; J2405; J3370; J7030; J7050; J7070; U0002

== ENCOUNTER 2020-09-05 14:17 | Emergency (ER) | payer OTHER ==
[~2020-09-05] VITALS: Ht 162.6 cm; Wt 74.8 kg
[~2020-09-05 14:17] MED LIST changes: +BUMETANIDE1 MG PO; +MIDODRINE HCL5 MG PO
[2020-09-05] MEDS ORDERED: ASPIRIN 81 MG CHEW TAB PO ONE (14:30)
== END 2020-09-05 20:15 | disposition home or self-care (01) ==
LOC: ER 14:23
DX: T82.838A Hemorrhage due to vascular prosthetic devices, implants and grafts, initial encounter (principal); I12.0 Hypertensive chronic kidney disease with stage 5 chronic kidney disease or end stage renal disease; E11.22 Type 2 diabetes mellitus with diabetic chronic kidney disease; N18.6 End stage renal disease; N17.9 Acute kidney failure, unspecified; Z99.2 Dependence on renal dialysis; E78.5 Hyperlipidemia, unspecified; Z95.5 Presence of coronary angioplasty implant and graft; R94.31 Abnormal electrocardiogram [ECG] [EKG]
CPT/HCPCS: 71045; 93005; 99284